=== PATIENT | female | born 1945 | race Caucasian/White ===

== ENCOUNTER → 2017-09-22 11:12 | Outpatient (CLI) | payer MEDICARE, OTHER, SELFPAY ==
--- NOTE | 2017-09-22 11:20 | XR_ITS ---
XR shoulder RT min 2V HISTORY: ITS.REASON: RT SHOULDER PAIN ORDERING PHYSICIAN: Fransisco Devries MD PATIENT AGE: 72 years COMPARISON: None FINDINGS: There are mild osteoarthritic changes of the glenohumeral joint. Subcortical cystic changes involving humeral head. There are are osteoarthritic changes of the acromioclavicular joint as well. Hypertrophic changes are present along the anterior aspect of the acromion. No subacromial stenosis. No fracture or dislocation. No lytic or blastic change. 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 Subcortical cystic change of the humeral head which may be seen with rotator cuff disease.
== END ==
PROVIDERS: PCP Family Medicine; Visit Provider Family Medicine
DX: M25.511 Pain in right shoulder (principal)
CPT/HCPCS: 73030

== ENCOUNTER → 2017-09-26 09:50 | Outpatient (CLI) | payer MEDICARE, SELFPAY ==
--- NOTE | 2017-09-26 09:54 | MM_ITS ---
MM Dig screening mamm BI w/CAD CAD Screening COMPARISON: None, patient had mammograms more than 10 years ago and they're not available for review INDICATION: There is no personal or family history of breast cancer. There is been previous breast reduction surgery bilaterally 20 years ago TECHNIQUE: Standard CC and MLO images were obtained. R2 CAD reviewed. FINDINGS: There is a markedly and diffusely heterogenic dense parenchymal pattern definitely lessening the sensitivity of mammography. There is a surgical clip near the axillary tail the right breast. There are benign-appearing calcifications in each breast. There is no obvious suspicious lesion in either breast and no suspicious microcalcifications. Because of the markedly heterogenic breast parenchyma and lack of previous films for comparison recommend the patient return for 6 month follow-up mammograms. IMPRESSION: Markedly dense parenchymal pattern with no definite suspicious lesion seen BI-RADS Category: 3 Benign Finding Short Term Follow-up RECOMMENDED FOLLOW-UP: 6M - 6 MONTH FOLLOW-UP (A letter has been sent to the patient regarding results of the study.)
== END ==
PROVIDERS: Family Provider Family Medicine; PCP Family Medicine; Visit Provider Family Medicine
DX: Z12.31 Encounter for screening mammogram for malignant neoplasm of breast (principal)
CPT/HCPCS: 77067

== ENCOUNTER → 2017-10-13 10:26 | Outpatient (POV) | payer MEDICARE, OTHER, SELFPAY | PROVIDERS: Family Provider Family Medicine; PCP Family Medicine; Visit Provider Specialist | DX: M79.601 Pain in right arm (principal) | CPT/HCPCS: 95886; 95908 ==

== ENCOUNTER → 2018-03-31 12:38 | Outpatient (CLI) | payer MEDICARE, OTHER, SELFPAY ==
--- NOTE | 2018-03-31 12:46 | MM_ITS ---
MM Dig mamm BI DX w/CAD, US breast RT complete, US breast LT complete INDICATION: Six-month follow-up, Follow-up of probably benign screening exam ORDERING PHYSICIAN: Fransisco Devries MD PATIENT AGE: 72 years COMPARISON: 09/26/2017 TECHNIQUE: Diagnostic mammogram with bilateral breast ultrasound FINDINGS: There is dense fibroglandular tissue bilaterally which decreases the sensitivity of mammography. Any palpable nodule should be managed on clinical basis. Right breast: Scattered asymmetric densities throughout the right breast. Asymmetric densities in the central and medial aspect of the right breast appear to compress out as fibroglandular tissue. No malignant appearing mass or malignant microcalcification. Right breast ultrasound: Hypoechoic area is present 10:00 at 10 x 6 mm only well seen in transverse and not well duplicated in the sagittal plane. Possibly related to complex cyst or fibroglandular tissue. There is some enhanced through transmission sound and no abnormal vascularity. An oval hypoechoic area present at 9:00 at 1 x 0.5 cm and may be related to fibroglandular tissue. Left mammogram: Dense fibroglandular tissue. Asymmetric density is present in the posterior aspect of the left breast on MLO view which does appear to compress out. There is persistent asymmetric density in the superior left breast on the MLO view probably unchanged from previous exam with no sonographic correlate smooth margins all be related to fibroglandular tissue. Left breast ultrasound: Dense fibrous tissue noted. No suspicious nodules. IMPRESSION: Probably benign findings. No convincing evidence of malignancy. Hypoechoic nodule in the 10:00 region of the right breast which may be related to fibroglandular tissue or complex cyst. 3 month sonographic follow-up recommended. BI-RADS Category: 3 Probably Benign Finding Short Term Follow-up RECOMMENDED FOLLOW-UP: 3M - 3 MONTH FOLLOWUP (A letter has been sent to the patient regarding results of the study.)
== END ==
PROVIDERS: Family Provider Family Medicine; PCP Family Medicine; Visit Provider Family Medicine
DX: R92.2 Inconclusive mammogram (principal)
CPT/HCPCS: 77066

== ENCOUNTER → 2018-04-03 12:54 | Outpatient (CLI) | payer MEDICARE, OTHER, SELFPAY | PROVIDERS: Family Provider Family Medicine; PCP Family Medicine; Visit Provider Family Medicine | DX: R92.8 Other abnormal and inconclusive findings on diagnostic imaging of breast (principal) | CPT/HCPCS: 76641 ==

== ENCOUNTER → 2018-07-06 13:07 | Outpatient (CLI) | payer MEDICARE, OTHER, SELFPAY ==
--- NOTE | 2018-07-06 13:12 | US_ITS ---
MM Dig mamm DX unilat RT CAD, US breast RT complete INDICATION: Follow-up abnormal mammogram ORDERING PHYSICIAN: Fransisco Devries MD PATIENT AGE: 72 years COMPARISON: 03/31/2018, 09/26/2017 TECHNIQUE: Standard images along with a right ML and spot compression cc view and right breast ultrasound FINDINGS: There is dense fibroglandular tissue which decreases the sensitivity of mammography. Scattered asymmetric densities are once again noted. There are benign-appearing calcifications in the subareolar region. Surgical clips are present in the deep aspect of the right breast. No malignant appearing masses or malignant appearing microcalcifications. Right breast ultrasound: Scattered echodense fibroglandular elements are noted. At 4:00 there is a 1 x 0.5 cm oval area of increased echogenicity with central decreased echogenicity which may be related to fibroglandular tissue with a small cyst. At 10:00 there is a 12 x hypoechoic area which has a similar appearance compared to the previous exam and does appear to elongate and may be related to fibroglandular tissue not significantly changed. At 11:00 there is a 8 x 6 mm hypoechoic region with some enhanced through transmission of sound and may be due to an area of fibrocystic change. IMPRESSION: Asymmetric fibroglandular tissue noted on both mammogram and ultrasound. No discrete malignant appearing mass evident. Probably benign finding. Recommend follow-up mammogram and ultrasound in September 2018. Left breast mammogram should also be performed at that time to put the patient back on schedule BI-RADS Category: 3 Probably Benign Finding Short Term Follow-up RECOMMENDED FOLLOW-UP: 3M - 3 MONTH FOLLOWUP (A letter has been sent to the patient regarding results of the study.)
== END ==
PROVIDERS: PCP Family Medicine; Visit Provider Family Medicine
DX: R92.8 Other abnormal and inconclusive findings on diagnostic imaging of breast (principal); R92.0 Mammographic microcalcification found on diagnostic imaging of breast
CPT/HCPCS: 76641; 77065

== ENCOUNTER → 2018-10-06 13:17 | Outpatient (CLI) | payer MEDICARE, OTHER, SELFPAY ==
--- NOTE | 2018-10-06 13:21 | US_ITS ---
MM Dig mamm BI DX w/CAD, US breast RT complete INDICATION: Follow-up breast nodules ORDERING PHYSICIAN: Fransisco Devries MD PATIENT AGE: 73 years COMPARISON: 09/26/2017, 07/06/2018 TECHNIQUE: Standard images are performed along with right breast ultrasound FINDINGS: Dense fibroglandular tissue is present bilaterally with areas of asymmetric density which may be related to prior breast reduction. The scattered areas of asymmetry due to have a similar appearance when compared to 09/26/2017. There is some asymmetric density in the inferior deep right breast on the MLO view which does appear stable. There is some minimal architectural distortion in the medial aspect of the right breast which had a similar appearance on the previous exam dated appear to compress out as fibroglandular tissue. No malignant appearing mass or malignant appearing microcalcification is evident. There is some increased asymmetric tissue noted in the right breast inferiorly on the MLO view and the medial aspect of the right breast on the exiting cc view as well as inferior aspect of the right breast on the MLO view. The left breast stable appearance. Right breast ultrasound: Hypoechoic area at 12:00 probably related to some scarring having a similar appearance on 07/06/2018. Other areas of asymmetric echogenicity is again noted. At 4:00 there is a 1 cm nodule with central decreased echogenicity and peripheral increased echogenicity. This is nonspecific could be due to an area of scarring as well. There is a 2 x 0.9 cm area of decreased echogenicity near the nipple at 8:00 and appears to elongate and is not adequately redemonstrated on direct visualization. There is scattered echodense areas probably related to asymmetric fibroglandular tissue and scarring. IMPRESSION: Probably benign findings. Scattered areas of asymmetry with dense fibroglandular tissue and asymmetric areas of echogenicity once again noted. Probably related to dense fibroglandular tissue and scarring. No convincing evidence of malignancy BI-RADS Category: 3 Probably Benign Finding Short Term Follow-up RECOMMENDED FOLLOW-UP: 6M - 6 MONTH FOLLOW-UP Recommend right 6 month mammographic and sonographic. (A letter has been sent to the patient regarding results of the study.)
== END ==
PROVIDERS: PCP Family Medicine; Visit Provider Family Medicine
DX: R92.8 Other abnormal and inconclusive findings on diagnostic imaging of breast (principal)
CPT/HCPCS: 76641; 77066

== ENCOUNTER → 2020-02-21 08:27 | Outpatient (CLI) | payer MEDICARE, OTHER, SELFPAY ==
--- NOTE | 2020-02-21 08:34 | MM_ITS ---
PROCEDURE: MM DIG MAMM BI DX W/CAD Digital Breast Tomosynthesis Included CLINICAL INDICATION: SCREENING Follow-up abnormal mammogram COMPARISON: DXBI MM Dig mamm BI DX w/CAD from 03/31/2018 BREASTLT US breast LT complete from 04/03/2018 BREASTRT US breast RT complete from 04/03/2018 DXRT MM Dig mamm DX unilat RT CAD from 07/06/2018 BREASTRT US breast RT complete from 07/06/2018 DXBI MM Dig mamm BI DX w/CAD from 10/06/2018 BREASTRT US breast RT complete from 10/06/2018 US BREAST RT COMPLETE from 02/21/2020 US BREAST LT COMPLETE from 02/21/2020 TECHNIQUE: Standard CC and MLO images and 3D Tomosynthesis was obtained. R2 CAD reviewed. Bilateral breast ultrasound with axilla FINDINGS: Dense fibroglandular tissue which decreases sensitivity of mammography. Scattered areas of asymmetry similar to multiple previous exams. No malignant appearing mass or malignant-appearing microcalcification. Scattered benign. Areas of calcification are noted. Right breast ultrasound: 12 mm area of heterogeneous echogenicity in the 12 o'clock region of the right breast with decreased echogenicity centrally and increased echogenicity peripherally not significantly changed. Hyperechoic area at 4 o'clock unchanged. Left breast ultrasound: Heterogeneous echogenicity. No discrete nodule. IMPRESSION: BI-RAD Category: 2 Benign Finding(s) FOLLOW-UP: 1YR 1 Year Follow-up (A letter has been sent to the patient regarding results of the study.) Dictated by: Miguel Whyte MD 02/25/2020 18:25 Electronically signed by Miguel Whyte MD in [place] 02/25/2020 18:25
== END ==
PROVIDERS: PCP Family Medicine; Visit Provider Family Medicine
DX: R92.8 Other abnormal and inconclusive findings on diagnostic imaging of breast (principal)
CPT/HCPCS: 76641; 77062; 77066; G0279

== ENCOUNTER → 2021-06-22 12:27 | Outpatient (CLI) | payer MEDICARE, SELFPAY ==
--- NOTE | 2021-06-22 12:32 | US_ITS ---
PROCEDURE INFORMATION: Exam: US Left Breast, Complete US Right Breast, Complete MG Bilateral Screening 3D Mammography Exam date and time: 06/22/2021 12:32 PM Age: 75 years old Clinical indication: Screening exam and abnormal findings; No personal or family HX of malignancy; Abnormal findings on imaging; Left and right; Not specified; Prior surgery; Surgery date: 6+ months; Patient HX: ; F/u abnormal mamm nodes noted at axila; F/u nodule 12 & 4. Nodes at axilla; Additional info: Abn mamm TECHNIQUE: Imaging protocol: Complete ultrasound of all four quadrants of the Left breast and the retroareolar regions, including ultrasound of the axilla when performed. Complete ultrasound of all four quadrants of the Right breast and the retroareolar regions, including ultrasound of the axilla when performed. Bilateral screening tomosynthesis and 2D mammography including computer-aided detection (CAD) when performed. COMPARISON: 1. MG MM DIG MAMM BI DX W/CAD 02/21/2020 9:00 AM 2. MG DXBI MM Dig mamm BI DX w/CAD 10/06/2018 2:07 PM 3. MG DXRT MM Dig mamm DX unilat RT CAD 07/06/2018 2:30 PM FINDINGS: MAMMOGRAPHY: Breast composition: The breasts are heterogeneously dense, which may obscure small masses. Mass: No suspicious masses. Architectural distortion: No suspicious distortion. Post reduction changes noted bilaterally Calcifications: No suspicious calcifications. Asymmetric density: None. Skin thickening: None. Axillary adenopathy: None. ULTRASOUND: Right solid masses: None. Stable ill-defined hypoechoic area in 12 o'clock position measuring 1.0 x 1.2 x 0.5 cm since 2018. This may represent fibrocystic change. Right cystic masses: None. Right architectural distortion: None. Right acoustical shadowing: None. Right skin thickening: None. Right axillary adenopathy: None. Left solid masses: None. Left cystic masses: None. Left architectural distortion: None. Left acoustical shadowing: None. Left skin thickening: None. Left axillary adenopathy: None. IMPRESSION: No mammographic or sonographic evidence of malignancy. Annual screening is recommended unless otherwise clinically indicated. ASSESSMENT: BI-RADS Category 2: Benign
== END ==
PROVIDERS: PCP Family Medicine; Visit Provider Family Medicine
DX: R92.8 Other abnormal and inconclusive findings on diagnostic imaging of breast (principal); Z12.31 Encounter for screening mammogram for malignant neoplasm of breast
CPT/HCPCS: 76641; 77063; 77067

== ENCOUNTER → 2022-06-28 15:01 | Outpatient (CLI) | payer MEDICARE, SELFPAY ==
--- NOTE | 2022-06-28 15:05 | MM_ITS ---
PROCEDURE INFORMATION: Exam: MG Bilateral Screening 3D Mammography Exam date and time: 06/28/2022 3:07 PM Age: 76 years old Clinical indication: Screening examination. No family history of breast cancer. TECHNIQUE: Imaging protocol: Bilateral Screening tomosynthesis and 2D mammography including computer-aided detection (CAD) when performed. COMPARISON: 1. MG MM DIG SCREENING MAMM BI W/CAD 06/22/2021 12:57 PM 2. MG MM DIG MAMM BI DX W/CAD 02/21/2020 9:00 AM 3. MG DXBI MM Dig mamm BI DX w/CAD 10/06/2018 2:07 PM 4. MG DXRT MM Dig mamm DX unilat RT CAD 07/06/2018 2:30 PM FINDINGS: MAMMOGRAPHY: Breast composition: The breasts are heterogeneously dense, which may obscure small masses. Mass: None. Architectural distortion: Bilateral diffuse architectural distortion with history of reduction mammoplasty. Calcifications: No suspicious calcifications. Asymmetric density: None. Skin thickening: None. Axillary adenopathy: None. Other: Partly visualized right clips, more likely surgical. IMPRESSION: No mammographic evidence of malignancy. Annual screening is recommended unless otherwise clinically indicated. ASSESSMENT: BI-RADS Category 2: Benign
== END ==
PROVIDERS: PCP Family Medicine; Visit Provider Family Medicine
DX: Z12.31 Encounter for screening mammogram for malignant neoplasm of breast (principal)
CPT/HCPCS: 77063; 77067

== ENCOUNTER → 2022-11-19 10:40 | Outpatient (POV) | payer MEDICARE, SELFPAY | PROVIDERS: Visit Provider Dermatology | DX: Z00.00 Encounter for general adult medical examination without abnormal findings (principal) ==

== ENCOUNTER → 2023-07-10 12:34 | Outpatient (CLI) | payer MEDICARE, SELFPAY ==
--- NOTE | 2023-07-10 12:40 | MM_ITS ---
PROCEDURE INFORMATION: Exam: MG Bilateral Screening 3D Mammography Exam date and time: 07/10/2023 12:53 PM Age: 77 years old Clinical indication: Screening examination TECHNIQUE: Imaging protocol: Bilateral Screening tomosynthesis and 2D mammography including computer-aided detection (CAD) when performed. COMPARISON: 1. MG MM DIG SCREENING MAMM BI W/CAD 06/28/2022 3:07 PM 2. MG MM DIG SCREENING MAMM BI W/CAD 06/22/2021 12:57 PM FINDINGS: MAMMOGRAPHY: Breast composition: The breasts are extremely dense, which lowers the sensitivity of mammography. Mass: None. Architectural distortion: None. Calcifications: No suspicious calcifications. Asymmetric density: None. Skin thickening: None. Axillary adenopathy: None. IMPRESSION: No mammographic evidence of malignancy. Annual screening is recommended unless otherwise clinically indicated. ASSESSMENT: BI-RADS Category 1: Negative
== END ==
PROVIDERS: PCP Family Medicine; Visit Provider Family Medicine
DX: Z12.31 Encounter for screening mammogram for malignant neoplasm of breast (principal)
CPT/HCPCS: 77063; 77067

== ENCOUNTER 2024-02-16 15:48 | Outpatient (CLI) | payer MEDICARE, SELFPAY ==
--- OUTSIDE RECORDS SUMMARY | 2024-02-16 15:53 | XMS_ITS ---
Care Plan - [facility] Created on: February 16, 2024 KATHLEEN CORTES : 1945 Sex: Female Author Name Unknown Address [address] [place] [address] Phone Organization [facility] Address [address] [place] [address] Phone Care Team Providers Care Shroudman Name Role Phone Murtaza CLARK, Tom Schroeder Unavailable [phone] JUANITO JOHNSON Primary Care Provider [phone]
--- OUTSIDE RECORDS SUMMARY | 2024-02-16 15:53 | XMS_ITS ---
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 Name Role Phone Murtaza CLARK, Tom Schroeder Unavailable [phone] JUANITO JOHNSON Primary Care Provider [phone] Problems Includes: Active, inactive, and resolved Problems All Visits Onset Date Resolved Date Provider Condition S tatus Joint Pain, Localized in the Left Shoulder 09/12/2023 Marie Sanchez PA-C Active Last Documented On 4 11:20AM ; [facility], [facility] LOC PRIM OSTEOART-PELVIS 08/05/2012 Asher guzmán MD Active Last Documented On 2 1:10PM ; [facility], [facility] Plan of Treatment Findings Encounter Date Patient screened for future fall risk: documentation of any fall with injury in past year Follow Up with Marie CHOW-Cornell 12/25/2023 Last Documented On 4 8:54AM ; [facility], [facility] Future Appointments Date Time Location Provi xander Follow Up 03/26/2024 10:30AM [facility] B Marie CHOW-Cornell Last Documented On 4 10:32AM ; [facility], [facility] Assessments Includes: Assessments for all patient encounters No Assessments Recorded Medical Equipment - Implanted Devices Includes: Current and historical Devices No Medical Equipment Recorded Medications Includes: Current and historical Medications Current Medications (continue as prescribed) Lisinopril 20 MG Oral Tablet 09/01/2023 Provider: JUANITO JOHNSON Diagnosis: Last Documented On 4 11:20AM By Shelley Hussein ; [facility], [facility] metFORMIN HCl ER 500 MG Oral Tablet Extended Release 24 Hour 08/19/2023 Provider: JUANITOLLOYD SORENSONALICIA Diagnosis: Last Documented On 4 11:20AM By Shelley Hussein ; [facility], [facility] Rosuvastatin Calcium 20 MG Oral Tablet 07/04/2023 Pr ovider: JUANITO SORENSONALICIA Diagnosis: Last Documented On 4 11:20AM By Shelley Hussein ; [facility], [facility] DULoxetine HCl 30 MG Oral Ca psule Delayed Release Particles 06/19/2023 Provider: JUANITO JOHNSON Diagnosis: Last Documented On 4 11:20AM By Shelley Hussein ; [facility], [facility] Aspirin 81 MG OR CHEW 08/05/2012 Provider: Diagnosis: Last Documented On 2 1:15PM By Tran 4 User ; [facility], [facility] amLODIPine Besy-Benazepril HCl 5-10 MG OR CAPS 012 Provider: Diagnosis: Last Documented On 2 1:15PM By Tran 4 User ; [facility], [facility] Benicar 20 MG OR TABS 08/05/2012 Provider: Diagnosis: Last Documented On 2 1:15PM By Tran 4 User ; [facility], [facility] Past Medications on file Lortab 10-500 MG OR TABS 11/15/2008 - 11/27/2008 Provi xander: Asher Leal MD Diagnosis: kadi [id number] jrk Last Documented On 9 9:08AM By Catracho Lawson ; [facility], [facility] Lortab 10-500 MG OR TABS 08/22/2008 - 09/03/2008 Provi xander: Asher Leal MD Diagnosis: Last Documented On 9 10:56AM By Tran 5 User ; [facility], [facility] Lortab 5-500 MG OR TABS 07/25/2008 - 08/07/2008 Provid er: Asher Leal MD Diagnosis: Last Documented On 8 11:53AM By Tran 5 User ; [facility] Lortab 10-500 MG OR TABS 04/14/2008 - 04/24/2008 Provi xander: Asher Leal MD Diagnosis: called to [facility] [phone] jrk Last Documented On 8 10:12AM By Catracho Lawson ; [facility] Lortab 10-500 MG OR TABS 01/28/2008 - 02/07/2008 Provi xander: Asher Leal MD Diagnosis: [facility] [id number] Last Documented On 8 3:02PM By Elo Coyne ; [facility] Medications Administered Includes: Administered Medications in patient's chart No Administered Medications Recorded Vital Signs Includes: Vital Signs from 02/15/2023 through 02/16/2024 Vital Name 12/25/2023 10:10A 09/12/2023 11: 21A Height (in) 68 68 Weight (lb) 160 160 Body Mass Index 24.3 24.3 Body Surface Area 1.9 1.9 Note: hdv hdv Last Documented: On 12/25/2023 10:11A M ; [facility] On 09/12/2023 11:45AM ; [facility] Results Includes: Results from 02/15/2023 through 02/16/2024 No Results Recorded For Specified Dates History of Present Illness History of Present Illness not supported for this document type No History of Present Illness Recorded Social History Description Last Updated Alcohol use 09/12/2023 Last Documented On 4 9:18AM ; [facility] Caffeine use 09/12/2023 Last Documented On 4 9:18AM ; [facility] No recent change in diet 09/12/2023 Last Documented On 4 9:18AM ; [facility] Not a current smoker. 09/12/2023 Last Documented On 4 9:18AM ; [facility] Not exercising regularly 09/12/2023 Last Documented On 4 9:18AM ; [facility] Not using drugs 09/12/2023 Last Documented On 4 9:18AM ; [facility] Tobacco non-user 09/12/2023 Last Documented On 4 9:18AM ; [facility] Smoking Status Unknown Procedures and Surgical History Includes: Procedures from 02/15/2023 through 02/16/2024 Procedures Code Diagnosis Performing Provider Service Location Service Date Triamcinolone/Bharath alog, 10mg per cc J3301 Complete rotatr-cuff tear/ruptr of left shoulder, not trauma Cheslee Ryan Bloyd PA-C [facility] 12/25/2023 Last Documented On 4 4:32PM ; [facility], [facility] DRAIN/INJECT, JOINT/BURSA (LEFT) 28574 Complete rotatr-cuff tear/ruptr of left shoulder, not trauma Cheslee Ryan Bloyd PA-C [facility] 12/25/2023 Last Documented On 4 4:32PM ; [facility] X-RAY EXAM OF SHOULDER 2-3 VIEWS (LEFT) 78743 Pain in left shoulder Cheslee Ryan Bloyd PA-C [facility] 09/12/2023 Last Documented On 4 4:38PM ; [facility] Triamcinolone/Kenalog, 10mg per cc J3301 Pain in left shoulder Cheslee Ryan Bloyd PA-C [facility] 09/12/2023 Last Documented On 4 4:38PM ; [facility] DRAIN/INJECT, JOINT/BURSA (LEFT) 01105 Pain in left shoulder Cheslee Ryan Bloyd PA-C [facility] 09/12/2023 Last Documented On 4 4:38PM ; [facility] Surgical History Last Updated History of appendectomy 09/12/2023 Last Documented On 4 9:18AM ; [facility] History of back surgery 09/12/2023 Last Documented On 4 9:18AM ; [facility], [facility] History of total hip replacement 024 Last Documented On 4 9:18AM ; [facility] History of total knee arthroplasty 09/12 Last Documented On 4 9:18AM ; [facility], [facility] Medical History Includes: Medical History in patient's chart Description Last Updated History of arthritis 09/12/2023 Last Documented On 4 9:18AM ; [facility], [facility] History of diabetes mellitus 09/12/2023 Last Documented On 4 9:18AM ; [facility], [facility] History of Hypertension 09/12/2023 Last Documented On 4 9:18AM ; [facility], [facility] Family History Includes: Family History in patient's chart Description Last Updated Diabetes mellitus 09/12/2023 Last Documented On 4 9:18AM ; [facility], [facility] Family history of cancer 09/12/2023 Last Documented On 4 9:18AM ; [facility], [facility] Family history of heart disease 09/12/19 24 Last Documented On 4 9:18AM ; [facility], [facility] Review of Systems Review of Systems not supported for this document type No Review of Systems Recorded Mental Status Description No anxiety Functional Status No Functional Status Recorded Physical Exam Physical Exam not supported for this document type No Physical Exam Recorded Allergies Includes: Active, inactive, and resolved Allergies No Known Allergies Encounters Includes: Encounters from 02/15/2023 through 02/16/2024 Encounter Provider Location Date Check-In Time Check-Out Time Diagnosis Follow Up Marie Sanchez PA-C [facility] 12/25/19 24 9:50AM 10:26AM Physician Specified Marie Sanchez PA-C [facility] 09/12/19 24 11:01AM 11:25AM Insurance Includes: Active Insurance Policies Plan Name Member ID Group # Subscriber Relationship Effect chelo Dates 1 - Medicare Part B [facility] [id number] KATHLEEN Boswell 2 - [facility] [employer] [id number] KATHLEEN Boswell Clinical Notes Includes: Signed Clinical Notes starting from 07/25/2022 * Progress note Date Encounter Last Documented by 12/25/2023 Follow Up Last documented on 01/12/2024; 8:54 AM, Marie Sanchez PA-C; [facility], [facility] Active Problems & Conditions - Joint Pain, Localized in the Left Shoulder - LOC PRIM OSTEOART-PELVIS Chief Complaint The Chief Complaint is: Left shoulder pain. Referred Here Referred by. History of Present Illness KATHLEEN CORTES is a 78 year old female. - Symptoms Grinding. - Allergy list reviewed - Problem list reviewed - Medication list reviewed - Pain is constant (100% of the time) - Pain is throbbing - - Review of medications documented Current Medication - amLODIPine Besy-Benazepril HCl 5-10 MG Capsule 0 days, 0 refills - Aspirin 81 MG Tablet Chewable 0 days, 0 refills - Benicar 20 MG Tablet 0 days, 0 refills - DULoxetine HCl 30 MG Oral Capsule Delayed Release Particles 90 days, 0 refills - Lisinopril 20 MG Oral Tablet 30 days, 0 refills - metFORMIN HCl ER 500 MG Oral Tablet Extended Release 24 Hour 30 days, 0 refills - Rosuvastatin Calcium 20 MG Oral Tablet 90 days, 0 refills Past Medical/Surgical History Diagnoses: Hypertension. Diabetes mellitus. Arthritis Surgical: - Appendectomy - Back surgery - Total hip replacement - Total knee arthroplasty Social History Not a current smoker. Current diet: No recent change in diet. Caffeine use: Caffeine use. Tobacco use: Tobacco non-user. Alcohol: Alcohol use. Drug Use: Not using drugs. Habits: Not exercising regularly. Allergies - No Known Allergies Family History Cancer Heart disease Diabetes mellitus Review Of Systems Systemic: Not feeling tired, no recent weight loss, and no recent weight gain. Head: No headache and no sinus pain. Eyes: No vision problems. Cataracts. No Glasses/Contacts and no Glaucoma. Otolaryngeal: No hearing loss and no tinnitus. Cardiovascular: No chest pain or discomfort, no palpitations, and no Hypertension. High Cholesterol. Pulmonary: No daytime asthma symptoms and no chronic cough. No wheezing. Gastrointestinal: No heartburn and no abdominal pain. No Indigestion, no Peptic Ulcer, no GI Stomach Bleed, no Ulcers, and no Acid Reflux. Endocrine: No hot flashes and no muscle weakness. Diabetes. No Hypothyroid and no Hyperthyroid. Hematologic: No easy bleeding, no tendency for easy bruising, and no Anemia. Musculoskeletal: Arthritis and lower back pain. No soft tissue swelling. Pain localized to one or more joints. Neurological: No dizziness, no convulsions, and no numbness. Psychological: No anxiety, no emotional lability, no depression, and no insomnia. Not crying for no reason. Skin: No dry skin. No Ulcers, no Scars, and no rash. Allergic and Immunologic: No complaint of seasonal allergic reaction. Physical Findings - Vitals taken 12/25/2023 10:10 am hdv Height 68 in Weight 160 lbs Body Mass Index 24.3 kg/m2 Body Surface Area 1.9 m2 Patient is awake and alert and oriented well-groomed and nourished no acute distress. Normal gait and station. There are no skin changes. No sign of infection No swelling or soft tissue edema. The patient has normal neurovascular status. Brisk cap refill throughout. Normal sensation to light touch. There are no joint effusions, muscle or bone deformity. Assessment Chronic left cuff tear Counseling/Education - Tobacco non-user - Use of tobacco assessment performed Plan - Patient screened for future fall risk: documentation of any fall with injury in past year Fall Risk Assessment: This patient has been identified as a fall risk. Balance/gait along with postural blood pressure, vision and home fall hazards have been assessed. Medications have been reviewed, and recommendations made with regard to contributing factors for future falls. Plan of care: Consideration of vitamin D supplementation along with balance and strength training with consideration for formal physical therapy has been discussed with the patient. We will inject the shoulder. At 78 she does not want an option for surgical intervention at this point. We will continue to monitor this. We will see her back as scheduled The risks of the procedure were explained and verbally acknowledge by the patient. A verbal consent was obtained. Alternate treatments have also been reviewed. Skin was prepped with alcohol. 40 mg of kenalog with 2 cc of lidocaine and 2cc of plain Marcaine were injected into the subacromial bursa. This was placed just under the posterior lateral corner of the acromion. The needle was then gently withdrawn and a Band-Aid was applied. Notes This dictation was done with voice recognition software and may contain errors and omissions. Practice Management Use of tobacco assessment performed and patient screened for future fall risk documentation of any fall with injury in past year Review of medications documented. * Progress note Date Encounter Last Documented by 09/12/2023 Physician Specified Last marsha rey on 09/15/2023; 9:18 AM, Marie Sanchez PA-C; [facility], [facility] Active Problems & Conditions - Joint Pain, Localized in the Left Shoulder - LOC PRIM OSTEOART-PELVIS Chief Complaint The Chief Complaint is: Left shoulder pain. Referred Here Referred by. History of Present Illness KATHLEEN CORTES is a 78 year old female. - Symptoms Grinding. - Allergy list reviewed - Problem list reviewed - Medication list reviewed - Pain is constant (100% of the time) - Pain is throbbing Patient is seen today for evaluation of the shoulder. She has pain and weakness she has trouble lifting the arm. Current Medication - amLODIPine Besy-Benazepril HCl 5-10 MG Capsule 0 days, 0 refills - Aspirin 81 MG Tablet Chewable 0 days, 0 refills - Benicar 20 MG Tablet 0 days, 0 refills - DULoxetine HCl 30 MG Oral Capsule Delayed Release Particles 90 days, 0 refills - Lisinopril 20 MG Oral Tablet 30 days, 0 refills - metFORMIN HCl ER 500 MG Oral Tablet Extended Release 24 Hour 30 days, 0 refills - Rosuvastatin Calcium 20 MG Oral Tablet 90 days, 0 refills Past Medical/Surgical History Diagnoses: Hypertension. Diabetes mellitus. Arthritis Surgical: - Appendectomy - Back surgery - Total hip replacement - Total knee arthroplasty Social History Not a current smoker. Current diet: No recent change in diet. Caffeine use: Caffeine use. Tobacco use: Tobacco non-user. Alcohol: Alcohol use. Drug Use: Not using drugs. Habits: Not exercising regularly. Allergies - No Known Allergies Family History Cancer Heart disease Diabetes mellitus Review Of Systems Systemic: Not feeling tired, no recent weight loss, and no recent weight gain. Head: No headache and no sinus pain. Eyes: No vision problems. Cataracts. No Glasses/Contacts and no Glaucoma. Otolaryngeal: No hearing loss and no tinnitus. Cardiovascular: No chest pain or discomfort, no palpitations, and no Hypertension. High Cholesterol. Pulmonary: No daytime asthma symptoms and no chronic cough. No wheezing. Gastrointestinal: No heartburn and no abdominal pain. No Indigestion, no Acid Reflux, no Peptic Ulcer, no GI Stomach Bleed, and no Ulcers. Endocrine: No hot flashes and no muscle weakness. Diabetes. No Hypothyroid and no Hyperthyroid. Hematologic: No easy bleeding, no tendency for easy bruising, and no Anemia. Musculoskeletal: Arthritis and lower back pain. No soft tissue swelling. Pain localized to one or more joints. Neurological: No dizziness, no convulsions, and no numbness. Psychological: No anxiety, no emotional lability, no depression, and no insomnia. Not crying for no reason. Skin: No dry skin. No Ulcers, no Scars, and no rash. Allergic and Immunologic: No complaint of seasonal allergic reaction. Physical Findings - Vitals taken 09/12/2023 11:21 am hdv Height 68 in Weight 160 lbs Body Mass Index 24.3 kg/m2 Body Surface Area 1.9 m2 General Exam: The patient is awake and alert. No acute distress. Normal mood and affect for age. Well groomed and nourished Neuro: Sensation was intact to light touch over the extremity. Vascular: +2 radial pulses. No edema. Derm: No signs of active infection. No acute skin changes. Musculoskeletal: Normal gait and station. No muscle atrophy. No joint effusion. No muscle or bony deformity. Patient has pain with active forward flexion. Full passive motion. There is pain and weakness with supraspinatus testing. Positive empty and full can testing. She also has positive abdominal compression testing Tests Radiographs three-view of the shoulder today show no sign of fracture or joint dislocation Assessment Left cuff tear Plan Fall Risk Assessment: This patient has been identified as a fall risk. Balance/gait along with postural blood pressure, vision and home fall hazards have been assessed. Medications have been reviewed, and recommendations made with regard to contributing factors for future falls. Plan of care: Consideration of vitamin D supplementation along with balance and strength training with consideration for formal physical therapy has been discussed with the patient. We discussed alternative options and imaging which would include an MRI. Think it is 78 we will try an injection in therapy for deltoid education. We will see her back as scheduled no further questions injection was given today The risks of the procedure were explained and verbally acknowledge by the patient. A verbal consent was obtained. Alternate treatments have also been reviewed. Skin was prepped with alcohol. 40 mg of kenalog with 2 cc of lidocaine and 2cc of plain Marcaine were injected into the subacromial bursa. This was placed just under the posterior lateral corner of the acromion. The needle was then gently withdrawn and a Band-Aid was applied. Notes This dictation was done with voice recognition software and may contain errors and omissions. Practice Management Use of tobacco assessment performed and patient screened for future fall risk documentation of any fall with injury in past year Review of medications documented; Body mass index not documented system reason.
--- OUTSIDE RECORDS SUMMARY | 2024-02-16 15:53 | XMS_ITS | Clinical Summary ---
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 Role Phone Murtaza CLARK, Tom Schroeder Unavailable [phone] JUANITO JOHNSON Primary Care Provider [phone] Reason for Visit and Chief Complaint Follow Up Problems Includes: Problems addressed during this encounter and other active Problems All Visits Onset Date Resolved Date Provider Condition S tatus Joint Pain, Localized in the Left Shoulder 09/12/2023 Marie Sanchez PA-C Active Last Documented On 4 11:20AM ; [facility] LOC PRIM OSTEOART-PELVIS 08/05/2012 Asher guzmán MD Active Last Documented On 2 1:10PM ; [facility] Plan of Treatment Future Appointments Date Time Location Provi xander Follow Up 03/26/2024 10:30AM [facility] paedics [facility] B Marie Sanchez PA-C Last Documented On 4 10:32AM ; [facility] Assessments Includes: Assessments from this encounter No Assessments Recorded Medical Equipment - Implanted Devices Includes: Current Devices No Medical Equipment Recorded Medications Includes: Medications discussed during this encounter and other current Medications Current Medications (continue as prescribed) Lisinopril 20 MG Oral Tablet 09/01/2023 Provider: JUANITO JOHNSON Diagnosis: Last Documented On 4 11:20AM By Shelley Hussein ; [facility], [facility] metFORMIN HCl ER 500 MG Oral Tablet Extended Release 24 Hour 08/19/2023 Provider: JUANITO JOHNSON Diagnosis: Last Documented On 4 11:20AM By Shelley Hussein ; [facility], [facility] Rosuvastatin Calcium 20 MG Oral Tablet 07/04/2023 Pr ovider: JUANITOLLOYD SORENSONALICIA Diagnosis: Last Documented On 4 11:20AM By Shelley Hussein ; [facility], [facility] DULoxetine HCl 30 MG Oral Ca psule Delayed Release Particles 06/19/2023 Provider: JUANITO JOHNSON Diagnosis: Last Documented On 4 11:20AM By Shelley Hussein ; [facility], [facility] Aspirin 81 MG OR CHEW 08/05/2012 Provider: Diagnosis: Last Documented On 2 1:15PM By Tran 4 User ; [facility], [facility] amLODIPine Besy-Benazepril HCl 5-10 MG OR CAPS 012 Provider: Diagnosis: Last Documented On 2 1:15PM By Tran 4 User ; [facility], [facility] Benicar 20 MG OR TABS 08/05/2012 Provider: Diagnosis: Last Documented On 2 1:15PM By Tran 4 User ; [facility], [facility] Medications Administered Includes: Administered Medications from this encounter No Administered Medications Recorded Vital Signs Includes: Vital Signs from this encounter Vital Name 07/18/2010 02:00P Respiration Rate (breaths/min) 12 Height (in) 68 Weight (lb) 204 Body Mass Index (kg/m2) 31.0 Body Surface Area (m2) 2.1 Note: vonunrug Last Documented: On 07/18/2010 1:54PM ; [facility], [facility] Results Includes: Results discussed during this encounter No Results Recorded For Specified Dates History of Present Illness Includes: History of Present Illness from this encounter No History of Present Illness Recorded Social History No Social History Recorded - Smoking Status Unknown Medical History Includes: Medical History addressed during this encounter No Medical History Recorded Family History Includes: Family History addressed during this encounter No Family History Recorded Review of Systems Includes: Review of Systems from this encounter No Review of Systems Recorded Mental Status Includes: Mental Status from this encounter No Mental Status Recorded Functional Status Includes: Functional Status from this encounter No Functional Status Recorded Physical Exam Includes: Physical Exam from this encounter No Physical Exam Recorded Allergies Includes: Active Allergies No Known Allergies Encounters Encounter Provider Location Date Check-In Time Check-Out Time Diagnosis Follow Up Asher Leal MD [facility] 0 1:33PM 11:59PM Insurance Includes: Active Insurance Policies Plan Name Member ID Group # Subscriber Relationship Effect chelo Dates 1 - Medicare Part [facility] [id number] KATHLEEN Boswell 2 - [facility] CLAIMS DIVISION [id number] KATHLEEN Boswell Clinical Notes Includes: Clinical Notes from this encounter No Clinical Notes Recorded
--- OUTSIDE RECORDS SUMMARY | 2024-02-16 15:53 | XMS_ITS | Clinical Summary ---
Author Name Unknown Address [address] [place] [address] Phone Organization [facility] , [facility] Address [address] [place] [address] Phone Care Team Providers Care Code Enforcement Inspector Name Role Phone Murtaza CLARK, Tom Schroeder Unavailable Unavail able JUANITO JOHNSON Primary Care Provider [phone] Reason for Visit and Chief Complaint The Chief Complaint is: Left shoulder pain Problems Includes: Problems addressed during this encounter and other active Problems Current Visit Onset Date Resolved Date Provider Conditio n Status Joint Pain, Localized in the Left Shoulder 09/12/2023 Marie Sanchez PA-C Active Last Documented On 4 11:20AM ; [facility] Past Visits Onset Date Resolved Date Provider Condition Status LOC PRIM OSTEOART-PELVIS 08/05/2012 Asher Leal MD Active Last Documented On 2 1:10PM ; [facility] Plan of Treatment Fall Risk Assessment: This patient has been [...] therapy has been discussed with the patient. - Last Documented On 09/15/2023 9:18AM ; [facility] We discussed alternative options and imaging which [...] gently withdrawn and a Band-Aid was applied. - Last Documented On 09/15/2023 9:18AM ; [facility], [facility] Future Appointments Date Time Location Provi xander Follow Up 03/26/2024 10:30AM [facility] paedics [facility] B Marie Sanchez PA-C Last Documented On 4 10:32AM ; [facility], [facility] Assessments Includes: Assessments from this encounter Findings Left cuff tear - Last Documented On 09/15/2023 9:18AM ; [facility], [facility] Medical Equipment - Implanted Devices Includes: Current Devices No Medical Equipment Recorded Medications Includes: Medications discussed during this encounter and other current Medications Current Medications (continue as prescribed) Lisinopril 20 MG Oral Tablet 09/01/2023 Provider: JUANITO JOHNSON Diagnosis: Last Documented On 4 11:20AM By Shelley Hussein ; [facility] metFORMIN HCl ER 500 MG Oral Tablet Extended Release 24 Hour 08/19/2023 Provider: JUANITO JOHNSON Diagnosis: Last Documented On 4 11:20AM By Shelley Hussein ; [facility] Rosuvastatin Calcium 20 MG Oral Tablet 07/04/2023 Pr ovider: JUANITO JOHNSON Diagnosis: Last Documented On 4 11:20AM By Shelley Hussein ; [facility] DULoxetine HCl 30 MG Oral Ca psule Delayed Release Particles 06/19/2023 Provider: JUANITO JOHNSON Diagnosis: Last Documented On 4 11:20AM By Shelley Hussein ; [facility] Aspirin 81 MG OR CHEW 08/05/2012 Provider: Diagnosis: Last Documented On 2 1:15PM By Marc Blanca User ; [facility] amLODIPine Besy-Benazepril HCl 5-10 MG OR CAPS 012 Provider: Diagnosis: Last Documented On 2 1:15PM By Tran 4 User ; [facility] Benicar 20 MG OR TABS 08/05/2012 Provider: Diagnosis: Last Documented On 2 1:15PM By Marc 4 User ; [facility] Past Medications on file Lortab 10-500 MG OR TABS 11/15/2008 - 11/27/2008 Provi xander: Asher Leal MD Diagnosis: longkeely [id number] k Last Documented On 9 9:08AM By Catracho Lawson ; [facility] Lortab 10-500 MG OR TABS 08/22/2008 - 09/03/2008 Provi xander: Asher Leal MD Diagnosis: Last Documented On 9 10:56AM By Marc 5 User ; [facility] Lortab 5-500 MG OR TABS 07/25/2008 - 08/07/2008 Provid er: Asher Leal MD Diagnosis: Last Documented On 8 11:53AM By Marc 5 User ; [facility] Lortab 10-500 MG OR TABS 04/14/2008 - 04/24/2008 Provi xander: Asher Leal MD Diagnosis: called to longkeely [id number] jrk Last Documented On 8 10:12AM By Catracho Lawson ; [facility] Lortab 10-500 MG OR TABS 01/28/2008 - 02/07/2008 Provi xander: Asher Leal MD Diagnosis: [facility] [id number]/cv Last Documented On 8 3:02PM By Elo Coyne ; [facility], [facility] Medications Administered Includes: Administered Medications from this encounter No Administered Medications Recorded Vital Signs Includes: Vital Signs from this encounter Vital Name 09/12/2023 11:21A Height (in) 68 Weight (lb) 160 Body Mass Index 24.3 Body Surface Area 1.9 Note: hdv Last Documented: On 09/12/2023 11:45A M ; [facility] Results Includes: Results discussed during this encounter No Results Recorded For Specified Dates History of Present Illness Includes: History of Present Illness from this encounter BHAKTI CORTES is a 78 year old female. - Symptoms Grinding. - Allergy list reviewed - Problem list reviewed - Medication list reviewed - Pain is constant (100% of the time) - Pain is throbbing Patient is seen today for evaluation of the shoulder. She has pain and weakness she has trouble lifting the arm. Social History Description Last Updated Alcohol use 09/12/2023 Last Documented On 4 9:18AM ; [facility], [facility] Caffeine use 09/12/2023 Last Documented On 4 9:18AM ; [facility], [facility] No recent change in diet 09/12/2023 Last Documented On 4 9:18AM ; [facility] Not a current smoker. 09/12/2023 Last Documented On 4 9:18AM ; [facility], [facility] Not exercising regularly 09/12/2023 Last Documented On 4 9:18AM ; [facility] Not using drugs 09/12/2023 Last Documented On 4 9:18AM ; [facility] Tobacco non-user 09/12/2023 Last Documented On 4 9:18AM ; [facility] Smoking Status Unknown Procedures and Surgical History Includes: Procedures from this encounter Procedures Code Diagnosis Performing Provider Service Location Service Date DRAIN/INJECT, JOINT/BURSA (LEFT) Pain in left shoulder Cheslee Ryan Bloyd PA-C [facility] B 09/12/2023 Last Documented On 4 4:38PM ; [facility], [facility] Triamcinolone/Kenalog, 10mg per cc J3301 Pain in left shoulder Cheslee Ryan Bloyd PA-C [facility] B 09/12/2023 Last Documented On 4 4:38PM ; [facility], [facility] X-RAY EXAM OF SHOULDER 2-3 VIEWS (LEFT) 10406 Pain in left shoulder Cheslee Ryan Bloyd PA-C [facility] B 09/12/2023 Last Documented On 4 4:38PM ; [facility], [facility] use of tobacco assessment performed 1000F Last Documented On 4 11:24AM ; [facility], [facility] patient screened for future fall risk: documentation of any fall with injury in past year 1100F Last Documented On 4 11:24AM ; [facility], [facility] review of medications documented 1160F Last Documented On 4 11:24AM ; [facility], [facility] body mass index not documented system reason 300 8F Last Documented On 4 11:24AM ; [facility], [facility] Surgical History Last Updated History of appendectomy 09/12/2023 Last Documented On 4 9:18AM ; [facility] History of back surgery 09/12/2023 Last Documented On 4 9:18AM ; [facility] History of total hip replacement 024 Last Documented On 4 9:18AM ; [facility] History of total knee arthroplasty 09/12 Last Documented On 4 9:18AM ; [facility] Medical History Includes: Medical History addressed during this encounter Description Last Updated History of arthritis 09/12/2023 Last Documented On 4 9:18AM ; [facility] History of diabetes mellitus 09/12/2023 Last Documented On 4 9:18AM ; [facility] History of Hypertension 09/12/2023 Last Documented On 4 9:18AM ; [facility], [facility] Family History Includes: Family History addressed during this encounter Description Last Updated Diabetes mellitus 09/12/2023 Last Documented On 4 9:18AM ; [facility] Family history of cancer 09/12/2023 Last Documented On 4 9:18AM ; [facility] Family history of heart disease 09/12/19 Last Documented On 4 9:18AM ; [facility] Review of Systems Includes: Review of Systems from this encounter Systemic: Not feeling tired, no recent weight [...] Immunologic: No complaint of seasonal allergic reaction. Mental Status Includes: Mental Status from this encounter Description No anxiety Functional Status Includes: Functional Status from this encounter No Functional Status Recorded Physical Exam Includes: Physical Exam from this encounter Allergies Includes: Active Allergies No Known Allergies Encounters Encounter Provider Location Date Check-In Time Check-Out Time Diagnosis Physician Specified Marie Sanchez PA-C [facility] 09/12/19 24 11:01AM 11:25AM Insurance Includes: Active Insurance Policies Plan Name Member ID Group # Subscriber Relationship Effect chelo Dates 1 - Medicare Part [facility] [id number] KATHLEEN Boswell 2 - [facility] CLAIMS DIVISION [id number] KATHLEEN Boswell Clinical Notes Includes: Clinical Notes from this encounter * Progress note Date Encounter Last Documented by 09/12/2023 Physician Specified Last marsha le on 09/15/2023; 9:18 AM, Marie Sanchez PA-C; [facility], [facility] Active Problems & Conditions - Joint Pain, [...]
--- OUTSIDE RECORDS SUMMARY | 2024-02-16 15:53 | XMS_ITS | Clinical Summary ---
Author Name Unknown Address [address] [place] [address] Phone Organization [facility] , [facility] Address [address] [place] [address] Phone Care Team Providers Care Director Patient Financial Services Name Role Phone Murtaza CLARK, Tom Schroeder Unavailable Unavail able JUANITO JOHNSON Primary Care Provider [phone] Reason for Visit and Chief Complaint The Chief Complaint is: Left shoulder pain Problems Includes: Problems addressed during this encounter and other active Problems All Visits Onset Date Resolved Date Provider Condition S tatus Joint Pain, Localized in the Left Shoulder 09/12/2023 Marie Sanchez PA-C Active Last Documented On 4 11:20AM ; [facility] LOC PRIM OSTEOART-PELVIS 08/05/2012 Asher guzmán MD Active Last Documented On 2 1:10PM ; [facility] Plan of Treatment - Patient screened for future fall risk: documentation of any fall with injury in past year - Last Documented On 01/12/2024 8:54AM ; [facility] Fall Risk Assessment: This patient has been [...] with the patient. - Last Documented On 01/12/2024 8:54AM ; [facility] We will inject the shoulder. At 78 [...] Band-Aid was applied. - Last Documented On 01/12/2024 8:54AM ; [facility], [facility] Future Appointments Date Time Location Provi xander Follow Up 03/26/2024 10:30AM [facility] paedics [facility] B Marie Sanchez PA-C Last Documented On 4 10:32AM ; [facility] Assessments Includes: Assessments from this encounter Findings Chronic left cuff tear - Last Documented On 01/12/2024 8:54AM ; [facility] Medical Equipment - Implanted Devices Includes: Current Devices No Medical Equipment Recorded Medications Includes: Medications discussed during this encounter and other current Medications Current Medications (continue as prescribed) Lisinopril 20 MG Oral Tablet 09/01/2023 Provider: JUANITO JOHNSON Diagnosis: Last Documented On 4 11:20AM By Shelley Hussein ; [facility] metFORMIN HCl ER 500 MG Oral Tablet Extended Release 24 Hour 08/19/2023 Provider: JUANITO JOHNSON Diagnosis: Last Documented On 4 11:20AM By Shelley Hussein ; [facility] Rosuvastatin Calcium 20 MG Oral Tablet 07/04/2023 Pr ovider: JUANITO JOHNSON Diagnosis: Last Documented On 4 11:20AM By Shelley Hussein ; [facility] DULoxetine HCl 30 MG Oral Ca psule Delayed Release Particles 06/19/2023 Provider: JUANITO JOHNSON Diagnosis: Last Documented On 4 11:20AM By Shelley Hussein ; [facility] Aspirin 81 MG OR CHEW 08/05/2012 Provider: Diagnosis: Last Documented On 2 1:15PM By Marc Blanca User ; [facility] amLODIPine Besy-Benazepril HCl 5-10 MG OR CAPS 012 Provider: Diagnosis: Last Documented On 2 1:15PM By Tran 4 User ; [facility] Benicar 20 MG OR TABS 08/05/2012 Provider: Diagnosis: Last Documented On 2 1:15PM By Tran 4 User ; [facility] Past Medications on file Lortab 10-500 MG OR TABS 11/15/2008 - 11/27/2008 Provi xander: Asher Leal MD Diagnosis: brysonalyce [id number] baltazar Last Documented On 9 9:08AM By Catracho Lawson ; [facility] Lortab 10-500 MG OR TABS 08/22/2008 - 09/03/2008 Provi xander: Asher Leal MD Diagnosis: Last Documented On 9 10:56AM By Tran 5 User ; [facility] Lortab 5-500 MG OR TABS 07/25/2008 - 08/07/2008 Provid er: Asher Leal MD Diagnosis: Last Documented On 8 11:53AM By Marc 5 User ; [facility] Lortab 10-500 MG OR TABS 04/14/2008 - 04/24/2008 Provi xander: Asher Leal MD Diagnosis: called to longkeely [phone] jrk Last Documented On 8 10:12AM By Catracho Lawson ; [facility] Lortab 10-500 MG OR TABS 01/28/2008 - 02/07/2008 Provi xander: Asher Leal MD [facility]: [facility] [id number]/cv Last Documented On 8 3:02PM By Elo Coyne ; [facility], [facility] Medications Administered Includes: Administered Medications from this encounter No Administered Medications Recorded Vital Signs Includes: Vital Signs from this encounter Vital Name 12/25/2023 10:10A Height (in) 68 Weight (lb) 160 Body Mass Index 24.3 Body Surface Area 1.9 Note: hdv Last Documented: On 12/25/2023 10:11A M ; [facility], [facility] Results Includes: Results discussed during this encounter No Results Recorded For Specified Dates History of Present Illness Includes: History of Present Illness from this encounter HPI KATHLEEN CORTES is a 78 year old female. - Symptoms Grinding. - Allergy list reviewed - Problem list reviewed - Medication list reviewed - Pain is constant (100% of the time) - Pain is throbbing - - Review of medications documented Social History Description Last Updated Alcohol use 09/12/2023 Last Documented On 4 10:02AM ; [facility] Caffeine use 09/12/2023 Last Documented On 4 10:02AM ; [facility] No recent change in diet 09/12/2023 Last Documented On 4 10:02AM ; [facility] Not a current smoker. 09/12/2023 Last Documented On 4 10:02AM ; [facility] Not exercising regularly 09/12/2023 Last Documented On 4 10:02AM ; [facility] Not using drugs 09/12/2023 Last Documented On 4 10:02AM ; [facility] Tobacco non-user 09/12/2023 Last Documented On 4 10:02AM ; [facility] Smoking Status Unknown Procedures and Surgical History Includes: Procedures from this encounter Procedures Code Diagnosis Performing Provider Service Location Service Date DRAIN/INJECT, JOINT/BURSA (LEFT) Complete rotatr-cuff tear/ruptr of left shoulder, not trauma [place] Sanchez PA-C [facility] B 12/25/2023 Last Documented On 4 4:32PM ; [facility] Triamcinolone/Kenalog, 10mg per cc J3301 Complete rotatr-cuff tear/ruptr of left shoulder, not trauma Chesteri Sanchez PA-C [facility] B 12/25/2023 Last Documented On 4 4:32PM ; [facility] use of tobacco assessment performed 1000F Last Documented On 4 10:02AM ; [facility] patient screened for future fall risk: documentation of any fall with injury in past year 1100F Last Documented On 4 10:02AM ; [facility], [facility] review of medications documented 1160F Last Documented On 4 10:02AM ; [facility], [facility] Surgical History Last Updated History of appendectomy 09/12/2023 Last Documented On 4 10:02AM ; [facility], [facility] History of back surgery 09/12/2023 Last Documented On 4 10:02AM ; [facility], [facility] History of total hip replacement 024 Last Documented On 4 10:02AM ; [facility] History of total knee arthroplasty 09/12 Last Documented On 4 10:02AM ; [facility], [facility] Medical History Includes: Medical History addressed during this encounter Description Last Updated History of arthritis 09/12/2023 Last Documented On 4 10:02AM ; [facility], [facility] History of diabetes mellitus 09/12/2023 Last Documented On 4 10:02AM ; [facility] History of Hypertension 09/12/2023 Last Documented On 4 10:02AM ; [facility], [facility] Family History Includes: Family History addressed during this encounter Description Last Updated Diabetes mellitus 09/12/2023 Last Documented On 4 10:02AM ; [facility] Family history of cancer 09/12/2023 Last Documented On 4 10:02AM ; [facility] Family history of heart disease 09/12/19 24 Last Documented On 4 10:02AM ; [facility] Review of Systems Includes: Review of Systems [...] Encounters Encounter Provider Location Date Check-In Time Check- Out Time Diagnosis Follow Up Marie Sanchez PA-C [facility] 4 9:50AM 10:26AM Insurance Includes: Active Insurance Policies Plan Name Member ID Group # Subscriber Relationship Effect chelo Dates 1 - Medicare Part B [facility] [id number] KATHLEEN CORTES Self 2 - [facility] CLAIMS [employer]ISION [id number] KATHLEEN CORTES Self Clinical Notes Includes: Clinical Notes from this encounter * Progress note Date Encounter Last Documented by 12/25/2023 Follow Up Last documented on 01/12/2024; 8:54 AM, Marie Sanchez PA-C; [facility] Active Problems & Conditions - Joint Pain, [...]
--- OUTSIDE RECORDS SUMMARY | 2024-02-16 15:53 | XMS_ITS | Clinical Summary ---
Author Name Unknown Address [address] [place] [address] Phone Organization [facility] , [facility] Address [address] [place] [address] Phone Care Team Providers Care Mobile Home Installer Name Role Phone Murtaza CLARK, Tom Schroeder Unavailable [phone] JUANITO JOHNSON Primary Care Provider [phone] Reason for Visit and Chief Complaint Follow Up Problems Includes: Problems addressed during this encounter and other active Problems Current Visit Onset Date Resolved Date Provider Conditio n Status LOC PRIM OSTEOART-PELVIS 08/05/2012 Asher Leal MD Active Last Documented On 2 1:10PM ; [facility], [facility] Past Visits Onset Date Resolved Date Provider Condition Status Joint Pain, Localized in the Left Shoulder 09/12/2023 Marie Sanchez PA-C Active Last Documented On 4 11:20AM ; [facility], [facility] Plan of Treatment Future Appointments Date Time Location Provi xander Follow Up 03/26/2024 10:30AM [facility] B Marie Sanchez PA-C Last Documented On 4 10:32AM ; [facility], [facility] Assessments Includes: Assessments from this encounter No Assessments Recorded Medical Equipment - Implanted Devices Includes: Current Devices No Medical Equipment Recorded Medications Includes: Medications discussed during this encounter and other current Medications Current Medications (continue as prescribed) Lisinopril 20 MG Oral Tablet 09/01/2023 Provider: JUANITO JOHNSON Diagnosis: Last Documented On 4 11:20AM By Shelley Hussein ; [facility], [facility] metFORMIN HCl ER 500 MG Oral Tablet Extended Release 24 Hour 08/19/2023 Provider: JUANITO JOHNSON Diagnosis: Last Documented On 4 11:20AM By Shelley Hussein ; [facility], [facility] Rosuvastatin Calcium 20 MG Oral Tablet 07/04/2023 Pr ovider: JUANITO JOHNSON Diagnosis: Last Documented On 4 11:20AM By Shelley Hussein ; [facility], [facility] DULoxetine HCl 30 MG Oral Ca psule Delayed Release Particles 06/19/2023 Provider: JUANITO JOHNSON Diagnosis: Last Documented On 4 11:20AM By Shelley Hussein ; [facility], [facility] Aspirin 81 MG OR CHEW 08/05/2012 Provider: Diagnosis: Last Documented On 2 1:15PM By Tran 4 User ; [facility], [facility] amLODIPine Besy-Benazepril HCl 5-10 MG OR CAPS 012 Provider: Diagnosis: Last Documented On 2 1:15PM By Tran 4 User ; [facility], [facility] Benicar 20 MG OR TABS 08/05/2012 Provider: Diagnosis: Last Documented On 2 1:15PM By Tran 4 User ; [facility], [facility] Medications Administered Includes: Administered Medications from this encounter No Administered Medications Recorded Vital Signs Includes: Vital Signs from this encounter Vital Name 08/05/2012 01:30P Blood Pressure Sitting (mmHg) 130/83 Pulse Rate-Sitting (bpm) 79 Height (in) 68 Weight (lb) 204 Body Mass Index (kg/m2) 31.0 Body Surface Area (m2) 2.1 Last Documented: On 08/05/2012 1:31PM ; [facility], [facility] Results Includes: Results discussed during this encounter [...] Time Diagnosis Follow Up Asher Leal MD [facility] 2 1:06PM 11:59PM Insurance Includes: Active Insurance Policies Plan Name Member ID Group # Subscriber Relationship Effect chelo Dates 1 - Medicare Part B [facility] [id number] KATHLEEN Boswell 2 - [facility] [employer] [id number] KATHLEEN Boswell Clinical Notes Includes: Clinical Notes from this encounter No Clinical Notes Recorded
--- OUTSIDE RECORDS SUMMARY | 2024-02-16 15:53 | XMS_ITS | Clinical Summary ---
Author Name Unknown Address [address] [place] [address] Phone Organization [facility] , [facility] Address [address] [place] [address] Phone Care Team Providers Care Certified Tumor Registrar Name Role Phone Murtaza CLARK, Tom Schroeder Unavailable [phone] JUANITO JOHNSON Primary Care Provider [phone] Reason for Visit and Chief Complaint Follow Up Problems Includes: Problems addressed during this encounter and other active Problems All Visits Onset Date Resolved Date Provider Condition S tatus Joint Pain, Localized in the Left Shoulder 09/12/2023 Marie Sanchez PA-C Active Last Documented On 4 11:20AM ; [facility] LOC PRIM OSTEOART-PELVIS 08/05/2012 Asher guzmán MD Active Last Documented On 2 1:10PM ; [facility] Plan of Treatment Future Appointments Date Time Location Provi xander Follow Up 03/26/2024 10:30AM [facility] B Marie Sanchez PA-C Last Documented On 4 10:32AM ; [facility] Assessments Includes: Assessments from this encounter No Assessments Recorded Medical Equipment - Implanted Devices Includes: Current Devices No Medical Equipment Recorded Medications Includes: Medications discussed during this encounter and other current Medications Current Medications (continue as prescribed) Lisinopril 20 MG Oral Tablet 09/01/2023 Provider: JUANITO JOHNSON Diagnosis: Last Documented On 4 11:20AM By Shelley Hussein ; [facility] metFORMIN HCl ER 500 MG Oral Tablet Extended Release 24 Hour 08/19/2023 Provider: JUANITO JOHNSON Diagnosis: Last Documented On 4 11:20AM By Shelley Hussein ; [facility], [facility] Rosuvastatin Calcium 20 MG Oral Tablet 07/04/2023 Pr ovider: JUANITO SORENSONALICIA Diagnosis: Last Documented On 4 11:20AM By Shelley Hussein ; [facility], [facility] DULoxetine HCl 30 MG Oral Ca psule Delayed Release Particles 06/19/2023 Provider: JUANITO JOHNSON Diagnosis: Last Documented On 4 11:20AM By Shelley Hussein ; [facility], [facility] Aspirin 81 MG OR CHEW 08/05/2012 Provider: Diagnosis: Last Documented On 2 1:15PM By Tran 4 User ; [facility], [facility] amLODIPine Besy-Benazepril HCl 5-10 MG OR CAPS 012 Provider: Diagnosis: Last Documented On 2 1:15PM By Tran 4 User ; [facility], [facility] Benicar 20 MG OR TABS 08/05/2012 Provider: Diagnosis: Last Documented On 2 1:15PM By Tran 4 User ; [facility], [facility] Medications Administered Includes: Administered Medications from this encounter No Administered Medications Recorded Results Includes: Results discussed during this encounter [...] Time Diagnosis Follow Up Asher Leal MD [facility] 9 2:51PM 11:59PM Insurance Includes: Active Insurance Policies Plan Name Member ID Group # Subscriber Relationship Effect chelo Dates 1 - Medicare Part B [facility] [id number] KATHLEEN Boswell 2 - [facility] CLAIMS DIVISION [id number] KATHLEEN Boswell Clinical Notes Includes: Clinical Notes from this encounter No Clinical Notes Recorded
--- NOTE | 2024-02-16 16:04 | ECG_ITS ---
APPROVED REPORT Exam: Resting ECG HR:85 bpm ECG Measurements Heart Rate 85 AXES WY 132 P 75 QRSd 98 QRS 66 QT 354 T 81 QTc 396 Conclusion SINUS RHYTHM WITH FREQUENT VENTRICULAR PREMATURE COMPLEXES LOW QRS VOLTAGE IN PRECORDIAL LEADS [QRS DEFLECTION < 1.0 mV IN CHEST LEADS] ABNORMAL RHYTHM ECG UNCONFIRMED REPORT Electronically signed by : Jeison Moreno MD 02/18/2024 08:33:05
== END 2024-02-16 23:59 | disposition home or self-care (01) ==
LOC: RT 15:51
PROVIDERS: PCP Family Medicine; Visit Provider Family Medicine
DX: I49.9 Cardiac arrhythmia, unspecified (principal)
CPT/HCPCS: 93005

== ENCOUNTER 2024-03-09 11:56 | Outpatient (POV) | payer MEDICARE, SELFPAY | END 2024-03-09 23:59 | disposition home or self-care (01) | LOC: SC 11:56 | PROVIDERS: PCP Family Medicine; Visit Provider Dermatology | DX: Z00.00 Encounter for general adult medical examination without abnormal findings (principal) ==

== ENCOUNTER 2024-11-25 12:29 | Outpatient (CLI) | payer MEDICARE, SELFPAY ==
--- OUTSIDE RECORDS SUMMARY | 2024-11-25 12:31 | XMS_ITS ---
Care Plan - [facility], [facility] Created on: November 25, 2024 Padmini Osei : 1945 Sex: Female Author Organization [facility] Address [address] [place] [address] Phone Care Team Providers Care Water Plant Operator Name Role Phone Murtaza CLARK, Tom Schroeder Unavailable [phone] JUANITO JOHNSON Primary Care Provider [phone]
--- OUTSIDE RECORDS SUMMARY | 2024-11-25 12:31 | XMS_ITS | Data Portability ---
Author Organization [facility] - [facility] Michelle [facility] ADMIN Address [address] [place] [address] Assessment No assessment recorded. Plan of Treatment Reminders Order Date Submit Date Provider Last Modified By Organization Details Last Modified Time Details Appointments None recorded. Lab urinalysis, dipstick 2023 024 [email or web address] [facility], [address] [facility] [address], [place], [address], 4 14:44:27 Referral None recorded. Procedures None recorded. Surgeries None recorded. Imaging None recorded. Medication Orders methenamine hippurate 1 gram tablet 2023 024 [email or web address] #[id number], [address], [id number], 4 13:10:19 trospium 20 mg tablet 2023 024 [facility] #[id number], [address], [id number], 4 13:10:43 Estrace 0.01% (0.1 mg/gram) vaginal cream 2023 024 [facility] [employer] [facility] #[id number], [id number], 4 13:11:32 Patient TargetsNo targets recorded. Patient InstructionsNo instructions recorded. Reason for Referral None Reported. Results Created Date Observation Date Name Description Value Unit Range Abnormal Flag Note LastModifiedBy Organization Detail LastModifiedTime 04/29/20 24 04/29/2024 urina lysis , dipst ick Leukocytes (reference range) negati ve Not Available [place] [address] [address] [facility] [address], [place], [address], 04/29/2024 11:43:48 04/29/20 24 04/29/2024 urina lysis , dipst ick Nitrite (reference range:) negati ve Not Available [place] [address] [address] [facility] [address], [place], [address], 04/29/2024 11:43:48 04/29/20 24 04/29/2024 urina lysis , dipst ick Urobilinogen (reference range) 0.2 Not Available [facility] [place] [address] [address] [facility] [address], [place], [address], 04/29/2024 11:43:48 04/29/20 24 04/29/2024 urina lysis , dipst ick Protein (reference range) negati ve Not Available [place] [address] [address] [facility] [address], [place], [address], 04/29/2024 11:43:48 04/29/20 24 04/29/2024 urina lysis , dipst ick pH (reference range 5-8.5) 6.5 Not Available [facility] [place] [address] [address] [facility] [address], [place], [address], 04/29/2024 11:43:48 04/29/20 24 04/29/2024 urina lysis , dipst ick Blood (reference range:) non-He molyze d: Trace Not Available [place] [address] [address] [facility] [address], [place], [address], 04/29/2024 11:43:48 04/29/20 24 04/29/2024 urina lysis , dipst ick Specific [place] (reference range) 1.015 Not Available [place] [address], [place], [address], 04/29/2024 11:43:48 04/29/20 24 04/29/2024 urina lysis , dipst ick Ketone (reference range) negati ve Not Available [place] [address], [place], [address], 04/29/2024 11:43:48 04/29/20 24 04/29/2024 urina lysis , dipst ick Bilirubin (reference range) negati ve Not Available [place] [address], [place], [address], 04/29/2024 11:43:48 04/29/20 24 04/29/2024 urina lysis , dipst ick Glucose (reference range) negati ve Not Available [place] [address], [place], [address], 04/29/2024 11:43:48 04/29/20 24 04/29/2024 urina lysis , dipst ick Color (reference range: yellow-brown ) Yellow Not Available [place] [address], [place], [address], 04/29/2024 11:43:48 Result Notes None recorded. Problems Name Problem SNOMED Code Status Onset Date Resolution Date Notes Provider Name and Address Organization Details Recorded Time Recurrent urinary tract infection 171404380 Active 2023 Karenmarta Christiansense null, [place] - [facility] - [place] & [place] 11:06:28 Hypertensi ve disorder 02188173 Active 2023 Karenmarta Christiansense null, [place] [facility] [place] & [place] 11:06:38 Diabetes mellitus 92330010 Active 2023 type 2 Karen Crase null, [place] - [facility] [place] & [place] 4 11:06:49 Vitamin D deficiency 29501952 Active 2023 Karen sánchez, TOMASZ Rangel [facility] & [place] 4 11:07:01 Hyperlipid emia 07730557 Active 2023 Karen sánchez, TOMASZ Rangel LPNT [facility] & [place] 4 11:07:10 Microscopi c hematuria 536008497 Active 2023 Karen Nicole null, TOMASZ Rangel [facility] & [place] 4 11:07:23 Hammer toe 196379260 Active 2023 Deformity Karen Nicole null, TOMASZ Rangel [facility] [place] & [place] 4 11:07:46 Chronic low back pain 802578098 Active 2023 Karen sánchez, TOMASZ Rangel LPNT [facility] & [place] 4 11:08:00 Nodule of lung 702701030 Active 2023 left upper lobe Karen sánchez, TOMASZ Rangel [place] & [place] 4 11:08:24 Problem Notes None recorded. Procedures Surgical History Date Name Laterality Status Provider Name and Address Organization Details Recorded Time total replacement of hip completed Karen TOLBERT JUDE [facility] & [place] 04/26/2024 11:22:20 arthroplasty of knee completed Karen ROQUE [facility] & [place] 04/26/2024 11:22:46 Appendectomy completed Karen ROQUE [facility] & [place] 04/26/2024 11:22:56 Removal of tonsils completed Karenmarta Christiansen TOMASZ EDYNT [facility] & [place] 04/26/2024 11:23:08 extraction of cataract completed Karenmarta Rangel LP[facility] & [place] 04/26/2024 11:23:48 Removal of adenoids completed Karenmarta Christiansen TOMASZ Rangel [facility] & [place] 04/26/2024 11:23:58 Breast reduction completed Karenmarta Rangel LPNT [facility] & [place] 04/29/2024 11:11:48 revision of hip arthroplasty completed Karen TOLBERT - [facility] & [place] 04/29/2024 11:14:49 partial repair of rotator cuff completed Karen ROQUE [facility] & [place] 04/29/2024 11:15:05 Imaging Results None recorded. Procedure Notes None recorded. Medical Equipment None Reported. Allergies Allergen ID Allergen Name Allergen Category Reaction Reaction Severity Criticality Documentation Date Start Date Code Code System Note Provider Name and Address Organization Details Recorded Time 098442 Zanaflex medicatio n hallucina tions Not available Not available 04/29/2024 49021 6 RxNorm Karen sánchez, TOMASZ ROQUE [facility] & [place] 11:06:10 Medications Name Sig Start Date Stop Date Status Note LastModified by Organization Details LastModified Time metformin 500 mg tablet Take 1 tablet twice a day by oral route. active Not Available Not Available No t Available doxycycline hyclate 100 mg capsule TAKE 1 CAPSULE BY MOUTH TWICE DAILY FOR 1 WEEK active Not Available Not Available No t Available oxybutynin chloride ER 10 mg tablet,exte nded release 24 hr TAKE 1 TABLET BY MOUTH DAILY active Not Available Not Available No t Available lisinopril 20 mg tablet Take 1 tablet every day by oral route. active Not Available Not Available No t Available ondansetron HCl 4 mg tablet active Not Available Not Available Not Available metronidazo le 500 mg tablet TAKE 1 TABLET BY MOUTH TWICE A DAY FOR 10 DAYS. NO ALCOHOL PRODUCTS WHILE TAKING THIS MEDICATIO N active Not Available Not Available No t Available ciprofloxac in 500 mg tablet TAKE 1 TABLET BY MOUTH TWICE DAILY FOR 3 DAYS active Not Available Not Available No t Available sulfamethox azole 800 mg-trimetho prim 160 mg tablet TAKE 1 TABLET BY MOUTH TWICE DAILY FOR 1 WEEK active Not Available Not Available No t Available methenamine hippurate 1 gram tablet TAKE 1 TABLET BY MOUTH TWICE DAILY active Not Available Not Available No t Available tamsulosin 0.4 mg capsule TAKE 1 CAPSULE BY MOUTH DAILY active Not Available Not Available No t Available meclizine 25 mg tablet Take 1 tablet 3 times a day by oral route as needed. active Not Available Not Available No t Available mupirocin 2 % topical ointment active Not Available Not Available Not Available cefuroxime axetil 500 mg tablet TAKE 1 TABLET BY MOUTH EVERY 12 HOURS FOR 7 DAYS 04/29 completed Not Available Not Available Not Available metformin ER 500 mg tablet,exte nded release 24 hr TAKE 2 TABLETS BY MOUTH TWICE DAILY active Not Available Not Available No t Available Estrace 0.01% (0.1 mg/gram) vaginal cream Use 1 gram intravagi renae 3 times per week 2023 active Not Available Not Available Not Avai lable B-12 1,000 mcg tablet Take 1 tablet every day by oral route as directed. active Not Available Not Available No t Available rosuvastati n 20 mg tablet TAKE 1 TABLET BY MOUTH EVERY DAY active Not Available Not Available No t Available nitrofurant oin monohydrate /macrocryst als 100 mg capsule TAKE 1 CAPSULE BY MOUTH EVERY 12 HOURS WITH FOOD FOR 7 DAYS active Not Available Not Available No t Available trospium 20 mg tablet TAKE 1 TABLET BY MOUTH TWICE DAILY active Not Available Not Available No t Available duloxetine 30 mg capsule,del ayed release TAKE 1 CAPSULE BY MOUTH EVERY DAY active Not Available Not Available No t Available vitamin D3 250 mcg (10,000 unit)-vitam in K2 45 mcg capsule Take 1 capsule twice a week by oral route as directed. active Not Available Not Available No t Available Vitals Date Recorded Body height Body mass index (BMI) Body weight Body temperature Oxygen saturation Oxygen saturation in Arterial blood by Pulse oximetry Heart rate Systolic blood pressure Diastolic blood pressure Provider Name and Address Organization Details Last Updated DateTime 4 172.72 cm 23 kg/m2 35124.4 5 g 98.8 [degF] 99 % 99 % 68 /min 120 mm[Hg] 72 mm[Hg] Karen Nicole [facility] & [place] 4 11:38:27 Social History Question Answer Notes LastModified by Organizat ion Details LastModified Time Tobacco Smoking Status Never Smoker Karen Nicole gonzalo, [facility] & [place] 04/26/2024 11:26:39 What Is Your Relationship Status? Information not available 04/26/2024 Do You Use Any Illicit Or Recreational Drugs? No Information not available 04/26/2024 Sex: Unknown Functional Status None recorded. Mental Status None recorded. Family History Relationship Description Onset Age of this Age Resolved Age Notes LastModified by Organization Details LastModified Time Father Heart disease Not available 2023 11:24:49 Mother Hypertensive disorder Not available 2023 11:25:09 Paternal Uncle Diabetes mellitus Not available 2023 11:25:31 Unspecified Relation Chronic heart disease Not available 2023 11:26:08 Medical History No medical history recorded. Gynecological HistoryNo gynecological history recorded. Obstetrics History GPAL:G 0 P 0 0 0 0 Past Encounters Encounter ID Performer Location Encounter Start Date Encounter Closed Date Diagnosis/Indication Diagnosis SNOMED-CT Code Diagnosis ICD10 Code Diagnosis Note [id number] Elo Patricia NP, S [facility] U[facility]-[address] [place] [address] 04/29/2024 11:01:29 04/29/2024 12:03:11 Recurrent urinary tract infection 365070077 N39.0 UA negative except microscopi c hematuriaP VR 12mlStart Methenamin e 1gram bidStart Estrace creat 1 gram three times per weekStart Trospium 20mg bid r/t OAB. discussed possible SEs of the medication RTC in 8 weeks for f/u Overactive urinary bladder 177768850 N32.81 Nocturia 774459623 R35.1 Microscopic hematuria 19 1797176 R31.29 Health Concerns Section Related Observation LastModified by Organization Detai ls LastModified Time None Recorded Concern Status LastModified by Organization Details LastModified Time None Recorded Advance Directives Directive None Recorded Payers Encounter Date Sequence Insurance Name Policy Number Policy Jesus Covered Member ID Jesus Member ID Guarantor Name 04/29/2024 1 [place] Padmini Osei [id number] Padmini Osei 04/29/2024 2 [employer] (MEDICARE SUPPLEMENT) Padmini Osei [id number] Padmini Osei Notes Date Note Type Note Provider Name and Address Organization Details Recorded Time 04/29/2024 text/html 78 yowf presents to the office for evaluation of reoccurring UTIs. Location is LUT. Quality is pressure and painful urination. Severity- varies. Reports that she started experiencing reoccurring UTI's 1-2 years ago, has had 5 UTIs this year, last UTI was approx 2 weeks ago. UTIs have all been treated with antibiotics, sxs typically improve after 2-3 days being on antibiotic ttx. When experiences UTI has dysuria, urinary urgency/frequency. Has not had any labs or diagnostic tests performed. Currently, states f/c stream good, nocturia x 3, bowels move regularly, bladder empties thoroughly; currently denies any dysuria, gross hematuria, flank pain, fevers, chills, nausea, or vomiting. Patient denies any urinary leakage. Patient reports she has not had a hysterectomy, had an oophorectomy on the right side several years ago. Patient is a diabetic, reports recent hemoglobin A1c was 5.10, states blood sugars run around 120. Reports urinary frequency. Reports she will urinate at least every hour. Reports she is tried oxybutynin and the medication made her hallucinate. She denies any history of glaucoma. Patient denies any history of breast cancer. Patient reports she has a longstanding history of microscopic hematuria. Reports she has seen Dr. Rodriguez in the past and underwent cystoscopy that was unremarkable. Elo Patricia, ZAHRAA, [address], [place], [address], [facility] - [place] & [place] 04/29/2024 13:20:08 OBGyn Episode No OBEpisode recorded.
--- OUTSIDE RECORDS SUMMARY | 2024-11-25 12:31 | XMS_ITS | Clinical Summary ---
Author Organization [facility] Address [address] [address] Phone Care Team Providers Care Racing Manager Name Role Phone Tom Hauser MD Unavailable [phone] JUANITO JOHNSON Primary Care Provider [phone] Reason for Visit and Chief Complaint [Patient Encounter] Problems Includes: Problems addressed during this encounter and other active Problems All Visits Onset Date Resolved Date Provider Condition S tatus Joint Pain, Localized in the Left Shoulder 09/12/2023 Marie Sanchez PA-C Active Last Documented On 4 11:20AM ; [facility] LOC PRIM OSTEOART-PELVIS 08/05/2012 Asher guzmán MD Active Last Documented On 2 1:10PM ; [facility] Plan of Treatment No Plan of Treatment Recorded Assessments Includes: Assessments from this encounter No Assessments Recorded Medical Equipment - Implanted Devices Includes: Current Devices No Medical Equipment Recorded Medications Includes: Medications discussed during this encounter and other current Medications Current Medications (continue as prescribed) metroNIDAZOLE 500 MG Oral Tablet 03/18/2024 Provider : JUANITO JOHNSON Diagnosis: Last Documented On 4 9:49AM By Nohemi Palencia [facility] Lisinopril 20 MG Oral Tablet 09/01/2023 Provider: JUANITO JOHNSON Diagnosis: Last Documented On 4 11:20AM By Shelley Hussein ; [facility], [facility] metFORMIN HCl ER 500 MG Oral Tablet Extended Release 24 Hour 08/19/2023 Provider: JUANITO JOHNSON Diagnosis: Last Documented On 4 11:20AM By Shelley Hussein ; [facility], [facility] Rosuvastatin Calcium 20 MG Oral Tablet 07/04/2023 Pr ovider: JUANITO ALEX Diagnosis: Last Documented On 4 11:20AM By Shelley Hussein ; [facility], [facility] DULoxetine HCl 30 MG Oral Ca psule Delayed Release Particles 06/19/2023 Provider: JUANITO JOHNSON Diagnosis: Last Documented On 4 11:20AM By Shelley Hussein ; [facility], [facility] amLODIPine Besy-Benazepril HCl 5-10 MG OR CAPS 012 Provider: Diagnosis: Last Documented On 2 1:15PM By Tran 4 User ; [facility], [facility] Benicar 20 MG OR TABS 08/05/2012 Provider: Diagnosis: Last Documented On 2 1:15PM By Tran 4 User ; [facility], [facility] Medications Administered Includes: Administered Medications from [...] Physical Exam Recorded Allergies Includes: Active Allergies Substance Type Reaction Onset Date Resolved Date Statu s Zanaflex Allergy 11/06/2024 Active Last Documented On 5 12:38PM ; [facility] Encounters Encounter Provider Location Date Check-In Time Check-Out Time Diagnosis [Patient Encounter] Tom Hauser MD 05/27/2024 2:14PM 11:59PM Insurance Includes: Active Insurance Policies Plan Name Member ID Group # Subscriber Relationship Effect chelo Dates 1 - Medicare Part B [facility] [id number] Padmini Boswell 2 - [facility] [id number] Padmini Boswell Clinical Notes Includes: Clinical Notes from this encounter No Clinical Notes Recorded
--- OUTSIDE RECORDS SUMMARY | 2024-11-25 12:31 | XMS_ITS | Clinical Summary ---
Author Organization [facility] , [facility] Address [address] [place] [address] Phone Care Team Providers Care Solar Sales Representative Name Role Phone Murtaza CLARK, Tom Schroeder Unavailable Unavail able JUANITO JOHNSON Primary Care Provider [phone] Reason for Visit and Chief Complaint The Chief Complaint is: L shoulder pain Problems Includes: Problems addressed during this encounter and other active Problems All Visits Onset Date Resolved Date Provider Condition S tatus Joint Pain, Localized in the Left Shoulder 09/12/2023 Marie Sanchez PA-C Active Last Documented On 4 11:20AM ; [facility] LOC PRIM OSTEOART-PELVIS 08/05/2012 Asher guzmán MD Active Last Documented On 2 1:10PM ; [facility] Plan of Treatment Patient understands the restrictions postoperatively. Operative details were explained to the patient. Sling use will be continued. Patient can have active motion of the elbow, forearm, wrist and hand. Physical therapy referral will be given if required. Patient will follow-up as scheduled. If there is any questions or concerns they can call our office. - Last Documented On 06/10/2024 1:52PM ; [facility] Pending Tests Order Diagnosis Results Due Ordering P jacinda Radiology - CT Scan Shoulder 04/09/24 Kena Sanchez PA-C Last Documented On 4 10:08AM ; [facility] Assessments Includes: Assessments from this encounter Findings left shoulder arthroplasty - Last Documented On 06/10/2024 1:52PM ; [facility] Medical Equipment - Implanted Devices Includes: Current Devices No Medical Equipment Recorded Medications Includes: Medications discussed during this encounter and other current Medications Current Medications (continue as prescribed) metroNIDAZOLE 500 MG Oral Tablet 03/18/2024 Provider : JUANITO JOHNSON Diagnosis: Last Documented On 4 9:49AM By Nohemi Patrick ; [facility], [facility] Lisinopril 20 MG Oral Tablet 09/01/2023 Provider: JUANITO JOHNSON Diagnosis: Last Documented On 4 11:20AM By Shelley Hussein ; [facility] metFORMIN HCl ER 500 MG Oral Tablet Extended Release 24 Hour 08/19/2023 Provider: JUANITO JOHNSON Diagnosis: Last Documented On 4 11:20AM By Shelley Hussein ; [facility] Rosuvastatin Calcium 20 MG Oral Tablet 07/04/2023 Pr ovider: JUANITO ALEX Diagnosis: Last Documented On 4 11:20AM By Shelley Hussein ; [facility], [facility] DULoxetine HCl 30 MG Oral Ca psule Delayed Release Particles 06/19/2023 Provider: JUANITO JOHNSON Diagnosis: Last Documented On 4 11:20AM By Shelley Hussein ; [facility], [facility] amLODIPine Besy-Benazepril HCl 5-10 MG OR CAPS 012 Provider: Diagnosis: Last Documented On 2 1:15PM By Marc Blanca User ; [facility], [facility] Benicar 20 MG OR TABS 08/05/2012 Provider: Diagnosis: Last Documented On 2 1:15PM By Marc Blanca User ; [facility], [facility] Past Medications on file Mupirocin 2% External Ointment 05/12/2024 - 06/11/2024 Provider: Tom crawford MD Diagnosis: twice a day Last Documented On 4 1:09PM By Mirtha Houston ; [facility] Ondansetron HCl 4 MG Oral Tablet 05/12/2024 - 05/22/2024 Provider: Tom crawford MD Diagnosis: 1 q 8 hours prn post op nausea Last Documented On 4 1:09PM By Mirtha Houston ; [facility] Benzoyl Peroxide Wash 5% External Liquid 05/12/2024 - 05/13/2024 Provider: Tom crawford MD Diagnosis: use as directed by Dr. Hauser Last Documented On 4 1:09PM By Mirtha Houston ; [facility] Medications Administered Includes: Administered Medications from this encounter No Administered Medications Recorded Vital Signs Includes: Vital Signs from this encounter Vital Name 06/10/2024 01:27P Height (in) 68 Weight (lb) 160 Body Mass Index 24.3 Body Surface Area 1.9 Note: hj Last Documented: On 06/10/2024 1:28PM ; [facility] Results Includes: Results discussed during this encounter No Results Recorded For Specified Dates History of Present Illness Includes: History of Present Illness from this encounter BHAKTI OSEI is a 78 year old female. - Allergy list reviewed - Problem list reviewed - Medication list reviewed Social History Description Last Updated Alcohol use 09/12/2023 Last Documented On 4 1:27PM ; [facility] Caffeine use 09/12/2023 Last Documented On 4 1:27PM ; [facility] No recent change in diet 09/12/2023 Last Documented On 4 1:27PM ; [facility] Not a current smoker. 09/12/2023 Last Documented On 4 1:27PM ; [facility] Not exercising regularly 09/12/2023 Last Documented On 4 1:27PM ; [facility] Not using drugs 09/12/2023 Last Documented On 4 1:27PM ; [facility] Tobacco non-user 09/12/2023 Last Documented On 4 1:27PM ; [facility] Smoking Status Unknown Procedures and Surgical History Surgical History Last Updated History of appendectomy 09/12/2023 Last Documented On 4 1:27PM ; [facility] History of back surgery 09/12/2023 Last Documented On 4 1:27PM ; [facility] History of total hip replacement 024 Last Documented On 4 1:27PM ; [facility], [facility] History of total knee arthroplasty 09/12 Last Documented On 4 1:27PM ; [facility] Medical History Includes: Medical History addressed during this encounter Description Last Updated History of arthritis 09/12/2023 Last Documented On 4 1:27PM ; [facility] History of diabetes mellitus 09/12/2023 Last Documented On 4 1:27PM ; [facility] History of Hypertension 09/12/2023 Last Documented On 4 1:27PM ; [facility] Family History Includes: Family History addressed during this encounter Description Last Updated Diabetes mellitus 09/12/2023 Last Documented On 4 1:27PM ; [facility] Family history of cancer 09/12/2023 Last Documented On 4 1:27PM ; [facility] Family history of heart disease 09/12/19 Last Documented On 4 1:27PM ; [facility] Review of Systems Includes: Review of Systems from this encounter No Review of Systems Recorded Mental Status Includes: Mental Status from this encounter No Mental Status Recorded Functional Status Includes: Functional Status from this encounter No Functional Status Recorded Physical Exam Includes: Physical Exam from this encounter Allergies Includes: Active Allergies Substance Type Reaction Onset Date Resolved Date Statu s Zanaflex Allergy 11/06/2024 Active Last Documented On 5 12:38PM ; [facility], [facility] Encounters Encounter Provider Location Date Check-In Time Check- Out Time Diagnosis Post Op Marie Sanchez PA-C [facility] 4 1:31PM 1:53PM Insurance Includes: Active Insurance Policies Plan Name Member ID Group # Subscriber Relationship Effect chelo Dates 1 - Medicare Part B [facility] [id number] Kathleen Boswell 2 - [facility] [employer] [id number] Kathleen Boswell Clinical Notes Includes: Clinical Notes from this encounter * Progress note Date Encounter Last Documented by 06/10/2024 Post Op Last documented on 06/10/2024; 1:52 PM, Marie Sanchez PA-C; [facility] Active Problems & Conditions - Joint Pain, Localized in the Left Shoulder - LOC PRIM OSTEOART-PELVIS Chief Complaint The Chief Complaint is: L shoulder pain. History of Present Illness KATHLEEN OSEI is a 78 year old female. - Allergy list reviewed - Problem list reviewed - Medication list reviewed Current Medication - amLODIPine Besy-Benazepril HCl 5-10 MG Capsule 0 days, 0 refills - Benicar 20 MG Tablet 0 days, 0 refills - DULoxetine HCl 30 MG Oral Capsule Delayed Release Particles 90 days, 0 refills - Lisinopril 20 MG Oral Tablet 30 days, 0 refills - metFORMIN HCl ER 500 MG Oral Tablet Extended Release 24 Hour 30 days, 0 refills - metroNIDAZOLE 500 MG Oral Tablet 7 days, 0 refills - Mupirocin 2% External Ointment twice a day, 30 days, 0 refills - Rosuvastatin Calcium [...] Family History Cancer Heart disease Diabetes mellitus Physical Findings - Vitals taken 06/10/2024 01:27 pm hj Height 68 in Weight 160 lbs Body Mass Index 24.3 kg/m2 Body Surface Area 1.9 m2 There is no edema in the extremity. Sutures are removed. No sign of active infection. Sensation light touch is intact. +2 radial pulse and brisk cap refill. No sign of wound dehiscence. Normal motion of the elbow forearm wrist and hand. Assessment left shoulder arthroplasty Plan Patient understands the restrictions postoperatively. Operative details were explained to the patient. Sling use will be continued. Patient can have active motion of the elbow, forearm, wrist and hand. Physical therapy referral will be given if required. Patient will follow-up as scheduled. If there is any questions or concerns they can call our office. Care Team - JUANITO JOHNSON - INSTRUMENT FITTER
--- OUTSIDE RECORDS SUMMARY | 2024-11-25 12:31 | XMS_ITS | Clinical Summary ---
Author Organization [facility] , [facility] Address [address] [place] [address] Phone Care Team Providers Care Optical Instrument Assembler Name Role Phone Murtaza CLARK, JUANITO Tucker Primary Care Provider [phone] Reason for Visit and Chief Complaint The Chief Complaint is: shoulder pain Problems Includes: Problems addressed during this encounter and other active Problems All Visits Onset Date Resolved Date Provider Condition S tatus Joint Pain, Localized in the Left Shoulder 09/12/2023 Marie Sanchez PA-C Active Last Documented On 4 11:20AM ; [facility] LOC PRIM OSTEOART-PELVIS 08/05/2012 Asher guzmán MD Active Last Documented On 2 1:10PM ; [facility] Plan of Treatment Pending Tests Order Diagnosis Results Due Ordering P rovider Therapy - Physical Therapy Shoulder 07/14/24 Rangel Sandoval PA-C Last Documented On 4 1:56PM ; [facility] Assessments Includes: Assessments from this encounter No Assessments Recorded Medical Equipment - Implanted Devices Includes: Current Devices No Medical Equipment Recorded Medications Includes: Medications discussed during this encounter and other current Medications Current Medications (continue as prescribed) metroNIDAZOLE 500 MG Oral Tablet 03/18/2024 Provider : JUANITO JOHNSON Diagnosis: Last Documented On 4 9:49AM By Nohemi Patrick ; [facility] Lisinopril 20 MG Oral Tablet 09/01/2023 Provider: JUANITO JOHNSON Diagnosis: Last Documented On 4 11:20AM By Shelley Hussein ; [facility] metFORMIN HCl ER 500 MG Oral Tablet Extended Release 24 Hour 08/19/2023 Provider: JUANITO JOHNSON Diagnosis: Last Documented On 4 11:20AM By Shelley Hussein ; [facility] Rosuvastatin Calcium 20 MG Oral Tablet 07/04/2023 Pr ovider: JUANITOLLOYD SORENSONALICIA Diagnosis: Last Documented On 4 11:20AM By Shelley Hussein ; [facility] DULoxetine HCl 30 MG Oral Ca psule Delayed Release Particles 06/19/2023 Provider: JUANITO JOHNSON Diagnosis: Last Documented On 4 11:20AM By Shelley Hussein ; [facility] amLODIPine Besy-Benazepril HCl 5-10 MG OR CAPS 012 Provider: Diagnosis: Last Documented On 2 1:15PM By Marc Blanca User ; [facility] Benicar 20 MG OR TABS 08/05/2012 Provider: Diagnosis: Last Documented On 2 1:15PM By Marc Blanca User ; [facility] Past Medications on file Mupirocin 2% External Ointment 05/12/2024 - 06/11/2024 Provider: Tom crawford MD Diagnosis: twice a day Last Documented On 4 1:09PM By Mirtha Houston ; [facility] Ondansetron HCl 4 MG Oral Tablet 05/12/2024 - 05/22/2024 Provider: Tom crawford MD Diagnosis: 1 q 8 hours prn post op nausea Last Documented On 4 1:09PM By Mirtha Houston ; [facility] Benzoyl Peroxide Wash 5% External Liquid 05/12/2024 - 05/13/2024 Provider: Tom crawford MD Diagnosis: use as directed by Dr. Hauser Last Documented On 4 1:09PM By Mirtha Houston ; [facility] Medications Administered Includes: Administered Medications from this encounter No Administered Medications Recorded Vital Signs Includes: Vital Signs from this encounter Vital Name 07/14/2024 01:48P Height (in) 68 Weight (lb) 150 Body Mass Index 22.8 Body Surface Area 1.8 Note: tp Last Documented: On 07/14/2024 1:49PM ; [facility], [facility] Results Includes: Results discussed during this encounter No Results Recorded For Specified Dates History of Present Illness Includes: History of Present Illness from this encounter BHAKTI Osei is a 78 year old female. - Allergy list reviewed - Problem list reviewed - Medication list reviewed Patient is seen today in follow up after undergoing left shoulder reverse TSA. Patient is doing very well. She denies any pain or discomfort at this point. She does still wear the sling occasionally Physical exam Patient is awake and alert. Well groomed and nourished. No acute distress. Normal gait and station. Appropriate mood and affect. no rashes, erythema, ecchymosis Left shoulder with forward elevation to roughly 95?. She has full active range of motion of her left elbow. She is neurovascularly intact Imaging X-ray of the left shoulder shows good placement of the implant Assessment Left shoulder status post reverse TSA Plan She will continue with conservative measures. She will follow up with us in 3 months with when last x-ray. Social History Description Last Updated Alcohol use 09/12/2023 Last Documented On 4 1:49PM ; [facility], [facility] Caffeine use 09/12/2023 Last Documented On 4 1:49PM ; [facility] No recent change in diet 09/12/2023 Last Documented On 4 1:49PM ; [facility], [facility] Not a current smoker. 09/12/2023 Last Documented On 4 1:49PM ; [facility], [facility] Not exercising regularly 09/12/2023 Last Documented On 4 1:49PM ; [facility] Not using drugs 09/12/2023 Last Documented On 4 1:49PM ; [facility] Tobacco non-user 09/12/2023 Last Documented On 4 1:49PM ; [facility], [facility] Smoking Status Unknown Procedures and Surgical History Includes: Procedures from this encounter Procedures Code Diagnosis Performing Provider Service Location Service Date X-RAY EXAM OF SHOULDER 2-3 VIEWS (LEFT) 99659 Primary osteoarthritis, left shoulder, Presence of left artificial shoulder joint [facility]24 Last Documented On 4 11:17AM ; [facility] Surgical History Last Updated History of appendectomy 09/12/2023 Last Documented On 4 1:49PM ; [facility] History of back surgery 09/12/2023 Last Documented On 4 1:49PM ; [facility] History of total hip replacement 024 Last Documented On 4 1:49PM ; [facility] History of total knee arthroplasty 09/12 Last Documented On 4 1:49PM ; [facility] Medical History Includes: Medical History addressed during this encounter Description Last Updated History of arthritis 09/12/2023 Last Documented On 4 1:49PM ; [facility] History of diabetes mellitus 09/12/2023 Last Documented On 4 1:49PM ; [facility] History of Hypertension 09/12/2023 Last Documented On 4 1:49PM ; [facility] Family History Includes: Family History addressed during this encounter Description Last Updated Diabetes mellitus 09/12/2023 Last Documented On 4 1:49PM ; [facility] Family history of cancer 09/12/2023 Last Documented On 4 1:49PM ; [facility] Family history of heart disease 09/12/19 Last Documented On 4 1:49PM ; [facility] Review of Systems Includes: Review of Systems [...] Active Last Documented On 5 12:38PM ; [facility] Encounters Encounter Provider Location Date Check-In Time Check-Out Time Diagnosis Follow Up Rangel Sandoval PA-C [facility] 4 12:36PM 2:09PM Insurance Includes: Active Insurance Policies Plan Name Member ID Group # Subscriber Relationship Effect chelo Dates 1 - Medicare Part B [facility] [id number] Padmini Osei Self 2 - [facility] [employer] [id number] Padmini Boswell Clinical Notes Includes: Clinical Notes from this encounter * Progress note Date Encounter Last Documented by 07/14/2024 Follow Up Last documented on 07/14/2024; 2:11 PM, Rangel Sandoval PA-C; [facility] Chief Complaint The Chief Complaint is: Shoulder pain. History of Present Illness Padmini Osei is a 78 year old female. - Allergy list reviewed - Problem list reviewed - Medication list reviewed Patient is seen today in follow up after undergoing left shoulder reverse TSA. Patient is doing very well. She denies any pain or discomfort at this point. She does still wear the sling occasionally Physical exam Patient is awake and alert. Well groomed and nourished. No acute distress. Normal gait and station. Appropriate mood and affect. no rashes, erythema, ecchymosis Left shoulder with forward elevation to roughly 95-. She has full active range of motion of her left elbow. She is neurovascularly intact Imaging X-ray of the left shoulder shows good placement of the implant Assessment Left shoulder status post reverse TSA Plan She will continue with conservative measures. She will follow up with us in 3 months with when last x-ray. Current Medication - amLODIPine Besy-Benazepril HCl 5-10 [...] Oral Tablet 7 days, 0 refills - Rosuvastatin Calcium 20 [...] allergic reaction. Physical Findings - Vitals taken 07/14/2024 01:48 pm tp Height 68 in Weight 150 lbs Body Mass Index 22.8 kg/m2 Body Surface Area 1.8 m2 Plan StartCited - Other Therapy/Physical Therapy: Shoulder Instructions: See PT order attached EndCited Notes This dictation was done with voice recognition software and may contain errors and omissions. Care Team - JUANITO JOHNSON - ADULT CROSSING GUARD
--- OUTSIDE RECORDS SUMMARY | 2024-11-25 12:32 | XMS_ITS ---
Author Organization Unknown TREATMENT PLAN [facility] Start Date Provider Encounter for Check-up [id number] [facility]
--- OUTSIDE RECORDS SUMMARY | 2024-11-25 12:32 | XMS_ITS | Clinical Summary ---
Author Organization [facility] , [facility] Address [address] [place] [address] Phone Care Team Providers Care Sieve Grader Tender Name Role Phone Murtaza CLARK, Tom Schroeder Unavailable [phone] JUANITO JOHNSON Primary Care Provider [phone] Reason for Visit and Chief Complaint [facility] Problems Includes: Problems addressed during this encounter and other active Problems All Visits Onset Date Resolved Date Provider Condition S tatus Joint Pain, Localized in the Left Shoulder 09/12/2023 Marie Sanchez PA-C Active Last Documented On 4 11:20AM ; [facility] LOC PRIM OSTEOART-PELVIS 08/05/2012 Asher guzmán MD Active Last Documented On 2 1:10PM ; [facility] Plan of Treatment No Plan of [...] On 4 9:49AM By Nohemi Patrick ; [facility] Lisinopril 20 MG Oral Tablet 09/01/2023 Provider: JUANITO JOHNSON Diagnosis: Last Documented On 4 11:20AM By Shelley Hussein ; [facility] metFORMIN HCl ER 500 MG Oral Tablet Extended Release 24 Hour 08/19/2023 Provider: JUANITO JOHNSON Diagnosis: Last Documented On 4 11:20AM By Shelley Hussein ; [facility] Rosuvastatin Calcium 20 MG Oral Tablet 07/04/2023 Pr ovider: JUANITO ALEX Diagnosis: Last Documented On 4 11:20AM By Shelley Hussein ; [facility], [facility] DULoxetine HCl 30 MG Oral Ca psule Delayed Release Particles 06/19/2023 Provider: JUANITO JOHNSON Diagnosis: Last Documented On 4 11:20AM By Shelley Hussein ; [facility], [facility] amLODIPine Besy-Benazepril HCl 5-10 MG OR CAPS 012 Provider: Diagnosis: Last Documented On 2 1:15PM By Tran 4 User ; [facility] Benicar 20 MG OR TABS 08/05/2012 Provider: Diagnosis: Last Documented On 2 1:15PM By Marc Blanca User ; [facility] Medications Administered Includes: Administered Medications from this encounter No Administered Medications Recorded Results Includes: Results discussed during this encounter No Results Recorded For Specified Dates History of Present Illness Includes: History of Present Illness from this encounter No History of Present Illness Recorded Social History No Social History Recorded - Smoking Status Unknown Procedures and Surgical History Includes: Procedures from this encounter Procedures Code Diagnosis Performing Provider Service Location Service Date RECONSTRUCT SHOULDER JOINT (LEFT) 61529 Primary osteoarthritis, left shoulder Tom Hauser MD [facility] 05/27/2024 Last Documented On 4 11:17AM ; [facility] Medical History Includes: Medical History [...] Active Last Documented On 5 12:38PM ; [facility] Encounters Encounter Provider Location Date Check-In Time Check-Out Time Diagnosis [facility] Tom Hauser MD Surgery 05/27/2024 05/28/2024 6:29AM 11:59PM Insurance Includes: Active Insurance Policies Plan Name Member ID Group # Subscriber Relationship Effect chelo Dates 1 - Medicare Part B [facility] [id number] Padmini Boswell 2 - [facility] [employer] [id number] Padmini Boswell Clinical Notes Includes: Clinical Notes from this encounter No Clinical Notes Recorded
--- OUTSIDE RECORDS SUMMARY | 2024-11-25 12:32 | XMS_ITS ---
Author Organization [facility] Address [address] [place] [address] Phone Care Team Providers Care Lab Courier Name Role Phone Murtaza CLARK, Tom Schroeder Unavailable [phone] JUANITO JOHNSON Primary Care Provider [phone] Problems Includes: Active, inactive, and resolved Problems All Visits Onset Date Resolved Date Provider Condition S tatus Joint Pain, Localized in the Left Shoulder 09/12/2023 Marie Sanchez PA-C Active Last Documented On 4 11:20AM ; [facility] LOC PRIM OSTEOART-PELVIS 08/05/2012 Asher guzmán MD Active Last Documented On 2 1:10PM ; [facility] Plan of Treatment Findings Encounter Date Patient screened for future fall risk: documentation of any fall with injury in past year Follow Up with Tom Hauser MD 11/06/2024 Last Documented On 5 10:02AM ; [facility] Patient screened for future fall risk: documentation of any fall with injury in past year Follow Up with Marie Sanchez PA-C 12/25/2023 Last Documented On 4 8:54AM ; [facility] Pending Tests Order Diagnosis Results Due Ordering P rovider Radiology - CT Scan Shoulder 04/09/24 Kena Sanchez PA-C Last Documented On 4 10:08AM ; [facility] Assessments Includes: Assessments for all patient encounters No Assessments Recorded Medical Equipment - Implanted Devices Includes: Current and historical Devices No Medical Equipment Recorded Medications Includes: Current and historical Medications Current Medications (continue as prescribed) metroNIDAZOLE 500 MG Oral Tablet 03/18/2024 Provider : JUANITO JOHNSON Diagnosis: Last Documented On 4 9:49AM By Nohemi Patrick ; [facility] Lisinopril 20 MG Oral Tablet 09/01/2023 Provider: JUANITO JOHNSON Diagnosis: Last Documented On 4 11:20AM By Shelley Hussein ; [facility] metFORMIN HCl ER 500 MG Oral Tablet Extended Release 24 Hour 08/19/2023 Provider: JUANITOLLOYD SORENSONALICIA Diagnosis: Last Documented On 4 11:20AM By Shelley Hussein ; [facility] Rosuvastatin Calcium 20 MG Oral Tablet 07/04/2023 Pr ovider: JUANITO SORENSONALICIA Diagnosis: Last Documented On 4 11:20AM By Shelley Hussein ; [facility] DULoxetine HCl 30 MG Oral Ca psule Delayed Release Particles 06/19/2023 Provider: JUANITO JOHNSON Diagnosis: Last Documented On 4 11:20AM By Shelley Hussein ; [facility] amLODIPine Besy-Benazepril HCl 5-10 MG OR CAPS 012 Provider: Diagnosis: Last Documented On 2 1:15PM By Marc Blanca User ; [facility] Benicar 20 MG OR TABS 08/05/2012 Provider: Diagnosis: Last Documented On 2 1:15PM By Marc Blanca User ; [facility] Past Medications on file Mupirocin 2% External Ointment 05/12/2024 - 06/11/2024 Provider: Tom crawford MD Diagnosis: twice a day Last Documented On 4 1:09PM By Mirtha Houston ; [facility] Ondansetron HCl 4 MG Oral Tablet 05/12/2024 - 05/22/2024 Provider: Tom crawford MD Diagnosis: 1 q 8 hours prn post op nausea Last Documented On 4 1:09PM By Mirtha Houston ; [facility] Benzoyl Peroxide Wash 5% External Liquid 05/12/2024 - 05/13/2024 Provider: Tom crawford MD Diagnosis: use as directed by Dr. Hauser Last Documented On 4 1:09PM By Mirtha Gribbins ; [facility] Aspirin 81 MG OR CHEW 08/05/2012 - 05/05/2024 Provider : Diagnosis: Last Documented On 4 2:01PM By Mirtha Gribbins ; [facility] Lortab 10-500 MG OR TABS 11/15/2008 - 05/13/2024 Provi xander: Asher Leal MD Diagnosis: kadi [phone] jrk Last Documented On 4 10:39AM By Mirtha Gribbyoko ; [facility] Lortab 10-500 MG OR TABS 08/22/2008 - 05/13/2024 Provi xander: Asher Leal MD Diagnosis: Last Documented On 4 10:39AM By Mirtha Gribbins ; [facility] Lortab 5-500 MG OR TABS 07/25/2008 - 05/13/2024 Provid er: Asher Leal MD Diagnosis: Last Documented On 4 10:39AM By Mirtha Houston ; [facility] Lortab 10-500 MG OR TABS 04/14/2008 - 05/13/2024 Provi xander: Asher Leal MD Diagnosis: called to [facility] [phone] jrk Last Documented On 4 10:39AM By Mirtha Gribbyoko ; [facility] Lortab 10-500 MG OR TABS 01/28/2008 - 05/13/2024 Provi xander: Asher Leal MD Diagnosis: called to [facility] [id number]/cv Last Documented On 4 10:39AM By Mirtha Grcynthia ; [facility] Medications Administered Includes: Administered Medications in patient's chart No Administered Medications Recorded Vital Signs Includes: Vital Signs from 11/26/2023 through 11/25/2024 Vital Name 11/06/2024 12:18P 07/14/2024 01:48P 06/10/2024 01:27P 05/05/2024 01:13P 03/26/2024 09:51A Height (in) 68 68 68 68 68 Weight (lb) 150 150 160 160 Body Mass Index 22.8 22.8 24.3 24.3 Body Surface Area 1.8 1.8 1.9 1.9 Note: tp hj ab Last Documented: On 11/06/2024 12:18PM ; [facility] On 07/14/2024 1:49PM ; [facility] On 06/10/2024 1:28PM ; [facility] On 05/05/2024 1:14PM ; [facility] On 03/26/2024 9:52AM ; [facility] Vital Name 12/25/2023 10:10A Height (in) 68 Weight (lb) 160 Body Mass Index 24.3 Body Surface Area 1.9 Note: hdv Last Documented: On 12/25/2023 10:11A M ; [facility] Results Includes: Results from 11/26/2023 through 11/25/2024 No Results Recorded For Specified Dates History of Present Illness History of Present Illness not supported for this document type No History of Present Illness Recorded Social History Description Last Updated Alcohol use 09/12/2023 Last Documented On 4 9:18AM ; [facility] Caffeine use 09/12/2023 Last Documented On 4 9:18AM ; [facility] No recent change in diet 09/12/2023 Last Documented On 4 9:18AM ; [facility] Not a current smoker. 09/12/2023 Last Documented On 4 9:18AM ; [facility] Not exercising regularly 09/12/2023 Last Documented On 4 9:18AM ; [facility] Not using drugs 09/12/2023 Last Documented On 4 9:18AM ; [facility] Tobacco non-user 09/12/2023 Last Documented On 4 9:18AM ; [facility] Smoking Status Unknown Procedures and Surgical History Includes: Procedures from 11/26/2023 through 11/25/2024 Procedures Code Diagnosis Performing Provider Service Location Service Date X-RAY EXAM OF SHOULDER 2-3 VIEWS (LEFT) 65428 Primary osteoarthritis, left shoulder, Presence of left artificial shoulder joint Tom Hauser MD [facility] 11/06/2024 Last Documented On 5 4:52PM ; [facility] THERAPEUTIC EXERCISES (GP) [id number] Primary osteoarthritis, left shoulder, Presence of left artificial shoulder joint Manuel M Tran PT [facility] 09/17/2024 Last Documented On 5 11:35AM ; [facility] NEUROMUSCULAR REEDUCATION (GP) [id number] Primary osteoarthritis, left shoulder, Presence of left artificial shoulder joint Manuel M Tran PT [facility] 09/17/2024 Last Documented On 5 11:35AM ; [facility] MANUAL THERAPY (GP) [id number] Primary osteoarthritis, left shoulder, Presence of left artificial shoulder joint Manuel M Tran PT [facility] 09/17/2024 Last Documented On 5 11:35AM ; [facility] THERAPEUTIC EXERCISES (GP) [id number] Primary osteoarthritis, left shoulder, Presence of left artificial shoulder joint Maneul M Tran PT [facility] 09/09/2024 Last Documented On 5 1:56PM ; [facility] NEUROMUSCULAR REEDUCATION (GP) [id number] Primary osteoarthritis, left shoulder, Presence of left artificial shoulder joint Manuel M Tran PT [facility] 09/09/2024 Last Documented On 5 1:56PM ; [facility] MANUAL THERAPY (GP) [id number] Primary osteoarthritis, left shoulder, Presence of left artificial shoulder joint Manuel M Tran PT [facility] 09/09/2024 Last Documented On 5 1:56PM ; [facility] MANUAL THERAPY (GP) [id number] Primary osteoarthritis, left shoulder, Presence of left artificial shoulder joint Manuel M Tran PT [facility] 09/02/2024 Last Documented On 5 2:13PM ; [facility] NEUROMUSCULAR REEDUCATION (GP) [id number] Primary osteoarthritis, left shoulder, Presence of left artificial shoulder joint Manuel M Tran PT [facility] 09/02/2024 Last Documented On 5 2:13PM ; [facility] THERAPEUTIC EXERCISES (GP) [id number] Primary osteoarthritis, left shoulder, Presence of left artificial shoulder joint Manuel M Tran PT [facility] 09/02/2024 Last Documented On 5 2:13PM ; [facility] MANUAL THERAPY (GP) [id number] Primary osteoarthritis, left shoulder, Presence of left artificial shoulder joint Manuel M Tran PT [facility] 08/23/2024 Last Documented On 5 11:24AM ; [facility] NEUROMUSCULAR REEDUCATION (GP) [id number] Primary osteoarthritis, left shoulder, Presence of left artificial shoulder joint Manuel M Tran PT [facility] 08/23/2024 Last Documented On 5 11:24AM ; [facility] THERAPEUTIC EXERCISES (GP) [id number] Primary osteoarthritis, left shoulder, Presence of left artificial shoulder joint Manuel M Tran PT [facility] 08/23/2024 Last Documented On 5 11:24AM ; [facility] MANUAL THERAPY (GP) [id number] Primary osteoarthritis, left shoulder, Presence of left artificial shoulder joint Manuel M Tran PT [facility] 08/09/2024 Last Documented On 4 3:56PM ; [facility] NEUROMUSCULAR REEDUCATION (GP) [id number] Primary osteoarthritis, left shoulder, Presence of left artificial shoulder joint Manuel M Tran PT [facility] 08/09/2024 Last Documented On 4 3:56PM ; [facility] THERAPEUTIC EXERCISES (GP) [id number] Primary osteoarthritis, left shoulder, Presence of left artificial shoulder joint Manuel M Tran PT [facility] 08/09/2024 Last Documented On 4 3:56PM ; [facility] MANUAL THERAPY (GP) [id number] Primary osteoarthritis, left shoulder, Presence of left artificial shoulder joint Manuel M Tran PT [facility] 08/05/2024 Last Documented On 4 8:40AM ; [facility] NEUROMUSCULAR REEDUCATION (GP) [id number] Primary osteoarthritis, left shoulder, Presence of left artificial shoulder joint Manuel M Tran PT [facility] 08/05/2024 Last Documented On 4 8:40AM ; [facility] THERAPEUTIC EXERCISES (GP) [id number] Primary osteoarthritis, left shoulder, Presence of left artificial shoulder joint Manuel M Tran PT [facility] 08/05/2024 Last Documented On 4 8:40AM ; [facility] MANUAL THERAPY (GP) [id number] Primary osteoarthritis, left shoulder, Presence of left artificial shoulder joint Maunel M Tran PT [facility] 07/26/2024 Last Documented On 4 10:34AM ; [facility] NEUROMUSCULAR REEDUCATION (GP) [id number] Primary osteoarthritis, left shoulder, Presence of left artificial shoulder joint Manuel M Tran PT [facility] 07/26/2024 Last Documented On 4 10:34AM ; [facility] THERAPEUTIC EXERCISES (GP) [id number] Primary osteoarthritis, left shoulder, Presence of left artificial shoulder joint Manuel M Tran PT [facility] 07/26/2024 Last Documented On 4 10:34AM ; [facility] MANUAL THERAPY (GP) [id number] Primary osteoarthritis, left shoulder, Presence of left artificial shoulder joint Manuel M Tran PT [facility] 07/20/2024 Last Documented On 4 1:50PM ; [facility] NEUROMUSCULAR REEDUCATION (GP) [id number] Primary osteoarthritis, left shoulder, Presence of left artificial shoulder joint Manuel M Tran PT [facility] 07/20/2024 Last Documented On 4 1:50PM ; [facility] THERAPEUTIC EXERCISES (GP) [id number] Primary osteoarthritis, left shoulder, Presence of left artificial shoulder joint Manuel M Tran PT [facility] 07/20/2024 Last Documented On 4 1:50PM ; [facility] X-RAY EXAM OF SHOULDER 2-3 VIEWS (LEFT) [id number] Primary osteoarthritis, left shoulder, Presence of left artificial shoulder joint Rangel Sandoval PA-C [facility] 07/14/2024 Last Documented On 4 11:17AM ; [facility] NEUROMUSCULAR REEDUCATION (GP) [id number] Primary osteoarthritis, left shoulder, Presence of left artificial shoulder joint Manuel Tran PT [facility] 07/05/2024 Last Documented On 4 2:22PM ; [facility] MANUAL THERAPY (GP) [id number] Primary osteoarthritis, left shoulder, Presence of left artificial shoulder joint Manuel Tran PT [facility] 07/05/2024 Last Documented On 4 2:22PM ; [facility] NEUROMUSCULAR REEDUCATION (GP) [id number] Primary osteoarthritis, left shoulder, Presence of left artificial shoulder joint Manuel Tran PT [facility] 06/28/2024 Last Documented On 4 1:53PM ; [facility] NEUROMUSCULAR REEDUCATION (GP) [phone] Primary osteoarthritis, left shoulder, Presence of left artificial shoulder joint Manuel Tarn PT [facility] 06/21/2024 Last Documented On 4 11:04AM ; [facility] PT Eval -Low Complexity (GP) [id number] Primary osteoarthritis, left shoulder, Presence of left artificial shoulder joint Manuel Tran PT [facility] 06/21/2024 Last Documented On 4 11:04AM ; [facility] RECONSTRUCT SHOULDER JOINT (LEFT) [id number] Primary osteoarthritis, left shoulder Tom Hauser MD [facility] 05/27/2024 Last Documented On 4 11:17AM ; [facility] ARC SLING (LEFT, ABN signed) [id number] Primary osteoarthritis, left shoulder Tom Hauser MD [facility] 05/05/2024 Last Documented On 4 4:43PM ; [facility] Triamcinolone/Kenalog, 10mg per cc [id number] Complete rotatr-cuff tear/ruptr of left shoulder, [facility] 12/25/2023 Last Documented On 4 4:32PM ; [facility] DRAIN/INJECT, JOINT/BURSA (LEFT) Complete rotatr-cuff tear/ruptr of left shoulder, [facility] 12/25/2023 Last Documented On 4 4:32PM ; [facility] Surgical History Last Updated History of appendectomy 09/12/2023 Last Documented On 4 9:18AM ; [facility] History of back surgery 09/12/2023 Last Documented On 4 9:18AM ; [facility] History of total hip replacement 024 Last Documented On 4 9:18AM ; [facility] History of total knee arthroplasty 09/12 Last Documented On 4 9:18AM ; [facility] Medical History Includes: Medical History in patient's chart Description Last Updated History of arthritis 09/12/2023 Last Documented On 4 9:18AM ; [facility] History of diabetes mellitus 09/12/2023 Last Documented On 4 9:18AM ; [facility] History of Hypertension 09/12/2023 Last Documented On 4 9:18AM ; [facility] Family History Includes: Family History in patient's chart Description Last Updated Diabetes mellitus 09/12/2023 Last Documented On 4 9:18AM ; [facility] Family history of cancer 09/12/2023 Last Documented On 4 9:18AM ; [facility] Family history of heart disease 09/12/19 24 Last Documented On 4 9:18AM ; [facility] Review of Systems Review of Systems not supported for this document type No Review of Systems Recorded Mental Status Description No anxiety Functional Status No Functional Status Recorded Physical Exam Physical Exam not supported for this document type No Physical Exam Recorded Allergies Includes: Active, inactive, and resolved Allergies Substance Type Reaction Onset Date Resolved Date Statu alyce Brooksnaflex Allergy 11/06/2024 Active Last Documented On 12:38PM ; [facility] Encounters Includes: Encounters from 11/26/2023 through 11/25/2024 Encounter Provider Location Date Check-In Time Check-Out Time Diagnosis Follow Up Tom Hauser MD [facility] 11/07/19 12:16PM 12:46PM Follow Up Rangel Sandoval PA-C [facility] 07/14/20 12:36PM 2:09PM Post Op Marie Sanchez PA-C [facility] 06/10/20 1:31PM 1:53PM [Patient Encounter] Tom Hauser MD 05/27/2005/05/2024 2:14PM 05/05/2024 11:59PM [facility] Tom Hauser MD Surgery 05/27/2005/28/2024 6:29AM 05/05/2024 11:59PM [employer] [employer] Tom Hauser MD [facility] 05/05/20 2:25PM 11:59PM Follow Up Tom Hauser MD [facility] 05/05/20 1:08PM 1:43PM Follow Up Marie Sanchez PA-C [facility] 03/26/20 9:47AM 10:11AM Follow Up Marie Sanchez PA-C [facility] 12/25/19 9:50AM 10:26AM Insurance Includes: Active Insurance Policies Plan Name Member ID Group # Subscriber Relationship Effect chelo Dates 1 - Medicare Part B [facility] [id number] Kathleen Boswell 2 - [facility] [employer] [id number] Kathleen Boswell Clinical Notes Includes: Signed Clinical Notes starting from 07/25/2022 * Progress note Date Encounter Last Documented by 11/06/2024 Follow Up Last documented on 11/12/2024; 10:02 AM, Tom Hauser MD; [facility] Active Problems & Conditions - Joint Pain, Localized in the Left Shoulder - LOC PRIM OSTEOART-PELVIS Chief Complaint The Chief Complaint is: Shoulder pain. Referred Here Referred by SELF. History of Present Illness Kathleen Cortes is a 79 year old female. - Allergy list reviewed - Problem list reviewed - Medication list reviewed - Previous history of new onset pain Injury is not work related or an automotive accident - No previous treatment. - - Review of medications documented Patient is here for return evaluation of her left shoulder. She had a left reverse total shoulder replacement she is doing extremely well. Current Medication - amLODIPine Besy-Benazepril HCl 5-10 [...] drugs. Habits: Not exercising regularly. Allergies - Zanaflex Family History Cancer Heart disease Diabetes mellitus [...] allergic reaction. Physical Findings - Vitals taken 11/06/2024 12:18 pm AH Height 68 in Weight 150 lbs Body Mass Index 22.8 kg/m2 Body Surface Area 1.8 m2 Alert oriented x3 mood and affect are appropriate skin over shoulder is intact intact sensation to axillary BC radial median ulnar nerve distribution. Active forward elevation is 140 active external rotation is 50. Neurologically intact to axillary LAD see radial median ulnar nerve distribution. Palpable radial pulse. Tests X-rays two views left shoulder show a well-positioned well-aligned left reverse total shoulder replacement. With no loosening or hardware failure notable. Assessment Status post left reverse total shoulder replacement doing well. Previous Tests Imaging: X-Ray: X-ray. Counseling/Education - Tobacco non-user - Use of tobacco assessment performed Plan - Patient screened for future fall risk: documentation of any fall with injury in past year Plan will be for continued observation. Patient may carry out activities as tolerated. I will see her back as needed. Notes This dictation was done with voice recognition software and may contain errors and omissions. Care Team - JUANITO JOHNSON - TELESALES REPRESENTATIVE * Progress note Date Encounter Last Documented by 07/14/2024 Follow Up Last documented on 07/14/2024; 2:11 PM, Rangel Sandoval PA-C; [facility] Chief Complaint The Chief Complaint is: Shoulder pain. History of Present Illness Kathleen Cortes is a 78 year old female. - [...] omissions. Care Team - JUANITO JOHNSON - TELESALES REPRESENTATIVE * Progress note Date Encounter Last Documented by 06/10/2024 Post Op Last documented on 06/10/2024; 1:52 PM, Marie Sanchez PA-C; [facility] Active Problems & Conditions - Joint Pain, Localized in the Left Shoulder - LOC PRIM OSTEOART-PELVIS Chief Complaint The Chief Complaint is: L shoulder pain. History of Present Illness KATHLEEN CORTES is [...] office. Care Team - JUANITO JOHNSON - TELESALES REPRESENTATIVE * Progress note Date Encounter Last Documented by 05/05/2024 Follow Up Last documented on 05/20/2024; 12:20 PM, Tom Hauser MD; [facility] Active Problems & Conditions - Joint Pain, Localized in the Left Shoulder - LOC PRIM OSTEOART-PELVIS Chief Complaint The Chief Complaint is: L shoulder pain. History of Present Illness KATHLEEN CORTES is a 78 year old female. - Allergy list reviewed - Problem list reviewed - Medication list reviewed Patient is here for her left shoulder. She continues to have severe pain. She has rested she has modified her activity she has utilized anti-inflammatories as she can tolerate she had injections in the past she has had exercise treatment all of which have not provided her significant relief from severe pain in her left shoulder which is inhibiting her restful sleep and her activities of daily living. She states the pain is moderate to severe. She states with range of motion the extremes of range of motion is very severe. She is very frustrated this point and anxious to try to find a solution. Current Medication - amLODIPine Besy-Benazepril HCl 5-10 [...] Diabetes mellitus Physical Findings - Vitals taken 05/05/2024 01:13 pm ab Height 68 in Weight 160 lbs Body Mass Index 24.3 kg/m2 Body Surface Area 1.9 m2 Alert and oriented x 3, Skin intact, No gross deformity, no atrophy of rotator cuff musculature, Sensation intact to light touch through upper extremity. Range of motion limited to all planes of motion. Crepitus present with range of motion. Fingers warm well perfused. Impingement testing negative. Rotator cuff strength testing within normal limits. Biceps testing equivocal. Tests CT scan demonstrates severe glenohumeral arthritis, Walch type A1 glenoid, cystic change in the humeral head and glenoid, severe loss of joint space, large inferior humeral osteophyte consistent with grade 3 changes. There is no evidence of rotator cuff atrophy Assessment Severe glenohumeral arthritis in a 78-year-old female who h. as exhausted all conservative measures including rest, modification of activity, utilization of anti-inflammatories, exercise treatment, injections Plan We had a long discussion about treatment options. Patient has end-stage arthropathy this shoulder unresponsive to conservative measures. At this point given her severe pain her severe dysfunction the inability to treat this nonsurgically thus far I would recommend conservative measures to include anatomic total shoulder arthroplasty. We talked about goals risks benefits rehab and recovery and she wishes to proceed . The patient understands the risk of surgery to include but are not limited to infection, possible nerve damage, tendon or vessel injury, scar sensitivity and anesthesia.The patient understands the need for postoperative rehabilitation and therapy. The patient had no further questions regarding the surgery or potential risks. This patient was prescribed a shoulder immobilizer for severe glenohumeral arthritis. The patient has weakness and / or instability of their left upper extremity which requires stabilization from this semi-rigid / rigid orthosis to improve their function. Verbal and written instructions for the use and application of this item were given. Patient was instructed that should the brace result in increased pain, decreased sensation, increased swelling, or an overall worsening of their medical condition, to please contact our office immediately. Orthotic management and training was provided for skin care, modifications due to healing tissues, edema changes, interruption in skin integrity, and safety precautions with the orthosis. Surgery: Left shoulder anatomic total shoulder arthroplasty using Arthrex Notes This dictation was done with voice recognition software and may contain errors and omissions. Care Team - JUANITO JOHNSON - TELESALES REPRESENTATIVE * Progress note Date Encounter Last Documented by 03/26/2024 Follow Up Last documented on 03/26/2024; 10:08 AM, Marie Sanchez PA-C; [facility], [facility] Active Problems & Conditions - Joint Pain, Localized in the Left Shoulder - LOC PRIM OSTEOART-PELVIS History of Present Illness KATHLEEN CORTES is [...] Diabetes mellitus Physical Findings - Vitals taken 03/26/2024 09:51 am Height 68 in Patient is awake and alert and oriented well-groomed and nourished no acute distress. Normal gait and station. There are no skin changes. No sign of infection No swelling or soft tissue edema. The patient has normal neurovascular status. Brisk cap refill throughout. Normal sensation to light touch. There are no joint effusions, muscle or bone deformity. Tests X-rays reviewed from 2023 show significant arthritic change in the joint Assessment Left shoulder arthritis Plan StartCited - Other Radiology/CT Scan: Shoulder EndCited Patient has failed multiple injections. Patient shows signs and symptoms of glenohumeral joint arthritis. I did review the x-rays with the patient today. Risk and benefits of both surgical and nonsurgical measures were outlined. I discussed the role of injection for this pain. They understand this does not cure arthritis and injections can have varying results as far as relief and benefit. The surgical option would include an arthroplasty. They have no further questions CT Arthrex protocol was ordered she will see my surgeon same day follow up for evaluation * Progress note Date Encounter Last Documented by 12/25/2023 Follow Up Last documented on 01/12/2024; 8:54 AM, Marie Sanchez PA-C; [facility], [facility] Active Problems & Conditions - [...]
--- OUTSIDE RECORDS SUMMARY | 2024-11-25 12:32 | XMS_ITS | Clinical Summary ---
Author Organization [facility] , [facility] Address [address] [place] [address] Phone Care Team Providers Care Spout Worker Name Role Phone Murtaza CLARK, Tom Schroeder Unavailable Unavail JUANITO Chowdhury Primary Care Provider [phone] Reason for Visit and Chief Complaint The Chief Complaint is: shoulder pain Problems Includes: Problems addressed during this encounter and other active Problems All Visits Onset Date Resolved Date Provider Condition S tatus Joint Pain, Localized in the Left Shoulder 09/12/2023 Marie Sanchez PA-C Active Last Documented On 4 11:20AM ; [facility] LOC PRIM OSTEOART-PELVIS 08/05/2012 Asher guzmán MD Active Last Documented On 2 1:10PM ; [facility] Plan of Treatment - Patient screened for future fall risk: documentation of any fall with injury in past year - Last Documented On 11/12/2024 10:02AM ; [facility] Plan will be for continued observation. Patient may carry out activities as tolerated. I will see her back as needed. - Last Documented On 11/12/2024 10:02AM ; [facility] Assessments Includes: Assessments from this encounter Findings Status post left reverse total shoulder replacement doing well. - Last Documented On 11/12/2024 10:02AM ; [facility] Medical Equipment - Implanted Devices Includes: Current Devices No Medical Equipment Recorded Medications Includes: Medications discussed during this encounter and other current Medications Current Medications (continue as prescribed) metroNIDAZOLE 500 MG Oral Tablet 03/18/2024 Provider : JUANITO JOHNSON Diagnosis: Last Documented On 4 9:49AM By Nohemi Patrick ; [facility] Lisinopril 20 MG Oral Tablet 09/01/2023 Provider: JUANITO SORENSONALICIA Diagnosis: Last Documented On 4 11:20AM By Shelley Hussein ; [facility], [facility] metFORMIN HCl ER 500 MG Oral Tablet Extended Release 24 Hour 08/19/2023 Provider: JUANITO SORENSONALICIA Diagnosis: Last Documented On 4 11:20AM By Shelley Hussein ; [facility], [facility] Rosuvastatin Calcium 20 MG Oral Tablet 07/04/2023 Pr ovider: JUANITO SORENSONALICIA Diagnosis: Last Documented On 4 11:20AM By Shelley Hussein ; [facility] DULoxetine HCl 30 MG Oral Ca psule Delayed Release Particles 06/19/2023 Provider: JUANITO SORENSONALICIA Diagnosis: Last Documented On 4 11:20AM By Shelley Hussein ; [facility] amLODIPine Besy-Benazepril HCl 5-10 MG OR CAPS 012 Provider: Diagnosis: Last Documented On 2 1:15PM By Macr Blanca User ; [facility] Benicar 20 MG OR TABS 08/05/2012 Provider: Diagnosis: Last Documented On 2 1:15PM By Marc Blanca User ; [facility] Past Medications on file Mupirocin 2% External Ointment 05/12/2024 - 06/11/2024 Provider: Tom crawford MD Diagnosis: twice a day Last Documented On 4 1:09PM By Mirtha Houston ; [facility] Ondansetron HCl 4 MG Oral Tablet 05/12/2024 - 05/22/2024 Provider: Tom crawford MD Diagnosis: 1 q 8 hours prn post op nausea Last Documented On 4 1:09PM By Mirtha Houston ; [facility] Benzoyl Peroxide Wash 5% External Liquid 05/12/2024 - 05/13/2024 Provider: Tom crawford MD Diagnosis: use as directed by Dr. Hauser Last Documented On 4 1:09PM By Mirtha Houston ; [facility] Medications Administered Includes: Administered Medications from this encounter No Administered Medications Recorded Vital Signs Includes: Vital Signs from this encounter Vital Name 11/06/2024 12:18P Height (in) 68 Weight (lb) 150 Body Mass Index 22.8 Body Surface Area 1.8 Note: Last Documented: On 11/06/2024 12:18P M ; [facility], [facility] Results Includes: Results discussed during this encounter No Results Recorded For Specified Dates History of Present Illness Includes: History of Present Illness from this encounter BHAKTI Osei is a 79 year old female. - [...] shoulder replacement she is doing extremely well. Social History Description Last Updated Alcohol use 09/12/2023 Last Documented On 5 12:18PM ; [facility], [facility] Caffeine use 09/12/2023 Last Documented On 5 12:18PM ; [facility], [facility] No recent change in diet 09/12/2023 Last Documented On 5 12:18PM ; [facility], [facility] Not a current smoker. 09/12/2023 Last Documented On 5 12:18PM ; [facility], [facility] Not exercising regularly 09/12/2023 Last Documented On 5 12:18PM ; [facility], [facility] Not using drugs 09/12/2023 Last Documented On 5 12:18PM ; [facility] Tobacco non-user 09/12/2023 Last Documented On 5 12:18PM ; [facility], [facility] Smoking Status Unknown Procedures and Surgical History Includes: Procedures from this encounter Procedures Code Diagnosis Performing Provider Service Location Service Date X-RAY EXAM OF SHOULDER 2-3 VIEWS (LEFT) 90218 Primary osteoarthritis, left shoulder, Presence of left artificial shoulder joint Tom Hauser MD [facility] 11/06/2024 Last Documented On 5 4:52PM ; [facility] X-ray 65628 Last Documented On 5 12:40PM ; [facility] Surgical History Last Updated History of appendectomy 09/12/2023 Last Documented On 5 12:18PM ; [facility] History of back surgery 09/12/2023 Last Documented On 5 12:18PM ; [facility] History of total hip replacement 024 Last Documented On 5 12:18PM ; [facility] History of total knee arthroplasty 09/12 Last Documented On 5 12:18PM ; [facility], [facility] Medical History Includes: Medical History addressed during this encounter Description Last Updated History of arthritis 09/12/2023 Last Documented On 5 12:18PM ; [facility] History of diabetes mellitus 09/12/2023 Last Documented On 5 12:18PM ; [facility] History of Hypertension 09/12/2023 Last Documented On 5 12:18PM ; [facility] Family History Includes: Family History addressed during this encounter Description Last Updated Diabetes mellitus 09/12/2023 Last Documented On 5 12:18PM ; [facility] Family history of cancer 09/12/2023 Last Documented On 5 12:18PM ; [facility] Family history of heart disease 09/12/19 24 Last Documented On 5 12:18PM ; [facility] Review of Systems Includes: Review of [...] Zanaflex Allergy 11/06/2024 Active Last Documented On 12:38PM ; [facility] Encounters Encounter Provider Location Date Check-In Time Check- Out Time Diagnosis Follow Up Tom Hauser MD [facility] 12:16PM 12:46PM Insurance Includes: Active Insurance Policies Plan Name Member ID Group # Subscriber Relationship Effect chelo Dates 1 - Medicare Part B [facility] [id number] Padmini Osei Self 2 - [facility] [employer] [id number] Padmini Osei Self Clinical Notes Includes: Clinical Notes from this encounter * Progress note Date Encounter Last Documented by 11/06/2024 Follow Up Last documented on 11/12/2024; 10:02 AM, Tom Hauser MD; [facility] Active Problems & Conditions - Joint Pain, Localized in the Left Shoulder - LOC PRIM OSTEOART-PELVIS Chief Complaint The Chief Complaint is: Shoulder pain. Referred Here Referred by SELF. History of Present Illness Padmini Osei is a 79 year old female. - [...] omissions. Care Team - JUANITO JOHNSON - CONCRETE PIPE MAKING MACHINE OPERATOR
--- NOTE | 2024-11-25 12:37 | CT_ITS ---
FINAL REPORT TECHNIQUE: Routine axial images were obtained from the lung apices to below the diaphragm following IV contrast administration. Individualized dose reduction techniques using automated exposure control or adjustment of the mA and/or kV according to the patient size were employed. CLINICAL HISTORY: PULMONARY NODULE SEEN ON PRIOR CT OF SHOULDER PERFORMED AT ANOTHER FACILITY, PT TOLD TO F/U IN 4 MONTHS ON NODULE COMPARISON: No prior FINDINGS: There is no mediastinal mass or adenopathy. No pleural or pericardial effusion is seen. There is streak artifact arising from a left shoulder prosthesis. A noncalcified nodule in the anterior left upper lobe measures 6 mm and is well-seen on image 25 of series 2. No other mass or nodule is identified. IMPRESSION: 6 mm left upper lobe nodule. Follow-up chest CT in 6 months is recommended per Fleischner Society criteria. Reviewed, Interpreted and Dictated by Dov Long MD Transcribed by Bhakti Villalpando Authenticated and [facility]
[2024-11-25] MEDS: IOPAMIDOL-370 (76%);100ML BOTTLE 75 ML IV (13:08)
[2024-11-25] MEDS: SODIUM CHLORIDE 0.9% 10ML SYR (RAD ONLY) 10 ML IV (13:08)
== END 2024-11-25 23:59 | disposition home or self-care (01) ==
LOC: RAD 12:30
PROVIDERS: PCP Family Medicine; Visit Provider Family Medicine
DX: R91.1 Solitary pulmonary nodule (principal)
CPT/HCPCS: 71260; Q9967

== ENCOUNTER 2025-01-02 02:29 | Emergency (ER) | payer MEDICARE, SELFPAY ==
[2025-01-02 02:30] VITALS: BP 171/89; PULSE 84; PULSE 97; RESP 20; TEMP 36.6; O2SAT 96; O2SAT 98; BMI 29.2
--- NOTE | 2025-01-02 02:33 | XR_ITS ---
PROCEDURE INFORMATION: Exam: XR Right Femur Exam date and time: 01/02/2025 2:48 AM Age: 79 years old Clinical indication: Pain; Hip; Right; Additional info: Atraumatic right hip/leg pain TECHNIQUE: Imaging protocol: Radiologic exam of the right femur. Views: 2 views. COMPARISON: CR XR FEMUR RT 2V 01/02/2025 2:48 AM FINDINGS: Bones/joints: Dislocation of right hip prosthesis, with femoral component projecting superior to the acetabular cup. No acute fracture. Visualized portions of right total knee arthroplasty grossly unremarkable. Soft tissues: Unremarkable. IMPRESSION: 1. Dislocation of right hip prosthesis, with femoral component projecting superior to the acetabular cup. 2. No acute fracture.
--- NOTE | 2025-01-02 02:33 | XR_ITS ---
PROCEDURE INFORMATION: Exam: XR Right Hip Exam date and time: 01/02/2025 2:48 AM Age: 79 years old Clinical indication: Hip pain; Right hip; Additional info: Atraumatic right hip/leg pain TECHNIQUE: Imaging protocol: Radiologic exam of the right hip. Views: 2 or 3 views hip with pelvis when performed. COMPARISON: CR XR FEMUR RT 2V 01/02/2025 2:48 AM FINDINGS: Bones/joints: Status post bilateral hip replacements. Dislocation of the right hip prosthesis, with femoral component projecting superiorly to the acetabular cup. No definite fracture identified. Soft tissues: Unremarkable. IMPRESSION: 1. Dislocation of the right hip prosthesis, with femoral component projecting superiorly to the acetabular cup. 2. No definite fracture identified.
[2025-01-02 02:35] VITALS: BMI 22.8
--- OUTSIDE RECORDS SUMMARY | 2025-01-02 02:36 | XMS_ITS | Data Portability ---
Author Organization [facility] - [facility] AD[facility] Address [address] [place] [address] Assessment No assessment recorded. Plan of Treatment Reminders Order Date Submit Date Provider Last Modified By Organization Details Last Modified Time Details Appointments None recorded. Lab urinalysis, dipstick 2023 024 [email or web address] [facility], [address] [facility] [address], [place], [address], 4 14:44:27 Referral None recorded. Procedures None recorded. Surgeries None recorded. Imaging None recorded. Medication Orders methenamine hippurate 1 gram tablet 2023 024 [facility] #[id number], [address], [id number], 4 13:10:19 trospium 20 mg tablet 2023 024 [facility] #[id number], [address], [id number], 4 13:10:43 Estrace 0.01% (0.1 mg/gram) vaginal cream 2023 024 [facility] #[id number], [id number], 4 13:11:32 Patient TargetsNo targets recorded. Patient InstructionsNo instructions recorded. Reason for Referral None Reported. Results Created Date Observation Date Name Description Value Unit Range Abnormal Flag Note LastModifiedBy Organization Detail LastModifiedTime 04/29/20 24 04/29/2024 urina lysis , dipst ick Leukocytes (reference range) negati ve Not Available [place] [address] [address] [facility], [place], [address], 04/29/2024 11:43:48 04/29/20 24 04/29/2024 urina lysis , dipst ick Nitrite (reference range:) negati ve Not Available [place] [address] [address] [facility], [place], [address], 04/29/2024 11:43:48 04/29/20 24 04/29/2024 urina lysis , dipst ick Urobilinogen (reference range) 0.2 Not Available [facility] [place] [address] [address] [facility], [place], [address], 04/29/2024 11:43:48 04/29/20 24 04/29/2024 urina lysis , dipst ick Protein (reference range) negati ve Not Available [place] [address] [address] [facility] [address], [place], [address], 04/29/2024 11:43:48 04/29/20 24 04/29/2024 urina lysis , dipst ick pH (reference range 5-8.5) 6.5 Not Available [facility] [place] [address] [address] [facility] [address], [place], [address], 04/29/2024 11:43:48 04/29/20 24 04/29/2024 urina lysis , dipst ick Blood (reference range:) non-He molyze d: Trace Not Available [place] [address] [address] [facility] [address], [place], [address], 04/29/2024 11:43:48 04/29/20 24 04/29/2024 urina lysis , dipst ick Specific [place] (reference range) 1.015 Not Available [place] [address], [place], [address], 04/29/2024 11:43:48 04/29/20 24 04/29/2024 urina lysis , dipst ick Ketone (reference range) negati ve Not Available [place] [address], [place], [address], 04/29/2024 11:43:48 04/29/20 24 04/29/2024 urina lysis , dipst ick Bilirubin (reference range) negati ve Not Available [place] [address], [place], [address], 04/29/2024 11:43:48 04/29/20 24 04/29/2024 urina lysis , dipst ick Glucose (reference range) negati ve Not Available [place] [address], [place], [address], 04/29/2024 11:43:48 04/29/20 24 04/29/2024 urina lysis , dipst ick Color (reference range: yellow-brown ) Yellow Not Available [place] [address], [place], [address], 04/29/2024 11:43:48 Result Notes None recorded. Problems Name Problem SNOMED Code Status Onset Date Resolution Date Notes Provider Name and Address Organization Details Recorded Time Recurrent urinary tract infection 273061283 Active 2023 Karenmarta Christiansense null, [place] - [facility] - [place] & [place] 11:06:28 Hypertensi ve disorder 56299747 Active 2023 Karenmarta Christiansense null, [place] - [facility] [place] & [place] 11:06:38 Diabetes mellitus 24507894 Active 2023 type 2 Karen Crase null, [place] - [facility] [place] & [place] 4 11:06:49 Vitamin D deficiency 46465701 Active 2023 Karen sánchez, TOMASZ Rangel [facility] & [place] 4 11:07:01 Hyperlipid emia 60991666 Active 2023 Karen sánchez, TOMASZ Rangel [facility] & [place] 4 11:07:10 Microscopi c hematuria 863380547 Active 2023 Karen Nicole null, TOMASZ Rangel [facility] & [place] 4 11:07:23 Hammer toe 485235830 Active 2023 Deformity Karen Nicole null, TOMASZ Rangel [facility] [place] & [place] 4 11:07:46 Chronic low back pain 420933332 Active 2023 Karen sánchez, TOMASZ Rangel LPNT [facility] & [place] 4 11:08:00 Nodule of lung 334359522 Active 2023 left upper lobe Karen sánchez, TOMASZ Rangel [place] & [place] 4 11:08:24 Problem Notes None recorded. Procedures Surgical History Date Name Laterality Status Provider Name and Address Organization Details Recorded Time total replacement of hip completed Karen TOLBERT JUDE [facility] & [place] 04/26/2024 11:22:20 arthroplasty of knee completed Karen ROQUE [facility] & [place] 04/26/2024 11:22:46 Appendectomy completed Karen ROQUE [facility] & [place] 04/26/2024 11:22:56 Removal of tonsils completed Karenmarta Christiansen TOMASZ EDYNT [facility] & [place] 04/26/2024 11:23:08 extraction of cataract completed Karenmarta Rangel LP[facility] & [place] 04/26/2024 11:23:48 Removal of adenoids completed Karenmarta Christiansen TOMASZ Rangel [facility] & [place] 04/26/2024 11:23:58 Breast reduction completed Karenmarta Rangel LPNT [facility] & [place] 04/29/2024 11:11:48 revision of hip arthroplasty completed Karen TOLBERT - LPNT [facility] & [place] 04/29/2024 11:14:49 partial repair of rotator cuff completed Karen ROQUE [facility] & [place] 04/29/2024 11:15:05 Imaging Results None recorded. Procedure Notes None recorded. Medical Equipment None Reported. Allergies Allergen ID Allergen Name Allergen Category Reaction Reaction Severity Criticality Documentation Date Start Date Code Code System Note Provider Name and Address Organization Details Recorded Time 257185 Zanaflex medicatio n hallucina tions Not available Not available 04/29/2024 18187 6 RxNorm Karen sánchez, TOMASZ ROQUE [facility] & [place] 11:06:10 Medications Name Sig Start Date Stop [...] Updated DateTime 4 172.72 cm 23 kg/m2 27595.4 5 g 98.8 [degF] 99 % 99 % 68 /min 120 mm[Hg] 72 mm[Hg] Karen Christiansen [facility] & [place] 4 11:38:27 Social History Question Answer Notes LastModified by Organizat ion Details LastModified Time Tobacco Smoking Status Never Smoker Karen Nicole gonzalo [facility] & [place] 04/26/2024 11:26:39 What Is Your Relationship Status? Information not available 04/26/2024 Sex: Unknown Functional Status Question Answer Note LastModified by Organizat ion Details LastModified Time Do you use any illicit or recreational drugs? No Information not available 04/26/2024 Mental Status None recorded. Family History Relationship [...] SNOMED-CT Code Diagnosis ICD10 Code Diagnosis Note [id number] Elo Patricia NP, [facility] [place] [address] 04/29/2024 11:01:29 04/29/2024 12:03:11 Recurrent urinary tract infection 979695069 N39.0 UA negative except microscopi c hematuriaP VR 12mlStart Methenamin e 1gram bidStart Estrace creat 1 gram three times per weekStart Trospium 20mg bid r/t OAB. discussed possible SEs of the medication RTC in 8 weeks for f/u Overactive urinary bladder 567555676 N32.81 Nocturia 044973804 R35.1 Microscopic hematuria 19 8687165 R31.29 Health Concerns Section Related Observation LastModified by Organization Detai ls LastModified Time None Recorded Concern Status LastModified by Organization Details LastModified Time None Recorded Advance Directives Directive None Recorded Payers Insurance Date Sequence Insurance Name Policy Number Policy Jesus Covered Member ID Jesus Member ID Guarantor Name 06/26/2024 1 [place]ARE[place] Padmini Osei [id number] Padmini Osei 06/26/2024 2 [employer] (MEDICARE SUPPLEMENT) Padmini Osei [id number] Padmini Osei Notes Date Note Type Note [...] that was unremarkable. Elo Patricia, ZAHRAA, [address], [place], [address], [facility] - [place] & [place] 04/29/2024 13:20:08 OBGyn Episode No OBEpisode recorded.
[2025-01-02] MEDS: ONDANSETRON 4MG/2ML VIAL 4 MG IV (02:40)
[2025-01-02] MEDS: MORPHINE 4MG/ML SYRINGE 4 MG IV (02:40)
[2025-01-02] MEDS: ACETAMINOPHEN 500MG TAB 1000 MG PO (02:40)
--- NOTE | 2025-01-02 02:43 | ED_ITS ---
Discharge Plan Disposition Patient Disposition: Home, Self-Care Prescriptions Prescriptions: No Action estradiol 0.01 % (0.1 mg/gram) cream vaginal Patient Comments: USE 1 GRAM INTRAVAGINALLY 3 TIMES EVERY WEEK nitrofurantoin monohyd/m-cryst [Macrobid] 100 mg capsule 100 mg PO BID 7 Days Qty: 14 0RF Rx Instructions: must administer with a meal/food lisinopril 20 mg tablet 20 mg PO DAILY 90 Days Qty: 90 Patient Comments: take 1 tablet by mouth once daily ascorbic acid (vitamin C) 500 mg capsule 500 mg PO DAILY cholecalciferol (vitamin D3) 3,000 unit tablet 3,000 unit PO DAILY Patient Comments: Pt takes 5,000 x1 rosuvastatin 20 mg tablet 20 mg PO ONCE 90 Days Qty: 90 Patient Comments: TAKE 1 TABLET ONCE A DAY AT BEDTIME metformin 500 mg tablet extended release 24 hr 1,000 mg PO BID 90 Days Qty: 360 Referrals Follow up/Referrals: Александр Khan DO [Staff Physician] - See instructions Provider,Referral, [Primary Care Provider] - See instructions Activity Restrictions/Add. Instructions Additional Instructions/Restrictions: Please wear knee immobilizer and use the pillow when sleeping until you follow- up with Ortho. Please take Tylenol as needed for pain. Okay to weight-bear as tolerated. Please call [facility] or Dr. Allen's office to schedule follow-up. Clinical Impressions Clinical Impression: Dislocation of hip joint prosthesis Qualifiers: Encounter type: initial encounter Qualified Code(s): T84.029A - Dislocation of unspecified internal joint prosthesis, initial encounter Print Language Print Language: Estonian Discharge ED Provider: Catrachito Huffman General Adult HPI General Chief complaint: PAIN Stated complaint: pain Time Seen by Provider: 01/02/25 02:35 History of Present Illness HPI narrative: 79-year-old female with history of numerous joint replacements presents with atraumatic right hip pain. She was bent over in the bathroom applying lotion to her leg when she felt a pop and all of a sudden had excruciating pain. She crawled out of the bathroom to the other room and was able to call to get help. She reports that she did not fall and did not sustain any injury. This is her second joint replacement on the right hip. It was last done about 5 years ago at [facility]. She has never had a hip dislocation. Related Data Home Medications ?Medication ?Instructions ?Recorded ?Confirmed ascorbic acid (vitamin C) 500 mg 500 mg PO DAILY Supplement 09/08/18 11/01/24 capsule cholecalciferol (vitamin D3) 75 3,000 unit PO DAILY Supplement 09/08/18 11/01/24 mcg (3,000 unit) tablet lisinopril 20 mg tablet 20 mg PO DAILY htn 90 days #90 tabs 09/08/18 11/01/24 rosuvastatin 20 mg tablet 20 mg PO ONCE Cholesterol 90 days 03/08/24 11/01/24 #90 tabs metformin 500 mg tablet,extended 1,000 mg PO BID dm 90 days #360 09/20/24 11/01/24 release 24 hr tabs estradiol 0.01% (0.1 mg/gram) vaginal 11/01/24 11/01/24 vaginal cream Previous Rx's ?Medication ?Instructions ?Recorded nitrofurantoin 100 mg PO BID 7 days #14 caps 11/08/24 monohydrate/macrocrystals 100 mg capsule (Macrobid) Allergies Allergy/AdvReac Type Severity Reaction Status Date / Time nickel Allergy Mild Verified 11/01/24 09:42 tizanidine (From Zanaflex) Allergy Mild Verified 11/01/24 09:42 [facility] Disclaimer: The information contained in this section may have been updated after the patient was seen, as this information can be updated by other users. Medical History (Updated 01/02/25 @ 04:40 by Catrachito Huffman MD) Vaginal wall cyst History of recurrent UTI (urinary tract infection) History of diabetes mellitus Rotator cuff arthropathy Surgical History (Updated 11/01/24 @ 09:48 by Taylor Covington MA) Hx of total shoulder replacement H/O nasal septoplasty H/O salpingostomy History of cataract surgery History of lumpectomy History of arthroplasty of right shoulder H/O bilateral breast reduction surgery History of tonsillectomy and adenoidectomy Hx of appendectomy H/O spinal fusion History of bilateral knee replacement H/O bilateral hip replacements Social History Smoking Status: Unknown if ever smoked alcohol intake: never current occupational status: retired Travel in the last 8 weeks?: None housing: house Have you lived/traveled outside US in past 30 days?: No Contact w/someone who lives/traveled outside US past 30 days?: No Exposure to someone with infectious disease in past 14 days?: No Do you have a fever (greater than 100.4 F or 38 C)?: No Have you tested positive for COVID-19?: No Exposed to someone with COVID-19 in past 14 days?: No Do you have a sore throat?: No Do you have a cough?: No Do you have any weakness?: No Do you have any diarrhea?: No Are you experiencing any unusual bleeding?: No Do you have any muscle aches/pain?: No Do you have any abdominal pain?: No Are you experiencing loss of taste or smell?: No Other Medical History Have you received the Pneumonia Vaccine: Yes ROS Obtained: Yes All systems reviewed & no additional complaints except as documented Physical Exam General General appearance: alert and in no apparent distress Head Head exam: atraumatic and normocephalic Eye Eye exam: Present normal appearance, PERRL and EOMI ENT ENT exam: Present normal oropharynx and normal external ear exam Neck Neck exam: Present normal inspection and full ROM Chest Chest inspection: Present normal inspection and symmetric chest wall rise; Absent tenderness Respiratory Respiratory exam: Present normal lung sounds bilaterally; Absent respiratory distress Cardiovascular Cardiovascular exam: Present regular rate and normal rhythm Abdominal Exam Abdominal exam: Present soft; Absent distention, tenderness or guarding Extremities Exam Extremities exam: Present other (Right lower extremity is shortened and adducted. Severe pain with any movement. She has normal sensation and range of motion of the distal lower extremity. Normal lower extremity pulses bilaterally) Back Exam Back exam: Present normal inspection; Absent tenderness Neurological Exam Neurological exam: Present alert and oriented X3; Absent motor sensory deficit Psychiatric Psychiatric exam: Present normal affect and normal mood Skin Skin exam: Present warm, dry and normal color Lymphatic Lymphatic Findings: no adenopathy Medical Decision Making Medical Records Medical records reviewed: Yes I reviewed the patient's medical records. Screening: Per USPSTF and CDC recommendations, given the prevalence of disease in our region, it is our hospital?s policy to screen for HIV and viral Hepatitis for all patients aged 18 and over and those with ongoing risk factors. Angel Inquiry Pt receiving controlled substance: No Angel was queried for this patient: No Vital Signs: 01/02/25 02:30 01/02/25 02:30 01/02/25 03:01 Temperature 97.9 F Temperature Source Oral Pulse Rate 84 92 H Pulse Rate [Left] 97 H Respiratory Rate 20 Blood Pressure 171/89 H 166/90 H Blood Pressure [Right Arm] 171/89 H Blood Pressure Mean [Right Arm] 116 02 Sat by Pulse Oximetry 96 98 97 Oxygen Delivery Method Room Air Oxygen Flow Rate (LPM) 01/02/25 04:06 01/02/25 04:08 01/02/25 04:21 Temperature Temperature Source Pulse Rate 101 H 77 95 H Pulse Rate [Left] Respiratory Rate 18 14 14 Blood Pressure 155/71 H 165/81 H 142/83 H Blood Pressure [Right Arm] Blood Pressure Mean [Right Arm] 02 Sat by Pulse Oximetry 100 96 98 Oxygen Delivery Method Nasal Cannula Nasal Cannula Oxygen Flow Rate (LPM) 2 2 Lab Data Lab results reviewed: Yes I reviewed the patient's lab results. Orders (Tests/Meds): ED MEDICATIONS Discontinued Medications Generic Name Dose Route Start Last Admin Trade Name Danielq PRN Reason Stop Dose Admin Acetaminophen 1,000 mg 01/02/25 02:33 01/02/25 02:40 Acetaminophen 500mg Tab PO 01/02/25 02:34 1,000 mg ONCE ONE Administration Acetaminophen 1,000 mg 01/02/25 02:35 01/02/25 02:38 Acetaminophen 500mg Tab PO 01/02/25 02:36 Not Given ONCE ONE Ketorolac Tromethamine 15 mg 01/02/25 03:00 01/02/25 03:03 Ketorolac 30mg/Ml Vial IV 01/02/25 03:01 15 mg ONCE ONE Administration Morphine Sulfate 4 mg 01/02/25 02:33 01/02/25 02:40 Morphine 4mg/Ml Syringe IV 01/02/25 02:34 4 mg ONCE ONE Administration Morphine Sulfate 2 mg 01/02/25 03:00 01/02/25 03:03 Morphine 2mg/Ml Syringe IV 01/02/25 03:01 2 mg ONCE ONE Administration Ondansetron HCl 4 mg 01/02/25 02:33 01/02/25 02:40 Ondansetron 4mg/2ml Vial IV 01/02/25 02:34 4 mg ONCE ONE Administration Propofol 400 mg 01/02/25 03:58 01/02/25 04:06 Propofol 10mg/Ml 20ml Vial IV 01/02/25 03:59 70 mg ONCE ONE Administration ORDERS Category Date Time Status Femur XR right 2 views [XR femur RT 2V] Stat Exams 01/02/25 02:33 Completed Hip XR right minimum 2 views [XR hip RT 2-3V w/pelvis] Exams 01/02/25 02:33 Completed Stat Hip XR right minimum 2 views [XR hip RT 2-3V w/pelvis] Exams 01/02/25 04:10 Completed Stat HIV Combo Stat Lab 01/02/25 02:43 Ordered Hepatitis C Ab Qual. W/ RFX Stat Lab 01/02/25 02:43 Ordered Medical Decision Narrative: 79-year-old female with history of prosthetic hip on the right presents with atraumatic right hip pain after bending over to apply lotion to her leg. History was obtained via interactive discussion with patient. On arrival, patient is [afebrile, hemodynamically stable, satting appropriately, alert, oriented x4, GCS 15], moving all extremities spontaneously. Full physical exam performed and significant for normal neurovascular exam of the lower extremity, the right lower extremity is shortened and abducted and internally rotated Differential includes but is not limited to prosthetic joint dislocation, periprosthetic fracture, femur fracture, neurovascular injury. Patient was given morphine, Tylenol, Toradol for symptomatic management and correction of underlying abnormalities. Workup initiated including radiographs of the right hip and femur. On re-evaluation, patient [remains afebrile, HD stable.] Imaging independently interpreted by me and significant for right prosthetic hip dislocation. See radiology read for full review of final results. Interactive succussion was had with patient regarding her presentation. She was consented for closed reduction of the dislocation using propofol. Reduction was performed successfully. After reduction patient had stable/intact neurovascular exam. We do not have Ortho on-call so I called [facility] where she had her procedure done. They report that she is okay for weightbearing as tolerated and discharged with a 24/7 knee immobilizer and use of a abduction pillow while sleeping. Recommend she follow-up with Ortho in the next week or 2. Patient was agreeable to plan and discharged in stable condition. Procedures Risk/Benefits of Procedure(s) Were Explained: Yes Orthopedic Joint Reduction Joint #1: Side: right Joint Reduction Location: hip (Prosthetic) Analgesia: procedural sedation Technique used: traction/counter-traction Post-reduction neuro exam: intact Post-reduction vascular: intact Post Reduction X-Ray Obtained: Yes Post Reduction X-Ray Results: reduced Splint Applied: Yes (Knee immobilizer) Patient Tolerated Procedure: well and no complications Procedural Sedation A heart and lung assessment was performed on this patient at: 04:00 Mallampati Score:: Class I Indication: fracture/dislocation reduction ASA Class: II Time of Last PO Intake: 18:00 (unknown) Preparation: youth nutritional monitor applied, pulse oximeter, capnometry used, supplemental O2 applied, reversal agents at bedside, suction/airway equipment at bedside and IV secured IV Propofol dose (mg): 70 Patient Tolerated Procedure: well and no complications Interventions: oxygen applied Critical Care Critical Care Time Critical Care Time: No
[2025-01-02 03:01] VITALS: BP 166/90; PULSE 92; O2SAT 97
[2025-01-02] MEDS: MORPHINE 2MG/ML SYRINGE 2 MG IV (03:03)
[2025-01-02] MEDS: KETOROLAC 30MG/ML VIAL 15 MG IV (03:03)
[2025-01-02 04:06] VITALS: BP 155/71; PULSE 101; RESP 18; O2SAT 100
[2025-01-02] MEDS: PROPOFOL 10MG/ML 20ML VIAL 400 MG IV (04:06)
[2025-01-02 04:08] VITALS: BP 165/81; PULSE 77; RESP 14; O2SAT 96
--- NOTE | 2025-01-02 04:10 | XR_ITS ---
PROCEDURE INFORMATION: Exam: XR Right Hip Exam date and time: 01/02/2025 4:13 AM Age: 79 years old Clinical indication: Injury or trauma; Fall; Dislocation; Right; Hip; Injury details: Post reduction TECHNIQUE: Imaging protocol: Radiologic exam of the right hip. Views: 2 or 3 views hip with pelvis when performed. COMPARISON: CR XR HIP RT 2-3V W/PELVIS 01/02/2025 2:48 AM FINDINGS: Bones/joints: Satisfactory appearing alignment of the right hip prosthesis, suggesting successful reduction of previously noted dislocation. No definite fracture. Soft tissues: Unremarkable. IMPRESSION: 1. Satisfactory appearing alignment of the right hip prosthesis, suggesting successful reduction of previously noted dislocation. 2. No definite fracture.
--- NOTE | 2025-01-02 04:14 | PC.NURSE ---
0400- decision for sedation and reduction, procedure explained and consent obtained with Dr Huffman. 0406- 50mg push diprovan given per Dr Huffman. VS: 155/71, 101, COS 41, 100% 2l NC 0407- Reduction of right hip attempted the first time with patient still awake and complaining of pain. 0408- 20mg diprovan pushed to total 70mg per Dr Huffman. VS: 165/81, 77, 96% 2l NC, CO2 37. 0409- Reduction attempt number with success and additional Xr ordered 0411- Nasal cannula bumped to 4L due to decrease in respirations and CO2 level. 0418- pt now very talkative and alert GCS 15, NAD noted, RR even and non labored, skin pwd. CMS intact to RLE.
[2025-01-02 04:21] VITALS: BP 142/83; PULSE 95; RESP 14; O2SAT 98
--- NOTE | 2025-01-02 04:22 | PC.NURSE ---
Called [facility] for a ortho consult on pt
[2025-01-02 04:54] VITALS: BP 155/75; PULSE 94; RESP 18; TEMP 36.7; O2SAT 98
== END 2025-01-02 04:56 | disposition home or self-care (01) ==
PROVIDERS: Emergency Provider Emergency Medicine
DX: T84.020A Dislocation of internal right hip prosthesis, initial encounter (principal); M25.551 Pain in right hip; X50.1XXA Overexertion from prolonged static or awkward postures, initial encounter
CPT/HCPCS: 73502; 73552; 96374; 96375; 96376; 99152; 99285; J1885; J2270; J2405; J2704

== ENCOUNTER 2025-01-20 16:24 | Emergency (ER) | payer MEDICARE, SELFPAY ==
--- OUTSIDE RECORDS SUMMARY | 2024-08-02 10:00 | XMS_ITS ---
[facility] Address [address] [facility] [address] [place] [id number] Care Team Providers Care Call Center Assistant Name Role Phone Fransisco Devries Primary Care Provider Allergies Allergen (clinical drug ingredient) Drug/Non Drug Allergy documented on EMR Reaction Allergy Type Onset Date Status tizanidine Zanaflex Hallucinations Drug Allergy A ctive Results Component Value Reference Range Notes Urinalysis - Inhouse Reviewed date:08/02/2024 02:54:59 PM Interpretation: Performing Lab: Notes/Report: Color/Clarity yellow/clear Leuk Neg Nitrite Neg Urobili 3.2 Protein Neg pH 5.5 Blood Neg Sp. Gr. >=1.030 Ketone Trace Bili Neg Gluc Neg REASON FOR VISIT F/U on UTI Medications Medication SIG (Take, Route, Frequency, Duration) Notes Start Date End Date Status metFORMIN HCl ER 500 MG 2 TABLETS Orally Two times a day Active Lisinopril 20 MG 1 tab(s) orally once a day Active metroNIDAZOLE 500 MG 1 tablet Orally Two times a day for 7 days 07/22/2024 Active Meclizine HCl 25 MG 1 tablet as needed Orally every 12 hrs 11/07/2023 Active B-12 1000 MCG 1 tab(s) orally once a day OTC 12/30/2019 Active Vitamin C 500 MG 1 tab(s) chewed once a day Active Vitamin D3 250 MCG (24768 UT) 2 cap(s) orally twice a week 06/26/2017 Active Rosuvastatin Calcium 20 MG 1 tablet Oral ly Once a day for 30 day(s) Active Estradiol 0.1 MG/GM as directed Vaginal Two times a Week Active Trospium Chloride 20 MG 1 tab(s) Orally Two times a day for 30 day(s) Active Vital Signs Blood pressure systolic 140 mm Hg 08/02/20 24 Blood pressure diastolic 78 mm Hg 024 Heart Rate 111 /min 08/02/2024 Height 68 in 08/02/2024 Weight 155 lbs 08/02/2024 BMI 23.57 kg/m2 08/02/2024 Encounters Encounter Location Date Provider Diagnosis [facility] [address] [facility] [address] [facility] [address] [place] [id number] 08/02/2024 Fransisco Devries Recurrent UTI N39.0 and OAB (overactive bladder) N32.81 Assessments Encounter Date Diagnosis (ICD Code) Assessment Notes Treatment Notes Treatment Clinical Notes Section Notes 08/02/2024 Recurrent UTI (ICD-10 - N39.0) 08/02/2024 OAB (overactive bladder) (ICD-10 - N32.81) Plan Of Treatment Medication Medication Name Sig Start Date Stop Date Notes Trospium Chloride 20 MG 1 tab(s) Orally Two times a day for 30 day(s) Next Appt Details Follow Up: as scheduled,and prn, Reason: Provider Name:Fransisco Logan ry, 06/14/2025 09:15:00 AM, [address] [facility], [address], [place], [id number], Progress Notes * EDWARD OSEIEFRADOB: 7 (79 yo F)Acc No.[id number]:08/02/2024 Patient: KATHLEEN PAUL Provider: Patricia Devries M.D. :1945 A ge:78 Y S ex:Female Date:08/02/2024 Address:[facility] [place] [id number] Subjective: * Chief Complaints: * 1 . F/U on UTI. * HPI: U rology: 78 year old female presents with c/o hematuria P t here to f/u on 07/19/2024 UTI. Pt states that she did not have any symptoms of UTI but has completed abx.? * ROS: C ARDIOLOGY: no D izziness. n o C hest pain. D ERMATOLOGY: no R mellisa. n o H richard. G ASTROENTEROLOGY: no N ausea. n o V omiting. * Medical History: T ype 2 Diabetes, Hypertension, Vitamin D Deficiency, Hyperlipidemia, PPD Reactor, Microscopic Hematuria, Hammer Toe Deformity, Abnormal Mammogram, Annual Mammogram/ Ultrasound, Chronic Low Back Pain, s/p L4-L5 Fusion/ Epidural Injections x 2, Left upper lobe lung nodule, 5 mm, 2023, need repeat CT scan in 6 months. * Surgical History: B ilateral Total Hip , Bilateral Total Knee , LT Knee x 3 , Appendectomy , Tonsillectomy , Adenoidectomy , Bilateral Breast Reduction , L 4 & L 5 Back Fusion , Infertility Surgery , RT Tube and Ovary Removed , RT Rotator Cuff Repair 2009, RT Hip Revision , LT Cataract Removal 04/2017, RT Cataract Removal 05/2017, Left Shoulder replacement 2023. * Hospitalization/Major Diagno stic Procedure: H ip Revision- [facility] 01/21-, Chest Pain, Reaction to Zanaflex- [facility] 12/2018. * Family History: F ather: , diagnosed with Heart Disease. M other: , diagnosed with Hypertension, Mental Illness. P aternal Grand Father: , family history unknown . P aternal Grand Mother: , family history unknown . M aternal Grand Father: . M aternal Grand Mother: . P aternal uncle: , diagnosed with Heart Disease, Diabetes. M aternal uncle: alive, diagnosed with Diabetes. M aternal aunt: . S iblings: alive, diagnosed with Heart Disease, Stroke. 1 brother(s) , 2 sister(s) . . Children are Adopted. * Social History: C URRENT TOBACCO USE: No S moking Status: P atient does NOT smoke, F ormer Smoker:?Yes. M arital Status: Single, . Alcohol: very occasional. * Medications: T aking Trospium Chloride 20 MG Tablet 1 tab(s) Orally Two times a day , Taking Estradiol 0.1 MG/GM Cream as directed Vaginal Two times a Week , Taking Vitamin D3 250 MCG (11200 UT) Capsule 2 cap(s) orally twice a week , Taking Vitamin C 500 MG Tablet Chewable 1 tab(s) chewed once a day , Taking B-12 1000 MCG Tablet 1 tab(s) orally once a day , Notes to Pharmacist: OTC, Taking Meclizine HCl 25 MG Tablet 1 tablet as needed Orally every 12 hrs , Taking Lisinopril 20 MG Tablet 1 tab(s) orally once a day , Taking metFORMIN HCl ER 500 MG Tablet Extended Release 24 Hour 2 TABLETS Orally Two times a day , Taking metroNIDAZOLE 500 MG Tablet 1 tablet Orally Two times a day , Taking Rosuvastatin Calcium 20 MG Tablet 1 tablet Orally Once a day , Medication List reviewed and reconciled with the patient * Allergies: Z anaflex: Hallucinations. Objective: * Vitals: W t:155, Temp:97.8, BP:140/78, HR:111, Nurse:isabelle, Ht: 68, BMI:23.57. * Examination: G eneral Examination: General Appearance: N AD. Heart: R SR. Lungs: c lear to auscultation. Assessment: * Assessment: 1. R ecurrent UTI - N39.0 (Primary) 2 . O AB (overactive bladder) - N32.81? Plan: * Treatment: Value Reference Range C olor/Clarity yellow/clear * L euk Neg * N itrite Neg * U robili 3.2 * P rotein Neg * p H 5.5 * B lood Neg * S p. Gr. >=1.030 * K etone Trace * B mercedes Neg * G monisha Neg * Kimberly Sotomayor 08/02/2024 1:53:5 5 PM > , Provider reviewed results while patient in office. 2.?OAB (overactive bladder)? Refill Trospium Chloride Tablet, 20 MG, 1 tab(s), Orally, Two times a day, 30 day(s), 60 Tablet, Refills 5.?? * Procedure Codes: G 2211 Complex e/[place], [address] Urinalysis, no micro * Follow Up: a s scheduled,and prn * Billing Information: * Visit Code: 09765 Office Visit, Est Pt., Level 3. * Procedure Codes: G2211 Complex e/[place]. [address] Urinalysis, no micro. * Electronic signature of Rosie Devries MD on 01/20/2025 at 04:37 PM EDT Sign off status: Pending * Provider: Patricia Devries M.D. Date: 1 10/03/2023 Generated for Irina villeda/Judy/Neelaitting on: 0 01/20/2025 04:37 PM EDT History and Physical Notes * HPI (History of Present Illness) Category Sub-Category Detail Notes Category Not es Urology hematuria Pt here to f/u o n 07/19/2024 UTI. Pt states that she did not have any symptoms of UTI but has completed abx Examination Category Sub-Category Detail Notes Category Not es General Examination Heart: RSR Lungs: clear to auscultatio n General Appearance: NAD
--- OUTSIDE RECORDS SUMMARY | 2024-11-08 06:15 | XMS_ITS ---
Author Organization [facility] Address [address] [facility] [address] [place] [id number] Care Team Providers Care Hog Pusher Name Role Phone Ann-Marie Devriesian Primary Care Provider [phone] Allergies Allergen (clinical drug ingredient) Drug/Non Drug Allergy documented on EMR Reaction Allergy Type Onset Date Status tizanidine Zanaflex Hallucinations Drug Allergy A ctive Results Component Value Reference Range Notes P-BUN Reviewed date:11/09/2024 12:40:11 PM Interpretation:Normal Performing Lab: Notes/Report: Test performed by [facility] [place] , [facility] [place] [address] Jeff Valle MD, Medical Record Librarian CLIA: [id number] BUN 9 8-23 mg/dL P-Creatinine Reviewed date:11/09/2024 12:40:11 PM Interpretation:Normal Performing Lab: Notes/Report: Test performed by [facility] [address] [place] [address] Nelsy Marks [facility] [address], [place] [address] Jeff Valle MD, Medical Record Librarian CLIA: [id number] Creatinine 0.62 0.50-1.00 mg/dL eGFR by Creatinine Reviewed date:11/09/2024 12:40:11 PM Interpretation:Normal Performing Lab: Notes/Report: Test performed by [facility] [address] [place], [place] [address] Nelsy Marks, [facility] [address], [place] [address] Jeff Valle MD, Medical Record Librarian CLIA: [id number] eGFR by Creatinine 91 >59 mL/min/1.73m2 CT Scan : Chest with IV cont rast Reviewed date:11/26/2024 08:38:10 AM Interpretation: Performing Lab: Notes/Report: REASON FOR VISIT discuss getting a CT of her lungs Medications Medication SIG (Take, Route, Frequency, Duration) Notes Start Date End Date Status Lisinopril 20 MG 1 tab(s) orally once a day Active Trospium Chloride 20 MG 1 tab(s) Orally Two times a day for 30 day(s) Active Rosuvastatin Calcium 20 MG 1 tablet Oral ly Once a day for 30 day(s) Active metroNIDAZOLE 500 MG 1 tablet Orally Two times a day for 7 days 07/22/2024 Active metFORMIN HCl ER 500 MG 2 TABLETS Orally Two times a day Active B-12 1000 MCG 1 tab(s) orally once a day OTC 12/30/2019 Active Vitamin C 500 MG 1 tab(s) chewed once a day Active Meclizine HCl 25 MG 1 tablet as needed Orally every 12 hrs 11/07/2023 Active Vitamin D3 250 MCG (72001 UT) 2 cap(s) orally twice a week 06/26/2017 Active Estradiol 0.1 MG/GM as directed Vaginal Two times a Week Active Vital Signs Blood pressure systolic 140 mm Hg 11/09/19 25 Blood pressure diastolic 80 mm Hg 025 Heart Rate 64 /min 11/08/2024 Height 68 in 11/08/2024 Weight 162.2 lbs 11/08/2024 BMI 24.66 kg/m2 11/08/2024 Encounters Encounter Location Date Provider Diagnosis [facility] [address] [facility] [address] [facility] [address] [place] [id number] 11/08/2024 Fransisco Devries Pulmonary nodule, le ft R91.1 and penitentiary use of drug Z79.899 Assessments Encounter Date Diagnosis (ICD Code) Assessment Notes Treatment Notes Treatment Clinical Notes Section Notes 11/08/2024 Pulmonary nodule, left (ICD-10 - R91.1) 11/08/2024 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 :1945 A ge:79 Y S ex:Female Date:11/08/2024 Address:[facility] [address], [place], [id number] Subjective: * Chief Complaints: * 1 . discuss getting a CT of her lungs. * HPI: H PI: 79 year old female presents with c/o Here for follow up on:?04/05/2024 CT, see pt docs. Pt states she was told that she has a nodule on lung and was advised to have f/u CT in 6 months. * ROS: D ERMATOLOGY: no R mellisa. n o H richard. G ASTROENTEROLOGY: no N ausea. n o V omiting. U ROLOGY: no D ifficulty urinating. n o B lood in urine. * Medical History: T ype 2 Diabetes, [...] Diagno stic Procedure: H ip Revision- [facility] 01/21-, Chest Pain, Reaction to Zanaflex- [facility] 12/2018. * Family History: F ather: , diagnosed with Heart Disease. M other: , diagnosed with Hypertension, Mental Illness. P aternal Grand Father: , family history unknown . P aternal Grand Mother: , family history unknown . M aternal Grand Father: . M aternal Grand Mother: . P aternal uncle: , diagnosed with Diabetes, Heart Disease. M aternal uncle: alive, diagnosed with Diabetes. M aternal aunt: . S iblings: alive, diagnosed with Heart Disease, Stroke. 1 brother(s) , 2 sister(s) . . Children are Adopted. * Social History: C URRENT TOBACCO USE: No S moking Status: P atient does NOT smoke, F ormer Smoker:?Yes. M arital Status: Single, . Alcohol: very occasional. * Medications: T aking Estradiol 0.1 MG/GM Cream as directed Vaginal Two times a Week , Taking Vitamin D3 250 MCG (29657 UT) Capsule 2 cap(s) orally twice a [...] 1 tablet Orally Once a day , Taking Trospium Chloride 20 MG Tablet 1 tab(s) Orally Two times a day , Medication List reviewed and reconciled with the patient * Allergies: Z anaflex: Hallucinations. Objective: * Vitals: W t: 162.2, Temp: 98.0, BP: 140/80, HR: 64, Nurse: isabelle, Ht: 68, BMI:24.66. * Examination: G eneral Examination: General Appearance: N AD. Assessment: * Assessment: 1. P ulmonary nodule, left - R91.1 (Primary) 2 . L christiano term use of drug - Z79.899 Plan: * Treatment: 2.?oil heaterman use of drug?LAB: P-BUN (Collection Date & Time - 11/08/2024 09:30 AM)?Normal* Value Reference Range B UN 9 8-23 - mg/dL * Kimberly Sotomayor 11/09/2024 12:34:25 PM >Pt informed ?LAB: P-Creatinine (Collection Date & Time - 11/08/2024 09:30 AM)?Normal* Value Reference Range C reatinine 0.62 0.50-1.00 - mg/dL * Kimberly Sotomayor 11/09/2024 12:34:25 PM >Pt informed * Labs: * L ab: eGFR by Creatinine (Collection Date & Time - 11/08/2024 09:30 AM) N ormal Value Reference Range e GFR by Creatinine 91 >59 - mL/min/1.73m2 * [facility], IT support 11/09/2024 07:35:06 : This order was created by the Interface. Kimberly Sotomayor 11/09/2024 12:34:25 PM >Pt informed * Procedure Codes: G 2211 Complex e/m visit add on, G8753 MOST RECENT SYSTOLIC BP >= 140MM HG, G8754 MOST RECENT DIASTOLIC BP < 90MM HG * Follow Up: v ia phone to report test results * Billing Information: * Visit Code: 07166 Office Visit, Est Pt., Level 3. * Procedure Codes: G2211 Complex e/m visit add on. G8753 MOST RECENT SYSTOLIC BP >= 140MM HG. G8754 MOST RECENT DIASTOLIC BP < 90MM HG. * Electronic signature of Rosie Devries MD on 01/20/2025 at 04:37 PM EDT Sign off status: Pending * Provider: Patricia Devries M.D. Date: 0 11/08/2024 Generated for Irina villeda/Judy/Neelaitting on: 0 01/20/2025 04:37 PM EDT History and Physical Notes * HPI (History of Present Illness) Category Sub-Category Detail Notes Category Not es HPI Here for follow up on: 4 CT, see pt docs. Pt states she was told that she has a nodule on lung and was advised to have f/u CT in 6 months Examination Category Sub-Category Detail Notes Category Not es General Examination General Appearance: NAD
--- OUTSIDE RECORDS SUMMARY | 2024-12-13 05:45 | XMS_ITS ---
Author Organization [employer] Address [address] [facility] [address] [facility] [address] [place] [id number] Care Team Providers Care Vp Ad Sales West Name Role Phone Fransisco Devries Primary Care [...] Normal Performing Lab: Notes/Report: Test performed by [employer] [facility] , [address], [place] [address] Jeff Valle MD, Mammography Supervisor CLIA: [id number] Vitamin B12 555 411-6898 pg/mL P-Comprehensive Metabolic Pa paul (CMP) Reviewed date:12/14/2024 08:31:21 AM Interpretation:glu 112, a/g 2.9 Performing Lab: Notes/Report: Test performed by [facility] [address] [place] [address] , [address], [place] [address] Jeff Valle MD, Mammography Supervisor CLIA: [id number] Sodium 143 135-145 mmol/L Potassium 4.6 3.5-5.3 [...] Normal Performing Lab: Notes/Report: Test performed by [facility] [address] [place] [address] , [address], [place] [address] Jeff Valle MD, Mammography Supervisor CLIA: [id number] Magnesium 1.8 1.6-2.4 mg/dL P-Phosphorus Reviewed date:12/14/2024 08:31:21 AM Interpretation: Normal Performing Lab: Notes/Report: Test performed by [facility] [address] [place] [address] , [address], [place] [address] eJff Valle MD, Mammography Supervisor CLIA: [id number] Phosphorus 3.8 2.5-4.5 mg/dL P-TSH reflex to FT4 Reviewed date:12/14/2024 08:31:21 AM Interpretation: Normal Performing Lab: Notes/Report: Test performed by [facility] [address] [place] [address] , [address], [place] [address] Jeff Valle MD, Mammography Supervisor CLIA: [id number] TSH reflex to FT4 0.61 0.43-5.25 mU/L P-Vitamin D 25-Hydroxy Reviewed date:12/14/2024 08:31:21 AM Interpretation: Normal Performing Lab: Notes/Report: Test performed by [facility] [address] [place] [address] , [address], [place] [address] Jeff Valle MD, Mammography Supervisor CLIA: [id number] Vitamin D 25-Hydroxy 52.5 30.0-100.0 ng/mL Interpretation [...] a Week Active Vitamin D3 250 MCG (29175 UT) 2 cap(s) orally twice a week 06/26/2017 Active Meclizine HCl 25 MG 1 tablet as needed Orally every 12 hrs 11/07/2023 Active Vitamin C 500 MG 1 tab(s) chewed once a day Active B-12 1000 MCG 1 tab(s) orally once a day OTC 12/30/2019 Active Trospium Chloride 20 MG 1 tab(s) Orally Two times a day for 30 day(s) Active metFORMIN HCl ER 500 MG 2 TABLETS Orally Two times a day Active Lisinopril 20 MG 1 tab(s) orally once a day Active metroNIDAZOLE 500 MG 1 tablet Orally Two times a day for 7 days 07/22/2024 Active Rosuvastatin Calcium 20 MG 1 tablet Oral ly Once a day for 30 day(s) Active Problems Problem Type SNOMED Code ICD Code Onset Dates Problem Status W/U Status Risk Notes Problem [id number] Pulmonary nodule, left (R91.1) Active confirmed Vital Signs Blood pressure systolic 140 mm Hg 12/14/19 25 Blood pressure diastolic 90 mm Hg 025 Heart Rate 76 /min 12/13/2024 Height 68 in 12/13/2024 Weight 157.4 lbs 12/13/2024 BMI 23.93 kg/m2 12/13/2024 Encounters Encounter Location Date Provider Diagnosis Chris [address] [facility] 36 [facility] [address] [place], [place] [id number] 12/13/2024 Fransisco Devries Type 2 diabetes sergio [...] Notes Pulmonary nodule, left Plan to repeat est CT 6 months from last scan Next Appt Details Follow Up: 6 Months, Reason: Provider Name:Fransisco Logan ry, 06/14/2025 09:15:00 AM, [address] [facility] [address] [facility], [address], [place], [id number], Progress Notes * KATHLEEN OSEIDOB: 7 (79 yo F)Acc No.[id number]:12/13/2024 Progress Notes Patient: KATHLEEN PAUL Provider: Patricia Devries M.D. DOB:1945 A ge:79 Y S ex:Female Date:12/13/2024 Address:[address] [place], [id number] Subjective: * Chief Complaints: * 1 . [...] Diagno stic Procedure: H ip Revision- [facility] 01/21-, Chest Pain, Reaction to Zanaflex- [facility] 12/2018. * Family History: F ather: [...] Week , Taking Vitamin D3 250 MCG (80645 UT) Capsule 2 cap(s) orally twice a [...] 157.4, Temp: 98.0, BP:140/90, HR: 76, Nurse: [facility], Ht: 68, BMI:23.93. * Examination: C ardiology: General Appearance: p leasant, NAD. HEENT: u nremarkable. Heart sounds: R RR, normal S1, S2. Lungs: c lear, no rales or wheezes. Extremities: n o leg edema. Assessment: * Assessment: 1. T ype 2 diabetes mellitus without complication - E11.9 (Primary) 2 . E ssential hypertension - I10 3 . V itamin D deficiency - E55.9 4 .?Fatigue, unspecified type - R53.83 5 . P ulmonary nodule, left - R91.1 6. H yperlipidemia, unspecified hyperlipidemia - E78.5 7 . B AR 23.0-23.9, adult - Z68.23 Plan: * Treatment: [...] Hu 12/13/2024 11:10 :25 AM > Michelle Larsen 12/14/2024 08:31:14 AM [...] AM)?Normal* Value Reference Range V itamin B12 106 507-1660 - pg/mL * Michelle Larsen 12/14/2024 08:3 [...] to FT4 0.61 0.43-5.25 - mU/L * Chava Michelle 12/14/2024 08:3 1:14 AM > See phone [...] p latlet 147 100 - 400 * Janny Hu 12/13/2024 11:11 :39 AM > ChavaMichelle 12/14/2024 08:31:14 AM > See phone encounter 5.?Pulmonary nodule, left? Notes: Plan to repeat chest CT 6 months from last scan?? * Procedure Codes: G 2211 Complex e/[place], [address] GLUCOSE TEST, 67094 GLYCATED HEMOGLOBIN TEST, Modifiers: QW , 10482 CBC WITH AUTO DIFF, 3044F HG A1C LEVEL LT 7.0%, G8753 MOST RECENT SYSTOLIC BP >= 140MM HG, G8755 MOST RECENT DIASTOLIC BP >= 90MM HG, G8420 BMI<30 AND >=22 CALC & DOCU * Follow Up: 6 Months * Billing Information: * Visit Code: 39887 Office Visit, Est Pt., Level 4. * Procedure Codes: G2211 Complex e/[place]. [address] GLUCOSE TEST. 93852 GLYCATED HEMOGLOBIN TEST. Modifiers: QW 30486 CBC WITH AUTO DIFF. 3044F HG A1C LEVEL LT 7.0%. G8753 MOST RECENT SYSTOLIC BP >= 140MM HG. G8755 MOST RECENT DIASTOLIC BP >= 90MM HG. G8420 BMI<30 AND >=22 CALC & DOCU. * Electronic signature of Rosie n Winona , MD on 01/20/2025 at 04:38 PM EDT Sign off status: Pending * Provider: Patricia Devries M.D. Date: 0 12/13/2024 Generated for Irina villeda/Judy/eTransmitting on: 0 01/20/2025 04:38 PM EDT History and Physical Notes * [...]
[2025-01-20] VITALS (18 sets, daily range): BP systolic 53–166; BP diastolic 37–113; PULSE 66–95; RESP 6–26; TEMP 36.6–36.8; O2SAT 91–100; BMI 22.8
--- OUTSIDE RECORDS SUMMARY | 2025-01-20 16:37 | XMS_ITS | Data Portability ---
Author Organization [facility] - [facility] [place] [facility] Address [address] [place] [address] Assessment No assessment recorded. Plan of Treatment Reminders Order Date Submit Date Provider Last Modified By Organization Details Last Modified Time Details Appointments None recorded. Lab urinalysis, dipstick 2023 024 [email or web address] [facility], [address] [facility] [address], [place], [address], 4 14:44:27 Referral None recorded. Procedures None recorded. Surgeries None recorded. Imaging None recorded. Medication Orders methenamine hippurate 1 gram tablet 2023 024 [facility] #[id number], [address], [id number], 4 13:10:19 trospium 20 mg tablet 2023 024 [facility] #[id number], [address], [id number], 4 13:10:43 Estrace 0.01% (0.1 mg/gram) vaginal cream 2023 024 [facility] [employer] #[id number], [id number], 4 13:11:32 Patient TargetsNo targets recorded. Patient InstructionsNo instructions recorded. Reason for Referral None Reported. Results Created Date Observation Date Name Description Value Unit Range Abnormal Flag Note LastModifiedBy Organization Detail LastModifiedTime 04/29/20 24 04/29/2024 urina lysis , dipst ick Leukocytes (reference range) negati ve Not Available [place] [address] [address] [facility] [address], [place], [address], 04/29/2024 11:43:48 04/29/20 24 04/29/2024 urina lysis , dipst ick Nitrite (reference range:) negati ve Not Available [place] [address] [address] [facility] [address], [place], [address], 04/29/2024 11:43:48 04/29/20 24 04/29/2024 urina lysis , dipst ick Urobilinogen (reference range) 0.2 Not Available [facility] [place] [address] [address] [facility] [address], [place], [address], 04/29/2024 11:43:48 04/29/20 24 04/29/2024 urina lysis , dipst ick Protein (reference range) negati ve Not Available [place] [address] [address] [facility] [address], [place], [address], 04/29/2024 11:43:48 04/29/20 24 04/29/2024 urina lysis , dipst ick pH (reference range 5-8.5) 6.5 Not Available [facility] [place] [address] [address] [facility] [address], [place], [address], 04/29/2024 11:43:48 04/29/20 24 04/29/2024 urina lysis , dipst ick Blood (reference range:) non-He molyze d: Trace Not Available [place] [address] [address] [facility] [address], [place], [address], 04/29/2024 11:43:48 04/29/20 24 04/29/2024 urina lysis , dipst ick Specific [place] (reference range) 1.015 Not Available [place] [address], [place], [address], 04/29/2024 11:43:48 04/29/20 24 04/29/2024 urina lysis , dipst ick Ketone (reference range) negati ve Not Available [place] [address], [place], [address], 04/29/2024 11:43:48 04/29/20 24 04/29/2024 urina lysis , dipst ick Bilirubin (reference range) negati ve Not Available [place] [address], [place], [address], 04/29/2024 11:43:48 04/29/20 24 04/29/2024 urina lysis , dipst ick Glucose (reference range) negati ve Not Available [place] [address], [place], [address], 04/29/2024 11:43:48 04/29/20 24 04/29/2024 urina lysis , dipst ick Color (reference range: yellow-brown ) Yellow Not Available [place] [address], [place], [address], 04/29/2024 11:43:48 Result Notes None recorded. Problems Name Problem SNOMED Code Status Onset Date Resolution Date Notes Provider Name and Address Organization Details Recorded Time Recurrent urinary tract infection 031946689 Active 2023 Karenmarta Christiansense null, [place] - [facility] [place] [facility] [place] 11:06:28 Hypertensi ve disorder 73745335 Active 2023 Karenmarta Christiansense null, [place] [facility] [place] [facility] [place] 11:06:38 Diabetes mellitus 92202045 Active 2023 type 2 Karen Crase null, [place] - [facility] [place] [facility] [place] 4 11:06:49 Vitamin D deficiency 03438911 Active 2023 Karen sánchez, TOMASZ Rangel [facility] & [place] 4 11:07:01 Hyperlipid emia 28934823 Active 2023 Karen sánchez, TOMASZ Rangel [facility] & [place] 4 11:07:10 Microscopi c hematuria 545800414 Active 2023 Karen Nicole null, TOMASZ Rangel [facility] & [place] 4 11:07:23 Hammer toe 209268427 Active 2023 Deformity Karen Nicole null, TOMASZ Rangel [facility] [place] [facility] [place] 4 11:07:46 Chronic low back pain 715805293 Active 2023 Karen sánchez, TOMASZ Rangel [facility] & [place] 4 11:08:00 Nodule of lung 641560837 Active 2023 left upper lobe Karen sánchez, TOMASZ Rangel [place] [facility] [place] 4 11:08:24 Problem Notes None recorded. Procedures Surgical History Date Name Laterality Status Provider Name and Address Organization Details Recorded Time total replacement of hip completed Karen TOLBERT JUDE [facility] & [place] 04/26/2024 11:22:20 arthroplasty of knee completed Karen ROQUE [facility] & [place] 04/26/2024 11:22:46 Appendectomy completed Karen ROQUE [facility] & [place] 04/26/2024 11:22:56 Removal of tonsils completed Karenmarta Christiansen TOMASZ EDYNT [facility] & [place] 04/26/2024 11:23:08 extraction of cataract completed Karenmarta Rangel [facility] & [place] 04/26/2024 11:23:48 Removal of adenoids completed Karenmarta Christiansen TOMASZ Rangel [facility] & [place] 04/26/2024 11:23:58 Breast reduction completed Karenmarta Rangel [facility] & [place] 04/29/2024 11:11:48 revision of hip arthroplasty completed Karen TOLBERT - [facility] & [place] 04/29/2024 11:14:49 partial repair of rotator cuff completed Karen ROQUE [facility] & [place] 04/29/2024 11:15:05 Imaging Results None recorded. Procedure Notes None recorded. Medical Equipment None Reported. Allergies Allergen ID Allergen Name Allergen Category Reaction Reaction Severity Criticality Documentation Date Start Date Code Code System Note Provider Name and Address Organization Details Recorded Time 335139 Zanaflex medicatio n hallucina tions Not available Not available 04/29/2024 38432 6 RxNorm Karen sánchez, TOMASZ ROQUE [facility] & [place] 11:06:10 Medications Name Sig Start Date Stop [...] Updated DateTime 4 172.72 cm 23 kg/m2 05658.4 5 g 98.8 [degF] 99 % 99 % 68 /min 120 mm[Hg] 72 mm[Hg] Karen Christiansen [facility] & [place] 4 11:38:27 Social History Question Answer Notes LastModified by Organizat ion Details LastModified Time Tobacco Smoking Status Never Smoker Karen Nicole gonzalo [facility] & [place] 04/26/2024 11:26:39 What Is Your Relationship Status? [...] SNOMED-CT Code Diagnosis ICD10 Code Diagnosis Note [id number] Elo Patricia NP, [facility] [place] [address] 04/29/2024 11:01:29 04/29/2024 12:03:11 Recurrent urinary tract infection 342571472 N39.0 UA negative except microscopi c hematuriaP VR 12mlStart Methenamin e 1gram bidStart Estrace creat 1 gram three times per weekStart Trospium 20mg bid r/t OAB. discussed possible SEs of the medication RTC in 8 weeks for f/u Overactive urinary bladder 456207496 N32.81 Nocturia 563792576 R35.1 Microscopic hematuria 19 0480805 R31.29 Health Concerns Section Related Observation LastModified by Organization Detai ls LastModified Time None Recorded Concern Status LastModified by Organization Details LastModified Time None Recorded Advance Directives Directive None Recorded Payers Insurance Date Sequence Insurance Name Policy Number Policy Jesus Covered Member ID Jesus Member ID Guarantor Name 06/26/2024 1 [place] Padmini Osei [id number] Padmini Osei 06/26/2024 2 [employer] (MEDICARE SUPPLEMENT) Padmini Osei [id number] Padmini Osei Notes Date Note Type Note [...] that was unremarkable. Elo Patricia, ZAHRAA, [address], [place], [address], [facility] [place] [facility] [place] 04/29/2024 13:20:08 OBGyn Episode No OBEpisode recorded.
--- NOTE | 2025-01-20 16:38 | XR_ITS ---
PROCEDURE INFORMATION: Exam: XR Pelvis Exam date and time: 01/20/2025 4:48 PM Age: 79 years old Clinical indication: Other: Right hip pain, possible dislocation, prosthesis TECHNIQUE: Imaging protocol: Radiologic exam of the pelvis. Views: 1 or 2 view. COMPARISON: CR XR HIP RT 2-3V W/PELVIS 01/02/2025 4:13 AM FINDINGS: Bones/joints: There is a dislocated right hip prosthesis with superior displacement of the femoral component in relation to the acetabular cup. Findings are similar in appearance to the previous dislocation. There is a bipolar left hip prosthesis in place. There is prior arthrodesis L4-L5 redemonstrated. Soft tissues: Unremarkable. IMPRESSION: Recurrent dislocation of right hip prosthesis.
--- OUTSIDE RECORDS SUMMARY | 2025-01-20 16:38 | XMS_ITS | Patient Health Record ---
Author Organization [facility] Address [address] [facility] [address] [place] [id number] Care Team Providers Care Rivet Tosser Name Role Phone Ann-Marie Devriesian Primary Care Provider Alexis Regalado Unavailable [phone] Allergies Allergen (clinical drug ingredient) Drug/Non Drug [...] >=1.030 Ketone Trace Bili Neg Gluc Neg P-BUN Reviewed date:11/09/2024 12:40:11 PM Interpretation:Normal Performing Lab: Notes/Report: Test performed by [facility] [address] [place], [place] [address] [place] , [place] [address] Jeff Valle MD, Brick Layer CLIA: [id number] BUN 9 8-23 mg/dL P-Creatinine Reviewed date:11/09/2024 12:40:11 PM Interpretation:Normal Performing Lab: Notes/Report: Test performed by [facility] [address] [place], [place] [address] [place] , [address], [place] [address] Jeff Valle MD, Brick Layer CLIA: [id number] Creatinine 0.62 0.50-1.00 mg/dL eGFR by Creatinine Reviewed date:11/09/2024 12:40:11 PM Interpretation:Normal Performing Lab: Notes/Report: Test performed by [facility] [address] [place] [address] , [address], [place] [address] Jeff Valle MD, Brick Layer CLIA: [id number] eGFR by Creatinine 91 >59 mL/min/1.73m2 CT Scan : Chest with IV cont rast Reviewed date:11/26/2024 08:38:10 AM Interpretation: Performing Lab: Notes/Report: P-Magnesium Reviewed date:12/14/2024 08:31:21 AM Interpretation: Normal Performing Lab: Notes/Report: Test performed by [facility] [address] [place] [address] , [address], [place] [address] Jeff Valle MD, Brick Layer CLIA: [id number] Magnesium 1.8 1.6-2.4 mg/dL P-TSH reflex to FT4 Reviewed date:12/14/2024 08:31:21 AM Interpretation: Normal Performing Lab: Notes/Report: Test performed by [facility] [address] [place] [address] , [address], [place] [address] Jeff Valle MD, Brick Layer CLIA: [id number] TSH reflex to FT4 0.61 0.43-5.25 mU/L Urinalysis - Inhouse Reviewed date:07/19/2024 11:59:48 AM Interpretation: Performing Lab: Notes/Report: Color/Clarity yellow/cloudy Leuk 1+ Nitrite Neg Urobili 3.2 Protein Neg pH 5.5 Blood 1+ Sp. Gr. >=1.030 Ketone 1+ Bili Neg Gluc Neg Glucose (In-House) Reviewed date:07/19/2024 11:59:29 AM Interpretation: Performing Lab: Notes/Report: blood glucose 101 74 - 106 mg/dL Glycohemoglobin A1c (in hous e) Reviewed date:07/19/2024 11:59:38 AM Interpretation: Performing Lab: Notes/Report: glycohemoglobin 6.0% 5 - 6.5 % P-Comprehensive Metabolic Pa paul (CMP) Reviewed date:07/20/2024 10:27:23 AM Interpretation: Normal Performing Lab: Notes/Report: Test performed by [facility] [address] [place] [address] , [address], [place] [address] Jeff Valle MD, Brick Layer CLIA: [id number] Sodium 141 135-145 mmol/L Potassium 4.0 3.5-5.3 mmol/L Chloride 103 97-108 mmol/L CO2 26 22-32 mmol/L Glucose 88 65-99 mg/dL BUN 14 8-23 mg/dL Creatinine 0.62 0.50-1.00 mg/dL Calcium 9.9 8.6-10.4 mg/dL eGFR by Creatinine 91 >59 mL/min/1.73m2 Protein 6.2 6.0-8.3 g/dL Albumin 4.4 3.5-5.3 g/dL Alkaline Phosphatase 70 35-121 IU/L ALT (SGPT) 8 <5-47 IU/L AST (SGOT) 17 <5-40 IU/L Bilirubin, Total 0.6 <0.2-1.2 mg/dL A/G Ratio 2.4 1.1-2.5 P-Lipid Panel Reviewed date:07/20/2024 10:27:23 AM Interpretation: Normal Performing Lab: Notes/Report: Test performed by [facility], [address] , [address], [place] [address] Jeff Valle MD, Brick Layer CLIA: [id number] Cholesterol 133 <200 mg/dL Triglycerides 72 <150 mg/dL HDL Cholesterol 77 >39 mg/dL Cholesterol / HDL Ratio 1.73 0.00-4.44 Ratio Non-HDL Cholesterol 56 <130 mg/dL LDL Cholesterol (Calculation) 42 <130 mg/dL LDL Cholesterol Levels* Less than 100 mg/dL Optimal 100 to 129 mg/dL Near Optimal/ Above Optimal 130 to 159 mg/dL Borderline High 160 to 189 mg/dL High 190 mg/dL and above Very High * Categories as recommended by the 2004 ATPIII guidelines LDL/HDL Ratio 0.5 <3.3 Ratio LDL Cholesterol Patient History Test Date: 07/19/2024 LDL Results: 42 Units: mg/dL % Change: - P-TSH reflex to FT4 Reviewed date:07/20/2024 10:27:23 AM Interpretation: Normal Performing Lab: Notes/Report: Test performed by [facility] [address] , [place] [address] Jeff Valle MD, Brick Layer CLIA: [id number] TSH reflex to FT4 0.50 0.43-5.25 mU/L P-Microalbumin/Creatinine, R andom Urine Sample Reviewed date:07/20/2024 10:27:23 AM Interpretation: Normal Performing Lab: Notes/Report: Test performed by [facility] [address] , [place] [address] Jeff Valle MD, Brick Layer CLIA: [id number] Albumin/Creatinine Ratio, Urine 10 0-30 ug/mg Microalbumin, Urine, Random 1.3 Creatinine, Urine 124.4 P-Vitamin D 25-Hydroxy Reviewed date:07/20/2024 10:27:23 AM Interpretation:45.4 Performing Lab: Notes/Report: Test performed by [facility] [address] [place] [address] , [address], [place] [address] Jeff Valle MD, Brick Layer CLIA: [id number] Vitamin D 25-Hydroxy 45.4 30.0-100.0 ng/mL Interpretation of Vitamin D 25 OH: < 20 ng/mL - Deficiency 20 - 29 ng/mL - Insufficiency 30 - 100 ng/mL - Sufficiency > 100 ng/mL - Super-therapeutic- toxicity may occur above this level. Clinical correlation required. CBC Venipuncture (in house) Reviewed date:12/14/2024 08:31:22 [...] Normal Performing Lab: Notes/Report: Test performed by [facility] [address] [place] [address] , [address], [place] [address] Jeff Valle MD, Brick Layer CLIA: [id number] Vitamin B12 346 403-3767 pg/mL P-Comprehensive Metabolic Pa paul (CMP) Reviewed date:12/14/2024 08:31:21 AM Interpretation:glu 112, a/g 2.9 Performing Lab: Notes/Report: Test performed by [facility] [address] [place] [address] , [address], [place] [address] Jeff Valle MD, Brick Layer CLIA: [id number] Sodium 143 135-145 mmol/L Potassium 4.6 3.5-5.3 [...] 0.6 <0.2-1.2 mg/dL A/G Ratio 2.9 1.1-2.5 P-Phosphorus Reviewed date:12/14/2024 08:31:21 AM Interpretation: Normal Performing Lab: Notes/Report: Test performed by [facility] [address] [place] [address] , [address], [place] [address] Jeff Valle MD, Brick Layer CLIA: [id number] Phosphorus 3.8 2.5-4.5 mg/dL P-Vitamin D 25-Hydroxy Reviewed date:12/14/2024 08:31:21 AM Interpretation: Normal Performing Lab: Notes/Report: Test performed by [facility] [address] [place] [address] , [address], [place] [id number] Jeff Valle MD, Brick Layer CLIA: [id number] Vitamin D 25-Hydroxy 52.5 30.0-100.0 ng/mL Interpretation of Vitamin D 25 OH: < 20 ng/mL - Deficiency 20 - 29 ng/mL - Insufficiency 30 - 100 ng/mL - Sufficiency > 100 ng/mL - Super-therapeutic- toxicity may occur above this level. Clinical correlation required. TEN-UTI panel Reviewed date:07/22/2024 10:30:11 AM Interpretation:Abnormal Performing Lab: Notes/Report: Abnormal Glucose (In-House) Reviewed date:12/14/2024 08:31:22 AM Interpretation:127 Performing Lab: Notes/Report: 127 blood glucose 127 74 - 106 mg/dL Urinalysis - Inhouse Reviewed date:02/16/2024 03:58:34 PM Interpretation: Performing Lab: Notes/Report: Color/Clarity yellow Leuk 1+ Nitrite neg Urobili 16 Protein trace pH 7.0 Blood trace-intact Sp. Gr. 1.020 Ketone neg Bili neg Gluc neg P-Culture, Urine Reviewed date:02/20/2024 09:47:40 AM Interpretation:sensitive Performing Lab: Notes/Report: Test performed by [facility] [address] [place] [address] , [address], [place] [address] Jeff Valle MD, Brick Layer CLIA: [id number] Specimen Source Urine - Void Culture, Urine See Below See Microbiol ogy Report Klebsiella variicola 50,000-100,000 CFU/ml Klebsiella variicola Sensitivity Panel See Below Organism K.variicola Antibiotic INTERP Amikacin S Ampicillin R Aztreonam S Cefazolin S Cefepime S Cefoxitin S Ceftazidime S Ceftriaxone S Cefuroxime S Ciprofloxacin S Ertapenem S Gentamicin S Imipenem S Levofloxacin S Meropenem S Nitrofurantoin S Piperacillin/Tazo S Tetracycline S Tobramycin S Trimeth/Sulfa S S=SUSCEPTIBLE I=INTERMEDIATE R=RESISTANT EKG Reviewed date:02/23/2024 03:54:42 PM Interpretation: Performing Lab: Notes/Report: EKG Reviewed date:02/23/2024 03:54:42 PM Interpretation: Performing Lab: Notes/Report: Urinalysis - Inhouse Reviewed date:03/15/2024 02:23:15 PM Interpretation: Performing Lab: Notes/Report: Color/Clarity yellow/clear Leuk 1+ Nitrite Neg Urobili 3.2 Protein Neg pH 5.5 Blood Neg Sp. Gr. 1.020 Ketone Neg Bili Neg Gluc Neg TEN-UTI panel Reviewed date:03/18/2024 11:07:50 AM Interpretation:Abnormal Performing Lab: Notes/Report: Abnormal Urinalysis - Inhouse Reviewed date:04/13/2024 01:34:03 PM Interpretation: Performing Lab: Notes/Report: Color/Clarity yellow/cloudy Leuk 1+ Nitrite Neg Urobili 16 Protein Neg pH 5.5 Blood Trace-intact Sp. Gr. 1.020 Ketone Trace Bili Neg Gluc Neg TEN-UTI panel Reviewed date:04/16/2024 02:18:47 PM Interpretation:Enterococcus Faecalis & Gardnerella Vaginalis Performing Lab: Notes/Report: Enterococcus Faecalis & Gardnerella Vaginalis Urinalysis - Inhouse Reviewed date:04/26/2024 11:37:05 AM Interpretation: Performing Lab: Notes/Report: Color/Clarity yellow/cloudy Leuk 3+ Nitrite Neg Urobili 3.2 Protein Neg pH 5.5 Blood Trace-Intact Sp. Gr. 1.020 Ketone Trace Bili Neg Gluc Neg Reason For Referral Diagnosis 1 Cardiac arrhythmia, unspecified cardiac arrhythmia type (I49.9) [facility] First Name Alexis Miller Referring Provider Last Name Fabricio Referring Provider [facility] General Notes Carolina Jimenez 02/24/20 24 8:40:49 AM > faxed referral to [facility] Cardiology Referral Priority Routine Reason At [facility], not at [facility] Diagnosis 1 Chronic UTI (N39.0) Diagnosis 2 OAB (overactive blad xander) (N32.81) [facility] Referring Provider First Name Fransisco Referring Provider Last Name Jaycob Referring Provider [facility] Referred Provider Urology, . Referred Provider Specialty Urology General Notes Carolina Jimenez 4 2:26:08 PM > faxed referral to [facility] Urology Referral Priority Routine Medications Medication SIG (Take, Route, Frequency, Duration) Notes Start Date End Date Status Estradiol 0.1 MG/GM as directed Vaginal Two times a Week Active Vitamin D3 250 MCG (22803 UT) 2 cap(s) orally twice a week 06/26/2017 Active Trospium Chloride 20 MG 1 tab(s) Orally Two times a day for 30 day(s) Active Meclizine HCl 25 MG 1 tablet as needed Orally every 12 hrs 11/07/2023 Active Vitamin C 500 MG 1 tab(s) chewed once a day Active B-12 1000 MCG 1 tab(s) orally once a day OTC 12/30/2019 Active metFORMIN HCl ER 500 MG 2 TABLETS Orally Two times a day for 90 days Active Lisinopril 20 MG 1 tab(s) orally once a day for 90 days Active metroNIDAZOLE 500 MG 1 tablet Orally Two times a day for 7 days 07/22/2024 Active Rosuvastatin Calcium 20 MG 1 tablet Oral ly Once a day for 30 day(s) Active Immunizations Vaccine Route Administration Date Status Comme nts COVID 19 Moderna Unknown 09/20/2020 Administered COVID 19 Moderna Unknown 10/18/2020 Administered COVID 19 Moderna Unknown 06/29/2021 Administered COVID 19 Moderna Unknown 03/13/2022 Administered Fluzone High Dose (65yr and older) IM Intramuscular 06/26/2017 Administered Fluzone High Dose (65yr and older) IM Intramuscular 06/29/2018 Administered Fluzone High Dose (65yr and older) IM Intramuscular 07/05/2019 Administered Fluzone High Dose (65yr and older) IM Intramuscular 05/03/2020 Administered Fluzone High Dose (65yr and older) IM Intramuscular 05/22/2021 Administered Fluzone High Dose (65yr and older) IM Intramuscular 06/19/2023 Administered Fluzone High Dose (65yr and older) IM Intramuscular 07/19/2024 Administered PNEUMOVAX 23 VACCINE IM Intramuscular 06/29/2018 Administe red Prevnar (PCV13) IM Intramuscular 06/26/2017 Administered Prevnar (PCV20) IM Intramuscular 06/19/2023 Administered Shingrix Unknown 09/11/2022 Administered Shingrix Unknown 11/20/2022 Administered Problems Problem Type SNOMED Code ICD Code Onset Dates Problem Status W/U Status Risk Notes Problem 24189355 Vitamin D deficiency (E55.9) Active confirmed Problem Gout (00474935) Gout (M10.9) Active confirmed Problem 32081180 Essential hypertension (I10) Active confirmed Problem Abnormal mammogram (004967533) Abnormal mammogram (R92.8) Active confirmed Problem 56728016 Dysuria (R30.0) Active confirmed Problem 042644677 Nodule of left lung (R91.1) Active confirmed Problem 619618224 OAB (overactive bladder) (N32.81) Active confirmed Problem 827690905 Lumbago with sciatica, right side (M54.41) Active confirmed Problem 3914495 Primary insomnia (F51.01) Active confirmed Problem 64715794 Other chronic pain (G89.29) Active confirmed Problem 91311304204477538 Other hammer toe(s) (acquired), right foot (M20.41) Active confirmed Problem 83545349 Other hammer toe(s) (acquired), left foot (M20.42) Active confirmed Problem 74148828 Mood disorder (F39) Active confirmed Problem 93734909 Type 2 diabetes mellitus without complication (E11.9) Active confirmed Problem 29868318 Hyperlipidemia, unspecified hyperlipidemia (E78.5) Active confirmed Problem 558588297 Chronic gout without tophus, unspecified cause, unspecified site (M1A.9XX0) Active confirmed Problem 935361117 Cardiac arrhythmia, unspecified cardiac arrhythmia type (I49.9) Active confirmed Problem 830532968 Pulmonary nodule , left (R91.1) Active confirmed Problem 32057791 Genital condyloma, 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) Active confirmed Problem 587128738 Screening mammogram for breast cancer (Z12.31) Active confirmed Vital Signs Heart Rate 76 /min 12/13/2024 Blood pressure diastolic 90 mm Hg 12/13/2024 Height 68 in 12/13/2024 Blood pressure systolic 140 mm Hg 12/13/2024 Weight 157.4 lbs 12/13/2024 BMI 23.93 kg/m2 12/13/2024 Encounters Encounter Location Date Provider Diagnosis [facility] [address] [place], [place] [id number] 02/16/2024 Alexis Regalado Dysuria R30.0 and Cardiac arrhythmia, unspecified cardiac arrhythmia type I49.9 [facility] [address] [facility] [address] [place], [place] [id number] 03/15/2024 Fransisco Gretna Chronic UTI N39.0 an d OAB (overactive bladder) N32.81 [facility] [address] [facility] [address] [place], [place] [id number] 04/13/2024 Fransisco G[place]na Chronic UTI N39.0 ; OAB (overactive bladder) N32.81 and Nodule of left lung R91.1 [facility] [address] [facility] [address] [place], [place] [id number] 04/26/2024 Fransisco [place]na Chronic UTI N39.0 an d OAB (overactive bladder) N32.81 [facility] [address] [facility] [address] [place], [place] [id number] 07/19/2024 Fransisco [place]na Type 2 diabetes sergio itus without complication E11.9 ; Essential hypertension I10 ; Hyperlipidemia, unspecified hyperlipidemia E78.5 ; Vitamin D deficiency E55.9 ; Frequent UTI N39.0 and Encounter for immunization Z23 [facility] [address] [facility] [address] [place], [place] [id number] 08/02/2024 Fransisco Gretna Recurrent UTI N39.0 and OAB (overactive bladder) N32.81 [facility] [address] [facility] [address] [place], [place] [id number] 11/08/2024 Fransisco Gretna Pulmonary nodule, le ft R91.1 and senior living use of drug Z79.899 [facility] [address] [facility] [address] [place], [place] [id number] 12/13/2024 Fransisco [place] Type 2 diabetes sergio itus without complication E11.9 ; Essential hypertension I10 ; Vitamin D deficiency E55.9 ; Fatigue, unspecified type R53.83 ; Pulmonary nodule, left R91.1 ; Hyperlipidemia, unspecified hyperlipidemia E78.5 and BMI 23.0-23.9, adult Z68.23 [facility] [address] [facility] [address] [place], [place] [id number] 02/23/2024 Alexis Regalado Cardiac arrhythmia, unspecified cardiac arrhythmia type I49.9 [facility] [address] [facility] [address] [place], [place] [id number] 03/18/2024 Fransisco Gretna [facility] [address] [facility] [address] [place] [id number] 04/06/2024 Fransisco Gretna [facility] [address] [facility] [address] [place], [place] [id number] 04/16/2024 Fransisco Gretna [facility] [address] [facility] [address] [place], [place] [id number] 05/10/2024 Fransisco G[place]na Hyperlipidemia, unspecified hyperlipidemia E78.5 [facility] [address] [place], [place] [id number] 06/22/2024 Fransicso [place] Type 2 diabetes sergio itus without complication E11.9 [facility] [address] [place], [place] [id number] 07/20/2024 Fransisco Gretna [facility] [address] [place], [place] [id number] 07/22/2024 Fransisco Gretna [facility] [address] [place], [place] [id number] 07/30/2024 Fransisco G[place]na Hyperlipidemia, unspecified hyperlipidemia E78.5 [facility] [address] [place], [place] [id number] 11/26/2024 Fransisco Gretna [facility] [address] [place] [id number] 12/14/2024 Fransisco Gretna [facility] [address] [place], [place] [id number] 12/22/2024 Fransisco Gretna Essential hypertensi on I10 and Type 2 diabetes mellitus without complication E11.9 Assessments Encounter Date Diagnosis (ICD Code) Assessment Notes Treatment Notes Treatment Clinical Notes Section Notes 02/16/2024 Dysuria (ICD-10 - R30.0) 02/16/2024 Cardiac arrhythmia, unspecified cardiac arrhythmia type (ICD-10 - I49.9) 02/23/2024 Cardiac arrhythmia, unspecified cardiac arrhythmia type (ICD-10 - I49.9) 03/15/2024 OAB (overactive bladder) (ICD-10 - N32.81) 03/15/2024 Chronic UTI (ICD-10 - N39.0) 04/13/2024 OAB (overactive bladder) (ICD-10 - N32.81) 04/13/2024 Chronic UTI (ICD-10 - N39.0) 04/26/2024 OAB (overactive bladder) (ICD-10 - N32.81) 04/26/2024 Chronic UTI (ICD-10 - N39.0) Patient to see Urology in 3 days 05/10/2024 Hyperlipidemia, unspecified hyperlipidemia (ICD-10 - E78.5) 06/22/2024 Type 2 diabetes mellitus without complication (ICD-10 - E11.9) 07/19/2024 Essential hypertension (ICD-10 - I10) 07/30/2024 Hyperlipidemia, unspecified hyperlipidemia (ICD-10 - E78.5) 08/02/2024 Recurrent UTI (ICD-10 - N39.0) 08/02/2024 OAB (overactive bladder) (ICD-10 - N32.81) 11/08/2024 senior living use of drug (ICD-10 - Z79.899) 11/08/2024 Pulmonary nodule, left (ICD-10 - R91.1) 07/19/2024 Type 2 diabetes mellitus without complication (ICD-10 - E11.9) 12/13/2024 Essential hypertension (ICD-10 - I10) 12/13/2024 Type 2 diabetes mellitus without complication (ICD-10 - E11.9) 12/22/2024 Essential hypertension (ICD-10 - I10) 12/22/2024 Type 2 diabetes mellitus without complication (ICD-10 - E11.9) 07/19/2024 Hyperlipidemia, unspecified hyperlipidemia (ICD-10 - E78.5) 12/13/2024 Vitamin D deficiency (ICD-10 - E55.9) 04/13/2024 Nodule of left lung (ICD-10 - R91.1) Plan CT chest in 6 months 07/19/2024 Vitamin D deficiency (ICD-10 - E55.9) 12/13/2024 Fatigue, unspecified type (ICD-10 - R53.83) 12/13/2024 Pulmonary nodule, left (ICD-10 - R91.1) Plan to repeat chest CT 6 months from last scan 07/19/2024 Frequent UTI (ICD-10 - N39.0) 07/19/2024 Encounter for immunization (ICD-10 - Z23) 12/13/2024 Hyperlipidemia, unspecified hyperlipidemia (ICD-10 - E78.5) 12/13/2024 BMI 23.0-23.9, adult (ICD-10 - Z68.23) Plan Of Treatment Next Appt Details Provider Name:Fransisco torres, 06/14/2025 09:15:00 AM, [address], [address], [place], [id number], Insurance Providers Payer Name Payer Address Payer Phone Subscriber Number Group Number Insured Name Patient Relationship to Insured Coverage Start Date Coverage End Date MEDICARE PART B [address] [address] [place] [address] [id number] KATHLEEN OSEI Self - patient is the insured [facility] [employer] [address] [place] [id number] KATHLEEN OSEI Self - patient is the insured Medical (General) History Medical History History ICD Code Type 2 Diabetes Hypertension Vitamin D Deficiency Hyperlipidemia PPD 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 Microscopic Hematuria Hammer Toe Deformity Abnormal Mammogram, Annual Mammogram/ Ul trasound Chronic Low Back Pain, s/p L4-L5 Fusion/ Epidural Injections x 2 Left upper lobe lung nodule, 5 mm, 2023, need repeat CT scan in 6 months overactive bladder frequent UTI, s/p urology evaluation Surgical History Surgery Date(Month/Year) Bilateral Total Hip Bilateral Total Knee LT Knee x 3 Appendectomy Tonsillectomy Adenoidectomy Bilateral Breast Reduction L 4 & L 5 Back Fusion Infertility Surgery RT Tube and Ovary Removed RT Rotator Cuff Repair 2009 RT Hip Revision LT Cataract Removal 04/2017 RT Cataract Removal 05/2017 Left Shoulder replacement 2023 Hospitalization History Reason Date(Month/Year) Hip Revision- [facility] 01/21-25/09 017 Chest Pain, Reaction to Zanaflex- [facility]
--- NOTE | 2025-01-20 16:39 | XR_ITS ---
PROCEDURE INFORMATION: Exam: XR Right Femur Exam date and time: 01/20/2025 4:48 PM Age: 79 years old Clinical indication: Other: Right hip pain, history of prosthesis TECHNIQUE: Imaging protocol: Radiologic exam of the right femur. Views: 2 views. COMPARISON: CR XR FEMUR RT 2V 01/02/2025 2:48 AM FINDINGS: Bones/joints: There is a recurrent dislocated right hip prosthesis with superior displacement of the femoral component in relation to the acetabular cup. There is a right total knee replacement that appears in satisfactory position in the AP projection. Remainder of the visualized osseous structures are intact. Soft tissues: Unremarkable. IMPRESSION: Recurrent dislocated right hip prosthesis.
--- NOTE | 2025-01-20 16:41 | HMH.EDGENADL ---
Discharge Plan Disposition Patient Disposition: Home, Self-Care Condition: Good Prescriptions Prescriptions: No Action estradiol 0.01 % (0.1 mg/gram) cream vaginal Patient Comments: USE 1 GRAM INTRAVAGINALLY 3 TIMES EVERY WEEK nitrofurantoin monohyd/m-cryst [Macrobid] 100 mg capsule 100 mg PO BID 7 Days Qty: 14 0RF Rx Instructions: must administer with a meal/food lisinopril 20 mg tablet 20 mg PO DAILY 90 Days Qty: 90 Patient Comments: take 1 tablet by mouth once daily ascorbic acid (vitamin C) 500 mg capsule 500 mg PO DAILY cholecalciferol (vitamin D3) 3,000 unit tablet 3,000 unit PO DAILY Patient Comments: Pt takes 5,000 x1 rosuvastatin 20 mg tablet 20 mg PO ONCE 90 Days Qty: 90 Patient Comments: TAKE 1 TABLET ONCE A DAY AT BEDTIME metformin 500 mg tablet extended release 24 hr 1,000 mg PO BID 90 Days Qty: 360 Referrals Follow up/Referrals: Provider,Referral, MD [Primary Care Provider, Medical] - See instructions Activity Restrictions/Add. Instructions Additional Instructions/Restrictions: Please follow-up with your orthopedic doctor in the upcoming days, please continue to follow all of your restrictions, please return to the emergency department with any worsening signs or symptoms. Please continue take all medications as prescribed. Clinical Impressions Clinical Impression: Dislocation of hip joint prosthesis Qualifiers: Encounter type: initial encounter Qualified Code(s): T84.029A - Dislocation of unspecified internal joint prosthesis, initial encounter Instructions Patient Instructions: DI for Hip Dislocation -- Adult, DI for Moderate Sedation Print Language Print Language: Upper Sorbian Discharge ED Provider: Shakila Adamson General Adult HPI <CLAUDINE Alba - Last Filed: 01/20/25 19:12> General Chief complaint: PAIN Stated complaint: Right Hip Injury Time Seen by Provider: 01/20/25 16:27 Mode of Arrival: EMS Source of Information: Patient Limitations: No Limitations History of Present Illness HPI narrative: 79-year-old female presents to the emergency department via EMS for possible dislocated hip, patient complains of right hip pain, patient states that she was sitting at a restaurant, with her legs crossed , when she experienced acute onset of right hip pain, patient has remote history and was seen in the emergency department approximately 3 weeks ago (December 2024), for similar complaint where she had a dislocation of her hip prosthesis on the right, has bilateral prosthesis, remote surgery on the right performed 20 years ago, revision surgery of prosthesis/replacement performed 8 years ago what sounds like [facility]. Patient denies any fever chills chest pain shortness of breath nausea vomiting constipation diarrhea, no urinary type symptomatology, patient endorses pain, limited range of motion in the right hip joint after the incident, patient has other past medical history consistent with hypertension, T2DM, hyperlipidemia, bilateral knee replacements, no history of alcohol or drug use, initial triage vitals are unremarkable, patient was given 100 mcg of fentanyl, 20 mg of ketamine and 4 mg of IV Zofran and route for her pain, while she was being transferred. Onset (ago): hour(s) Related Data Home Medications ?Medication ?Instructions ?Recorded ?Confirmed ascorbic acid (vitamin C) 500 mg 500 mg PO DAILY Supplement 09/08/18 01/10/25 capsule cholecalciferol (vitamin D3) 75 3,000 unit PO DAILY Supplement 09/08/18 01/10/25 mcg (3,000 unit) tablet lisinopril 20 mg tablet 20 mg PO DAILY htn 90 days #90 tabs 09/08/18 01/10/25 rosuvastatin 20 mg tablet 20 mg PO ONCE Cholesterol 90 days 03/08/24 01/10/25 #90 tabs metformin 500 mg tablet,extended 1,000 mg PO BID dm 90 days #360 09/20/24 01/10/25 release 24 hr tabs estradiol 0.01% (0.1 mg/gram) vaginal 11/01/24 01/10/25 vaginal cream Previous Rx's ?Medication ?Instructions ?Recorded nitrofurantoin 100 mg PO BID 7 days #14 caps 11/08/24 monohydrate/macrocrystals 100 mg capsule (Macrobid) Allergies Allergy/AdvReac Type Severity Reaction Status Date / Time nickel Allergy Mild Verified 01/10/25 11:00 tizanidine (From Zanaflex) Allergy Mild Verified 01/10/25 11:00 [facility] <CLAUDINE Alba - Last Filed: 01/20/25 19:12> [facility] Disclaimer: The information contained in this section may have been updated after the patient was seen, as this information can be updated by other users. Medical History (Updated 01/20/25 @ 19:12 by CLAUDINE Alba) Vaginal wall cyst History of recurrent UTI (urinary tract infection) History of diabetes mellitus Rotator cuff arthropathy Surgical History Hx of total shoulder replacement H/O nasal septoplasty H/O salpingostomy History of cataract surgery History of lumpectomy History of arthroplasty of right shoulder H/O bilateral breast reduction surgery History of tonsillectomy and adenoidectomy Hx of appendectomy H/O spinal fusion History of bilateral knee replacement H/O bilateral hip replacements Social History Smoking Status: Never smoker alcohol intake: never current occupational status: retired Travel in the last 8 weeks?: None housing: house Have you lived/traveled outside [place] in past 30 days?: No Contact w/someone who lives/traveled outside US past 30 days?: No Exposure to someone with infectious disease in past 14 days?: No Do you have a fever (greater than 100.4 F or 38 C)?: No Have you tested positive for COVID-19?: No Exposed to someone with COVID-19 in past 14 days?: No Do you have a sore throat?: No Do you have a cough?: No Do you have any weakness?: No Do you have any diarrhea?: No Are you experiencing any unusual bleeding?: No Do you have any muscle aches/pain?: No Do you have any abdominal pain?: No Are you experiencing loss of taste or smell?: No Other Medical History Have you received the Pneumonia Vaccine: Yes <CLAUDINE Alba - Last Filed: 01/20/25 19:12> ROS Obtained: Yes All systems reviewed & no additional complaints except as documented Physical Exam <CLAUDINE Alba - Last Filed: 01/20/25 19:12> General General appearance: alert and in no apparent distress Head Head exam: atraumatic and normocephalic Eye Eye exam: Present PERRL and EOMI ENT ENT exam: Present mucous membranes moist Neck Neck exam: Present normal inspection Chest Chest inspection: Present normal inspection and symmetric chest wall rise Respiratory Respiratory exam: Present normal lung sounds bilaterally; Absent respiratory distress Cardiovascular Cardiovascular exam: Present regular rate and normal rhythm Abdominal Exam Abdominal exam: Present soft; Absent tenderness Extremities Exam Extremities exam: Present tenderness and other (There is obvious external rotation, some limb shortening on the right, pain to palpation to the intertrochanteric region, no obvious open fracture, obvious high riding hip, pelvis is stable to AP and lateral compression, pulses are intact distally, wiggle the toes, has good strength with plantarflex); Absent normal inspection or full ROM Neurological Exam Neurological exam: Present alert and oriented X3 Psychiatric Psychiatric exam: Present normal affect Skin Skin exam: Present warm and dry Medical Decision Making <CLAUDINE Alba - Last Filed: 01/20/25 19:12> Medical Records Medical records reviewed: Yes I reviewed the patient's medical records. Screening: Per USPSTF and CDC recommendations, given the prevalence of disease in our region, it is our hospital?s policy to screen for HIV and viral Hepatitis for all patients aged 18 and over and those with ongoing risk factors. Angel Inquiry Pt receiving controlled substance: No Angel was queried for this patient: No Vital Signs: 01/20/25 16:43 01/20/25 17:31 01/20/25 17:35 Temperature 98.2 F Temperature Source Oral Pulse Rate 77 79 Pulse Rate [Left Radial] 95 H Respiratory Rate 19 12 13 Blood Pressure 143/83 H 153/78 H Blood Pressure [Right Arm] 161/101 H Blood Pressure Mean 107 103 Blood Pressure Mean [Right Arm] 121 Blood Pressure Position 02 Sat by Pulse Oximetry 95 96 96 Oxygen Delivery Method Room Air Oxygen Flow Rate (LPM) 01/20/25 17:40 01/20/25 17:45 01/20/25 17:50 Temperature Temperature Source Pulse Rate 82 79 Pulse Rate [Left Radial] Respiratory Rate 17 18 Blood Pressure 155/90 H 155/83 H 148/85 H Blood Pressure [Right Arm] Blood Pressure Mean 100 107 114 Blood Pressure Mean [Right Arm] Blood Pressure Position 02 Sat by Pulse Oximetry 99 100 Oxygen Delivery Method Oxygen Flow Rate (LPM) 01/20/25 17:55 01/20/25 18:00 01/20/25 18:05 Temperature Temperature Source Pulse Rate 79 82 82 Pulse Rate [Left Radial] Respiratory Rate 18 10 L 10 L Blood Pressure 137/79 144/74 H 139/75 Blood Pressure [Right Arm] Blood Pressure Mean 98 108 96 Blood Pressure Mean [Right Arm] Blood Pressure Position 02 Sat by Pulse Oximetry 100 99 99 Oxygen Delivery Method Oxygen Flow Rate (LPM) 01/20/25 18:12 01/20/25 18:18 01/20/25 18:18 Temperature Temperature Source Pulse Rate 82 78 Pulse Rate [Left Radial] 88 Respiratory Rate 26 H 16 14 Blood Pressure 53/37 L 166/84 H Blood Pressure [Right Arm] 166/84 H Blood Pressure Mean 42 111 Blood Pressure Mean [Right Arm] 111 Blood Pressure Position 02 Sat by Pulse Oximetry 99 98 97 Oxygen Delivery Method Nasal Cannula Oxygen Flow Rate (LPM) 2 01/20/25 18:19 01/20/25 18:19 01/20/25 18:19 Temperature Temperature Source Pulse Rate 78 78 Pulse Rate [Left Radial] 79 Respiratory Rate 16 16 10 L Blood Pressure 142/76 H Blood Pressure [Right Arm] 142/76 H Blood Pressure Mean 98 Blood Pressure Mean [Right Arm] 98 Blood Pressure Position 02 Sat by Pulse Oximetry 98 98 98 Oxygen Delivery Method Nasal Cannula Oxygen Flow Rate (LPM) 2 01/20/25 18:24 01/20/25 18:24 01/20/25 18:26 Temperature Temperature Source Pulse Rate 70 70 Pulse Rate [Left Radial] 79 Respiratory Rate 17 17 Blood Pressure 142/113 H 140/75 Blood Pressure [Right Arm] 142/113 H Blood Pressure Mean 122 96 Blood Pressure Mean [Right Arm] 122 Blood Pressure Position 02 Sat by Pulse Oximetry 97 97 97 Oxygen Delivery Method Nasal Cannula Oxygen Flow Rate (LPM) 2 01/20/25 18:30 01/20/25 18:30 01/20/25 18:35 Temperature Temperature Source Pulse Rate 70 66 Pulse Rate [Left Radial] 67 Respiratory Rate 17 7 L 18 Blood Pressure 142/75 H 153/69 H Blood Pressure [Right Arm] 142/75 H Blood Pressure Mean 102 97 Blood Pressure Mean [Right Arm] 97 Blood Pressure Position 02 Sat by Pulse Oximetry 97 97 91 L Oxygen Delivery Method Nasal Cannula Oxygen Flow Rate (LPM) 2 01/20/25 18:35 01/20/25 18:41 01/20/25 18:41 Temperature Temperature Source Pulse Rate 75 Pulse Rate [Left Radial] 69 75 Respiratory Rate 13 6 L Blood Pressure 158/81 H Blood Pressure [Right Arm] 153/69 H 158/81 H Blood Pressure Mean 106 Blood Pressure Mean [Right Arm] 97 106 Blood Pressure Position 02 Sat by Pulse Oximetry 94 L 100 100 Oxygen Delivery Method Nasal Cannula Nasal Cannula Oxygen Flow Rate (LPM) 2 2 01/20/25 19:16 Temperature 98 F Temperature Source Pulse Rate 78 Pulse Rate [Left Radial] Respiratory Rate 14 Blood Pressure 164/100 H Blood Pressure [Right Arm] Blood Pressure Mean Blood Pressure Mean [Right Arm] Blood Pressure Position Sitting 02 Sat by Pulse Oximetry Oxygen Delivery Method Room Air Oxygen Flow Rate (LPM) Lab Data Lab results reviewed: Yes I reviewed the patient's lab results. Lab Results 01/20/25 17:14: WBC 6.6, RBC 4.53, Hgb 13.1, Hct 40.1, MCV 88.5, MCH 28.9, MCHC 32.7, RDW 12.8, Plt Count 168, MPV 9.6, Neut % (Auto) 70.3, Lymph % (Auto) 20.5, Rutherford % (Auto) 7.3, Eos % (Auto) 1.4, Baso % (Auto) 0.2, Neut # (Auto) 4.7, Lymph # (Auto) 1.4, Rutherford # (Auto) 0.5, Eos # (Auto) 0.1, Baso # (Auto) 0.0, ESR 9, Sodium 136, Potassium 4.1, Chloride 104, Carbon Dioxide 29, Anion Gap 7.1, BUN 8, Creatinine 0.60, Estimated Creat Clear 50, Estimated GFR 97, Est GFR ( Amer) 117, Glucose 154 H, Calcium 10.6 H, Total Bilirubin 0.5, AST 43 H, ALT 19, Alkaline Phosphatase 84, C-Reactive Protein < 0.3, Total Protein 6.0 L, Albumin 4.1, Globulin 1.9, Albumin/Globulin Ratio 2.2 H, HCV Ab SILVINA w/Rflx PCR Qn Negative, HIV Ag/Ab Combo Qual Negative 01/20/25 17:14 01/20/25 17:14 Orders (Tests/Meds): ED MEDICATIONS Discontinued Medications Generic Name Dose Route Start Last Admin Trade Name Freq PRN Reason Stop Dose Admin Hydromorphone HCl 0.5 mg 01/20/25 16:40 01/20/25 16:44 Hydromorphone 2mg/Ml Syringe IV 01/20/25 16:41 0.5 mg ONCE ONE Administration Hydromorphone HCl 0.5 mg 01/20/25 16:56 01/20/25 17:02 Hydromorphone 2mg/Ml Syringe IV 01/20/25 16:57 0.5 mg ONCE ONE Administration Propofol 170 mg 01/20/25 18:17 01/20/25 18:53 Propofol 10mg/Ml 20ml Vial IV 01/20/25 18:18 170 mg ONCE ONE Administration ORDERS Category Date Time Status Pelvis XR 1-2 views [XR pelvis 1-2V] Stat Exams 01/20/25 16:38 Completed XR femur RT 2V Stat Exams 01/20/25 16:39 Completed XR hip RT 2-3V w/pelvis Stat Exams 01/20/25 18:21 Completed CRP [C-Reactive Protein] Stat Lab 01/20/25 17:14 Completed Complete Blood Count Auto Diff Stat Lab 01/20/25 17:14 Completed Comprehensive Metabolic Panel Stat Lab 01/20/25 17:14 Completed ESR [Erythrocyte Sedimentation Rate] Stat Lab 01/20/25 17:14 Completed HIV Combo Stat Lab 01/20/25 17:14 Completed Hepatitis C Ab Qual. W/ RFX Stat Lab 01/20/25 17:14 Completed Medical Decision Narrative: 79-year-old female presents the emergency department with right hip pain, differential diagnose include but not limited to anterior hip dislocation, periprosthetic fracture, hip fracture, femur fracture, posterior hip dislocation, hardware failure. I discussed patient case with attending physician Will obtain basic laboratory, ESR, CRP, pelvic x-ray, and right femur x-ray for further evaluation of characterization, will give 0.5 mg IV Dilaudid. CBC unremarkable. The patient's x-ray of the right hip, and x-ray of the pelvis along with the corresponding radiologic report, recurrent dislocated right hip prosthesis CMP is notable for mild hypercalcemia 10.6, minimal AST elevation at 43, I discussed need for reduction with the patient and family at the bedside, all risk and benefits of conscious sedation were discussed with patient family bedside, patient elected to proceed, we will perform conscious sedation with IV propofol. CRP and ESR within normal limits. Of note patient states she saw [facility] orthopedic physician today, was outside arthrocentesi of hip joint. Timeout was performed at approximately 1718, see full procedure note for full details, myself and the attending physician, were able to utilize 170 mg of IV propofol, and conscious sedation was achieved, utilizing Allis reduction technique, reduction was achieved, post reduction films were obtained, the prostatic head is seated well within the acetabular joint, patient intact neurovascular post procedure, continue to monitor hemodynamically. I reviewed the patient's right hip x-ray post reduction film, along with corresponding radiologic report, successful reduction of dislocated right hip prosthesis. Reexamination the patient approximately 7:08 PM, patient is resting In the bed, pain is improved, patient is remained hemodynamically stable, breathing appropriately, moving all extremities to command, otherwise neurovascular intact. Patient was given strict ED return precautions, patient has a brace for her hip, and upcoming orthopedic appointment next week, advised her to keep this point, continue to follow all of her restrictions as previously prescribed/recommended by orthopedic physician. Patient and family voiced understanding and agree with current treatment plan/discharge plan. <Shakila Adamson, DO - Last Filed: 01/20/25 22:39> Vital Signs: 01/20/25 16:43 01/20/25 17:31 01/20/25 17:35 Temperature 98.2 F Temperature Source Oral Pulse Rate 77 79 Pulse Rate [Left Radial] 95 H Respiratory Rate 19 12 13 Blood Pressure 143/83 H 153/78 H Blood Pressure [Right Arm] 161/101 H Blood Pressure Mean 107 103 Blood Pressure Mean [Right Arm] 121 Blood Pressure Position 02 Sat by Pulse Oximetry 95 96 96 Oxygen Delivery Method Room Air Oxygen Flow Rate (LPM) 01/20/25 17:40 01/20/25 17:45 01/20/25 17:50 Temperature Temperature Source Pulse Rate 82 79 Pulse Rate [Left Radial] Respiratory Rate 17 18 Blood Pressure 155/90 H 155/83 H 148/85 H Blood Pressure [Right Arm] Blood Pressure Mean 100 107 114 Blood Pressure Mean [Right Arm] Blood Pressure Position 02 Sat by Pulse Oximetry 99 100 Oxygen Delivery Method Oxygen Flow Rate (LPM) 01/20/25 17:55 01/20/25 18:00 01/20/25 18:05 Temperature Temperature Source Pulse Rate 79 82 82 Pulse Rate [Left Radial] Respiratory Rate 18 10 L 10 L Blood Pressure 137/79 144/74 H 139/75 Blood Pressure [Right Arm] Blood Pressure Mean 98 108 96 Blood Pressure Mean [Right Arm] Blood Pressure Position 02 Sat by Pulse Oximetry 100 99 99 Oxygen Delivery Method Oxygen Flow Rate (LPM) 01/20/25 18:12 01/20/25 18:18 01/20/25 18:18 Temperature Temperature Source Pulse Rate 82 78 Pulse Rate [Left Radial] 88 Respiratory Rate 26 H 16 14 Blood Pressure 53/37 L 166/84 H Blood Pressure [Right Arm] 166/84 H Blood Pressure Mean 42 111 Blood Pressure Mean [Right Arm] 111 Blood Pressure Position 02 Sat by Pulse Oximetry 99 98 97 Oxygen Delivery Method Nasal Cannula Oxygen Flow Rate (LPM) 2 01/20/25 18:19 01/20/25 18:19 01/20/25 18:19 Temperature Temperature Source Pulse Rate 78 78 Pulse Rate [Left Radial] 79 Respiratory Rate 16 16 10 L Blood Pressure 142/76 H Blood Pressure [Right Arm] 142/76 H Blood Pressure Mean 98 Blood Pressure Mean [Right Arm] 98 Blood Pressure Position 02 Sat by Pulse Oximetry 98 98 98 Oxygen Delivery Method Nasal Cannula Oxygen Flow Rate (LPM) 2 01/20/25 18:24 01/20/25 18:24 01/20/25 18:26 Temperature Temperature Source Pulse Rate 70 70 Pulse Rate [Left Radial] 79 Respiratory Rate 17 17 Blood Pressure 142/113 H 140/75 Blood Pressure [Right Arm] 142/113 H Blood Pressure Mean 122 96 Blood Pressure Mean [Right Arm] 122 Blood Pressure Position 02 Sat by Pulse Oximetry 97 97 97 Oxygen Delivery Method Nasal Cannula Oxygen Flow Rate (LPM) 2 01/20/25 18:30 01/20/25 18:30 01/20/25 18:35 Temperature Temperature Source Pulse Rate 70 66 Pulse Rate [Left Radial] 67 Respiratory Rate 17 7 L 18 Blood Pressure 142/75 H 153/69 H Blood Pressure [Right Arm] 142/75 H Blood Pressure Mean 102 97 Blood Pressure Mean [Right Arm] 97 Blood Pressure Position 02 Sat by Pulse Oximetry 97 97 91 L Oxygen Delivery Method Nasal Cannula Oxygen Flow Rate (LPM) 2 01/20/25 18:35 01/20/25 18:41 01/20/25 18:41 Temperature Temperature Source Pulse Rate 75 Pulse Rate [Left Radial] 69 75 Respiratory Rate 13 6 L Blood Pressure 158/81 H Blood Pressure [Right Arm] 153/69 H 158/81 H Blood Pressure Mean 106 Blood Pressure Mean [Right Arm] 97 106 Blood Pressure Position 02 Sat by Pulse Oximetry 94 L 100 100 Oxygen Delivery Method Nasal Cannula Nasal Cannula Oxygen Flow Rate (LPM) 2 2 01/20/25 19:16 Temperature 98 F Temperature Source Pulse Rate 78 Pulse Rate [Left Radial] Respiratory Rate 14 Blood Pressure 164/100 H Blood Pressure [Right Arm] Blood Pressure Mean Blood Pressure Mean [Right Arm] Blood Pressure Position Sitting 02 Sat by Pulse Oximetry Oxygen Delivery Method Room Air Oxygen Flow Rate (LPM) Lab Data Lab Results 01/20/25 17:14: WBC 6.6, RBC 4.53, Hgb 13.1, Hct 40.1, MCV 88.5, MCH 28.9, MCHC 32.7, RDW 12.8, Plt Count 168, MPV 9.6, Neut % (Auto) 70.3, Lymph % (Auto) 20.5, Rutherford % (Auto) 7.3, Eos % (Auto) 1.4, Baso % (Auto) 0.2, Neut # (Auto) 4.7, Lymph # (Auto) 1.4, Rutherford # (Auto) 0.5, Eos # (Auto) 0.1, Baso # (Auto) 0.0, ESR 9, Sodium 136, Potassium 4.1, Chloride 104, Carbon Dioxide 29, Anion Gap 7.1, BUN 8, Creatinine 0.60, Estimated Creat Clear 50, Estimated GFR 97, Est GFR ( Amer) 117, Glucose 154 H, Calcium 10.6 H, Total Bilirubin 0.5, AST 43 H, ALT 19, Alkaline Phosphatase 84, C-Reactive Protein < 0.3, Total Protein 6.0 L, Albumin 4.1, Globulin 1.9, Albumin/Globulin Ratio 2.2 H, HCV Ab SILVINA w/Rflx PCR Qn Negative, HIV Ag/Ab Combo Qual Negative Orders (Tests/Meds): ED MEDICATIONS Discontinued Medications Generic Name Dose Route Start Last Admin Trade Name Freq PRN Reason Stop Dose Admin Hydromorphone HCl 0.5 mg 01/20/25 16:40 01/20/25 16:44 Hydromorphone 2mg/Ml Syringe IV 01/20/25 16:41 0.5 mg ONCE ONE Administration Hydromorphone HCl 0.5 mg 01/20/25 16:56 01/20/25 17:02 Hydromorphone 2mg/Ml Syringe IV 01/20/25 16:57 0.5 mg ONCE ONE Administration Propofol 170 mg 01/20/25 18:17 01/20/25 18:53 Propofol 10mg/Ml 20ml Vial IV 01/20/25 18:18 170 mg ONCE ONE Administration ORDERS Category Date Time Status Pelvis XR 1-2 views [XR pelvis 1-2V] Stat Exams 01/20/25 16:38 Completed XR femur RT 2V Stat Exams 01/20/25 16:39 Completed XR hip RT 2-3V w/pelvis Stat Exams 01/20/25 18:21 Completed CRP [C-Reactive Protein] Stat Lab 01/20/25 17:14 Completed Complete Blood Count Auto Diff Stat Lab 01/20/25 17:14 Completed Comprehensive Metabolic Panel Stat Lab 01/20/25 17:14 Completed ESR [Erythrocyte Sedimentation Rate] Stat Lab 01/20/25 17:14 Completed HIV Combo Stat Lab 01/20/25 17:14 Completed Hepatitis C Ab Qual. W/ RFX Stat Lab 01/20/25 17:14 Completed Medical Decision Narrative: 79-year-old female presents the emergency department with right hip pain, differential diagnose include but not limited to anterior hip dislocation, periprosthetic fracture, hip fracture, femur fracture, posterior hip dislocation, hardware failure. I discussed patient case with attending physician Will obtain basic laboratory, ESR, CRP, pelvic x-ray, and right femur x-ray for further evaluation of characterization, will give 0.5 mg IV Dilaudid. CBC unremarkable. The patient's x-ray of the right hip, and x-ray of the pelvis along with the corresponding radiologic report, recurrent dislocated right hip prosthesis CMP is notable for mild hypercalcemia 10.6, minimal AST elevation at 43, I discussed need for reduction with the patient and family at the bedside, all risk and benefits of conscious sedation were discussed with patient family bedside, patient elected to proceed, we will perform conscious sedation with IV propofol. CRP and ESR within normal limits. Of note patient states she saw [facility] orthopedic physician today, was outside arthrocentesi of hip joint. Timeout was performed at approximately 1718, see full procedure note for full details, myself and the attending physician, were able to utilize 170 mg of IV propofol, and conscious sedation was achieved, utilizing Allis reduction technique, reduction was achieved, post reduction films were obtained, the prostatic head is seated well within the acetabular joint, patient intact neurovascular post procedure, continue to monitor hemodynamically. I reviewed the patient's right hip x-ray post reduction film, along with corresponding radiologic report, successful reduction of dislocated right hip prosthesis. Reexamination the patient approximately 7:08 PM, patient is resting In the bed, pain is improved, patient is remained hemodynamically stable, breathing appropriately, moving all extremities to command, otherwise neurovascular intact. Patient was given strict ED return precautions, patient has a brace for her hip, and upcoming orthopedic appointment next week, advised her to keep this point, continue to follow all of her restrictions as previously prescribed/recommended by orthopedic physician. Patient and family voiced understanding and agree with current treatment plan/discharge plan. DO Juan Diego: I was consulted by the LAUREN, and we discussed the complexity of the problems being addressed. I approved the treatment and management plan for this patient's care in the emergency department, thus performing a substantive portion of the medical decision making. I pushed a sedative and helped with reduction with LAUREN at bedside. I was present for entirety of procedure and perform majority of procedure. Shakila Adamson DO Procedures <CLAUDINE Alba - Last Filed: 01/20/25 19:12> Orthopedic Joint Reduction Joint #1: Post-reduction neuro exam: intact Post-reduction vascular: intact Post Reduction X-Ray Obtained: Yes Post Reduction X-Ray Results: reduced Patient Tolerated Procedure: well <Shakila Adamson DO - Last Filed: 01/20/25 22:39> Risk/Benefits of Procedure(s) Were Explained: Yes Orthopedic Joint Reduction Joint #1: Time Out Performed: Yes Side: right Joint Reduction Location: hip Analgesia: procedural sedation Procedural Sedation Presedation Evaluation: Lying in bed in no acute distress, no history of difficult sedation A heart and lung assessment was performed on this patient at: 17:28 Mallampati Score:: Class II Indication: fracture/dislocation reduction ASA Class: II Preparation: staff psychologist applied, pulse oximeter, capnometry used, supplemental O2 applied, reversal agents at bedside, suction/airway equipment at bedside and IV secured IV Propofol dose (mg): 170 Patient Tolerated Procedure: well and no complications Complications: none Additional Comments: Initial induction dose with 70 mg, or 1 mg/kg. I then pushed increments of 20 to 30 mg to maintain sedation for multiple attempts at hip reduction. Tolerated this well with no complications and return to her preprocedure baseline. Critical Care <CLAUDINE Alba - Last Filed: 01/20/25 19:12> Critical Care Time Critical Care Time: No
[2025-01-20] MEDS: HYDROMORPHONE 2MG/ML SYRINGE 0.5 MG IV ×2 (16:44→17:02)
[2025-01-20 17:24] LABS: Basophils % 0.2 % (0.1-2.0); Eosinophils # 0.1 Kmm3 (0.0-0.4); Eosinophils % 1.4 % (0.1-12.0); Hematocrit 40.1 % (37.0-47.0); Hemoglobin 13.1 g/dL (12.2-16.2); Immature Granulocytes # 0.02 10^3uL; Immature Granulocytes % 0.3 %; Lymphocytes # 1.4 K/mm3 (0.7-4.5); Lymphocytes % 20.5 % (10-50); Mean Corpuscular HGB Conc 32.7 g/dL (31.8-35.4); Mean Corpuscular Hemoglobin 28.9 pg (27.0-31.2); Mean Corpuscular Volume 88.5 fl (81-99); Mean Platelet Volume 9.6 fl (7.4-10.4); Monocytes # 0.5 K/mm3 (0.1-1.0); Monocytes % 7.3 % (1.7-9.3); Neutrophils # 4.7 K/mm3 (1.8-7.8); Neutrophils % 70.3 % (37.0-80.0); Nucleated Red Blood Cells # 0 10^3/uL; Nucleated Red Blood Cells % 0 %; Platelet Count 168 K/mm3 (142-424); Red Blood Count 4.53 M/mm3 (4.20-5.40); Red Cell Distribution Width 12.8 % (11.5-17.5); Red Cell Distribution Width-SD 41.3 fL; White Blood Count 6.6 K/mm3 (4.8-10.8)
[2025-01-20 17:29] LABS: Chloride 104 mmol/L (98-107)
[2025-01-20 17:30] LABS: Albumin Level 4.1 g/dl (3.5-5.0); Potassium 4.1 mmoL/L (3.5-5.1); Sodium 136 mmol/L (136-145)
[2025-01-20 17:32] LABS: Blood Urea Nitrogen 8 mg/dl (7-17); Creatinine Clearance Estimated 50 mL/min (50-200); Estimated Glomerular Filt Rate 97 ml/min (>60); GFR (African American) 117 ML/MIN (>60)
[2025-01-20 17:33] LABS: Alanine Aminotransferase 19 U/L (12-78); Albumin/Globulin Ratio 2.2 (1.1-1.8); Alkaline Phosphatase 84 U/L (38-126); Anion Gap 7.1 mEq/L (5-15); Aspartate Amino Transferase 43 U/L (14-36); Bilirubin,Total 0.5 mg/dl (0.2-1.3); Calcium 10.6 mg/dl (8.4-10.2); Carbon Dioxide 29 mmol/L (22.0-30.0); Globulin 1.9 g/dL (1.3-3.2); Glucose 154 mg/dl (74-100)
[2025-01-20 17:46] LABS: C-Reactive Protein < 0.3 mg/L (0-4)
[2025-01-20 17:49] LABS: Erythrocyte Sedimentation Rate 9 mm/hr (0-30)
--- NOTE | 2025-01-20 18:20 | PC.NURSE ---
Radiology called to shoot post xray of the right hip
--- NOTE | 2025-01-20 18:21 | XR_ITS ---
PROCEDURE INFORMATION: Exam: XR Right Hip Exam date and time: 01/20/2025 6:21 PM Age: 79 years old Clinical indication: Screening exam; Reduction right hip; Prior surgery; Surgery date: 6+ months; Surgery type: Hip replacement TECHNIQUE: Imaging protocol: Radiologic exam of the right hip. Views: 2 or 3 views hip with pelvis when performed. COMPARISON: CR XR PELVIS 1-2V 01/20/2025 4:48 PM FINDINGS: Bones/joints: There has been successful reduction of dislocated right hip prosthesis with restored anatomic alignment. Hardware is intact. Bone mineral interface is unremarkable. There is no periprosthetic fracture. Soft tissues: Unremarkable. IMPRESSION: Successful reduction of dislocated right hip prosthesis.
--- NOTE | 2025-01-20 18:22 | PC.NURSE ---
rad at bedside
[2025-01-20 18:29] LABS: HIV Combo NEGATIVE (Negative)
--- NOTE | 2025-01-20 18:30 | PC.NURSE ---
rad at bedside
--- NOTE | 2025-01-20 18:33 | PC.NURSE ---
rad at bedside hip in place
[2025-01-20 18:36] LABS: Hepatitis C Ab Qual. W/ RFX NEGATIVE (Negative)
[2025-01-20] MEDS: PROPOFOL 10MG/ML 20ML VIAL 170 MG IV (18:53)
--- NOTE | 2025-01-20 19:01 | PC.NURSE ---
I rounded on the pt and updated her on her plan of care. I brought her a pair of shorts to go home with and a cup of ice. no new complaints. no needs voiced. call gil in reach. pt visiting with family bedside.
== END 2025-01-20 19:27 | disposition home or self-care (01) ==
PROVIDERS: Physician Assistant; Emergency Provider Emergency Medicine
DX: T84.020A Dislocation of internal right hip prosthesis, initial encounter (principal); M25.551 Pain in right hip; Z11.59 Encounter for screening for other viral diseases; Z11.4 Encounter for screening for human immunodeficiency virus [HIV]
CPT/HCPCS: 72170; 73502; 73552; 80053; 80074; 85025; 85651; 86140; 87389; 96374; 99152; 99285; J1171; J2704

== ENCOUNTER 2025-02-15 14:39 | Inpatient (IN) | payer MEDICARE, SELFPAY ==
[2025-02-15] VITALS (18 sets, daily range): BP systolic 113–145; BP diastolic 53–74; PULSE 72–116; RESP 15–22; TEMP 36.6–36.9; O2SAT 94–98; BMI 23.0
--- NOTE | 2025-02-15 13:39 | EXP.HP ---
History of Present Illness *Admission Date: 02/15/25 *Reason for visit:: GI bleed *History of present illness: Ms. Osei is a 79-year-old female who presented to the office of [facility] for follow-up. She has a history of type 2 diabetes mellitus, hypertension, hyperlipidemia, chronic low back pain and status post L4-L5 fusion, left upper lobe of the lung nodule 5 mm, and overactive bladder. She was discharged from [facility] on 01/10 after revision of the right hip after dislocation. Patient felt she was doing well and had not had any pain in the hip. She was also seen by the surgeon on 01/25/2025. Since discharge from the hospital and after starting on Eliquis 2.5 mg twice daily she reported having some black stools. She describes dizziness with change of position. With evaluation in the office patient was found to have a hemoglobin of 7.5 and hematocrit of 21.6. Blood pressure was noted to be 90/50 with a heart rate of 90. Therefore she was admitted for further evaluation for GI bleed. [facility] Disclaimer: The information contained in this section may have been updated after the patient was seen, as this information can be updated by other users. Medical History (Updated 02/15/25 @ 16:14 by Fransisco Devries MD) Squamous cell carcinoma of left lower leg Vaginal wall cyst History of recurrent UTI (urinary tract infection) History of diabetes mellitus Rotator cuff arthropathy Surgical History (Updated 02/15/25 @ 13:52 by Leora Cordova APRN) S/p revision of right total hip Hx of total shoulder replacement H/O nasal septoplasty H/O salpingostomy History of cataract surgery History of lumpectomy History of arthroplasty of right shoulder H/O bilateral breast reduction surgery History of tonsillectomy and adenoidectomy Hx of appendectomy H/O spinal fusion History of bilateral knee replacement H/O bilateral hip replacements Family History (Updated 02/15/25 @ 13:54 by Leora Cordova APRN) Other Coronary artery disease Diabetes Hypertension Stroke Social History (Updated 02/15/25 @ 15:42 by Tami Roque RN) Smoking Status: Never smoker alcohol intake: never current occupational status: retired Travel in the last 8 weeks?: None housing: house Have you lived/traveled outside US in past 30 days?: No Contact w/someone who lives/traveled outside US past 30 days?: No Exposure to someone with infectious disease in past 14 days?: No Do you have a fever (greater than 100.4 F or 38 C)?: No Have you tested positive for COVID-19?: No Exposed to someone with COVID-19 in past 14 days?: No Do you have a sore throat?: No Do you have a cough?: No Do you have any weakness?: No Do you have any diarrhea?: No Are you experiencing any unusual bleeding?: No Do you have any muscle aches/pain?: No Do you have any abdominal pain?: No Are you experiencing loss of taste or smell?: No Other Medical History Have you received the Pneumonia Vaccine: Yes Review of Systems Constitutional Constitutional: Denies fever(s), Denies frequent falls, Reports headache(s), Reports poor appetite and Reports lethargy Eyes Eyes: Denies change in vision ENT Ears, Nose, Mouth, and Throat: Reports dizziness, Denies otalgia, Reports headache(s), Denies nasal congestion, Denies sore throat and Reports vertigo *Cardiovascular Cardiovascular: Denies chest pain, Reports leg edema (improved) and Reports palpitations *Respiratory Respiratory: Denies chest congestion, Denies cough and Denies hemoptysis *Gastrointestinal Gastrointestinal: Denies abdominal pain, Denies belching, Denies bloating, Reports change in stool character, Denies constipation, Reports diarrhea, Denies dyspepsia, Denies hematemesis, Reports melena, Reports nausea and Denies vomiting *Genitourinary Genitourinary: Denies difficulty voiding *Musculoskeletal Musculoskeletal: Reports abnormal gait (Continues to use rolling walker and does well with this.) *Neurologic Neurologic: Reports abnormal gait (Continues to use rolling walker and does well with this.), Denies confusion, Reports dizziness, Denies frequent falls, Reports headache(s) and Reports vertigo Psychiatric Psychiatric: Denies confusion Endocrine Endocrine: Reports palpitations Meds Home Medications and Allergies Home Medications ?Medication ?Instructions ?Recorded ?Confirmed ?Type ascorbic acid (vitamin C) 500 mg 500 mg PO DAILY Supplement 09/08/18 01/10/25 History capsule cholecalciferol (vitamin D3) 75 3,000 unit PO DAILY Supplement 09/08/18 01/10/25 History mcg (3,000 unit) tablet lisinopril 20 mg tablet 20 mg PO DAILY htn 90 days #90 tabs 09/08/18 02/15/25 History rosuvastatin 20 mg tablet 20 mg PO ONCE Cholesterol 90 days 03/08/24 02/15/25 History #90 tabs metformin 500 mg tablet,extended 1,000 mg PO BID dm 90 days #360 09/20/24 02/15/25 History release 24 hr tabs acetaminophen 500 mg tablet 500 mg PO QID PRN Pain 02/15/25 02/15/25 History apixaban 2.5 mg tablet (Eliquis) 2.5 mg PO BID 02/15/25 02/15/25 History mecobalamin (vitamin B12) 1,000 2,500 mcg PO DAILY 02/15/25 02/15/25 History mcg chewable tablet (B12 Active) New Prescriptions to Start Prescriptions: Allergies Allergy/AdvReac Type Severity Reaction Status Date / Time nickel Allergy Mild Verified 01/10/25 11:00 tizanidine (From Zanaflex) Allergy Mild Verified 01/10/25 11:00 Exam Constitutional Constitutional: no acute distress Comments: Sitting in exam room in the office of [facility] and appears comfortable. *Routine HEENT Exam Head: Present normocephalic and atraumatic Eye: Present PERRL; Absent conjunctival icterus, scleral injection or conjunctivae pink ENT: Present mucous membranes moist and oropharynx clear *Routine Neck Exam Neck: Present supple and full ROM; Absent carotid bruit, lymphadenopathy or thyromegaly *Routine Respiratory Exam Respiratory: Present CTA bilaterally (Anteriorly and posteriorly) and normal respiratory effort *Routine Cardiovascular Exam Cardiovascular: Present RRR (Heart rate at 90/min with exam) *Routine Abdominal Exam Abdominal: Present soft and normoactive bowel sounds; Absent tenderness, distended, guarding or organomegaly *Routine Rectal Exam Rectal:: deferred *Routine Genitalia Exam Genitalia:: deferred *Routine Extremities Exam Extremities: Present edema (Minimal right ankle edema); Absent calf tenderness *Routine Skin Exam Comments: Patient reports dressing changed by surgeon and remains clean dry and intact *Routine Neurological Exam Neurological: Present alert, oriented X3 and normal speech Assessment and Plan *Assessment and plan (1) Anemia: Status: Acute Qualifiers: Iron deficiency anemia type: chronic blood loss Category: Medical Code(s): D64.9 - Anemia, unspecified (2) Gastrointestinal bleed: Status: Acute Category: Medical Code(s): K92.2 - Gastrointestinal hemorrhage, unspecified (3) S/p revision of right total hip: Status: Acute Category: Surgical Code(s): Z96.641 - Presence of right artificial hip joint (4) Diabetes: Status: Acute Qualifiers: Diabetes mellitus complication status: without complication Diabetes mellitus senior living insulin use: without equipment operator 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 Repeat H&H and may need transfusion. Dr. Devries entry - Saw patient in office and again here at [facility], agree with above note.
[2025-02-15 17:50] LABS: Immature Granulocytes % 0.3 %; Mean Corpuscular HGB Conc 31.7 g/dL (31.8-35.4); Mean Corpuscular Hemoglobin 29.2 pg (27.0-31.2); Mean Corpuscular Volume 92.2 fl (81-99); Nucleated Red Blood Cells % 0 %; Platelet Count 200 K/mm3 (142-424); Red Blood Count 2.19 M/mm3 (4.20-5.40); Red Cell Distribution Width-SD 50.3 fL; White Blood Count 9.1 K/mm3 (4.8-10.8)
[2025-02-15] MEDS: 0.9 % SODIUM CHLORIDE 1000ML 1,000 ML 50 ML IV (17:51)
[2025-02-15 17:54] LABS: Iron 48 ug/dL (37-170)
[2025-02-15 17:57] LABS: Hemoglobin 6.4 g/dL (12.2-16.2); INR 0.98 (0.9-1.1); Prothrombin Time 10.9 seconds (10.1-12.5)
[2025-02-15 17:58] LABS: Alanine Aminotransferase 12 U/L (12-78); Albumin Level 3.7 g/dl (3.5-5.0); Albumin/Globulin Ratio 1.9 (1.1-1.8); Alkaline Phosphatase 51 U/L (38-126); Anion Gap 12.4 mEq/L (5-15); Aspartate Amino Transferase 31 U/L (14-36); Bilirubin,Total 0.5 mg/dl (0.2-1.3); Blood Urea Nitrogen 33 mg/dl (7-17); Calcium 9.6 mg/dl (8.4-10.2); Carbon Dioxide 27 mmol/L (22.0-30.0); Chloride 101 mmol/L (98-107); Creatinine Clearance Estimated 50 mL/min (50-200); Creatinine,Serum 0.70 mg/dl (0.52-1.04); Estimated Glomerular Filt Rate 81 ml/min (>60); GFR (African American) 98 ML/MIN (>60); Globulin 2.0 g/dL (1.3-3.2); Glucose 106 mg/dl (74-100); Potassium 4.4 mmoL/L (3.5-5.1); Sodium 136 mmol/L (136-145); Total Protein,Serum 5.7 g/dl (6.3-8.2)
[2025-02-15 17:59] LABS: Hematocrit 20.2 % (37.0-47.0)
[2025-02-15 18:05] LABS: Total Iron Binding Capacity 343 ug/dL (265-497)
[2025-02-15 18:34] LABS: Ferritin 46.2 ng/ml (11.1-264)
--- NOTE | 2025-02-15 18:41 | PC.NURSE ---
notified MD at 1805 of critical hemoglobin of 6.4, MD ordered to transfuse 2 units of blood.
[2025-02-15] MEDS: PANTOPRAZOLE 40MG VIAL 40 MG IV (20:23)
[2025-02-16] VITALS (21 sets, daily range): BP systolic 112–198; BP diastolic 50–89; PULSE 67–90; RESP 16–20; TEMP 36.4–36.9; O2SAT 93–99; BMI 23.1
--- NOTE | 2025-02-16 05:17 | PC.NURSE ---
Pt A&OX4 and has tolerated room air. Pt has received 2 units of blood this shift and tolerated well. She has remained NPO since midnight. She has ambulated room with standby assist. No complaints at this time, call light within reach.
[2025-02-16 06:38] LABS: Hematocrit 25.1 % (37.0-47.0); Immature Granulocytes % 0.2 %; Mean Corpuscular HGB Conc 33.5 g/dL (31.8-35.4); Mean Corpuscular Hemoglobin 30.2 pg (27.0-31.2); Mean Corpuscular Volume 90.3 fl (81-99); Nucleated Red Blood Cells % 0 %; Red Blood Count 2.78 M/mm3 (4.20-5.40)
[2025-02-16 06:48] LABS: Anion Gap 11.3 mEq/L (5-15); Blood Urea Nitrogen 20 mg/dl (7-17); Calcium 8.9 mg/dl (8.4-10.2); Carbon Dioxide 28 mmol/L (22.0-30.0); Chloride 103 mmol/L (98-107); Creatinine Clearance Estimated 51 mL/min (50-200); Creatinine,Serum 0.70 mg/dl (0.52-1.04); Estimated Glomerular Filt Rate 81 ml/min (>60); GFR (African American) 98 ML/MIN (>60); Glucose 113 mg/dl (74-100); Potassium 4.3 mmoL/L (3.5-5.1); Sodium 138 mmol/L (136-145)
[2025-02-16 06:50] LABS: Platelet Count 164 K/mm3 (142-424); Red Cell Distribution Width-SD 47.3 fL; White Blood Count 6.0 K/mm3 (4.8-10.8)
[2025-02-16 06:54] LABS: Hemoglobin 8.4 g/dL (12.2-16.2)
--- NOTE | 2025-02-16 08:24 | P.PN_ITS ---
Subjective *Date: 02/16/25 *Time: 08:43 Interval history: Patient is feeling a little bit better today. She denies any pain or shortness of breath. She did not rest well. She is n.p.o. this morning for possible scope by Dr. White. Medical Exam Vital signs and Labs for Last 24 Hours: Vital Signs Temp Pulse Pulse Resp BP BP Pulse Ox 02/16/25 06:38 02/16/25 05:00 02/16/25 04:00 98.2 F 74 16 129/65 98 02/16/25 02:33 02/16/25 02:01 83 18 147/73 H 99 02/16/25 01:15 75 16 132/61 96 02/16/25 01:00 02/16/25 00:15 77 20 198/80 H 97 02/16/25 00:00 87 18 130/70 97 02/15/25 23:45 87 22 139/66 96 02/15/25 23:30 90 20 98 02/15/25 23:25 98.1 F 90 18 132/65 94 L 02/15/25 23:20 86 16 98 02/15/25 23:15 97.9 F 82 18 137/69 98 02/15/25 23:05 97.9 F 85 18 128/73 98 02/15/25 23:00 02/15/25 22:48 98.1 F 84 18 128/67 96 02/15/25 22:30 89 16 145/69 H 97 02/15/25 21:30 95 H 20 141/74 H 97 02/15/25 21:15 84 16 119/62 95 02/15/25 21:00 98 F 100 H 18 120/53 L 98 02/15/25 21:00 02/15/25 20:45 98.4 F 88 15 113/53 L 97 02/15/25 20:40 98.2 F 88 15 123/58 L 96 02/15/25 20:35 98.2 F 90 16 118/66 97 02/15/25 20:30 98.3 F 72 16 117/58 L 97 02/15/25 20:26 98.3 F 90 16 124/60 96 02/15/25 20:00 02/15/25 20:00 98.3 F 90 18 113/63 96 02/15/25 19:00 07/08/25 17:00 02/15/25 15:00 02/15/25 15:00 98.3 F 116 H 20 121/64 97 02/15/25 14:49 O2 Del Method 02/16/25 06:38 Room Air 02/16/25 05:00 Room Air 02/16/25 04:00 Room Air 02/16/25 02:33 Room Air 02/16/25 02:01 02/16/25 01:15 02/16/25 01:00 Room Air 02/16/25 00:15 02/16/25 00:00 02/15/25 23:45 02/15/25 23:30 02/15/25 23:25 02/15/25 23:20 02/15/25 23:15 02/15/25 23:05 02/15/25 23:00 Room Air 02/15/25 22:48 02/15/25 22:30 02/15/25 21:30 02/15/25 21:15 02/15/25 21:00 02/15/25 21:00 Room Air 02/15/25 20:45 02/15/25 20:40 02/15/25 20:35 02/15/25 20:30 02/15/25 20:26 02/15/25 20:00 Room Air 02/15/25 20:00 Room Air 02/15/25 19:00 Room Air 02/15/25 17:00 Room Air 02/15/25 15:00 Room Air 02/15/25 15:00 Room Air 02/15/25 14:49 Room Air Intake and Output 02/15/25 02/16/25 02/16/25 19:59 03:59 11:59 Intake Total 440 / 1740 1300 / 1740 Output Total 400 / 550 150 / 550 Balance 440 / 1190 900 / 1190 -150 / 1190 Intake: Intake, Oral Amount 440 / 440 Intake, Other Amount 500 / 500 Intake, Total IV Amount 300 / 300 0.9 % Sodium Chloride 1000ML 1, 300 / 300 000 ml @ 50 mls/hr IV .Q20H [facility] Rx#:[id number] Intake (Blood Product) Amt 500 / 500 Red Blood Cells Unit 250 / 250 [id number] Red Blood Cells Unit 250 / 250 [id number] Output: Output, Urine Amount 400 / 550 150 / 550 Other: Number of Bowel Movements 1 Weight 151 lb 6 oz 152 lb 12.8 oz Patient Weight 02/16/25 11:59 Weight 152 lb 12.8 oz Laboratory Results - last 24 hr 02/15/25 17:30: WBC 9.1, RBC 2.19 L, Hgb 6.4 L*, Hct 20.2 L*, MCV 92.2, MCH 29.2, MCHC 31.7 L, RDW 15.4, Plt Count 200, MPV 10.1, Neut % (Auto) 71.8, Lymph % (Auto) 21.3, [place] % (Auto) 5.6, Eos % (Auto) 0.8, Baso % (Auto) 0.2, Neut # (Auto) 6.6, Lymph # (Auto) 2.0, [place] # (Auto) 0.5, Eos # (Auto) 0.1, Baso # (Auto) 0.0, PT 10.9, INR 0.98, Sodium 136, Potassium 4.4, Chloride 101, Carbon Dioxide 27, Anion Gap 12.4, BUN 33 H, Creatinine 0.70, Estimated Creat Clear 50, Estimated GFR 81, Est GFR ( Amer) 98, Glucose 106 H, Calcium 9.6, Iron 48, TIBC 343, Iron Saturation 13.48742 L, Ferritin 46.2, Total Bilirubin 0.5, AST 31, ALT 12, Alkaline Phosphatase 51, Total Protein 5.7 L, Albumin 3.7, Globulin 2.0, Albumin/Globulin Ratio 1.9 H 02/15/25 18:24: Blood Type O Positive, Antibody Screen Negative, Crossmatch (AHG) See Detail 02/15/25 19:09: Blood Type Confirm O Positive 02/16/25 06:26: WBC 6.0 D, RBC 2.78 L D, Hgb 8.4 L D, Hct 25.1 L, MCV 90.3, MCH 30.2, MCHC 33.5, RDW 14.6, Plt Count 164, MPV 9.9, Neut % (Auto) 58.2, Lymph % (Auto) 32.3, [place] % (Auto) 7.0, Eos % (Auto) 2.0, Baso % (Auto) 0.3, Neut # (Auto) 3.5, Lymph # (Auto) 1.9, [place] # (Auto) 0.4, Eos # (Auto) 0.1, Baso # (Auto) 0.0, Sodium 138, Potassium 4.3, Chloride 103, Carbon Dioxide 28, Anion Gap 11.3, BUN 20 H D, Creatinine 0.70, Estimated Creat Clear 51, Estimated GFR 81, Est GFR ( Amer) 98, Glucose 113 H, Calcium 8.9 I & O for Labs for Last 24 Hours: Intake & Output 02/13/25 02/14/25 02/15/25 02/16/25 11:59 11:59 11:59 11:59 Intake Total 1740 / 1740 Output Total 550 / 550 Balance 1190 / 1190 Weight 152 lb 12.8 oz Constitutional: Present no acute distress Respiratory: Present CTA bilaterally Cardiac: Present Reg Rate and Rhythm GI: Present soft and normal bowel sounds; Absent distention or tenderness Extremities: Absent edema, clubbing or cyanosis Skin: Present intact Neuro: Present alert and awake Assessment and Plan *Assessment and plan (1) Anemia: Status: Acute Qualifiers: Iron deficiency anemia type: chronic blood loss Category: Medical Code(s): D64.9 - Anemia, unspecified (2) Gastrointestinal bleed: Status: Acute Category: Medical Code(s): K92.2 - Gastrointestinal hemorrhage, unspecified (3) S/p revision of right total hip: Status: Acute Category: Surgical Code(s): Z96.641 - Presence of right artificial hip joint (4) Diabetes: Status: Acute Qualifiers: Diabetes mellitus complication status: without complication Diabetes mellitus alf insulin use: without alf use Diabetes mellitus type: type 2 Qualified Code(s): E11.9 - Type 2 diabetes mellitus without complications Category: Medical Code(s): E11.9 - Type 2 diabetes mellitus without complications Plan Her follow-up H&H has improved. GI consult has been placed and patient is n.p.o for an EGD today. Dr. Devries entry - Saw patient, agree with above note.
[2025-02-16] MEDS: PANTOPRAZOLE 40MG VIAL 40 MG IV ×2 (08:26→20:06)
[2025-02-16] MEDS: SODIUM CHLORIDE 0.9% 10ML VIAL 10 ML IV ×2 (08:26→20:07)
[2025-02-16] MEDS: ONDANSETRON 4MG/2ML VIAL 4 MG IV (08:41)
--- NOTE | 2025-02-16 09:23 | HMH.PHAINT1 ---
Pharmacy Intervention Comments: HOME MEDICATION LIST VERIFIED USING LIST FROM OUTPATIENT PHARMACY AND PT INTERVIEW
--- NOTE | 2025-02-16 09:56 | EXP.ANES.CKL ---
[facility] Disclaimer: The information contained in this section may have been updated after the patient was seen, as this information can be updated by other users. Medical History Squamous cell carcinoma of left lower leg Vaginal wall cyst History of recurrent UTI (urinary tract infection) History of diabetes mellitus Rotator cuff arthropathy Surgical History S/p revision of right total hip Hx of total shoulder replacement H/O nasal septoplasty H/O salpingostomy History of cataract surgery History of lumpectomy History of arthroplasty of right shoulder H/O bilateral breast reduction surgery History of tonsillectomy and adenoidectomy Hx of appendectomy H/O spinal fusion History of bilateral knee replacement H/O bilateral hip replacements Family History Other Coronary artery disease Diabetes Hypertension Stroke Social History Smoking Status: Never smoker alcohol intake: never substance use type: unknown current occupational status: retired Travel in the last 8 weeks?: None housing: house [facility] Anesthesia Checklist Patient Identification Patient Identification: Arm Band and Verbal (Name & ) Structural Data Admitted From: Inpatient Planned Operative Procedure/s: EGD Consent for Planned Operative Procedure(s) Verified: Yes Verified Documents: Surgical Consent NPO Status Verified Time NPO: 00:00 Additional verifications Anesthesia Reactions: No Hx Blood Transfusions: Yes Blood Transfusion Reaction: No Previous Colonoscopy: Yes Airway Assessment Mallampati Score:: Class II Dentition: Good Dentition Neurological Assessment Level of Consciousness: Awake, Alert and Appropriate Anesthesia Plan Anesthesia Risk discussed: Yes Anesthesia Plan: Verified ASA Class: III Anesthesia Type: MAC
--- NOTE | 2025-02-16 09:57 | EXP.HP ---
History of Present Illness *Admission Date: 02/15/25 *Reason for visit:: GI bleed *History of present illness: Ms. Osei is a 79-year-old female who presented to the office of [facility] for follow-up. She has a history of type 2 diabetes mellitus, hypertension, hyperlipidemia, chronic low back pain and status post L4-L5 fusion, left upper lobe of the lung nodule 5 mm, and overactive bladder. She was discharged from [facility] on 01/10 after revision of the right hip after dislocation. Patient felt she was doing well and had not had any pain in the hip. She was also seen by the surgeon on 01/25/2025. Since discharge from the hospital and after starting on Eliquis 2.5 mg twice daily she reported having some black stools. She describes dizziness with change of position. With evaluation in the office patient was found to have a hemoglobin of 7.5 and hematocrit of 21.6. Blood pressure was noted to be 90/50 with a heart rate of 90. Therefore she was admitted for further evaluation for GI bleed. [facility] Disclaimer: The information contained in this section may have been updated after the patient was seen, as this information can be updated by other users. Medical History (Updated 02/16/25 @ 09:57 by Robert White II, MD) Squamous cell carcinoma of left lower leg Vaginal wall cyst History of recurrent UTI (urinary tract infection) History of diabetes mellitus Rotator cuff arthropathy Surgical History (Updated 02/15/25 @ 13:52 by Leora Cordova APRN) S/p revision of right total hip Hx of total shoulder replacement H/O nasal septoplasty H/O salpingostomy History of cataract surgery History of lumpectomy History of arthroplasty of right shoulder H/O bilateral breast reduction surgery History of tonsillectomy and adenoidectomy Hx of appendectomy H/O spinal fusion History of bilateral knee replacement H/O bilateral hip replacements Family History (Updated 02/15/25 @ 13:54 by Leora Cordova APRN) Other Coronary artery disease Diabetes Hypertension Stroke Social History (Updated 02/15/25 @ 15:42 by Tami Roque RN) Smoking Status: Never smoker alcohol intake: never current occupational status: retired Travel in the last 8 weeks?: None housing: house Have you lived/traveled outside [place] in past 30 days?: No Contact w/someone who lives/traveled outside US past 30 days?: No Exposure to someone with infectious disease in past 14 days?: No Do you have a fever (greater than 100.4 F or 38 C)?: No Have you tested positive for COVID-19?: No Exposed to someone with COVID-19 in past 14 days?: No Do you have a sore throat?: No Do you have a cough?: No Do you have any weakness?: No Do you have any diarrhea?: No Are you experiencing any unusual bleeding?: No Do you have any muscle aches/pain?: No Do you have any abdominal pain?: No Are you experiencing loss of taste or smell?: No Other Medical History Have you received the Flu Vaccine for this season: Yes Have you received the Pneumonia Vaccine: Yes Review of Systems Review of Systems Review of systems (narrative): Negative Constitutional Constitutional: Denies frequent falls and Reports headache(s) ENT Ears, Nose, Mouth, and Throat: Reports dizziness, Reports headache(s) and Reports vertigo *Cardiovascular Comments: Negative *Gastrointestinal Comments: Negative *Genitourinary Comments: Negative *Musculoskeletal Musculoskeletal: Reports abnormal gait (Continues to use rolling walker and does well with this.) Comments: Negative *Neurologic Neurologic: Reports abnormal gait (Continues to use rolling walker and does well with this.), Denies confusion, Reports dizziness, Denies frequent falls, Reports headache(s) and Reports vertigo Comments: Negative Psychiatric Psychiatric: Denies confusion Meds Home Medications and Allergies Home Medications ?Medication ?Instructions ?Recorded ?Confirmed ?Type ascorbic acid (vitamin C) 500 mg 500 mg PO DAILY Supplement 09/08/18 02/16/25 History capsule lisinopril 20 mg tablet 20 mg PO DAILY 90 days #90 tabs 09/08/18 02/15/25 History rosuvastatin 20 mg tablet 20 mg PO HS 90 days #90 tabs 03/08/24 02/16/25 History metformin 500 mg tablet,extended 1,000 mg PO BID 90 days #360 tabs 09/20/24 02/15/25 History release 24 hr acetaminophen 500 mg tablet 500 mg PO QID PRN Pain 02/15/25 02/15/25 History apixaban 2.5 mg tablet (Eliquis) 2.5 mg PO BID 02/15/25 02/16/25 History mecobalamin (vitamin B12) 1,000 2,500 mcg PO DAILY 02/15/25 02/15/25 History mcg chewable tablet (B12 Active) New Prescriptions to Start Prescriptions: Allergies Allergy/AdvReac Type Severity Reaction Status Date / Time nickel Allergy Mild Verified 01/10/25 11:00 tizanidine (From Zanaflex) Allergy Mild Verified 01/10/25 11:00 Exam Data for Last 24 hours Vital signs and Labs for Last 24 Hours: Temp Pulse Resp BP Pulse Ox O2 Del Method 97.6 F 68 18 132/68 98 Room Air 02/16/25 09:30 02/16/25 09:30 02/16/25 09:30 02/16/25 09:30 02/16/25 09:30 02/16/25 09:30 Laboratory Results - last 24 hr 02/15/25 17:30: WBC 9.1, RBC 2.19 L, Hgb 6.4 L*, Hct 20.2 L*, MCV 92.2, MCH 29.2, MCHC 31.7 L, RDW 15.4, Plt Count 200, MPV 10.1, Neut % (Auto) 71.8, Lymph % (Auto) 21.3, [place] % (Auto) 5.6, Eos % (Auto) 0.8, Baso % (Auto) 0.2, Neut # (Auto) 6.6, Lymph # (Auto) 2.0, [place] # (Auto) 0.5, Eos # (Auto) 0.1, Baso # (Auto) 0.0, PT 10.9, INR 0.98, Sodium 136, Potassium 4.4, Chloride 101, Carbon Dioxide 27, Anion Gap 12.4, BUN 33 H, Creatinine 0.70, Estimated Creat Clear 50, Estimated GFR 81, Est GFR ( Amer) 98, Glucose 106 H, Calcium 9.6, Iron 48, TIBC 343, Iron Saturation 13.40366 L, Ferritin 46.2, Total Bilirubin 0.5, AST 31, ALT 12, Alkaline Phosphatase 51, Total Protein 5.7 L, Albumin 3.7, Globulin 2.0, Albumin/Globulin Ratio 1.9 H 02/15/25 18:24: Blood Type O Positive, Antibody Screen Negative, Crossmatch (AHG) See Detail 02/15/25 19:09: Blood Type Confirm O Positive 02/16/25 06:26: WBC 6.0 D, RBC 2.78 L D, Hgb 8.4 L D, Hct 25.1 L, MCV 90.3, MCH 30.2, MCHC 33.5, RDW 14.6, Plt Count 164, MPV 9.9, Neut % (Auto) 58.2, Lymph % (Auto) 32.3, [place] % (Auto) 7.0, Eos % (Auto) 2.0, Baso % (Auto) 0.3, Neut # (Auto) 3.5, Lymph # (Auto) 1.9, [place] # (Auto) 0.4, Eos # (Auto) 0.1, Baso # (Auto) 0.0, Sodium 138, Potassium 4.3, Chloride 103, Carbon Dioxide 28, Anion Gap 11.3, BUN 20 H D, Creatinine 0.70, Estimated Creat Clear 51, Estimated GFR 81, Est GFR ( Amer) 98, Glucose 113 H, Calcium 8.9 I & O for Last 24 hours: Intake & Output 02/13/25 02/14/25 02/15/25 02/16/25 23:59 23:59 23:59 23:59 Intake Total 1490 / 1490 250 / 250 Output Total 150 / 400 400 / 400 Balance 1340 / 1090 -150 / -150 Weight 151 lb 6 oz 152 lb 12.8 oz *Routine HEENT Exam Head: Present normocephalic Eye: Present EOMI and PERRL ENT: Present mucous membranes moist *Routine Neck Exam Neck: Present supple *Routine Respiratory Exam Respiratory: Present CTA bilaterally *Routine Cardiovascular Exam Cardiovascular: Present RRR *Routine Abdominal Exam Abdominal: Present soft and normoactive bowel sounds; Absent tenderness *Routine Rectal Exam Rectal:: deferred *Routine Genitalia Exam Genitalia:: deferred *Routine Extremities Exam Extremities: Absent cyanosis, clubbing or edema *Routine Skin Exam Skin: Present warm; Absent rash *Routine Neurological Exam Neurological: Present alert and oriented X3 Assessment and Plan *Assessment and plan (1) Gastrointestinal bleed: Status: Acute Category: Medical Code(s): K92.2 - Gastrointestinal hemorrhage, unspecified (2) Anemia due to blood loss, acute: Status: Acute Category: Medical Code(s): D62 - Acute posthemorrhagic anemia (3) Melena: Status: Acute Category: Medical Code(s): K92.1 - Melena Plan A/P: 1. Melena with acute GI blood loss is the preprocedural diagnosis. The patient will be anesthetized/sedated using MAC sedation. The patient has been seen and examined. Cardiac and lung assessment prior to the examination is stable. Proceed with planned diagnostic EGD.
--- NOTE | 2025-02-16 09:58 | P.PCN_ITS ---
[facility] Procedure Note Date: 02/16/25 Time: 10:13 Procedure Note:: Upper Endoscopy Procedure Report: Esophagogastroduodenoscopy with epinephrine submucosal injection, Endo Clip placement and cold biopsies Endoscopost: Robert White II, MD Referring Physician: Fransisco Devries MD Date of Procedure: February 16, 2025 Equipment: Olympus GIF 190 standard upper endoscope Sedation: MAC sedation Indications: Mrs. Osei is a 79-year-old female who is here for hospital admission after having melena and acute GI blood loss with symptomatic anemia. Her hemoglobin hematocrit yesterday were 6.4 and 20.2 down from 13.1 and 40.1 in January 2025. The patient had low iron levels with iron saturation of 14% and serum iron 48. Her ferritin was 46.2. She did receive blood transfusion. The patient did undergo left hip replacement (Dr. Peraza) in [place] recently on 01/31/2025. Subsequent to surgery she was placed on Eliquis and also received NSAIDs (ibuprofen) and baby aspirin. She has had the development of black stools on 02/13/2025 and her last melanotic stool was yesterday evening. She is g etting some burning and gas pain in the epigastrium. Procedure: Prior to the procedure, a history and physical exam was performed, and patient's medications and allergies were reviewed. The risks, benefits and alternatives of the sedation and procedure were discussed with the patient. All questions were answered and informed consent was obtained. The patient was brought to the procedure room. Patient identification and proposed procedure were verified by the physician and the nurse. The patient was placed in a left lateral decubitus position and the scope was passed under direct vision. Throughout the procedure, the patient's blood pressure, pulse, and oxygen saturations were monitored continuously. The upper GI endoscopy was accomplished without difficulty. The patient tolerated the procedure well. Findings: The scope was passed directly into the upper esophagus and advanced to the third portion of the duodenum. The post bulbar duodenum and ampulla were normal with normal mucosa and conniventes. There was mild peptic duodenitis of the duodenal bulb. The scope was withdrawn through a normal pylorus into the stomach. There was a prepyloric gastric ulcer that was 8 to 9 mm with flat pigmented spot and surrounding edematous folds. 1-10,000 epinephrine was injected with 3 to 4 cc adjacent to the pigmented spot. Next, a single Endo Clip was placed with closure of the ulcer and provision of hemostasis. There was no heme identified throughout the stomach. The body and fundus of the stomach were grossly normal. Upon retroflexion there was a very small sliding 1 to 2 cm hiatal hernia. Cold biopsies were taken at the incisura/lesser curvature of the stomach to rule out H. pylori. The scope was then withdrawn into the esophagus. There was no evidence of reflux esophagitis and the remainder of the esophageal mucosa was normal. Impression: 1. Prepyloric gastric ulcer (NSAID induced ulcer) with stigmata status post epinephrine injection and Endo Clip placement Plan: I will follow-up the biopsies to rule out H. pylori. I would continue PPI therapy and avoid NSAIDs. She can resume baby aspirin. I am going to give her Venofer because of her low iron levels. I will resume her diet.
[2025-02-16] MEDS: EPINEPHrine 0.1 MG/ML 10ML SYRINGE (CRASH CART) 1 MG (10:13)
[2025-02-16] MEDS: IRON SUCROSE COMPLEX 200 MG in 0.9 % SODIUM CHLORIDE 100 ML 220 MG IV (11:23)
--- NOTE | 2025-02-16 17:54 | PC.NURSE ---
Pt is A&Ox4. Vital signs stable tolerating room air. Pt had an EGD today. Pt has tolerated clear liquids. Per MD, pt to continue to be on clear liquids today. IV fluids infusing per MAR. No complaints of dark tools today. Pt right hip dressing from previous surgery c/d/i. Pt up with stand by assist and rolling walker. No further needs voiced at this time. Call light within reach
--- NOTE | 2025-02-16 17:55 | EXP.ACUTE.PN ---
Subjective *Date: 02/16/25 *Time: 17:55 Interval history: EGD report reviewed. Ulcer present and was treated. Patient feels better, drinking some liquids now, Medical Exam Vital signs and Labs for Last 24 Hours: Vital Signs Temp Pulse Pulse Resp BP BP Pulse Ox 02/16/25 15:45 97.6 F 67 18 122/50 L 94 L 02/16/25 15:00 02/16/25 13:35 72 16 135/74 97 02/16/25 13:05 71 18 138/76 98 02/16/25 13:00 02/16/25 12:35 78 16 147/61 H 99 02/16/25 12:05 77 18 134/81 97 02/16/25 12:00 98.4 F 76 18 134/81 99 02/16/25 11:35 74 18 140/80 95 02/16/25 11:20 69 16 144/89 H 96 02/16/25 11:05 83 18 142/73 H 97 02/16/25 11:00 02/16/25 10:50 98 F 82 16 141/50 H 98 02/16/25 10:28 98.0 F 86 18 120/73 96 02/16/25 10:18 98.0 F 90 18 112/68 97 02/16/25 09:30 97.6 F 68 18 132/68 98 02/16/25 09:14 97.6 F 68 18 132/68 02/16/25 09:00 02/16/25 08:00 02/16/25 08:00 97.6 F 68 18 132/68 02/16/25 06:38 02/16/25 05:00 02/16/25 04:00 98.2 F 74 16 129/65 98 02/16/25 02:33 02/16/25 02:01 83 18 147/73 H 99 02/16/25 01:15 75 16 132/61 96 02/16/25 01:00 02/16/25 00:15 77 20 198/80 H 97 02/16/25 00:00 87 18 130/70 97 02/15/25 23:45 87 22 139/66 96 02/15/25 23:30 90 20 98 02/15/25 23:25 98.1 F 90 18 132/65 94 L 02/15/25 23:20 86 16 98 02/15/25 23:15 97.9 F 82 18 137/69 98 02/15/25 23:05 97.9 F 85 18 128/73 98 02/15/25 23:00 02/15/25 22:48 98.1 F 84 18 128/67 96 02/15/25 22:30 89 16 145/69 H 97 02/15/25 21:30 95 H 20 141/74 H 97 02/15/25 21:15 84 16 119/62 95 02/15/25 21:00 98 F 100 H 18 120/53 L 98 02/15/25 21:00 02/15/25 20:45 98.4 F 88 15 113/53 L 97 02/15/25 20:40 98.2 F 88 15 123/58 L 96 02/15/25 20:35 98.2 F 90 16 118/66 97 02/15/25 20:30 98.3 F 72 16 117/58 L 97 02/15/25 20:26 98.3 F 90 16 124/60 96 02/15/25 20:00 02/15/25 20:00 98.3 F 90 18 113/63 96 02/15/25 19:00 O2 Del Method 02/16/25 15:45 Room Air 02/16/25 15:00 Room Air 02/16/25 13:35 Room Air 02/16/25 13:05 Room Air 02/16/25 13:00 Room Air 02/16/25 12:35 Room Air 02/16/25 12:05 Room Air 02/16/25 12:00 Room Air 02/16/25 11:35 Room Air 02/16/25 11:20 Room Air 02/16/25 11:05 Room Air 02/16/25 11:00 Room Air 02/16/25 10:50 Room Air 02/16/25 10:28 Room Air 02/16/25 10:18 Room Air 02/16/25 09:30 Room Air 02/16/25 09:14 02/16/25 09:00 Room Air 02/16/25 08:00 Room Air 02/16/25 08:00 02/16/25 06:38 Room Air 02/16/25 05:00 Room Air 02/16/25 04:00 Room Air 02/16/25 02:33 Room Air 02/16/25 02:01 02/16/25 01:15 02/16/25 01:00 Room Air 02/16/25 00:15 02/16/25 00:00 02/15/25 23:45 02/15/25 23:30 02/15/25 23:25 02/15/25 23:20 02/15/25 23:15 02/15/25 23:05 02/15/25 23:00 Room Air 02/15/25 22:48 02/15/25 22:30 02/15/25 21:30 02/15/25 21:15 02/15/25 21:00 02/15/25 21:00 Room Air 02/15/25 20:45 02/15/25 20:40 02/15/25 20:35 02/15/25 20:30 02/15/25 20:26 02/15/25 20:00 Room Air 02/15/25 20:00 Room Air 02/15/25 19:00 Room Air Intake and Output 02/16/25 02/16/25 02/16/25 07:59 15:59 23:59 Intake Total 250 / 250 Output Total 400 / 400 0 / 400 Balance -150 / -150 0 / -150 Intake: Intake (Blood Product) Amt 250 / 250 Red Blood Cells Unit 250 / 250 [id number] Output: Output, Urine Amount 400 / 400 0 / 400 Other: Number of Unmeasured Voids 1 Weight 152 lb 12.8 oz Patient Weight 02/16/25 23:59 Weight 152 lb 12.8 oz Laboratory Results - last 24 hr 02/15/25 17:30: WBC 9.1, RBC 2.19 L, Hgb 6.4 L*, Hct 20.2 L*, MCV 92.2, MCH 29.2, MCHC 31.7 L, RDW 15.4, Plt Count 200, MPV 10.1, Neut % (Auto) 71.8, Lymph % (Auto) 21.3, [place] % (Auto) 5.6, Eos % (Auto) 0.8, Baso % (Auto) 0.2, Neut # (Auto) 6.6, Lymph # (Auto) 2.0, [place] # (Auto) 0.5, Eos # (Auto) 0.1, Baso # (Auto) 0.0, PT 10.9, INR 0.98, Sodium 136, Potassium 4.4, Chloride 101, Carbon Dioxide 27, Anion Gap 12.4, BUN 33 H, Creatinine 0.70, Estimated Creat Clear 50, Estimated GFR 81, Est GFR ( Amer) 98, Glucose 106 H, Calcium 9.6, Iron 48, TIBC 343, Iron Saturation 13.25072 L, Ferritin 46.2, Total Bilirubin 0.5, AST 31, ALT 12, Alkaline Phosphatase 51, Total Protein 5.7 L, Albumin 3.7, Globulin 2.0, Albumin/Globulin Ratio 1.9 H 02/15/25 18:24: Blood Type O Positive, Antibody Screen Negative, Crossmatch (AHG) See Detail 02/15/25 19:09: Blood Type Confirm O Positive 02/16/25 06:26: WBC 6.0 D, RBC 2.78 L D, Hgb 8.4 L D, Hct 25.1 L, MCV 90.3, MCH 30.2, MCHC 33.5, RDW 14.6, Plt Count 164, MPV 9.9, Neut % (Auto) 58.2, Lymph % (Auto) 32.3, [place] % (Auto) 7.0, Eos % (Auto) 2.0, Baso % (Auto) 0.3, Neut # (Auto) 3.5, Lymph # (Auto) 1.9, [place] # (Auto) 0.4, Eos # (Auto) 0.1, Baso # (Auto) 0.0, Sodium 138, Potassium 4.3, Chloride 103, Carbon Dioxide 28, Anion Gap 11.3, BUN 20 H D, Creatinine 0.70, Estimated Creat Clear 51, Estimated GFR 81, Est GFR ( Amer) 98, Glucose 113 H, Calcium 8.9 I & O for Labs for Last 24 Hours: Intake & Output 02/13/25 02/14/25 02/15/25 02/16/25 23:59 23:59 23:59 23:59 Intake Total 1490 / 1490 250 / 250 Output Total 150 / 400 400 / 400 Balance 1340 / 1090 -150 / -150 Weight 151 lb 6 oz 152 lb 12.8 oz Constitutional: Present no acute distress Assessment and Plan *Assessment and plan (1) Anemia: Status: Acute Qualifiers: Iron deficiency anemia type: chronic blood loss Category: Medical Code(s): D64.9 - Anemia, unspecified (2) Gastrointestinal bleed: Status: Acute Category: Medical Code(s): K92.2 - Gastrointestinal hemorrhage, unspecified (3) S/p revision of right total hip: Status: Acute Category: Surgical Code(s): Z96.641 - Presence of right artificial hip joint (4) Diabetes: Status: Acute Qualifiers: Diabetes mellitus type: type 2 Diabetes mellitus superintendent terminal insulin use: without superintendent terminal use Diabetes mellitus complication status: without complication Qualified Code(s): E11.9 - Type 2 diabetes mellitus without complications Category: Medical Code(s): E11.9 - Type 2 diabetes mellitus without complications (5) Anemia due to blood loss, acute: Status: Acute Category: Medical Code(s): D62 - Acute posthemorrhagic anemia (6) Prepyloric ulcer with hemorrhage: Status: Acute Category: Medical Code(s): K25.4 - Chronic or unspecified gastric ulcer with hemorrhage Plan Doing well, recheck labs in the morning, continue with clear liquid diet.
[2025-02-17] VITALS: BP 125/58; PULSE 66; RESP 18; TEMP 36.1; O2SAT 95
[2025-02-17] MEDS: 0.9 % SODIUM CHLORIDE 1000ML 1,000 ML 50 ML IV ×2 (02:06→08:38)
[2025-02-17 04:00] VITALS: BP 114/63; PULSE 72; RESP 16; TEMP 36.8; O2SAT 97; BMI 23.1
--- NOTE | 2025-02-17 04:04 | PC.NURSE ---
Pt is A&Ox4. Pt is on RA. Pt has been following a clear liquid diet. Pt has NS infusing @ 50 mls/hr No acute changes noted. Pt resting w/call light in reach. Plan of care ongoing.
--- NOTE | 2025-02-17 04:54 | PC.NURSE ---
Ice water passed, trash and linens emptied, bedside table cleaned.
[2025-02-17 06:27] LABS: Hematocrit 25.0 % (37.0-47.0); Hemoglobin 8.4 g/dL (12.2-16.2); Immature Granulocytes % 0.4 %; Mean Corpuscular HGB Conc 33.6 g/dL (31.8-35.4); Mean Corpuscular Hemoglobin 30.5 pg (27.0-31.2); Mean Corpuscular Volume 90.9 fl (81-99); Nucleated Red Blood Cells % 0 %; Platelet Count 145 K/mm3 (142-424); Red Blood Count 2.75 M/mm3 (4.20-5.40); Red Cell Distribution Width-SD 48.7 fL; White Blood Count 5.4 K/mm3 (4.8-10.8)
[2025-02-17 06:48] LABS: Anion Gap 8.9 mEq/L (5-15); Blood Urea Nitrogen 7 mg/dl (7-17); Calcium 8.9 mg/dl (8.4-10.2); Carbon Dioxide 30 mmol/L (22.0-30.0); Chloride 104 mmol/L (98-107); Creatinine Clearance Estimated 51 mL/min (50-200); Creatinine,Serum 0.50 mg/dl (0.52-1.04); Estimated Glomerular Filt Rate 119 ml/min (>60); GFR (African American) 144 ML/MIN (>60); Glucose 102 mg/dl (74-100); Potassium 3.9 mmoL/L (3.5-5.1); Sodium 139 mmol/L (136-145)
[2025-02-17 08:00] VITALS: BP 144/73; PULSE 65; RESP 16; TEMP 36.7; O2SAT 97
--- NOTE | 2025-02-17 08:17 | EXP.ACUTE.PN ---
Subjective *Date: 02/17/25 *Time: 08:46 Interval history: Patient is feeling better today. She wants to eat normal food. She denies any pain and rested better. She had one episode of diarrhea last night. Medical Exam Vital signs and Labs for Last 24 Hours: Vital Signs Temp Pulse Resp BP Pulse Ox O2 Del Method 02/17/25 06:47 Room Air 02/17/25 05:00 Room Air 02/17/25 04:00 98.3 F 72 16 114/63 97 Room Air 02/17/25 03:00 Room Air 02/17/25 01:00 Room Air 02/17/25 00:00 97.0 F L 66 18 125/58 L 95 Room Air 02/16/25 23:00 Room Air 02/16/25 21:00 Room Air 02/16/25 20:00 Room Air 02/16/25 19:57 98.3 F 79 16 128/78 93 L Room Air 02/16/25 18:39 Room Air 02/16/25 17:00 Room Air 02/16/25 15:45 97.6 F 67 18 122/50 L 94 L Room Air 02/16/25 15:00 Room Air 02/16/25 13:35 72 16 135/74 97 Room Air 02/16/25 13:05 71 18 138/76 98 Room Air 02/16/25 13:00 Room Air 02/16/25 12:35 78 16 147/61 H 99 Room Air 02/16/25 12:05 77 18 134/81 97 Room Air 02/16/25 12:00 98.4 F 76 18 134/81 99 Room Air 02/16/25 11:35 74 18 140/80 95 Room Air 02/16/25 11:20 69 16 144/89 H 96 Room Air 02/16/25 11:05 83 18 142/73 H 97 Room Air 02/16/25 11:00 Room Air 02/16/25 10:50 98 F 82 16 141/50 H 98 Room Air 02/16/25 10:28 98.0 F 86 18 120/73 96 Room Air 02/16/25 10:18 98.0 F 90 18 112/68 97 Room Air 02/16/25 09:30 97.6 F 68 18 132/68 98 Room Air 02/16/25 09:14 97.6 F 68 18 132/68 02/16/25 09:00 Room Air Intake and Output 02/16/25 02/17/25 02/17/25 19:59 03:59 11:59 Intake Total 600 / 1207 607 / 1207 Output Total 300 / 950 300 / 950 350 / 950 Balance 300 / 257 307 / 257 -350 / 257 Intake: Intake, Oral Amount 600 / 600 Infusion Intake 607 / 607 0.9 % Sodium Chloride 1000ML 1, 607 / 607 000 ml @ 50 mls/hr IV .Q20H [facility] Rx#:[id number] Output: Output, Urine Amount 300 / 950 300 / 950 350 / 950 Other: Number of Unmeasured Voids 1 1 1 Number of Bowel Movements 1 Weight 152 lb 6.4 oz Patient Weight 02/17/25 11:59 Weight 152 lb 6.4 oz Laboratory Results - last 24 hr 02/17/25 06:08: WBC 5.4, RBC 2.75 L, Hgb 8.4 L, Hct 25.0 L, MCV 90.9, MCH 30.5, MCHC 33.6, RDW 15.3, Plt Count 145, MPV 9.8, Neut % (Auto) 60.4, Lymph % (Auto) 29.6, [place] % (Auto) 7.2, Eos % (Auto) 2.0, Baso % (Auto) 0.4, Neut # (Auto) 3.3, Lymph # (Auto) 1.6, [place] # (Auto) 0.4, Eos # (Auto) 0.1, Baso # (Auto) 0.0, Sodium 139, Potassium 3.9, Chloride 104, Carbon Dioxide 30, Anion Gap 8.9, BUN 7 D, Creatinine 0.50 L D, Estimated Creat Clear 51, Estimated GFR 119, Est GFR ( Amer) 144 D, Glucose 102 H, Calcium 8.9 I & O for Labs for Last 24 Hours: Intake & Output 02/14/25 02/15/25 02/16/25 02/17/25 11:59 11:59 11:59 11:59 Intake Total 1740 / 1740 1207 / 1207 Output Total 550 / 550 950 / 950 Balance 1190 / 1190 257 / 257 Weight 152 lb 12.8 oz 152 lb 6.4 oz Constitutional: Present no acute distress Respiratory: Present CTA bilaterally Cardiac: Present Reg Rate and Rhythm GI: Present soft and normal bowel sounds; Absent distention or tenderness Extremities: Absent edema, clubbing or cyanosis Skin: Present intact Neuro: Present alert and awake Assessment and Plan *Assessment and plan (1) Anemia: Status: Acute Qualifiers: Iron deficiency anemia type: chronic blood loss Category: Medical Code(s): D64.9 - Anemia, unspecified (2) Gastrointestinal bleed: Status: Acute Category: Medical Code(s): K92.2 - Gastrointestinal hemorrhage, unspecified (3) S/p revision of right total hip: Status: Acute Category: Surgical Code(s): Z96.641 - Presence of right artificial hip joint (4) Diabetes: Status: Acute Qualifiers: Diabetes mellitus complication status: without complication Diabetes mellitus intermediate insulin use: without intermediate use Diabetes mellitus type: type 2 Qualified Code(s): E11.9 - Type 2 diabetes mellitus without complications Category: Medical Code(s): E11.9 - Type 2 diabetes mellitus without complications (5) Anemia due to blood loss, acute: Status: Acute Category: Medical Code(s): D62 - Acute posthemorrhagic anemia (6) Prepyloric ulcer with hemorrhage: Status: Acute Category: Medical Code(s): K25.4 - Chronic or unspecified gastric ulcer with hemorrhage Plan The patient had an EGD and had a prepyloric gastric ulcer status post epinephrine injection and Endo Clip placement. Dr. White did take biopsies to rule out H. pylori and recommended continuing PPI therapy and avoiding NSAIDs. He also ordered Venofer because of her low iron levels. Will start on a full liquid diet for breakfast. Dr. Devries entry - Saw patient, agree with above note.
[2025-02-17] MEDS: PANTOPRAZOLE 40MG VIAL 40 MG IV (08:38)
[2025-02-17] MEDS: SODIUM CHLORIDE 0.9% 10ML VIAL 10 ML IV (08:38)
[2025-02-17 11:43] VITALS: BP 160/87; PULSE 80; RESP 17; TEMP 36.9; O2SAT 95
--- NOTE | 2025-02-17 14:41 | P.PN_ITS ---
Subjective *Date: 02/17/25 *Time: 14:41 Interval history: No further melena and patient feeling well this morning. No abdominal pain or hematemesis. Exam Data for Last 24 hours Vital signs and Labs for Last 24 Hours: Temp Pulse Resp BP Pulse Ox O2 Del Method 98.4 F 80 17 160/87 H 95 Room Air 02/17/25 11:43 02/17/25 11:43 02/17/25 11:43 02/17/25 11:43 02/17/25 11:43 02/17/25 13:00 Laboratory Results - last 24 hr 02/17/25 06:08: WBC 5.4, RBC 2.75 L, Hgb 8.4 L, Hct 25.0 L, MCV 90.9, MCH 30.5, MCHC 33.6, RDW 15.3, Plt Count 145, MPV 9.8, Neut % (Auto) 60.4, Lymph % (Auto) 29.6, [place] % (Auto) 7.2, Eos % (Auto) 2.0, Baso % (Auto) 0.4, Neut # (Auto) 3.3, Lymph # (Auto) 1.6, [place] # (Auto) 0.4, Eos # (Auto) 0.1, Baso # (Auto) 0.0, Sodium 139, Potassium 3.9, Chloride 104, Carbon Dioxide 30, Anion Gap 8.9, BUN 7 D, Creatinine 0.50 L D, Estimated Creat Clear 51, Estimated GFR 119, Est GFR ( Amer) 144 D, Glucose 102 H, Calcium 8.9 I & O for Last 24 hours: Intake & Output 02/14/25 02/15/25 02/16/25 02/17/25 23:59 23:59 23:59 23:59 Intake Total 1490 / 1490 850 / 1457 1767 / 1767 Output Total 150 / 400 1000 / 1000 1275 / 1275 Balance 1340 / 1090 -150 / 457 492 / 492 Weight 151 lb 6 oz 152 lb 12.8 oz 152 lb 6.4 oz Constitutional Constitutional: no acute distress *Routine HEENT Exam Head: Present normocephalic Eye: Present EOMI and PERRL ENT: Present mucous membranes moist *Routine Neck Exam Neck: Present supple; Absent lymphadenopathy *Routine Respiratory Exam Respiratory: Present CTA bilaterally *Routine Cardiovascular Exam Cardiovascular: Present RRR *Routine Abdominal Exam Abdominal: Present soft and normoactive bowel sounds; Absent tenderness *Routine Extremities Exam Extremities: Absent cyanosis, clubbing or edema *Routine Skin Exam Skin: Present warm; Absent rash *Routine Neurological Exam Neurological: Present alert and oriented X3 Assessment and Plan *Assessment and plan (1) Prepyloric ulcer with hemorrhage: Status: Acute Category: Medical Code(s): K25.4 - Chronic or unspecified gastric ulcer with hemorrhage (2) Anemia due to blood loss, acute: Status: Acute Category: Medical Code(s): D62 - Acute posthemorrhagic anemia (3) Melena: Status: Acute Category: Medical Code(s): K92.1 - Melena Plan 1. Prepyloric gastric ulcer with hemorrhage. The patient did have epinephrine injection and Endo Clip placement. The patient has had no further bleeding and her hemoglobin hematocrit are stable. She has received at least 1 Venofer infusion. We can advance her diet, continue PPI therapy and follow labs as outpatient as she will receive additional Venofer infusion. I would recommend resuming baby aspirin but avoid NSAIDs and hopefully she can now be off of Eliquis. She may be discharged to home.
--- NOTE | 2025-02-18 13:37 | SW/DCPLANNER ---
Spoke with patient on the phone. Patient stated that she is doing alot better. Patient stated that she is aware of her upcoming appointments. Patient stated that she was able to get her new medicine picked up. Patient stated that she has no concerns or questions. Patient stated that she was happy with her care she recieved while in the hospital. Linh Neves
--- NOTE | 2025-02-18 14:24 | EXP.DC.SUM ---
General Admission date:: 02/16/25 Discharge date: 02/17/25 HPI HPI HPI: Ms. Osei is a 79-year-old female who presented to the office of [facility] for follow-up. She has a history of type 2 diabetes mellitus, hypertension, hyperlipidemia, chronic low back pain and status post L4-L5 fusion, left upper lobe of the lung nodule 5 mm, and overactive bladder. She was discharged from [facility] on 01/10 after revision of the right hip after dislocation. Patient felt she was doing well and had not had any pain in the hip. She was also seen by the surgeon on 01/25/2025. Since discharge from the hospital and after starting on Eliquis 2.5 mg twice daily she reported having some black stools. She describes dizziness with change of position. With evaluation in the office patient was found to have a hemoglobin of 7.5 and hematocrit of 21.6. Blood pressure was noted to be 90/50 with a heart rate of 90. Therefore she was admitted for further evaluation for GI bleed. Hospital Course Hospital Course Hospital Course: The patient was admitted and given blood. GI was consulted and Dr. White took her to the OR for an EGD. He performed an EGD with epinephrine submucosal injection and Endo Clip placement along with biopsies due to her prepyloric gastric ulcer. The patient did begin feeling better after the procedure. She was able to drink some clear liquids and her diet was advanced. She was continued on PPI therapy and was given a dose of Venofer. She was able to tolerate and advance diet and it was felt she could be discharged home. Her insurance company refused to pay for IV iron. She will follow-up with Dr. White and in the office of [facility]. Exam Data for Last 24 hours Vital signs and Labs for Last 24 Hours: Temp Pulse Resp BP Pulse Ox O2 Del Method 98.4 F 80 17 160/87 H 95 Room Air 02/17/25 11:43 02/17/25 11:43 02/17/25 11:43 02/17/25 11:43 02/17/25 11:43 02/17/25 15:00 I & O for Last 24 hours: Intake & Output 02/16/25 02/17/25 02/18/25 02/19/25 11:59 11:59 11:59 11:59 Intake Total 1740 / 1740 1567 / 1567 800 / 800 Output Total 550 / 550 1475 / 1475 400 / 400 Balance 1190 / 1190 92 / 92 400 / 400 Weight 152 lb 12.8 oz 152 lb 6.4 oz Narrative: *Routine HEENT Exam Head: Present normocephalic Eye: Present EOMI and PERRL ENT: Present mucous membranes moist *Routine Neck Exam Neck: Present supple *Routine Respiratory Exam Respiratory: Present CTA bilaterally *Routine Cardiovascular Exam Cardiovascular: Present RRR *Routine Abdominal Exam Abdominal: Present soft and normoactive bowel sounds; Absent tenderness *Routine Rectal Exam Rectal:: deferred *Routine Genitalia Exam Genitalia:: deferred *Routine Extremities Exam Extremities: Absent cyanosis, clubbing or edema *Routine Skin Exam Skin: Present warm; Absent rash *Routine Neurological Exam Neurological: Present alert and oriented X3 DS: Diagnosis Discharge Diagnosis (1) Prepyloric ulcer with hemorrhage: Status: Acute Code(s): K25.4 - Chronic or unspecified gastric ulcer with hemorrhage (2) Anemia due to blood loss, acute: Status: Acute Code(s): D62 - Acute posthemorrhagic anemia (3) Melena: Status: Acute Code(s): K92.1 - Melena (4) Diabetes: Status: Acute Code(s): E11.9 - Type 2 diabetes mellitus without complications Qualifiers: Diabetes mellitus type: type 2 Diabetes mellitus chcf insulin use: without chcf use Diabetes mellitus complication status: without complication Qualified Code(s): E11.9 - Type 2 diabetes mellitus without complications (5) S/p revision of right total hip: Status: Acute Code(s): Z96.641 - Presence of right artificial hip joint Meds Home Medications and Allergies Home Medications ?Medication ?Instructions ?Recorded ?Confirmed ?Type ascorbic acid (vitamin C) 500 mg 500 mg PO DAILY Supplement 09/08/18 02/16/25 History capsule lisinopril 20 mg tablet 20 mg PO DAILY 90 days #90 tabs 09/08/18 02/15/25 History rosuvastatin 20 mg tablet 20 mg PO HS 90 days #90 tabs 03/08/24 02/16/25 History metformin 500 mg tablet,extended 1,000 mg PO BID 90 days #360 tabs 09/20/24 02/15/25 History release 24 hr acetaminophen 500 mg tablet 500 mg PO QID PRN Pain 02/15/25 02/15/25 History mecobalamin (vitamin B12) 1,000 2,500 mcg PO DAILY 02/15/25 02/15/25 History mcg chewable tablet (B12 Active) iron polysaccharide complex-iron 1 tab PO DAILY #90 tabs 02/17/25 Rx heme polypeptide 28 mg tablet (Feosol Bifera) pantoprazole 40 mg tablet,delayed 40 mg PO DAILY #90 tabs 02/17/25 Rx release New Prescriptions to Start Prescriptions: iron polysac-iron heme polypep [Feosol Bifera] Fransisco Devries pantoprazole Fransisco Devries Allergies Allergy/AdvReac Type Severity Reaction Status Date / Time nickel Allergy Mild Verified 01/10/25 11:00 tizanidine (From Zanaflex) Allergy Mild Verified 01/10/25 11:00 Discharge Plan Disposition Patient Disposition: Home, Self-Care Condition: Good Discharge Order Discharge Orders: Discharge Order (Routine); Ordered 02/17/25 Ordered By: Fransisco Devries Follow up Plan Follow up with: Fransisco Devries MD [Primary Care Provider, Medical] - 03/03/25 11:45 am Robert White II, MD [Staff Physician, Gastroenterology] - 03/29/25 10:00 am Prescriptions/Medication Reconciliation: New pantoprazole 40 mg tablet,delayed release (DR/EC) 40 mg PO DAILY Qty: 90 0RF Feosol Bifera 28 mg tablet 1 tab PO DAILY Qty: 90 0RF Continued lisinopril 20 mg tablet 20 mg PO DAILY 90 Days Qty: 90 ascorbic acid (vitamin C) 500 mg capsule 500 mg PO DAILY rosuvastatin 20 mg tablet 20 mg PO HS 90 Days Qty: 90 metformin 500 mg tablet extended release 24 hr 1,000 mg PO BID 90 Days Qty: 360 acetaminophen 500 mg Tablet 500 mg PO QID PRN (Reason: Pain) mecobalamin (vitamin B12) [B12 Active] 1,000 mcg Tablet,Chewable 2,500 mcg PO DAILY Discontinued Eliquis 2.5 mg Tablet 2.5 mg PO BID Problem Reconciliation Problems Reviewed?: Yes Patient Discharge Instructions ACTIVITY: Continue current activity DIET: advance to your usual diet Patient Instructions: DI for Gastric Ulcer, DI for Gastrointestinal Bleeding Print Language: Czech Providers Primary Care Provider: Fransisco Devries Admit Provider: Fransisco Devries Attending Provider: Fransisco Devries
== END 2025-02-17 16:00 | disposition home or self-care (01) | DRG 378 ==
PROVIDERS: Internal Medicine Gastroenterology; Admitting Provider Family Medicine; PCP Family Medicine; Visit Provider Family Medicine
PROC: 0DJ08ZZ Inspection of Upper Intestinal Tract, Via Natural or Artificial Opening Endoscopic (ICD-10-PCS; principal; 2025-02-16 15:00)
DX: K25.4 Chronic or unspecified gastric ulcer with hemorrhage (principal); D62 Acute posthemorrhagic anemia; E11.9 Type 2 diabetes mellitus without complications; I10 Essential (primary) hypertension; E78.5 Hyperlipidemia, unspecified; G89.29 Other chronic pain; M54.50 Low back pain, unspecified; K29.80 Duodenitis without bleeding; K44.9 Diaphragmatic hernia without obstruction or gangrene; Z96.641 Presence of right artificial hip joint; Z79.01 Long term (current) use of anticoagulants; Z79.84 Long term (current) use of oral hypoglycemic drugs; Z79.899 Other long term (current) drug therapy; Z88.8 Allergy status to other drugs, medicaments and biological substances; Z91.048 Other nonmedicinal substance allergy status
CPT/HCPCS: 36415; 36430; 80048; 80053; 82728; 83540; 83550; 85025; 85610; 86850; G0378; J0171; J1756; J2003; J2405; J2470; J2704; J7030; P9016

== ENCOUNTER 2025-04-26 09:54 | Outpatient (CLI) | payer MEDICARE, SELFPAY ==
--- OUTSIDE RECORDS SUMMARY | 2025-04-26 10:22 | XMS_ITS | Encounter Summary ---
Author Organization [employer] ([place], [place], [place], [place]) Address [address] [place] [address] Care Team Providers Care Stop Attacher Name Role Phone Fransisco Devries MD Primary Care Provider + [phone] Encounter Details Date Type Department Care Team (Late st Contact Info) Description 02/01/2025 [facility] EpicCare Link [address] [place] [address] Daquan Peraza MD [address] [facility] [address] [place] [id number] Social History Tobacco Use Types Packs/Day Years Used Date Smoking Tobacco: Never Alcohol Use Standard Drinks/Week Comments Never 0 (1 standard drink = 0.6 oz pur e alcohol) Utilities Answer Date Recorded In the past 12 months, has t he electric, gas, oil, or water company threatened to shut off services in your home? No 01/31/2025 Interpersonal Safety Answer Date Record ed How often does anyone, maral bolden family and friends, physically hurt you? Never 01/31/2025 How often does anyone, maral bolden family and friends, insult or talk down to you? Never 01/31/2025 How often does anyone, maral bolden family and friends, threaten you with harm? Never 01/31/2025 How often does anyone, maral bolden family and friends, scream or curse at you? Never 01/31/2025 Housing Stability Answer Date Recorded What is your living situation today? I have a [facility] place to live 01/31/[address] you li ve. Do you have problems with any of the following? None of the above 01/31/2025 Food Insecurity Answer Date Recorded Within the past 12 months, y ou worried that your food would run out before you got money to buy more. Never true 01/31/2025 Within the past 12 months, t he food you bought just didn't last and you didn't have money to get more. Never true 01/31/2025 Transportation Needs Answer Date Record ed In the past 12 months, has l ack of reliable transportation kept you from medical appointments, meetings, work or from getting things needed for daily living? No 01/31/2025 Financial Resource Strain Answer Date R ecorded How hard is it for you to pa y for the very basics like food, housing, medical care, and heating? Would you say it is: Not hard at all 01/31/2025 Employment Answer Date Recorded Do you want help finding or keeping work or a job? I do not need or want help 01/31/2025 Family and Community Support Answer Weston e Recorded If for any reason you need h elp with day-to-day activities such as bathing, preparing meals, shopping, managing finances, etc., do you get the help you need? I don't need any help 01/31/2025 Feeling Lonely or Isolated 0 01/31 Educational Attainment Answer Date David rded Do you speak a language other than [place] at [facility]? No 01/31/2025 Do you want help with school or training? For example, starting or completing job training or getting a high school diploma, GED or equivalent. No 01/31/2025 Physical Activity Answer Date Recorded Number of minutes of exercise per week 0 01/31/2025 Self Management Answer Date Recorded Because of a physical, menta l, or emotional condition, do you have serious difficulty concentrating, remembering, or making decisions? (5 years or older) No 01/31/2025 Because of a physical, menta l, or emotional condition, do you have difficulty doing errands alone such as visiting a doctor's office or shopping? (15 years or older) Yes 01/31/2025 Substance Use Answer Date Recorded How many times in the past y ear have you used prescription drugs for non-medical reasons? Never 01/31/2025 How many times in the past year have you used [place] legal drugs? Never 01/31/2025 Mental Health Answer Date Recorded Calculation of above two rows 0 Comments Unknown Sex and Gender Information Value Date Recorded Sex Assigned at Not on file Legal Sex Female 12:58 PM CDT Gender Identity Not on file Sexual Orientation Not on file documented as of this encounter Plan of Treatment Not on file documented as of this encounter Visit Diagnoses Not on filedocumented in this encounter Care Teams Stop Attacher Relationship Specialty Start Date End Date Fransisco Devries MD [address] [facility] [address] [place] [id number] PCP - General Family Medicine 01/27/25 documented as of this encounter
--- OUTSIDE RECORDS SUMMARY | 2025-04-26 10:22 | XMS_ITS | Referral Summary ---
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, initial encounter (HCC) Discharge Disposition: Home or Self Care 01/31/2025 Travel 01/31/2025 12:30 PM EDT - 01/31/2025 3:11 PM EDT Surgery [facility] Surgery Department [address] [place] [address] Daquan Peraza MD RIGHT POSTERIOR TOTAL HIP ARTHROPLASTY REVISION 01/31/2025 11:44 AM EDT Anesthesia Event [facility] Surgery Department [address] [place] [address] Dana Mix CRNA Qureshi, Hera Fatima, DO 01/27/2025 Travel from Last 3 Months Allergies Active Allergy Reactions Criticality Noted Date Comments Nickel 01/31/2025 Tizanidine 01/31/2025 Medications ascorbic acid-ascorbate sodium 500 mg chew 1 tab(s) chewed once a day Active cyanocobalamin (Vitamin B-12) 2,[address] 1 tablet (2,500 mcg total) under the tongue daily. Active cholecalciferol , vitamin D3, (cholecalcifero l, vit D3,,bulk,) 100,000 unit/gram powd Take 1,500 Units by mouth. Active lisinopriL (ZESTRIL) 20 MG tablet Take 1 tablet (20 mg total) by mouth daily. Active metFORMIN (GLUCOPHAGE-XR) 500 MG 24 hr tablet Take 2 tablets (1,000 mg total) by mouth 2 (two) times daily. Active rosuvastatin (CRESTOR) 20 MG tablet 1 tablet Orally Once a day for 30 day(s) Active Active Problems Problem Noted Date Diagnosed Date Failed total hip arthroplasty, initial encounter 01/31/2025 Social History Tobacco Use Types Packs/Day Years Used Date Smoking Tobacco: Never Tobacco Cessation:Counseling Given: Not Answered Alcohol Use Standard Drinks/Week Comments Never 0 (1 standard drink = 0.6 oz pur e alcohol) Utilities Answer Date Recorded In the past 12 months, has t he [employer], gas, oil, or water company threatened to [...] living situation today? I have a [facility] [place] [facility] to live 01/31/2025 Think about the [...] Do you speak a language other than [facility] at [facility]? No 01/31/2025 Do you want help with [...] on file Sexual Orientation Not on file Last Filed Vital Signs Vital Sign Reading Time Taken Comments Blood Pressure 157/96 02/01/2025 3:50 PM EDT Pulse 82 02/01/2025 3:50 PM EDT Temperature 36.8 C (98.2 F) 02/01/2025 3:50 PM EDT Respiratory Rate 15 02/01/2025 11:20 AM EDT Oxygen Saturation 93% 02/01/2025 11:20 AM EDT Inhaled Oxygen Concentration - - Weight 69.6 kg (153 lb 6.4 oz) 01/31/2025 6:17 P M EDT Height 162.6 cm (5' 4 ) 01/31/2025 6:17 PM EDT Body Mass Index 26.33 01/31/2025 6:17 PM EDT Plan of Treatment Not on file Medical Devices Implanted Type Area Shipping Processor Device Identifier Shelf Expiration Date Model / Serial / Lot Liner Acet Pinn Neut +4 28 50m 1218-28-650 - [id number] Implanted:Qty : 1 on 01/31/2025 by Daquan Peraza MD at [facility] T[employer] JOINT [employer]STRU[employer] Right: Hip J &J:DEPUY:DEPUY ORTHOPAEDIC 04/10/2028 1218-28-6 50 / / [id number] Head Fem Artc Ceramic 28 1365-28-740 - [id number] Implanted:Qty : 1 on 01/31/2025 by Daquan Peraza MD at [facility] TOTAL JOINT CONSTRUCT Right: Hip J &J:DEPUY:DE[employer]Y ORTHOPAEDIC 08/10/2029 1365-28-7 40 / / [id number] Procedures Procedure Name Priority Date/Time Associated Diagnosis Comments NOVA GLUCOSE POC Routine 02/01/2025 11:1 7 AM EDT BASIC METABOLIC PANEL Routine 02/01/2025 8:14 AM EDT CBC HEMOGRAM (SJ-BKR) Routine 02/01/2025 8:14 AM EDT NOVA GLUCOSE POC Routine 02/01/2025 6:19 AM EDT HEMOGLOBIN AND HEMATOCRIT Routine 02/01/2025 4:43 AM EDT NOVA GLUCOSE POC Routine 01/31/2025 8:21 PM EDT NOVA GLUCOSE POC Routine 01/31/2025 6:30 PM EDT XR PELVIS PORTABLE STAT 01/31/2025 2: 16 PM EDT NOVA GLUCOSE POC Routine 01/31/2025 1:22 PM EDT ABO/RH CONFIRMATION/RETYPE ([place] BKR) Routine 01/31/2025 12:02 PM EDT CHI ANESTHESIA SPINAL BLOCK Routine 01/31/2025 11:46 AM EDT SD REVJ TOT HIP ARTHRP BTH W/WO AGRFT/ALGRFT 01/31/2025 11:44 AM EDT 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, initial encounter (HCC) TYPE AND SCREEN ([place] BKR) STAT 01/31/2025 11:23 AM EDT AFB CULTURE AND STAIN Routine 01/31/2025 11:08 AM EDT 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, initial encounter (HCC) AFB CULTURE AND STAIN Routine 01/31/2025 11:08 AM EDT 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, initial encounter (HCC) FUNGUS CULTURE W/SOHA OR LEYLA INK Routine 01/31/2025 11:08 AM EDT 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, initial encounter (HCC) FUNGUS CULTURE W/SOHA OR LEYLA INK Routine 01/31/2025 11:08 AM EDT 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, initial encounter (HCC) ANAEROBIC CULTURE, EXTENDED (P.ACNES) Routine 01/31/2025 11:08 AM EDT 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, initial encounter (HCC) ANAEROBIC CULTURE, EXTENDED (P.ACNES) Routine 01/31/2025 11:08 AM EDT 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, initial encounter (HCC) TISSUE CULTURE+ STAIN Routine 01/31/2025 11:08 AM EDT 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, initial encounter (HCC) TISSUE CULTURE+ STAIN Routine 01/31/2025 11:08 AM EDT 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, initial encounter (HCC) AFB CULTURE AND STAIN Routine 01/31/2025 11:07 AM EDT 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, initial encounter (HCC) FUNGUS CULTURE W/SOHA OR LEYLA INK Routine 01/31/2025 11:07 AM EDT 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, initial encounter (HCC) ANAEROBIC CULTURE, EXTENDED (P.ACNES) Routine 01/31/2025 11:07 AM EDT 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 [facility] POC-GLUCOSE 217(H) 70 - 110 mg/dL 02/01/2025 11:18 AM EDT [facility] Comment: In the event of poor peripheral blood flow, venous or arterial blood should be used due to the potential of erroneous results. Notified Nurse RBV Hand Clerical Verifier [id number] 02/01/2025 11:18 AM EDT [facility] Blood WHOLE BLOOD / Unknown 02/01/2025 11:17 AM EDT 02/01/2025 11:18 AM EDT Narrative [facility] - 02/01/2025 11:18 AM EDT Hand Clerical Verifier ID is - [id number] Daquan Peraza MD POINT OF CARE TEST ORDERABLES Fi nal Result [facility] [address] [place] [address] * (ABNORMAL) CBC - Hemogram (02/01/2025 8:14 AM EDT) Only the most recent of2 resultswithin the time period is included. [facility] WBC 10.9(H) 3.9 - 10.0 K/ L 02/01/2025 9:12 AM EDT [facility] RBC 4.43 3.93 - 5.22 M/ L 02/01/2025 9:12 AM EDT [facility] Hemoglobin 12.8 11.2 - 15.7 GM/DL 02/01/2025 9:12 AM EDT [facility] Hematocrit 39.2 34.1 - 44.9 % 02/01/2025 9:12 AM EDT [facility] MCV 89 79 - 95 fL 02/01/2025 9:12 AM EDT [facility] MCH 28.9 25.6 - 32.2 pg 02/01/2025 9:12 AM EDT [facility] MCHC 32.7 32.2 - 36.5 GM/DL 02/01/2025 9:12 AM EDT [facility] RDW 12.9 11.6 - 14.4 % 02/01/2025 9:12 AM EDT [facility] Platelets 166 163 - 369 K/CU MM 02/01/2025 9:12 AM EDT [facility] MPV 9.7 9.4 - 12.4 fL 02/01/2025 9:12 AM EDT [facility] Blood Venipuncture / Unknown 02/01/2025 8:14 AM EDT 02/01/2025 8:15 AM EDT us Daquan Peraza MD LAB BLOOD ORDERABLES Final Resul t [facility] [address] [employer] [address] [phone] * (ABNORMAL) Basic Metabolic Panel (02/01/2025 8:14 AM EDT) Sodium 138 136 - 146 meq/L 02/01/2025 9:39 AM EDT [facility] Potassium 4.1 3.5 - 5.1 meq/L 02/01/2025 9:39 AM EDT [facility] Chloride 109 102 - 112 meq/L 02/01/2025 9:39 AM EDT [facility] CO2 24 21 - 32 meq/L 02/01/2025 9:39 AM EDT [facility] Anion Gap 9 9 - 20 02/01/2025 9:39 AM T [facility] BUN 13 7 - 22 mg/dL 02/01/2025 9:39 AM EDT [facility] Creatinine 0.83 0.55 - 1.02 mg/dL 02/01/2025 9:39 AM EDT [facility] BUN/Creatinine 16 8 - 20 02/01/2025 9:39 AM EDT [facility] Glucose 178(H) 74 - 106 mg/dL 02/01/2025 9:39 AM EDT [facility] Calcium 8.8 8.5 - 10.1 mg/dL 02/01/2025 9:39 AM EDT [facility] Osmolality Calc 280.2 mOsm/kg 9:39 AM EDT [facility] eGFR (mL/min/1.73m2) >60 >=60 mL/min/1.7 3m2 02/01/2025 9:39 AM EDT [facility] Comment:eGFR of <60 suggests chronic kidney disease if found over a 3 month period of time. eGFR <15 indicates renal failure. Blood Venipuncture / Unknown 02/01/2025 8:14 AM EDT 02/01/2025 8:15 AM EDT Daquan Peraza MD LAB BLOOD ORDERABLES Final Resul t Performing Organization Address [facility] [[email or web address]] de Phone Number [facility] [address] [phone] * Hemoglobin and Hematocrit (02/01/2025 4:43 AM EDT) [facility] Hemoglobin 12.1 11.2 - 15.7 GM/DL 02/01/2025 4:58 AM EDT [facility] Hematocrit 36.2 34.1 - 44.9 % 02/01/2025 4:58 AM EDT [facility] Blood Venipuncture / Unknown 02/01/2025 4:43 AM EDT 02/01/2025 4:48 AM EDT Daquan Peraza MD LAB BLOOD ORDERABLES Final Resul t Performing Organization Address [facility] [[email or web address]] de Phone Number [facility] [address] [phone] * X-ray pelvis portable (01/31/2025 2:16 PM EDT) Anatomical Region Laterality Modality Abdomen, Pelvis, Hip X-Ray 01/31/2025 3:22 PM EDT Impressions 01/31/2025 5:03 PM EDT Surgical changes of right hip total revision hardware without hardware complication. Images reviewed, interpreted, and dictated by Dr. Eric Durbin. Transcribed by Bryson Hay PA-C Narrative 01/31/2025 5:03 PM EDT XR PELVIS PORTABLE HISTORY: Right hip pain. Recent surgery . FINDINGS: A single view exam demonstrates surgical changes of right hip total revision hardware. The hardware has a normal appearance. No fracture is identified. Note is made of prior left hip total revision hardware. Procedure Note Eric Durbin MD - 01/31/2025 XR PELVIS PORTABLE HISTORY: Right hip pain. Recent surgery . FINDINGS: A single view exam demonstrates surgical changes of right hip total revision hardware. The hardware has a normal appearance. No fracture is identified. Note is made of prior left hip total revision hardware. IMPRESSION: Surgical changes of right hip total revision hardware without hardware complication. Images reviewed, interpreted, and dictated by Dr. Eric Durbin. Transcribed by Bryson Hay PA-C Daquan Peraza MD [facility] ORDERABLE S Final Result * ABO/RH Confirmation/Retype (01/31/2025 12:02 PM EDT) RETYPE O POSITIVE 01/31/2025 11:25 AM EDT [facility] ([place]) Blood Venipuncture / Unknown 01/31/2025 12:02 PM EDT 01/31/2025 12:07 PM EDT Daquan Peraza MD [facility] BLOOD BANK TEST ORDERABLES F inal Result [facility] ([place]) [address] [place] [address], [facility] [phone] * HC SPINAL BLOCK (01/31/2025 11:46 AM EDT) Narrative Dana Mix CRNA - 01/31/2025 11:46 AM EDT Dana Mix CRNA 01/31/2025 12:32 PM Spinal Authorized by: Dana Mix CRNA Performed by: Dana Mix CRNA Patient location during procedure: OR Start time: 01/31/2025 11:46 AM End time: 01/31/2025 11:52 AM Reason for block: primary anesthetic Preanesthetic Checklist Completed: patient identified, IV checked, site marked, risks and benefits discussed, surgical consent, monitors and equipment checked, pre-op evaluation and timeout performed Spinal Block Patient position: sitting Prep: ChloraPrep Sterility prep: cap, gloves, gown, hand hygiene, mask and drape Sedation level: light sedation Patient monitoring: continuous pulse oximetry, ETCO2 and heart rate Approach: midline Location: L3-4 Injection technique: single-shot Needle Needle type: pencil-tip Needle gauge: 25 G Needle length: 9 cm Medications Administered bupivacaine 0.75%-dextrose 8.25% PF (SENSORCAINE) intrathecal injection - intrathecal 12 mg - 01/31/2025 11:52:00 AM Assessment Sensory level: T10 Block outcome: block to be assessed in the OR Number of attempts: 1 Procedure assessment: patient tolerated procedure well with no immediate complications Additional Notes X1 attempt SHANNAN Stanton Dana Mix [facility] ANESTHESIA ORDERABLES Final Result * Type and Screen (01/31/2025 11:23 AM EDT) ABO/Rh O POSITIVE 01/31/2025 11:19 AM EDT [facility] ([place]) Antibody Screen Negative 01/31/2025 11:19 AM EDT [facility] ([place]) HISTCHK HIST CHECK PERFORMED 01/31/2025 11:19 AM EDT [facility] ([place]) Blood Venipuncture / Unknown 01/31/2025 11:23 AM EDT 01/31/2025 11:45 AM EDT Domingo Moffett MD [facility] BLOOD BANK TEST ORDERABLES Edited Result - Final [facility] ([place]) [address] [place] [address], [facility] [phone] * AFB Culture And Stain (01/31/2025 11:08 AM EDT) Only the most recent of3 resultswithin the time period is included. Result No Acid Fast Bacilli isolated at 6 weeks 03/14/2025 2:00 PM EDT [facility] AFB Smear No acid fast bacilli seen 03/14/2025 2:00 PM EDT [facility] Tissue STRUCTURE OF SYNOVIAL MEMBRANE OF JOINT / Unknown 01/31/2025 11:08 AM EDT 01/31/2025 1:11 PM EDT [facility] - 03/14/2025 2:00 PM EDT Specimen Description: Right hip synovium #3 Daquan Peraza MD MICROBIOLOGY - GENERAL ORDERABLE S Final Result Performing Organization Address [facility] Co de Phone Number [facility] [address] [phone] * Fungus Culture W/SOHA Or Leyla Ink (01/31/2025 11:08 AM EDT) Only the most recent of3 resultswithin the time period is included. Result No fungus isolated at 6 weeks. 03/14/2025 2:00 PM EDT [facility] SOHA Prep No fungal elements seen 03/14/2025 2:00 PM EDT [facility] Tissue STRUCTURE OF SYNOVIAL MEMBRANE OF JOINT / Unknown 01/31/2025 11:08 AM EDT 01/31/2025 1:11 PM EDT [facility] - 03/14/2025 2:00 PM EDT Specimen Description: Right hip synovium #3 Daquan Peraza MD MICROBIOLOGY - GENERAL ORDERABLE S Final Result Performing Organization Address [facility] Co de Phone Number [facility] [address] [phone] * Anaerobic Culture, Extended (P.acnes) (01/31/2025 11:08 AM EDT) Only the most recent of3 resultswithin the time period is included. Result No anaerobic growth at 14 days. No Cutibacterium acnes (formerly Propionibacterium acnes) isolated 02/14/2025 8:13 AM EDT [facility] Tissue STRUCTURE OF SYNOVIAL MEMBRANE OF JOINT / Unknown 01/31/2025 11:08 AM EDT 01/31/2025 1:11 PM EDT Narrative [facility] - 02/14/2025 8:13 AM EDT Specimen Description: Right hip synovium #3 us Daquan Peraza MD MICROBIOLOGY - GENERAL ORDERABLE S Final Result Performing Organization Address [facility] [[email or web address]] de Phone Number [facility] [address] [phone] * Tissue Culture+ Stain (01/31/2025 11:08 AM EDT) Only the most recent of3 resultswithin the time period is included. Result No growth 02/03/2025 7:35 AM EDT [facility] Gram Stain Result No organisms seen 02/03/2025 7:35 AM EDT [facility] Gram Stain Result No cells seen 02/03/2025 7:35 AM EDT [facility] Tissue STRUCTURE OF SYNOVIAL MEMBRANE OF JOINT / Unknown 01/31/2025 11:08 AM EDT 01/31/2025 1:11 PM EDT Narrative [facility] - 02/03/2025 7:35 AM EDT Specimen Description: Right hip synovium #3 Daquan Peraza MD MICROBIOLOGY - GENERAL ORDERABLE S Final Result Performing Organization Address [facility] [[email or web address]] de Phone Number [facility] [address] [phone] * PT/INR, PTT (01/31/2025 11:03 AM EDT) aPTT 25.9 22.0 - 32.0 seconds 01/31/2025 11:45 AM EDT [facility] Protime 10.5 9.0 - 12.0 seconds 01/31/2025 11:45 AM EDT [facility] INR 0.96 0.80 - 1.10 01/31/2025 11:45 AM EDT [facility] Blood Venipuncture / Unknown 01/31/2025 11:03 AM EDT 01/31/2025 11:24 AM EDT us Daquan Peraza MD LAB BLOOD ORDERABLES Final Resul t [facility] [address] [place] [address], [facility] [phone] * (ABNORMAL) Comprehensive metabolic panel (01/31/2025 11:03 AM EDT) Sodium 140 136 - 146 meq/L 01/31/2025 11:46 AM EDT [facility] Potassium 3.8 3.5 - 5.1 meq/L 01/31/2025 11:46 AM EDT [facility] Chloride 107 102 - 112 meq/L 01/31/2025 11:46 AM EDT [facility] CO2 27 21 - 32 meq/L 01/31/2025 11:46 AM EDT [facility] Calcium 9.3 8.5 - 10.1 mg/dL 01/31/2025 11:46 AM EDT [facility] Glucose 105 74 - 106 mg/dL 01/31/2025 11:46 AM EDT [facility] BUN 9 7 - 22 mg/dL 01/31/2025 11:46 AM EDT [facility] Creatinine 0.56 0.55 - 1.02 mg/dL 01/31/2025 11:46 AM EDT [facility] BUN/Creatinine 16 8 - 20 01/31/2025 11:46 AM EDT [facility] Albumin 3.7 3.4 - 5.0 g/dL 01/31/2025 11:46 AM EDT [facility] Alkaline Phosphatase 68 27 - 136 U/L 01/31/2025 11:46 AM EDT [facility] ALT 16 12 - 78 U/L 01/31/2025 11:46 AM EDT [facility] AST 19 5 - 37 U/L 01/31/2025 11:46 AM EDT [facility] Total Bilirubin 1.0 0.2 - 1.3 mg/dL 01/31/2025 11:46 AM EDT [facility] Protein, Total 6.2(L) 6.4 - 8.2 gm/dL 01/31/2025 11:46 AM EDT [facility] Anion Gap 10 9 - 20 01/31/2025 11:46 AM EDT [facility] A/G Ratio 1.5 1.1 - 2.5 01/31/2025 11:46 AM EDT [facility] Globulin 2.5 1.5 - 4.5 g/dL 01/31/2025 11:46 AM EDT [facility] Osmolality Calc 278.4 mOsm/kg 11:46 AM EDT [facility] eGFR (mL/min/1.73m2) >60 >=60 mL/min/1.7 3m2 01/31/2025 11:46 AM EDT [facility] Comment:ESTIMATED GFR IS NOT ACCURATE CREATININE CLEARANCE IN PREDICTING GLOMERULAR FILTRATION RATE. ESTIMATED GFR IS NOT APPLICABLE FOR DIALYSIS PATIENTS. Blood Venipuncture / Unknown 01/31/2025 11:03 AM EDT 01/31/2025 11:24 AM EDT us Daquan Peraza MD LAB BLOOD ORDERABLES Final Resul t [facility] [address] [place] [address], [facility] [phone] from Last 3 Months Insurance MEDICARE PART A B Advance Directives For more information, please contact: [phone] * Full Code (Latest Code Status on File) Date Activated Date Inactivated Comments 01/31/2025 2:18 PM 02/01/2025 5:02 PM * Full Code Date Activated Date Inactivated Comments 01/31/2025 7:30 AM 01/31/2025 2:18 PM Care Teams Rotary Shear Worker Helper Relationship Specialty Start Date End Date Fransisco Devries MD [address] [place] [address] PCP - General Family Medicine 01/27/25
--- OUTSIDE RECORDS SUMMARY | 2025-04-26 10:23 | XMS_ITS | Clinical Summary ---
Author Organization [facility] Address [address] [place] [address] Care Team Providers Care Yard Person Name Role Phone Fransisco Devries MD Primary Care Provider + [phone] Allergies Active Allergy Reactions Criticality Noted Date Comments Nickel Swelling 01/15/2017 SWELLING Tizanidine Hcl Other (See Comments) 03/10/2019 Bouncing off the miguel , no control over her body, felt like she was on drugs. Medications lisinopril (PRINIVIL,ZESTR IL) 20 MG tablet Take 1 tablet by mouth Daily. Active rosuvastatin (CRESTOR) 20 MG tablet Take 1 tablet by mouth Daily. Active Cholecalciferol (VITAMIN D3 PO) Take 1,500 Units by mouth Take As Directed. Fri and Fridays Active Ascorbic Acid (VITAMIN C PO) Take by mouth. Active metFORMIN ER (GLUCOPHAGE-XR) 500 MG 24 hr tablet Take 2 tablets by mouth 2 (Two) Times a Day. 06/17/2021 Active ondansetron (ZOFRAN) 4 MG tablet Take 1 tablet by mouth Every 8 (Eight) Hours As Needed for post-op nausea. 30 tablet 05/19/2024 2:30 PM EDT 05/12/2024 Active methenamine (HIPREX) 1 g tablet Take 1 tablet by mouth 2 (Two) Times a Day With Meals. Active TROSPIUM CHLORIDE PO Take 20 mg by mouth 2 (Two) Times a Day. Active vitamin B-12 (CYANOCOBALAMIN ) 2500 MCG sublingual tablet tablet Place 2,500 mcg under the tongue Daily. Active oxyCODONE (ROXICODONE) 5 MG immediate release tablet Take 1 tablet by mouth Every 6 (Six) Hours As Needed for Moderate Pain. 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 DM (diabetes mellitus) 01/21/2017 Hyperlipidemia 01/21/2017 HTN (hypertension) 01/21/2017 Family History Medical History Relation Name Comments Diabetes Father Heart attack Father Heart disease Father Cancer Mother Hypertension Mother Osteoarthritis Mother Cancer Other 1 Grandparent Diabetes Other 1 Grandparent Osteoarthritis Other 2 Sibling Stroke Other 2 Sibling Relation Name Status Comments Father Mother Other 1 Grandparent Other 2 Sibling Social History Tobacco Use Types Packs/Day Years Used Date Smoking Tobacco: Former Smokeless Tobacco: Never Comments:QUIT 30 YEARS AGO Alcohol Use Standard Drinks/Week Comments No 0 (1 standard drink = 0.6 oz pur e alcohol) rare Abuse Screen Answer Date Recorded Feels Unsafe at Home or Work/School no 05/27/2024 Feels Threatened by Someone no 05/11 Does Anyone Try to Keep You From Having Contact with Others or Doing Things Outside Your Home? no 05/27/2024 Physical Signs of Abuse Present no 05/27/2024 Housing Stability Answer Date Recorded Current Living Arrangements home 05/11 Potentially Unsafe Housing Conditions Not on andres e 05/27/2024 Family and Community Support Answer [place] e Recorded Help with Day-to-Day Activities Not on file 05/19/2023 Lonely or Isolated Not on file 05/19/2023 Employment Answer Date Recorded Do you want help finding or keeping work or a matthew b? Not on file 05/19/2023 Disabilities Answer Date Recorded Difficulty Concentrating, Remembering or Making Decisions no 05/27/2024 Difficulty Managing Errands Independently no 05/27/2024 Education Answer Date Recorded Help with school or training? Not on file Preferred Language Lithuanian 05/19/2024 Comments No Sex and Gender Information Value Date Recorded Sex Assigned at Not on file Legal Sex Female 12:35 PM EDT Gender Identity Not on file Sexual Orientation Not on file Last Filed Vital Signs Vital Sign Reading Time Taken Comments Blood Pressure 127/82 05/27/2024 1:30 PM EDT Pulse 101 05/27/2024 1:30 PM EDT Temperature 36.8 C (98.2 F) 05/27/2024 1:05 PM EDT Respiratory Rate 18 05/27/2024 1:05 PM EDT Oxygen Saturation 93% 05/27/2024 1:30 PM EDT Inhaled Oxygen Concentration - - Weight 68.9 kg (151 lb 12.6 oz) 05/19/2024 1:51 PM EDT Height 172.7 cm (5' 8 ) 05/19/2024 1:51 PM EDT Body Mass Index 23.08 05/19/2024 1:51 PM EDT Plan of Treatment Health Maintenance Due Date Last Done Comments DXA SCAN 1946 LIPID PANEL 1946 DIABETIC EYE EXAM 1956 DIABETIC FOOT EXAM 1956 URINE MICROALBUMIN-CREATININ E RATIO (uACR) 1956 TDAP/TD VACCINES (1 - Tdap) 1965 COLOGUARD 1991 COLON CANCER SCREENING 5 YEA R SIGMOIDOSCOPY 1991 COLONOSCOPY 1991 COL[address]AL CANCER SCREENING 1991 CT COLONOGRAPHY 1991 FECAL OCCULT BLOOD TEST 1991 FIT Testing (1 year) 1991 ANNUAL WELLNESS VISIT 01/15/2017 HEPATITIS C SCREENING 01/15/2017 RSV Vaccine - Adults (1 - 1- dose 75+ series) 2021 HEMOGLOBIN A1C 11/17/2024 05/19/2024, 01/15/2017 COVID-19 Vaccine (2024-2 6 season) 2025 03/13/2022, 06/29/2021, 10/18/2020, Additional history exists INFLUENZA VACCINE 05/11/2025 06/19/2023, , 05/03/2020, Additional history exists ZOSTER VACCINE Completed 11/20/2022, 09/11/2022 Pneumococcal Vaccine 50+ Completed 023, 06/29/2018, 06/26/2017 Goals Goal Patient Goal Type Associated Problems Recent Progress Patient-Stated? Author Autogenera rey Goal Care Plan Autogenerated Problem No Mckenna Schmidt RegSched Rep Medical Devices Implanted Type Area Welder Plastic Device Identifier Shelf Expiration Date Model / Serial / Lot Hd Fem Articuleze/Mod Cocr 07/24 32mm Pls13 - [id number] Implanted:Qty: 1 on 01/21/2017 by Rangel Harrell MD at [facility] Implant Right: Hip DEPUY 01/09/2020 [id number] / / [id number] Insrt Fem Pinn Altrx 10d 32x50 Pls4 - [id number] Implanted:Qty: 1 on 01/21/2017 by Rangel Harrell MD at [facility] Implant Right: Hip DEPUY 01/09/2020 [id number] / / [id number] Scrw Lk Melvin Univers Revers Periph 5.5x36mm - [id number] Implanted:Qty: 1 on 05/27/2024 by Tom Hauser MD at [facility] Implant Left: Shoulder ARTHREX [id number] 08/10/2028 [id number] / / [id number] Liner Hum Univers Revers Cnstr 33mm Pls6 - [id number] Implanted:Qty: 1 on 05/27/2024 by Tom Hauser MD at [facility] Implant Left: Shoulder ARTHREX [id number] 06/10/2028 [id number] / / [id number] Stem Hum/Shldr Univers Revers Sz5 - [id number] Implanted:Qty: 1 on 05/27/2024 by Tom Hauser MD at [facility] Implant Left: Shoulder ARTHREX [id number] 02/07/2029 [id number] / / [id number] Cup Sut Shldr Univers/Revers 33mm Pls2mm Lt - [id number] Implanted:Qty: 1 on 05/27/2024 by Tom Hauser MD at [facility] Implant Left: Shoulder ARTHREX [id number] 09/10/2027 [id number] MEAT CUTTING BLOCK REPAIRER / / [id number] Sys Sut/Anch Achilles Speedbridge W/3.9mm/Swivelo ck/Anchr - [id number] Implanted:Qty: 1 on 05/27/2024 by Tom Hauser MD at [facility] Implant Left: Shoulder ARTHREX [id number] 02/08/2028 [id number] / / [id number] Totl Shldr Rev S4 - [id number] Implanted:Qty: 1 on 05/27/2024 by Tom Hauser MD at [facility] Implant Left: Shoulder ARTHREX CAPREVSHLD [id number] / / Hemost Abs Surgicel Orig 4x8in Strl - [id number] Implanted:Qty: 1 on 05/27/2024 by Tom Hauser MD at [facility] Implant Left: Shoulder ETHICON DIV OF J AND J [id number] 07/10/2028 [id number] / / [id number] Scrw Centrl Melvin Univers Revers 20mm - [id number] Implanted:Qty: 1 on 05/27/2024 by Tom Hauser MD at [facility] Implant Left: Shoulder ARTHREX [id number] 12/08/2028 [id number] / / [id number] Scrw Nl Melvin Univers Revers Periph 4.5x24mm - [id number] Implanted:Qty: 1 on 05/27/2024 by Tom Hauser MD at [facility] Implant Left: Shoulder ARTHREX [id number] 08/10/2028 [id number] / / [id number] Scrw Lk Melvin Univers Revers Periph 5.5x16mm - [id number] Implanted:Qty: 1 on 05/27/2024 by Tom Hauser MD at [facility] Implant Left: Shoulder ARTHREX [id number] 09/10/2028 [id number] / / [id number] Glenosphere Mod Universrevers Ti 24mm 33mm/Pls4/Lat Bx/1 - [id number] Implanted:Qty: 1 on 05/27/2024 by Tom Hauser MD at [facility] Implant Left: Shoulder ARTHREX [id number] 03/10/2028 [id number] 3LAT / / [id number] Baseplt Melvin Univers Revers Modular Lat 24mm Pls2 - [id number] Implanted:Qty: 1 on 05/27/2024 by Tom Hauser MD at [facility] Implant Left: Shoulder ARTHREX [id number] 10/08/2028 [id number] / / [id number] Scrw Nl Melvin Univers Revers Periph 4.5x36mm - [id number] Implanted:Qty: 1 on 05/27/2024 by Tom Hauser MD at [facility] Implant Left: Shoulder ARTHREX [id number] 11/08/2028 [id number] / / [id number] Procedures Procedure Name Priority Date/Time Associated Diagnosis Comments HEMOGLOBIN A1C Routine 05/19/2024 1:27 PM EDT from Last 3 Months or Most Recently Relevant to Health Maintenance Results * (ABNORMAL) Hemoglobin A1c (05/19/2024 1:27 PM EDT) Hemoglobin A1C 6.10(H) 4.80 - 5.60 % 05/19/2024 2:42 PM EDT [facility] Blood Venipuncture / Unknown 05/19/2024 1:27 PM EDT 05/19/2024 2:19 PM EDT Narrative [facility] - 05/19/2024 2:42 PM EDT Hemoglobin A1C Ranges: Increased Risk for Diabetes 5.7% to 6.4% Diabetes >= 6.5% Diabetic Goal < 7.0% Tom Hauser MD LAB BLOOD ORDERABLES Fin al Result [facility]
[address] [place] [address], from Last 3 Months or Most Recently Relevant to Health Maintenance Additional Health Concerns Active Problems Noted Date Diagnosed Date Autogenerated Problem 03/24/2025 Insurance MEDICARE A & B Member Subscriber Plan / Payer (Ef fective 2011-Present) Name:Padmini Osei Member ID:[id number] Relation to Subscriber:Self Name:Padmini Osei Subscriber ID:[id number] Payer ID:[id number] Group ID:Not on file Type:Not on file Address: [id number] [employer] OPT[employer] Advance Directives Documents on File Type Date Recorded Patient Retread Technician Expl anation LIVING WILL - SCAN 11/19/2021 5:22 AM [place] [facility] SURROGATE DESIGNATION * Full Code (Latest Code Status on File) Date Activated Date Inactivated Comments 01/21/2017 1:28 PM 01/23/2017 2:08 PM Care Teams Yard Person Relationship Specialty Start Date End Date Fransisco Devries MD [address] [place] [address] PCP - General Family Medicine 01/15/17
--- OUTSIDE RECORDS SUMMARY | 2025-04-26 10:23 | XMS_ITS | Clinical Summary ---
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 Encounters Date Type Department Care Team Description 02/01/2025 Community [facility] EpicCare Link [address] [place] [address] Daquan Peraza MD 01/31/2025 12:30 PM EDT - 01/31/2025 3:11 PM EDT Surgery [facility] Surgery Department [address] [place] [address] Daquan Peraza MD RIGHT POSTERIOR TOTAL HIP ARTHROPLASTY REVISION 01/31/2025 11:44 AM EDT Anesthesia Event [facility] Surgery Department [address] [place] [address] Dana Mix CRNA Qureshi, Hera Fatima, DO 01/31/2025 8:15 AM EDT - 02/01/2025 4:01 PM EDT Hospital Encounter [facility] Telemetry Unit [address] [place] [address] Daquan Peraza MD Failed total hip arthroplasty, initial encounter (HCC) (Primary Dx); 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 [...] Do you speak a language other than [place]yanese at [facility]? No 01/31/2025 Do you want help with [...] 01/31/2025 6:17 PM EDT Plan of Treatment Health Maintenance Due Date Last Done Comments DXA SCAN 1945 Depression Screening (12+) 1958 Tobacco Cessation Counseling and Screening (12+) 1958 Hepatitis C Screening 1964 DTAP/TDAP/TD VACCINES (1 - Tdap) 1965 Medicare Initial AWV G0438 08/12/2012 Respiratory Syncytial Virus (RSV) Adult or (1 - 1-dose 75+ series) 2021 Falls Risk Screening 08/11/2024 COVID-19 VACCINE (5 - 2024-2 6 season) 2025 03/13/2022, 06/29/2021, 10/18/2020, Additional history exists Influenza Vaccine (#1) 2025 4, 06/19/2023, 05/22/2021, Additional history exists Shingles Vaccine (Zoster) Completed 11/20/2022, 08/2022 Pneumococcal 50+ years Completed 3, 06/29/2018, 06/26/2017 Medical Devices Implanted Type Area Dormitory Keeper Device Identifier Shelf Expiration Date Model / Serial / Lot Liner Acet Pinn Neut +4 28 50m 1218-28-650 - [id number] Implanted:Qty : 1 on 01/31/2025 by Daquan Peraza MD at [facility] TOTAL JOINT CONSTRUCT Right: Hip J &J:DEPUY:DE[employer]Y ORTH[employer] 04/10/2028 1218-28-6 50 / / [id number] Head Fem Artc Ceramic 28 1365-28-740 - [id number] Implanted:Qty : 1 on 01/31/2025 by Daquan Peraza MD at [facility] [employer] Right: Hip J &J:DEPUY:[employer] OR[employer] 08/10/2029 1365-28-7 40 / / [id number] Procedures Procedure Name Priority Date/Time Associated Diagnosis [...] ([place] BKR) Routine 01/31/2025 12:[address] 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 [facility] POC-GLUCOSE 217(H) 70 - 110 mg/dL 02/01/2025 11:18 AM EDT [facility] Comment: In the event of poor peripheral blood flow, venous or arterial blood should be used due to the potential of erroneous results. Notified Nurse RBV Seat Builder [id number] 02/01/2025 11:18 AM EDT [facility] Blood WHOLE BLOOD / Unknown 02/01/2025 11:17 AM EDT 02/01/2025 11:18 AM EDT Narrative [facility] - 02/01/2025 11:18 AM EDT Seat Builder ID is - [id number] us Daquan Peraza MD POINT OF CARE TEST ORDERABLES Fi nal Result [facility] [address] [place] [address] * (ABNORMAL) CBC - Hemogram (02/01/2025 8:14 AM EDT) Only the most recent of2 resultswithin the time period is included. [facility] WBC 10.9(H) 3.9 - 10.0 K/ L 02/01/2025 9:12 AM EDT [facility] RBC 4.43 3.93 - 5.22 M/ L 02/01/2025 9:12 AM EDT [facility] Hemoglobin 12.8 11.2 - 15.7 GM/DL 02/01/2025 9:12 AM EDT [facility] Hematocrit 39.2 34.1 - 44.9 % 02/01/2025 9:12 AM EDT [facility] MCV 89 79 - 95 fL 02/01/2025 9:12 AM EDT [facility] MCH 28.9 25.6 - 32.2 pg 02/01/2025 9:12 AM EDT [facility] MCHC 32.7 32.2 - 36.5 GM/DL 02/01/2025 9:12 AM EDT [facility] RDW 12.9 11.6 - 14.4 % 02/01/2025 9:12 AM EDT [facility] Platelets 166 163 - 369 K/CU MM 02/01/2025 9:12 AM EDT [facility] MPV 9.7 9.4 - 12.4 fL 02/01/2025 9:12 AM EDT [facility] Blood Venipuncture / Unknown 02/01/2025 8:14 AM EDT 02/01/2025 8:15 AM EDT us Daquan Peraza MD LAB BLOOD ORDERABLES Final Resul t [facility] [address] [employer] [address] [phone] * (ABNORMAL) Basic Metabolic Panel (02/01/2025 8:14 AM EDT) [facility] Sodium 138 136 - 146 meq/L 02/01/2025 9:39 AM EDT [facility] Potassium 4.1 3.5 - 5.1 meq/L 02/01/2025 9:39 AM EDT [facility] Chloride 109 102 - 112 meq/L 02/01/2025 9:39 AM EDT [facility] CO2 24 21 - 32 meq/L 02/01/2025 9:39 AM EDT [facility] Anion Gap 9 9 - 20 02/01/2025 9:39 AM EDT [facility] BUN 13 7 - 22 mg/dL 02/01/2025 9:39 AM EDT [facility] Creatinine 0.83 0.55 - 1.02 mg/dL 02/01/2025 9:39 AM EDT [facility] BUN/Creatinine 16 8 - 20 02/01/2025 9:39 AM EDT [facility] Glucose 178(H) 74 - 106 mg/dL 02/01/2025 9:39 AM EDT [facility] Calcium 8.8 8.5 - 10.1 mg/dL 02/01/2025 9:39 AM EDT [facility] Osmolality Calc 280.2 mOsm/kg 9:39 AM EDT [facility] eGFR (mL/min/1.73m2) >60 >=60 mL/min/1.7 3m2 02/01/2025 9:39 AM EDT [facility] Comment:eGFR of <60 suggests chronic kidney disease if found over a 3 month period of time. eGFR <15 indicates renal failure. Blood Venipuncture / Unknown 02/01/2025 8:14 AM EDT 02/01/2025 8:15 AM EDT us Daquan Peraza MD LAB BLOOD ORDERABLES Final Resul t [facility] [address] [phone] * Hemoglobin and Hematocrit (02/01/2025 4:43 AM EDT) Hemoglobin 12.1 11.2 - 15.7 GM/DL 02/01/2025 4:58 AM EDT [facility] Hematocrit 36.2 34.1 - 44.9 % 02/01/2025 4:58 AM EDT [facility] Blood Venipuncture / Unknown 02/01/2025 4:43 AM EDT 02/01/2025 4:48 AM EDT Daquan Peraza MD LAB BLOOD ORDERABLES Final Resul t [facility] [address] [phone] * X-ray pelvis portable (01/31/2025 2:16 PM [...] by Bryson Hay PA-C Daquan Peraza MD IMG DIAGNOSTIC IMAGING ORDERABLE S Final Result * ABO/RH Confirmation/Retype (01/31/2025 12:02 PM EDT) RETYPE O POSITIVE 01/31/2025 11:25 AM EDT [facility] ([place]) Blood Venipuncture / Unknown 01/31/2025 12:02 PM EDT 01/31/2025 12:07 PM EDT Daquan Peraza MD [facility] BLOOD BANK TEST ORDERABLES F inal Result [facility] ([place]) [address] [place] [id number], [facility] [phone] * HC SPINAL BLOCK (01/31/2025 11:46 AM [...] Notes X1 attempt SHANNAN Stanton Dana Mix CRNA ANESTHESIA ORDERABLES Final Result * Type and Screen (01/31/2025 11:23 AM EDT) ABO/Rh O POSITIVE 01/31/2025 11:19 AM EDT [facility] ([place]) Antibody Screen Negative 01/31/2025 11:19 AM EDT [facility] ([place]) HISTCHK HIST CHECK PERFORMED 01/31/2025 11:19 AM EDT [facility]LOOD [facility] ([place]) Blood Venipuncture / Unknown 01/31/2025 11:23 AM EDT 01/31/2025 11:45 AM EDT Domingo Moffett MD [facility] BLOOD BANK TEST ORDERABLES Edited Result - Final Performing Organization Address City/[facility]/ZIP Co de Phone Number [facility] ([place]) [address] [place] [address], [facility] [phone] * AFB Culture And Stain (01/31/2025 11:08 AM EDT) Only the most recent of3 resultswithin the time period is included. Result No Acid Fast Bacilli isolated at 6 weeks 03/14/2025 2:00 PM EDT [facility] AFB Smear No acid fast bacilli seen 03/14/2025 2:00 PM EDT [facility] Tissue STRUCTURE OF SYNOVIAL MEMBRANE OF JOINT / Unknown 01/31/2025 11:08 AM EDT 01/31/2025 1:11 PM EDT Narrative [facility] - 03/14/2025 2:00 PM EDT Specimen Description: Right hip synovium #3 us Daquan Peraza MD MICROBIOLOGY - GENERAL ORDERABLE S Final Result [facility] [address] [place] [address], [facility] [phone] * Fungus Culture W/SOHA Or Leyla Ink (01/31/2025 11:08 AM EDT) Only the most recent of3 resultswithin the time period is included. Result No fungus isolated at 6 weeks. 03/14/2025 2:00 PM EDT [facility] SOHA Prep No fungal elements seen 03/14/2025 2:00 PM EDT [facility] Tissue STRUCTURE OF SYNOVIAL MEMBRANE OF JOINT / Unknown 01/31/2025 11:08 AM EDT 01/31/2025 1:11 PM EDT Narrative [facility] - 03/14/2025 2:00 PM EDT Specimen Description: Right hip synovium #3 Daquan Peraza MD MICROBIOLOGY - GENERAL ORDERABLE S Final Result Performing Organization Address [facility] de Phone Number [facility] [address] [phone] * Anaerobic Culture, Extended (P.acnes) (01/31/2025 11:08 AM EDT) Only the most recent of3 resultswithin the time period is included. Result No anaerobic growth at 14 days. No Cutibacterium acnes (formerly Propionibacterium acnes) isolated 02/14/2025 8:13 AM EDT [facility] Tissue STRUCTURE OF SYNOVIAL MEMBRANE OF JOINT / Unknown 01/31/2025 11:08 AM EDT 01/31/2025 1:11 PM EDT Narrative [facility] - 02/14/2025 8:13 AM EDT Specimen Description: Right hip synovium #3 Daquan Peraza MD MICROBIOLOGY - GENERAL ORDERABLE S Final Result Performing Organization Address [facility] Co de Phone Number [facility] [address] [phone] * Tissue Culture+ Stain (01/31/2025 11:08 AM EDT) Only the most recent of3 resultswithin the time period is included. Result No growth 02/03/2025 7:35 AM EDT [facility] Gram Stain Result No organisms seen 02/03/2025 7:35 AM EDT [facility] Gram Stain Result No cells seen 02/03/2025 7:35 AM EDT [facility] Tissue STRUCTURE OF SYNOVIAL MEMBRANE OF JOINT / Unknown 01/31/2025 11:08 AM EDT 01/31/2025 1:11 PM EDT Narrative [facility] - 02/03/2025 7:35 AM EDT Specimen Description: Right hip synovium #3 us Daquan Peraza MD MICROBIOLOGY - GENERAL ORDERABLE S Final Result Performing Organization Address City/[facility]/ZIP Co de Phone Number [facility] [address] [phone] * PT/INR, PTT (01/31/2025 11:03 AM EDT) aPTT 25.9 22.0 - 32.0 seconds 01/31/2025 11:45 AM EDT [facility] Protime 10.5 9.0 - 12.0 seconds 01/31/2025 11:45 AM EDT [facility] INR 0.96 0.80 - 1.10 01/31/2025 11:45 AM EDT [facility] Blood Venipuncture / Unknown 01/31/2025 11:03 AM EDT 01/31/2025 11:24 AM EDT us Daquan Peraza MD LAB BLOOD ORDERABLES Final Resul t [facility] [address] [phone] * (ABNORMAL) Comprehensive metabolic panel (01/31/2025 11:03 AM EDT) Sodium 140 136 - 146 meq/L 01/31/2025 11:46 AM EDT [facility] Potassium 3.8 3.5 - 5.1 meq/L 01/31/2025 11:46 AM EDT [facility] Chloride 107 102 - 112 meq/L 01/31/2025 11:46 AM EDT [facility] CO2 27 21 - 32 meq/L 01/31/2025 11:46 AM EDT [facility] Calcium 9.3 8.5 - 10.1 mg/dL 01/31/2025 11:46 AM EDT [facility] Glucose 105 74 - 106 mg/dL 01/31/2025 11:46 AM [facility] BUN 9 7 - 22 mg/dL 01/31/2025 11:46 AM [facility] Creatinine 0.56 0.55 - 1.02 mg/dL 01/31/2025 11:46 AM [facility] BUN/Creatinine 16 8 - 20 01/31/2025 11:46 AM [facility] Albumin 3.7 3.4 - 5.0 g/dL 01/31/2025 11:46 AM [facility] Alkaline Phosphatase 68 27 - 136 U/L 01/31/2025 11:46 AM [facility] ALT 16 12 - 78 U/L 01/31/2025 11:46 AM [facility] AST 19 5 - 37 U/L 01/31/2025 11:46 AM [facility] Total Bilirubin 1.0 0.2 - 1.3 mg/dL 01/31/2025 11:46 AM [facility] Protein, Total 6.2(L) 6.4 - 8.2 gm/dL 01/31/2025 11:46 AM [facility] Anion Gap 10 9 - 20 01/31/2025 11:46 AM [facility] A/G Ratio 1.5 1.1 - 2.5 01/31/2025 11:46 AM [facility] Globulin 2.5 1.5 - 4.5 g/dL 01/31/2025 11:46 AM [facility] Osmolality Calc 278.4 mOsm/kg 11:46 AM [facility] eGFR (mL/min/1.73m2) >60 >=60 mL/min/1.7 3m2 01/31/2025 11:46 AM [facility] Comment:ESTIMATED GFR IS NOT ACCURATE CREATININE CLEARANCE IN PREDICTING GLOMERULAR FILTRATION RATE. ESTIMATED GFR IS NOT APPLICABLE FOR DIALYSIS PATIENTS. Blood Venipuncture / Unknown 01/31/2025 11:03 AM EDT 01/31/2025 11:24 AM EDT Daquan Peraza MD LAB BLOOD ORDERABLES Final Resul t [facility] [address] [place] [id number], [facility] [phone] from Last 3 Months Insurance MEDICARE PART A B Advance Directives For more information, please contact: [phone] * Full Code (Latest Code Status on File) Date Activated Date Inactivated Comments 01/31/2025 2:18 PM 02/01/2025 5:02 PM * Full Code Date Activated Date Inactivated Comments 01/31/2025 7:30 AM 01/31/2025 2:18 PM Care Teams Marketing Professor Relationship Specialty Start Date End Date Fransisco Devries MD [address] [facility] [address] [place] [phone] PCP - General Family Medicine 01/27/25
[2025-04-26 10:37] LABS: Hematocrit 40.1 % (37.0-47.0); Hemoglobin 13.1 g/dL (12.2-16.2); Immature Granulocytes % 0.2 %; Mean Corpuscular HGB Conc 32.7 g/dL (31.8-35.4); Mean Corpuscular Hemoglobin 29.5 pg (27.0-31.2); Mean Corpuscular Volume 90.3 fl (81-99); Nucleated Red Blood Cells % 0 %; Platelet Count 159 K/mm3 (142-424); Red Blood Count 4.44 M/mm3 (4.20-5.40); Red Cell Distribution Width-SD 41.5 fL; White Blood Count 6.6 K/mm3 (4.8-10.8)
[2025-04-26 12:12] LABS: Iron 70 ug/dL (37-170)
[2025-04-26 12:22] LABS: Total Iron Binding Capacity 362 ug/dL (265-497)
[2025-04-26 12:48] LABS: Ferritin 26.1 ng/ml (11.1-264)
== END 2025-04-26 23:59 | disposition home or self-care (01) ==
LOC: LAB 09:55
PROVIDERS: PCP Family Medicine; Visit Provider Internal Medicine Gastroenterology
DX: D50.9 Iron deficiency anemia, unspecified (principal); B19.20 Unspecified viral hepatitis C without hepatic coma; K74.69 Other cirrhosis of liver
CPT/HCPCS: 36415; 82728; 83540; 83550; 85025

== ENCOUNTER 2025-05-03 09:02 | Outpatient (CLI) | payer MEDICARE, SELFPAY ==
--- OUTSIDE RECORDS SUMMARY | 2024-12-13 05:45 | XMS_ITS ---
Author Organization Chris Address [address] [facility] [address] [facility] [address] [place] [id number] Care Team Providers Care Business Analysis Consultant Name Role Phone Fransisco Devries Primary Care Provider [phone] Allergies Allergen (clinical drug ingredient) Drug/Non Drug Allergy documented on EMR Reaction Allergy Type Onset Date Status tizanidine Zanaflex Hallucinations Drug Allergy A ctive Results Component Value Reference Range Notes Glucose (In-House) Reviewed date:12/14/2024 08:31:22 AM Interpretation:127 Performing Lab: Notes/Report: 127 blood glucose 127 74 - 106 mg/dL CBC Venipuncture (in house) Reviewed date:12/14/2024 08:31:22 AM Interpretation: Normal Performing Lab: Notes/Report: Normal wbc 6.1 3.5 - 10 lymph 28.0 15 - 50 mid 6.2 2 - 15 gran 65.8 35 - 80 rbc 4.89 3.5 - 5.5 hgb 14.4 11.5 - 16.5 hct 42.6 35 - 55 mcv 87.0 75 - 100 mch 29.4 25 - 35 mchc 33.7 31 - 38 platlet 147 100 - 400 Glycohemoglobin A1c (in hous e) Reviewed date:12/14/2024 08:31:22 AM Interpretation:6.2% Performing Lab: Notes/Report: 6.2% glycohemoglobin 6.2% 5 - 6.5 % P-Vitamin B12 Reviewed date:12/14/2024 08:31:21 AM Interpretation: Normal Performing Lab: Notes/Report: Test performed by [employer] [facility] , [address], [place] [address] Jeff Valle MD, Senior Advisory CLIA: [id number] Vitamin B12 640 663-4225 pg/mL P-Comprehensive Metabolic Pa paul (CMP) Reviewed date:12/14/2024 08:31:21 AM Interpretation:glu 112, a/g 2.9 Performing Lab: Notes/Report: Test performed by [facility] [address] [place] [address] , [address], [place] [address] Jeff Valle MD, Senior Advisory CLIA: [id number] Sodium 143 135-145 mmol/L Potassium 4.6 3.5-5.3 mmol/L Chloride 104 97-108 mmol/L CO2 25 22-32 mmol/L Glucose 112 65-99 mg/dL BUN 10 8-23 mg/dL Creatinine 0.57 0.50-1.00 mg/dL Calcium 9.8 8.6-10.4 mg/dL eGFR by Creatinine 93 >59 mL/min/1.73m2 Protein 6.2 6.0-8.3 g/dL Albumin 4.6 3.5-5.3 g/dL Alkaline Phosphatase 75 35-121 IU/L ALT (SGPT) 9 <5-47 IU/L AST (SGOT) 18 <5-40 IU/L Bilirubin, Total 0.6 <0.2-1.2 mg/dL A/G Ratio 2.9 1.1-2.5 P-Magnesium Reviewed date:12/14/2024 08:31:21 AM Interpretation: Normal Performing Lab: Notes/Report: Test performed by [facility] [address] [place] [address] , [address], [place] [address] Jeff Valle MD, Senior Advisory CLIA: [id number] Magnesium 1.8 1.6-2.4 mg/dL P-Phosphorus Reviewed date:12/14/2024 08:31:21 AM Interpretation: Normal Performing Lab: Notes/Report: Test performed by [facility] [address] [place] [address] , [address], [place] [address] Jeff Valle MD, Senior Advisory CLIA: [id number] Phosphorus 3.8 2.5-4.5 mg/dL P-TSH reflex to FT4 Reviewed date:12/14/2024 08:31:21 AM Interpretation: Normal Performing Lab: Notes/Report: Test performed by [facility] [address] [place] [address] , [address], [place] [address] Jeff Valle MD, Senior Advisory CLIA: [id number] TSH reflex to FT4 0.61 0.43-5.25 mU/L P-Vitamin D 25-Hydroxy Reviewed date:12/14/2024 08:31:21 AM Interpretation: Normal Performing Lab: Notes/Report: Test performed by [facility] [address] [place] [address] , [address], [place] [address] Jeff Valle MD, Senior Advisory CLIA: [id number] Vitamin D 25-Hydroxy 52.5 30.0-100.0 ng/mL Interpretation of Vitamin D 25 OH: < 20 ng/mL - Deficiency 20 - 29 ng/mL - Insufficiency 30 - 100 ng/mL - Sufficiency > 100 ng/mL - Super-therapeutic- toxicity may occur above this level. Clinical correlation required. REASON FOR VISIT 6 month ckup Medications Medication SIG (Take, Route, Frequency, Duration) Notes Start Date End Date Status Estradiol 0.1 MG/GM as directed Vaginal Two times a Week Active Vitamin D3 250 MCG (86229 UT) 2 cap(s) orally twice a week 06/26/2017 Active Meclizine HCl 25 MG 1 tablet as needed Orally every 12 hrs 11/07/2023 Active Vitamin C 500 MG 1 tab(s) chewed once a day Active B-12 1000 MCG 1 tab(s) orally once a day OTC 12/30/2019 Active Trospium Chloride 20 MG 1 tab(s) Orally Two times a day; Duration: 30 day(s) Active metFORMIN HCl ER 500 MG 2 TABLETS Orally Two times a day Active Lisinopril 20 MG 1 tab(s) orally once a day Active metroNIDAZOLE 500 MG 1 tablet Orally Two times a day; Duration: 7 days 07/22/2024 Active Rosuvastatin Calcium 20 MG 1 tablet Oral ly Once a day; Duration: 30 day(s) Active Problems Problem Type SNOMED Code ICD Code Onset Dates Problem Status W/U Status Risk Notes Problem Solitary pulmonary nodule (648442986) Pulmonary nodule, left (R91.1) Active confirmed Vital Signs Blood pressure systolic 140 mm Hg 12/14/19 25 Blood pressure diastolic 90 mm Hg 025 Heart Rate 76 /min 12/13/2024 Height 68 in 12/13/2024 Weight 157.4 lbs 12/13/2024 BMI 23.93 kg/m2 12/13/2024 Encounters Encounter Location Date Provider Diagnosis [facility] [address] [facility] 36 [facility] [address] [place] [id number] 12/13/2024 Fransisco Devries Type 2 diabetes sergio itus without complication E11.9 ; Essential hypertension I10 ; Vitamin D deficiency E55.9 ; Fatigue, unspecified type R53.83 ; Pulmonary nodule, left R91.1 ; Hyperlipidemia, unspecified hyperlipidemia E78.5 and BMI 23.0-23.9, adult Z68.23 Assessments Encounter Date Diagnosis (ICD Code) Assessment Notes Treatment Notes Treatment Clinical Notes Section Notes 12/13/2024 Type 2 diabetes mellitus without complication (ICD-10 - E11.9) 12/13/2024 Essential hypertension (ICD-10 - I10) 12/13/2024 Vitamin D deficiency (ICD-10 - E55.9) 12/13/2024 Fatigue, unspecified type (ICD-10 - R53.83) 12/13/2024 Pulmonary nodule, left (ICD-10 - R91.1) Plan to repeat chest CT 6 months from last scan 12/13/2024 Hyperlipidemia, unspecified hyperlipidemia (ICD-10 - E78.5) 12/13/2024 BMI 23.0-23.9, adult (ICD-10 - Z68.23) Plan Of Treatment Medication Medication Name Sig Start Date Stop Date Notes metFORMIN HCl ER 500 MG 2 TABLETS Orally Two times a day Lisinopril 20 MG 1 tab(s) orally once a day Treatment Notes Assessment Notes Pulmonary nodule, left Plan to repeat ch est CT 6 months from last scan Next Appt Details Follow Up: 6 Months, Reason: Provider Name:Fransisco Logan ry, 06/14/2025 09:15:00 AM, [address] [facility] [address] [facility], [address], [place], [id number], Progress Notes * KATHLEEN OSEIDOB: 7 (79 yo F)Acc No.[id number]:12/13/2024 Progress Notes Patient: Davin ENRY, KATHLEEN Provider: Patricia Devries M.D. :1945 A ge:79 Y S ex:Female Date:12/13/2024 Address:[place], [id number] Subjective: * Chief Complaints: * 1 . 6 month ckup. * HPI: C ardiology: 79 year old female presents with c/o Blood Pressure Elevated?Pt here for 6 mo f/u on hypertension, states she is doing well and does not have any concerns.? c/o Hyperlipidemia P t is fasting today. E ndocrinology: c/o Recent Blood Sugars P t here to f/u on DM 2. H PI: c/o Patient is here today for P t sts she would like to michael discuss what was found on a CT scan done of her left upper lung. * ROS: C ONSTITUTIONAL: Fatigue yes. D ERMATOLOGY: no R mellisa. n o [...] 2023, need repeat CT scan in 6 months, Overactive bladder, frequent UTI, s/p urology evaluation. * Surgical History: B ilateral Total Hip [...] Diagno stic Procedure: H ip Revision- [facility] 01/21-, Chest Pain, Reaction to Zanaflex- H 12/2018. * Family History: F ather: , [...] Week , Taking Vitamin D3 250 MCG (50216 UT) Capsule 2 cap(s) orally twice a [...] anaflex: Hallucinations. Objective: * Vitals: W t: 157.4, Temp: 98.0, BP:140/90, HR: 76, Nurse: mmdavin, Ht: 68, BMI:23.93. * Examination: C ardiology: General Appearance: p leasant, NAD. H EENT: u nremarkable. H eart sounds: R RR, normal S1, S2. L ungs: c lear, no rales or wheezes.?Extremities: n o leg edema. Assessment: * Assessment: 1. T ype 2 diabetes mellitus without complication - E11.9 (Primary) 2 . E ssential hypertension - I10 3 . V itamin D deficiency - E55.9 4 .?Fatigue, unspecified type - R53.83 5 . P ulmonary nodule, left - R91.1 6. H yperlipidemia, unspecified hyperlipidemia - E78.5 7 . B DC 23.0-23.9, adult - Z68.23 Plan: * Treatment: Value Reference Range A /G Ratio 2.9 H 1.1-2.5 - * A lbumin 4.6 3.5-5.3 - g/dL * A lkaline Phosphatase 75 35-121 - IU/L * A LT (SGPT) 9 <5-47 - IU/L * A ST (SGOT) 18 <5-40 - IU/L * B ilirubin, Total 0.6 <0.2-1.2 - mg/dL * B UN 10 8-23 - mg/dL * C alcium 9.8 8.6-10.4 - mg/dL * C hloride 104 97-108 - mmol/L * C O2 25 22-32 - mmol/L * C reatinine 0.57 0.50-1.00 - mg/dL * G lucose 112 H 65-99 - mg/dL * P otassium 4.6 3.5-5.3 - mmol/L * S odium 143 135-145 - mmol/L * P rotein 6.2 6.0-8.3 - g/dL * e GFR by Creatinine 93 >59 - mL/min/1.73m2 * Michelle Larsen 12/14/2024 08:3 1:14 AM > See phone encounter ?LAB: Glucose (In-House) (Collection Date & Time - 12/13/2024)?127* Value Reference Range b lood glucose 127 74 - 106 mg/dL * Janny Hu 12/13/2024 11:10 :25 AM > Michelle Laresn 12/14/2024 08:31:14 AM > See phone encounter ?LAB: Glycohemoglobin A1c (in house) (Collection Date & Time - 12/13/2024)? 6.2%* Value Reference Range g lycohemoglobin 6.2% 5 - 6.5 % * Janny Hu 12/13/2024 11:10 :50 AM > Michelle Larsen 12/14/2024 08:31:14 AM > See phone encounter 2.?Essential hypertension? Continue Lisinopril Tablet, 20 MG, 1 tab(s), orally, once a day.?LAB: P-Comprehensive Metabolic Panel (CMP) (Collection Date & Time - 12/13/2024 09:18 AM)?glu 112, a/g 2.9* Value Reference Range A /G Ratio 2.9 H 1.1-2.5 - * A lbumin 4.6 3.5-5.3 - g/dL * A lkaline Phosphatase 75 35-121 - IU/L * A LT (SGPT) 9 <5-47 - IU/L * A ST (SGOT) 18 <5-40 - IU/L * B ilirubin, Total 0.6 <0.2-1.2 - mg/dL * B UN 10 8-23 - mg/dL * C alcium 9.8 8.6-10.4 - mg/dL * C hloride 104 97-108 - mmol/L * C O2 25 22-32 - mmol/L * C reatinine 0.57 0.50-1.00 - mg/dL * G lucose 112 H 65-99 - mg/dL * P otassium 4.6 3.5-5.3 - mmol/L * S odium 143 135-145 - mmol/L * P rotein 6.2 6.0-8.3 - g/dL * e GFR by Creatinine 93 >59 - mL/min/1.73m2 * Michelle Larsen 12/14/2024 08:3 1:14 AM > See phone encounter 3.?Vitamin D deficiency?LAB: P-Vitamin D 25-Hydroxy (Collection Date & Time - 12/13/2024 09:18 AM)? Normal* Value Reference Range V itamin D 25-Hydroxy 52.5 30.0-100.0 - ng/mL * Michelle Larsen 12/14/2024 08:3 1:14 AM > See phone encounter 4.?Fatigue, unspecified type?LAB: P-Vitamin B12 (Collection Date & Time - 12/13/2024 09:18 AM)?Normal* Value Reference Range V itamin B12 403 609-4652 - pg/mL * Michelle Larsen 12/14/2024 08:3 1:14 AM > See phone encounter ?LAB: P-Comprehensive Metabolic Panel (CMP) (Collection Date & Time - 12/13/2024 09:18 AM)?glu 112, a/g 2.9* Value Reference Range A /G Ratio 2.9 H 1.1-2.5 - * A lbumin 4.6 3.5-5.3 - g/dL * A lkaline Phosphatase 75 35-121 - IU/L * A LT (SGPT) 9 <5-47 - IU/L * A ST (SGOT) 18 <5-40 - IU/L * B ilirubin, Total 0.6 <0.2-1.2 - mg/dL * B UN 10 8-23 - mg/dL * C alcium 9.8 8.6-10.4 - mg/dL * C hloride 104 97-108 - mmol/L * C O2 25 22-32 - mmol/L * C reatinine 0.57 0.50-1.00 - mg/dL * G lucose 112 H 65-99 - mg/dL * P otassium 4.6 3.5-5.3 - mmol/L * S odium 143 135-145 - mmol/L * P rotein 6.2 6.0-8.3 - g/dL * e GFR by Creatinine 93 >59 - mL/min/1.73m2 * Michelle Larsen 12/14/2024 08:3 1:14 AM > See phone encounter ?LAB: P-Magnesium (Collection Date & Time - 12/13/2024 09:18 AM)?Normal* Value Reference Range M agnesium 1.8 1.6-2.4 - mg/dL * Michelle Larsen 12/14/2024 08:3 1:14 AM > See phone encounter ?LAB: P-Phosphorus (Collection Date & Time - 12/13/2024 09:18 AM)?Normal* Value Reference Range P hosphorus 3.8 2.5-4.5 - mg/dL * Michelle Larsen 12/14/2024 08:3 1:14 AM > See phone encounter ?LAB: P-TSH reflex to FT4 (Collection Date & Time - 12/13/2024 09:18 AM)? Normal* Value Reference Range T SH reflex to FT4 0.61 0.43-5.25 - mU/L * Michelle Larsen 12/14/2024 08:3 1:14 AM > See phone encounter ?LAB: CBC Venipuncture (in house) (Collection Date & Time - 12/13/2024)? Normal* Value Reference Range w bc 6.1 3.5 - 10 * l ymph 28.0 15 - 50 * m id 6.2 2 - 15 * g ran 65.8 35 - 80 * r bc 4.89 3.5 - 5.5 * h gb 14.4 11.5 - 16.5 * h ct 42.6 35 - 55 * m cv 87.0 75 - 100 * m ch 29.4 25 - 35 * m chc 33.7 31 - 38 * p latlet 147 100 - 400 * Errolelida Janny 12/13/2024 11:11 :39 AM > Michelle Larsen 12/14/2024 08:31:14 AM > See phone encounter 5.?Pulmonary nodule, left? Notes: Plan to repeat chest CT 6 months from last scan?? * Procedure Codes: G 2211 Complex e/[place], [address] GLUCOSE TEST, 37193 GLYCATED HEMOGLOBIN TEST, Modifiers: QW , 10828 CBC WITH AUTO DIFF, 3044F HG A1C LEVEL LT 7.0%, G8753 MOST RECENT SYSTOLIC BP >= 140MM HG, G8755 MOST RECENT DIASTOLIC BP >= 90MM HG, G8420 BMI<30 AND >=22 CALC & DOCU * Follow Up: 6 Months * Images: Billing Information: * Visit Code: 76425 Office Visit, Est Pt., Level 4. * Procedure Codes: G2211 Complex e/[place]. [address] GLUCOSE TEST. 90767 GLYCATED HEMOGLOBIN TEST. Modifiers: QW 54270 CBC WITH AUTO DIFF. 3044F HG A1C LEVEL LT 7.0%. G8753 MOST RECENT SYSTOLIC BP >= 140MM HG. G8755 MOST RECENT DIASTOLIC BP >= 90MM HG. G8420 BMI<30 AND >=22 CALC & DOCU. * Electronic signature of Rosie Devries MD on 05/03/2025 at 09:18 AM EDT Sign off status: Pending * Provider: Patricia Devries M.D. Date: 0 12/13/2024 Generated for Ashleyi ng/Rosag/eTransmitting on: 0 05/03/2025 09:18 AM EDT History and Physical Notes * HPI (History of Present Illness) Category Sub-Category Detail Notes Category Not es Endocrinology Recent Blood Sugars Pt here to f/u on DM 2 Cardiology Blood Pressure Elevated Pt here for 6 mo f/u on hypertension, states she is doing well and does not have any concerns Hyperlipidemia Pt is fasting today HPI Patient is here today for Pt sts she would like to michael discuss what was found on a CT scan done of her left upper lung Examination Category Sub-Category Detail Notes Category Not es Cardiology Lungs: clear, no rales or wheezes HEENT: unremarkable Heart sounds: RRR, normal S1, S2 Extremities: no leg edema General Appearance: pleasant, NAD
--- OUTSIDE RECORDS SUMMARY | 2025-02-15 07:45 | XMS_ITS ---
Author Organization [facility] Address [address] [facility] [address] [place] [id number] Care Team Providers Care Bundle Packer Name Role Phone Ann-Marie Devriesian Primary Care Provider Allergies Allergen (clinical drug ingredient) Drug/Non Drug Allergy documented on EMR Reaction Allergy Type Onset Date Status tizanidine Zanaflex Hallucinations Drug Allergy A ctive Results Component Value Reference Range Notes CBC Venipuncture (in house) Reviewed date:02/15/2025 01:05:52 PM Interpretation: Performing Lab: Notes/Report: wbc 11.2 3.5 - 10 lymph 16.5% 15 - 50 mid 4.2% 2 - 15 gran 79.3% 35 - 80 rbc 2.45 3.5 - 5.5 hgb 7.5 11.5 - 16.5 hct 21.6 35 - 55 mcv 88.1 75 - 100 mch 30.5 25 - 35 mchc 34.7 31 - 38 platlet 248 100 - 400 P-Amylase Reviewed date:02/17/2025 09:41:59 AM Interpretation:Normal Performing Lab: Notes/Report: Test performed by [facility] [address] [place], [place] [address] , [address], [place] [address] Jeff Valle MD, Raimann Machine Operator CLIA: [id number] Amylase 43 28-100 U/L P-Comprehensive Metabolic Pa paul (CMP) Reviewed date:02/17/2025 09:41:59 AM Interpretation:gluc 139, bun 31, prot 5.7,a/g 2.6 Performing Lab: Notes/Report: Test performed by [facility] [address] [place], [place] [address] , [address], [place] [address] Jeff Valle MD, Raimann Machine Operator CLIA: [id number] Sodium 139 135-145 mmol/L Potassium 4.4 3.5-5.3 mmol/L Chloride 101 97-108 mmol/L CO2 24 20-32 mmol/L Glucose 139 65-99 mg/dL BUN 31 8-23 mg/dL Creatinine 0.61 0.50-1.00 mg/dL Calcium 10.0 8.6-10.4 mg/dL eGFR by Creatinine 91 >59 mL/min/1.73m2 Protein 5.7 6.0-8.3 g/dL Albumin 4.1 3.5-5.3 g/dL Alkaline Phosphatase 49 35-121 IU/L ALT (SGPT) 8 <5-47 IU/L AST (SGOT) 15 <5-40 IU/L Bilirubin, Total 0.4 <0.2-1.2 mg/dL A/G Ratio 2.6 1.1-2.5 P-Lipase Reviewed date:02/17/2025 09:41:59 AM Interpretation:Normal Performing Lab: Notes/Report: Test performed by [facility] [address] , [address], [place] [address] Jeff Valle MD, Raimann Machine Operator CLIA: [id number] Lipase 18.0 13.0-60.0 U/L REASON FOR VISIT d/c f/u from [facility] Medications Medication SIG (Take, Route, Frequency, Duration) Notes Start Date End Date Status Meloxicam 15 MG 1 tablet Orally Once a day Active Eliquis 2.5 MG as directed Orally Active Rosuvastatin Calcium 20 MG 1 tablet Oral ly Once a day; Duration: 90 days Active Acetaminophen 500 MG 1 tablet as needed Orally every 8 hrs Active Estradiol 0.1 MG/GM as directed Vaginal Two times a Week Active Trospium Chloride 20 MG 1 tab(s) Orally Two times a day; Duration: 30 day(s) Active Lisinopril 20 MG 1 tab(s) orally once a day; Duration: 90 days Active metFORMIN HCl ER 500 MG 2 TABLETS Orally Two times a day; Duration: 90 days Active Meclizine HCl 25 MG 1 tablet as needed Orally every 12 hrs 11/07/2023 Active metroNIDAZOLE 500 MG 1 tablet Orally Two times a day; Duration: 7 days 07/22/2024 Active Vitamin C 500 MG 1 tab(s) chewed once a day Active B-12 1000 MCG 1 tab(s) orally once a day OTC 12/30/2019 Active Vitamin D3 250 MCG (82342 UT) 2 cap(s) orally twice a week 06/26/2017 Active Vital Signs Blood pressure systolic 90 mm Hg 02/16/20 25 Blood pressure diastolic 50 mm Hg 025 Heart Rate 60 /min 02/15/2025 Height 68 in 02/15/2025 Weight 153 lbs 02/15/2025 BMI 23.26 kg/m2 02/15/2025 Encounters Encounter Location Date Provider Diagnosis [facility] [address] [place] [id number] 02/15/2025 Fransisco Devries History of arthropla sty of right hip Z96.641 ; Nausea R11.0 ; Acute diarrhea R19.7 ; Anemia due to acute blood loss D62 and BMI 23.0-23.9, adult Z68.23 Assessments Encounter Date Diagnosis (ICD Code) Assessment Notes Treatment Notes Treatment Clinical Notes Section Notes 02/15/2025 History of arthroplasty of right hip (ICD-10 - Z96.641) 02/15/2025 Nausea (ICD-10 - R11.0) 02/15/2025 Acute diarrhea (ICD-10 - R19.7) 02/15/2025 Anemia due to acute blood loss (ICD-10 - D62) Admit to [facility] for further management, see admit H&P 02/15/2025 BMI 23.0-23.9, adult (ICD-10 - Z68.23) 02/15/2025 Other Discharge summary with available lab/diagnostic imaging results obtained and reviewed. Discharge medication list reconciled. Appropriate counseling provided. Moderate Complexity Plan Of Treatment Treatment Notes Assessment Notes Anemia due to acute blood loss Admit to [facility] for further management, see admit H&P Other Discharge summary wi th available lab/diagnostic imaging results obtained and reviewed. Discharge medication list reconciled. Appropriate counseling provided. Moderate Complexity Next Appt Details Follow Up: prn, Reason: Provider Name:Fransisco Logan ry, 06/14/2025 09:15:00 AM, [address], [address], [place], [place], [id number], Progress Notes * KATHLEEN OSEIDOB: [birth year] (79 yo F)Acc No.[id number]:02/15/2025 Patient: KATHLEEN PAUL Provider: Patricia Devries M.D. :1945 A ge:79 Y S ex:Female Date:02/15/2025 Address:[address] [place], [id number] Subjective: * Chief Complaints: * 1 . d/c f/u from [facility]. * HPI: H PI: Patient is here today for a Transition of Care Visit. Discharge from the following Facility: [facility] following overnight admission with revision of total hip arthroplasty. Patient has follow up with surgeon on 01/25/2025 and has been followed by Home Health since discharge. D ischarge date: 02/01/2025 ,Date of phone contact following discharge: 02/02/2025. Pt states she is doing well and has not had any pain in hip since d/c. G astroenterology: c/o Blood in Stool P t was d/c from hospital 02/02 and started on Eliquis 2.5mg. Pt states she had liquid black stool on Friday and solid black stool this morning . * ROS: D ERMATOLOGY: no R mellisa. [...] Diagno stic Procedure: H ip Revision- [facility] 01/21-, Chest Pain, Reaction to Zanaflex- [facility] 12/2018. * Family History: F ather: , [...] aunt: . S iblings: alive, diagnosed with Stroke, Heart Disease. 1 brother(s) , 2 sister(s) . . Children are Adopted. * Social History: C URRENT TOBACCO USE: No S moking Status: P atient does NOT smoke, F ormer Smoker:?Yes. M arital Status: Single, . Alcohol: very occasional. * Medications: T aking Meloxicam 15 MG Tablet 1 tablet Orally Once a day , Taking Eliquis 2.5 MG Tablet as directed Orally , Taking Acetaminophen 500 MG Tablet 1 tablet as needed Orally every 8 hrs , Taking Estradiol 0.1 MG/GM Cream as directed Vaginal Two times a Week , Taking Vitamin D3 250 MCG (80039 UT) Capsule 2 cap(s) orally twice a week , Taking Vitamin C 500 MG Tablet Chewable 1 tab(s) chewed once a day , Taking B-12 1000 MCG Tablet 1 tab(s) orally once a day , Notes to Pharmacist: OTC, Taking Meclizine HCl 25 MG Tablet 1 tablet as needed Orally every 12 hrs , Taking metroNIDAZOLE 500 MG Tablet 1 tablet Orally Two times a day , Taking Trospium Chloride 20 MG Tablet 1 tab(s) Orally Two times a day , Taking Lisinopril 20 MG Tablet 1 tab(s) orally once a day , Taking metFORMIN HCl ER 500 MG Tablet Extended Release 24 Hour 2 TABLETS Orally Two times a day , Taking Rosuvastatin Calcium 20 MG Tablet 1 tablet Orally Once a day , Medication List reviewed and reconciled with the patient * Allergies: Z anaflex: Hallucinations. Objective: * Vitals: W t: 153, Temp: 98.0, BP: 90/50, HR: 60, Nurse: isabelle, Ht: 68, BMI:23.26. * Examination: G eneral Examination: General Appearance: N AD, appears not to feel well, using a walker to assist with ambulation. H eart: R SR. L ungs: c lear to auscultation.?Abdomen: b owel sounds present, soft and nontender. P eripheral pulses: n ormal (2+) bilaterally. Assessment: * Assessment: 1. H istory of arthroplasty of right hip - Z96.641 (Primary) 2 . N ausea - R11.0 3 . A cute diarrhea - R19.7 4 . A nemia due to acute blood loss - D62 5 . B ND 23.0-23.9, adult - Z68.23 Plan: * Treatment: Value Reference Range A mylase 43 28-100 - U/L * Tenisha Vega 02/17/2025 09:4 1:53 AM EDT > See phone encounter ?LAB: P-Comprehensive Metabolic Panel (CMP) (Collection Date & Time - 02/15/2025 11:09 AM)?gluc 139, bun 31, prot 5.7,a/g 2.6* Value Reference Range A /G Ratio 2.6 H 1.1-2.5 - * A lbumin 4.1 3.5-5.3 - g/dL * A lkaline Phosphatase 49 35-121 - IU/L * A LT (SGPT) 8 <5-47 - IU/L * A ST (SGOT) 15 <5-40 - IU/L * B ilirubin, Total 0.4 <0.2-1.2 - mg/dL * B UN 31 H 8-23 - mg/dL * C alcium 10.0 8.6-10.4 - mg/dL * C hloride 101 97-108 - mmol/L * C O2 24 20-32 - mmol/L * C reatinine 0.61 0.50-1.00 - mg/dL * G lucose 139 H 65-99 - mg/dL * P otassium 4.4 3.5-5.3 - mmol/L * S odium 139 135-145 - mmol/L * P rotein 5.7 L 6.0-8.3 - g/dL * e GFR by Creatinine 91 >59 - mL/min/1.73m2 * Tenisha Vega 02/17/2025 09:4 1:53 AM EDT > See phone encounter ?LAB: P-Lipase (Collection Date & Time - 02/15/2025 11:09 AM)?Normal* Value Reference Range L ipase 18.0 13.0-60.0 - U/L * Tenisha Vega 02/17/2025 09:4 1:53 AM EDT > See phone encounter 2.?Acute diarrhea?LAB: P-Comprehensive Metabolic Panel (CMP) (Collection Date & Time - 02/15/2025 11:09 AM)?gluc 139, bun 31, prot 5.7,a/g 2.6* Value Reference Range A /G Ratio 2.6 H 1.1-2.5 - * A lbumin 4.1 3.5-5.3 - g/dL * A lkaline Phosphatase 49 35-121 - IU/L * A LT (SGPT) 8 <5-47 - IU/L * A ST (SGOT) 15 <5-40 - IU/L * B ilirubin, Total 0.4 <0.2-1.2 - mg/dL * B UN 31 H 8-23 - mg/dL * C alcium 10.0 8.6-10.4 - mg/dL * C hloride 101 97-108 - mmol/L * C O2 24 20-32 - mmol/L * C reatinine 0.61 0.50-1.00 - mg/dL * G lucose 139 H 65-99 - mg/dL * P otassium 4.4 3.5-5.3 - mmol/L * S odium 139 135-145 - mmol/L * P rotein 5.7 L 6.0-8.3 - g/dL * e GFR by Creatinine 91 >59 - mL/min/1.73m2 * Tenisha Vega 02/17/2025 09:4 1:53 AM EDT > See phone encounter ?LAB: CBC Venipuncture (in house) (Collection Date & Time - 02/15/2025)* Value Reference Range w bc 11.2 3.5 - 10 * l ymph 16.5% 15 - 50 * m id 4.2% 2 - 15 * g ran 79.3% 35 - 80 * r bc 2.45 3.5 - 5.5 * h gb 7.5 11.5 - 16.5 * h ct 21.6 35 - 55 * m cv 88.1 75 - 100 * m ch 30.5 25 - 35 * m chc 34.7 31 - 38 * p latlet 248 100 - 400 * Kimberly 02/15/2025 12:37:4 4 PM EDT > Provider reviewed results while patient in office. 3.?Anemia due to acute blood loss? Notes: Admit to [facility] for further management, see admit H&P??4.?Others? Notes: Discharge summary with available lab/diagnostic imaging results obtained and reviewed. Discharge medication list reconciled. Appropriate counseling provided. Moderate Complexity?? * Procedure Codes: 8 5025 CBC WITH AUTO DIFF, 39100 CAPILLARY BLOOD DRAW * Follow Up: p rn * Images: Billing Information: * Visit Code: * Procedure Codes: 77560 CBC WITH AUTO DIFF. 71282 CAPILLARY BLOOD DRAW. * Electronic signature of Rosie Devries MD on 05/03/2025 at 09:18 AM EDT Sign off status: Pending * Provider: Patricia Devries M.D. Date: 0 02/15/2025 Generated for Irina villeda/Judy/Josee on: 0 05/03/2025 09:18 AM EDT History and Physical Notes * HPI (History of Present Illness) Category Sub-Category Detail Notes Category Not es Gastroenterology Blood in Stool Pt was d/c from hospital 02/02 and started on Eliquis 2.5mg. Pt states she had liquid black stool on Friday and solid black stool this morning HPI Patient is here today for a [facility] of Care Visit. Discharge from the following Facility: [facility] following overnight admission with revision of total hip arthroplasty. Patient has follow up with surgeon on 01/25/2025 and has been followed by Home Health since discharge. Discharge date: 02/01/2025 ,Date of phone contact following discharge: 02/02/2025. Pt states she is doing well and has not had any pain in hip since d/c Examination Category Sub-Category Detail Notes Category Not es General Examination Heart: RSR Lungs: clear to auscultatio n Abdomen: bowel sounds present , soft and nontender General Appearance: NAD, appears not to feel well, using a walker to assist with ambulation Peripheral pulses: normal (2+) bilatera lly
--- OUTSIDE RECORDS SUMMARY | 2025-03-03 07:45 | XMS_ITS ---
Author Organization [facility] Address [address] [place] [id number] Care Team Providers Care Butter Printer Name Role Phone Fransisco Devries Primary Care Provider Allergies Allergen (clinical drug ingredient) Drug/Non Drug Allergy documented on EMR Reaction Allergy Type Onset Date Status tizanidine Zanaflex Hallucinations Drug Allergy A ctive Results Component Value Reference Range Notes CBC Fingerstick (in house) Reviewed date:03/03/2025 12:34:46 PM Interpretation: Performing Lab: Notes/Report: wbc 9.9 3.5 - 10 lym 24.8% 15 - 50 mid 6.1% 2 - 15 gran 69.1% 35 - 80 rbc 3.85 3.5 - 5.5 hgb 11.8 11.5 - 16.5 hct 34.6 35 - 55 mcv 89.7 75 - 100 mch 30.6 25 - 35 mchc 34.1 31 - 38 plat 102 100 - 400 REASON FOR VISIT [facility] f/u Medications Medication SIG (Take, Route, Frequency, Duration) Notes Start Date End Date Status Pantoprazole Sodium 40 MG 1 tablet 1/2 t o 1 hour before morning meal Orally Once a day Active Aspirin 81 MG 1 tablet Orally Once a day Active Acetaminophen 500 MG 1 tablet as needed Orally every 8 hrs Active Lisinopril 20 MG 1 tab(s) orally once a day; Duration: 90 days Active metFORMIN HCl ER 500 MG 2 TABLETS Orally Two times a day; Duration: 90 days Active Rosuvastatin Calcium 20 MG 1 tablet Oral ly Once a day; Duration: 90 days Active Feosol Bifera 28 MG 1 tablet Orally Once a day Active Vitamin D3 125 MCG (5000 UT) 2 cap(s) or ally 3 capsules twice weekly 06/26/2017 Active Vitamin C 1000 MG 1 tablet Orally Once a day Active Estradiol 0.1 MG/GM as directed Vaginal Two times a Week Active Problems Problem Type SNOMED Code ICD Code Onset Dates Problem Status W/U Status Risk Notes Problem Anemia (918957509) Anemia, unspecified type (D64.9) Active confirmed Problem Peptic ulcer disease (61655349) Peptic ulcer disease (K27.9) Active confirmed Vital Signs Blood pressure systolic 122 mm Hg 03/03/20 25 Blood pressure diastolic 72 mm Hg 025 Heart Rate 93 /min 03/03/2025 Height 68 in 03/03/2025 Weight 151.8 lbs 03/03/2025 BMI 23.08 kg/m2 03/03/2025 Encounters Encounter Location Date Provider Diagnosis [facility] [address] [facility] [address] [facility] [address] [place], [place] [id number] 03/03/2025 Fransisco Devries Anemia, unspecified type D64.9 ; Peptic ulcer disease K27.9 and BMI 23.0-23.9, adult Z68.23 Assessments Encounter Date Diagnosis (ICD Code) Assessment Notes Treatment Notes Treatment Clinical Notes Section Notes 03/03/2025 Anemia, unspecified type (ICD-10 - D64.9) 03/03/2025 Peptic ulcer disease (ICD-10 - K27.9) 03/03/2025 BMI 23.0-23.9, adult (ICD-10 - Z68.23) Plan Of Treatment Next Appt Details Follow Up: 6 Weeks, Reason: Provider Name:Fransisco Logan ry, 06/14/2025 09:15:00 AM, [address] [facility] [address] [facility], [address], [place], [place], [phone], Progress Notes * KATHLEEN CORTESDOB: 7 (79 yo F)Acc No.[id number]:03/03/2025 Progress Notes Patient: KATHLEEN PAUL Provider: Patricia Devries M.D. :1945 A ge:79 Y S ex:Female Date:03/03/2025 Address:[address] [place], [place] [address], [id number] Subjective: * Chief Complaints: * 1 . [facility] f/u. * HPI: H PI: 79 year old female presents with c/o Here for follow up on:?02/16-05/2025 [facility] hospitalization. Pt was admitted black stool, GI bleed. Pt states she is feeling better but still feels pretty weak. * ROS: D ERMATOLOGY: no R mellisa. [...] Hospitalization/Major Diagno stic Procedure: [facility] Chest Pain, Reaction to Zanaflex- [facility] 12/2018. * Family History: F ather: [...] Alcohol: very occasional. * Medications: T aking Feosol Bifera 28 MG Tablet 1 tablet Orally Once a day , Taking Pantoprazole Sodium 40 MG Tablet Delayed Release 1 tablet 1/2 to 1 hour before morning meal Orally Once a day , Taking Aspirin 81 MG Tablet Delayed Release 1 tablet Orally Once a day , Taking Acetaminophen 500 MG Tablet 1 tablet as needed Orally every 8 hrs , Taking Estradiol 0.1 MG/GM Cream as directed Vaginal Two times a Week , Taking Vitamin D3 125 MCG (5000 UT) Capsule 2 cap(s) orally 3 capsules twice weekly , Taking Vitamin C 1000 MG Tablet 1 tablet Orally Once a day , Taking Lisinopril 20 MG Tablet 1 tab(s) orally once a day , Taking metFORMIN HCl ER 500 MG Tablet Extended Release 24 Hour 2 TABLETS Orally Two times a day , Taking Rosuvastatin Calcium 20 MG Tablet 1 tablet Orally Once a day , Discontinued Meloxicam 15 MG Tablet 1 tablet Orally Once a day , Discontinued Eliquis 2.5 MG Tablet as directed Orally , Discontinued B-12 1000 MCG Tablet 1 tab(s) orally once a day , Notes to Pharmacist: OTC, Discontinued Meclizine HCl 25 MG Tablet 1 tablet as needed Orally every 12 hrs , Discontinued metroNIDAZOLE 500 MG Tablet 1 tablet Orally Two times a day , Discontinued Trospium Chloride 20 MG Tablet 1 tab(s) Orally Two times a day , Medication List reviewed and reconciled with the patient * Allergies: Z anaflex: Hallucinations. Objective: * Vitals: W t: 151.8, Temp: 97.8, BP: 122/72, HR: 93, Nurse: isabelle, Ht: 68, BMI:23.08. * Examination: G eneral Examination: General Appearance: N AD, using a walker to assist with ambulation. H eart: R SR. L ungs: c lear to auscultation. Assessment: * Assessment: 1. A nemia, unspecified type - D64.9 (Primary) 2 . P eptic ulcer disease - K27.9 3 . B SD 23.0-23.9, adult - Z68.23 Plan: * Treatment: Value Reference Range w bc 9.9 3.5 - 10 * l ym 24.8% 15 - 50 * m id 6.1% 2 - 15 * g ran 69.1% 35 - 80 * r bc 3.85 3.5 - 5.5 * h gb 11.8 11.5 - 16.5 * h ct 34.6 35 - 55 * m cv 89.7 75 - 100 * m ch 30.6 25 - 35 * m chc 34.1 31 - 38 * p lat 102 100 - 400 * Kimberly Sotomayor 03/03/2025 12:34: 42 PM EDT > Provider reviewed results while patient in office. * Procedure Codes: G 2211 Complex e/[place] [address] CAPILLARY BLOOD DRAW, 21825 CBC WITH AUTO DIFF, 1036F TOBACCO NON-USER, G8420 BMI<30 AND >=22 CALC & DOCU, G8783 BP SCR PRFRM RCMDD DEFIND SCR INTVL, G8752 MOST RECENT SYSTOLIC BP < 140MM HG, G8754 MOST RECENT DIASTOLIC BP < 90MM HG * Follow Up: 6 Weeks * Images: Billing Information: * Visit Code: 30486 Office Visit, Est Pt., Level 3. * Procedure Codes: G2211 Complex e/[place]. [address] CAPILLARY BLOOD DRAW. 93153 CBC WITH AUTO DIFF. 1036F TOBACCO NON-USER. G8420 BMI<30 AND >=22 CALC & DOCU. G8783 BP SCR PRFRM RCMDD DEFIND SCR INTVL. G8752 MOST RECENT SYSTOLIC BP < 140MM HG. G8754 MOST RECENT DIASTOLIC BP < 90MM HG. * Electronic signature of Rosie Devries MD on 05/03/2025 at 09:18 AM EDT Sign off status: Pending * Provider: Patricia Devries M.D. Date: 0 03/03/2025 Generated for Irina villeda/Judy/Neelaitting on: 05/03/2025 09:18 AM EDT History and Physical Notes * HPI (History of Present Illness) Category Sub-Category Detail Notes Category Not es HPI Here for follow up on: 02/16-2024 [facility] hospitalization. Pt was admitted black stool, GI bleed. Pt states she is feeling better but still feels pretty weak Examination Category Sub-Category Detail Notes Category Not es General Examination Heart: RSR Lungs: clear to auscultatio n General Appearance: NAD, using a walker to assist with ambulation
--- OUTSIDE RECORDS SUMMARY | 2025-04-06 07:45 | XMS_ITS ---
Author Organization [facility] Address [address] [facility] [address] [facility] [address] [place] [id number] Care Team Providers Care Registered Nurses Name Role Phone Ann-Marie Devriesian Primary Care Provider Allergies Allergen (clinical drug ingredient) Drug/Non Drug Allergy documented on EMR Reaction Allergy Type Onset Date Status tizanidine Zanaflex Hallucinations Drug Allergy A ctive Results Component Value Reference Range Notes Urinalysis - Inhouse Reviewed date:04/06/2025 02:06:51 PM Interpretation: Performing Lab: Notes/Report: Color/Clarity yellow/clear Leuk neg Nitrite neg Urobili 3.2 Protein neg pH 5.5 Blood trace-intact Sp. Gr. 1.025 Ketone trace Bili neg Gluc neg CBC Fingerstick (in house) Reviewed date:04/06/2025 12:32:03 PM Interpretation: Performing Lab: Notes/Report: wbc 7.0 3.5 - 10 lym 33.2 15 - 50 mid 7.0 2 - 15 gran 59.8 35 - 80 rbc 4.56 3.5 - 5.5 hgb 13.5 11.5 - 16.5 hct 40.8 35 - 55 mcv 89.5 75 - 100 mch 29.7 25 - 35 mchc 33.2 31 - 38 plat 106 100 - 400 P-Culture, Urine Reviewed date:04/08/2025 03:05:52 PM Interpretation:No growth Performing Lab: Notes/Report: Test performed by [facility] [address] [place] [address] , [address], [place] [address] Jeff Valle MD, Fingernail Technician CLIA: [id number] Specimen Source Urine - Void Culture, Urine See Below Final Report : No growth REASON FOR VISIT poss UTI Medications Medication SIG (Take, Route, Frequency, Duration) Notes Start Date End Date Status Vitamin C 1000 MG 1 tablet Orally Once a day Active metFORMIN HCl ER 500 MG 2 TABLETS Orally Two times a day; Duration: 90 days Active Lisinopril 20 MG 1 tab(s) orally once a day; Duration: 90 days Active ProFe 391.3 (180 Fe) MG 1 capsule Orally daily; Duration: 30 days 03/18/2025 Not-Taking Rosuvastatin Calcium 20 MG 1 tablet Oral ly Once a day; Duration: 90 days Active Acetaminophen 500 MG 1 tablet as needed Orally every 8 hrs Active Aspirin 81 MG 1 tablet Orally Once a day Active Vitamin D3 125 MCG (5000 UT) 2 cap(s) orally 3 capsules twice weekly 06/26/2017 Active Estradiol 0.1 MG/GM as directed Vaginal Two times a Week Active Pantoprazole Sodium 40 MG 1 tablet 1/2 t o 1 hour before morning meal Orally Once a day Active Ferrous Sulfate 325 (65 Fe) MG 1 tablet Orally Three times a Week Active Vital Signs Blood pressure systolic 154 mm Hg 04/06/20 25 Blood pressure diastolic 84 mm Hg 025 Heart Rate 76 /min 04/06/2025 Height 68 in 04/06/2025 Weight 155.6 lbs 04/06/2025 BMI 23.66 kg/m2 04/06/2025 Encounters Encounter Location Date Provider Diagnosis [facility] [address] [id number] 04/06/2025 Fransisco Harrah Dysuria R30.0 ; Microscopic hematuria R31.29 ; Anemia, unspecified type D64.9 ; Peptic ulcer disease K27.9 and Primary insomnia F51.01 Assessments Encounter Date Diagnosis (ICD Code) Assessment Notes Treatment Notes Treatment Clinical Notes Section Notes 04/06/2025 Dysuria (ICD-10 - R30.0) 04/06/2025 Microscopic hematuria (ICD-10 - R31.29) 04/06/2025 Anemia, unspecified type (ICD-10 - D64.9) 04/06/2025 Peptic ulcer disease (ICD-10 - K27.9) 04/06/2025 Primary insomnia (ICD-10 - F51.01) Plan Of Treatment Pending Test Test Name Order Date EGD 04/06/2025 Next Appt Details Follow Up: via phone to repo rt progress, Reason: Provider Name:Fransiscominh Arriagacullen ry, 06/14/2025 09:15:00 AM, [address], [address], [place], [id number], Progress Notes * KATHLEEN OSEIDOB: 7 (79 yo F)Acc No.[id number]:04/06/2025 Progress Notes Patient: KATHLEEN PAUL Provider: Patricia Devries M.D. :1945 A ge:79 Y S ex:Female Date:04/06/2025 Address:[facility] [address], [place], [id number] Subjective: * Chief Complaints: * 1 . poss UTI. * HPI: U rology: UTI P t presents today with c/o burning when urine touches the outside of genitals. Pt sts that she has Hx of UTI's so always likes to check for a UTI but sts that she is just having some uncomfortable sensation after she urinates. Pt sts that she may have washed herself too hard and has caused irritation. Pt sts that she does not feel that the Estradiol cream is helping like it is supposed to be.. * ROS: D ERMATOLOGY: no R mellisa. [...] Diagno stic Procedure: H ip Revision- [facility] 01/21-, Chest Pain, Reaction to Zanaflex- [facility] 12/2018. * Family History: F ather: [...] Alcohol: very occasional. * Medications: T aking Ferrous Sulfate 325 (65 Fe) MG Tablet 1 tablet Orally Three times a Week , Taking Pantoprazole Sodium 40 MG Tablet [...] 1 tablet Orally Once a day , Not-Taking ProFe 391.3 (180 Fe) MG Capsule 1 capsule Orally daily , Medication List reviewed and reconciled with the patient * Allergies: Z anaflex: Hallucinations. Objective: * Vitals: W t: 155.6, Temp: 98.1, BP: 154/84, HR: 76, Nurse: MERCEDES/TOPHER, Ht: 68, BMI:23.66. * Examination: G eneral Examination: General Appearance: N AD. H eart: R SR. L ungs:?clear to auscultation. P eripheral pulses: n ormal (2+) bilaterally. E xtremities:?no leg edema. Assessment: * Assessment: 1. D ysuria - R30.0 (Primary) 2 . M icroscopic hematuria - R31.29 ? 3 . A nemia, unspecified type - D64.9 4 . P eptic ulcer disease - K27.9 5 . P rimary insomnia - F51.01 Plan: * Treatment: Value Reference Range C ulture, Urine See Below - * S pecimen Source Urine - Void - * Kimberly Sotomayor 04/08/2025 03:05: 29 PM EDT > Pt notified ?LAB: Urinalysis - Inhouse (Collection Date & Time - 04/06/2025)* Value Reference Range C olor/Clarity yellow/clear * L euk neg * N itrite neg * U robili 3.2 * P rotein neg * p H 5.5 * B lood trace-intact * S p. Gr. 1.025 * K etone trace * B mercedes neg * G monisha neg * ChavaMichelle 04/06/2025 02: 06:40 PM EDT > results reviewed w/ pt in office 2.?Microscopic hematuria?LAB: P-Culture, Urine (Collection Date & Time - 04/06/2025 11:22 AM)?No growth* Value Reference Range C ulture, Urine See Below - * S pecimen Source Urine - Void - * Kimberly Sotomayor 04/08/2025 03:05: 29 PM EDT > Pt notified 3.?Anemia, unspecified type?LAB: CBC Fingerstick (in house) (Collection Date & Time - 04/06/2025)* Value Reference Range w bc 7.0 3.5 - 10 * l ym 33.2 15 - 50 * m id 7.0 2 - 15 * g ran 59.8 35 - 80 * r bc 4.56 3.5 - 5.5 * h gb 13.5 11.5 - 16.5 * h ct 40.8 35 - 55 * m cv 89.5 75 - 100 * m ch 29.7 25 - 35 * m chc 33.2 31 - 38 * p lat 106 100 - 400 * Michelle Larsen 04/06/2025 12: 31:46 PM EDT > results reviewed w/ pt in office 4.?Peptic ulcer disease?Imaging: EGD* Follow up Scottybenson [place] 04/07/2025 10:24:44 AM EDT > faxed to Dr. White office * Procedure Codes: G 2211 Complex e/[place], [address] Urinalysis, no micro, [address] CAPILLARY BLOOD DRAW, 46068 CBC WITH AUTO DIFF * Follow Up: v ia phone to report progress * Images: Billing Information: * Visit Code: 82848 Office Visit, Est Pt., Level 4. * Procedure Codes: G2211 Complex e/[place]. [address] Urinalysis, no micro. [address]1359 CAPILLARY BLOOD DRAW. 83551 CBC WITH AUTO DIFF. * Electronic signature of Rosie Devries MD on 05/03/2025 at 09:18 AM EDT Sign off status: Pending * Provider: Patricia Devries M.D. Date: 0 04/06/2025 Generated for Irina villeda/Judy/Neelaitting on: 0 05/03/2025 09:18 AM EDT History and Physical Notes * HPI (History of Present Illness) Category Sub-Category Detail Notes Category Not es Urology UTI Pt presents toda y with c/o burning when urine touches the outside of genitals. Pt sts that she has Hx of UTI's so always likes to check for a UTI but sts that she is just having some uncomfortable sensation after she urinates. Pt sts that she may have washed herself too hard and has caused irritation. Pt sts that she does not feel that the Estradiol cream is helping like it is supposed to be. Examination Category Sub-Category Detail Notes Category Not es General Examination Heart: RSR Lungs: clear to auscultatio n Extremities: no leg edema General Appearance: NAD Peripheral pulses: normal (2+) bilatera lly
--- OUTSIDE RECORDS SUMMARY | 2025-04-14 06:30 | XMS_ITS ---
Author Organization [facility] Address [address] [facility] [address] [place] [id number] Care Team Providers Care Reactor Fueling Supervisor Name Role Phone Fransisco Devreis Primary Care Provider REASON FOR VISIT Encounters Encounter Location Date Provider Diagnosis [facility] [address] [place] [id number] 04/14/2025 Fransisco Devries Plan Of Treatment Next Appt Details Provider Name:Fransisco Logan ry, 06/14/2025 09:15:00 AM, [address], [address], [place], [place], [id number], Progress Notes * KATHLEEN OSEIDOB: (79 yo F)Acc No.[id number]:04/14/2025 Progress Notes Patient: KATHLEEN PAUL Provider: Patricia Devries M.D. :1945 A ge:79 Y S ex:Female Date:04/14/2025 Address:[address] [place], [id number] Subjective: * Chief Complaints: * 1 . . * Medical History: Objective: * Vitals: Assessment: Plan: * Treatment: * Images: Billing Information: * Visit Code: * Procedure Codes: * Electronic signature of Rosie Devries MD on 05/03/2025 at 09:18 AM EDT Sign off status: Pending * Provider: Patricia Devries M.D. Date: 0 04/14/2025 Generated for Irina villeda/Judy/Neelaitting on: 0 05/03/2025 09:18 AM EDT
--- OUTSIDE RECORDS SUMMARY | 2025-05-03 09:18 | XMS_ITS | Encounter Summary ---
Author Organization [employer] ([place], [place], [place], [place]) Address [address] [place] [address] Care Team Providers Care Copyist Name Role Phone Fransisco Devries MD Primary Care Provider + [phone] Encounter Details Date Type Department Care Team (Late st Contact Info) Description 02/01/2025 Community [facility] EpicCare Link [address] [place] [address] Daquan Peraza MD [address] [facility] 2ND Floor [place] [id number] Social History Tobacco Use Types Packs/Day Years [...] living situation today? I have a [facility] place to live 01/31/2025 Think about the [...] Do you speak a language other than [facility]? No 01/31/2025 Do you want help with [...] on filedocumented in this encounter Care Teams Copyist Relationship Specialty Start Date End Date Fransisco Devries MD [address] [facility] [address] [place] [address] PCP - General Family Medicine 01/27/25 documented as of this encounter
--- OUTSIDE RECORDS SUMMARY | 2025-05-03 09:18 | XMS_ITS | Clinical Summary ---
Author Organization [employer] ([place], [place], [place], [place]) Address [address] [place] [address] Care Team Providers Care Turret Lathe Tender Name Role Phone Fransisco Devries MD Primary Care Provider + [phone] Allergies Active Allergy Reactions Criticality Noted Date [...] Type Department Care Team Description 02/01/2025 [facility] EpicCare Link [address] [place] [address] Daquan Peraza MD 01/31/2025 12:30 PM EDT - 01/31/2025 3:11 PM EDT Surgery [facility] Surgery Department [address] [place] [address] Daquan Peraza MD RIGHT POSTERIOR TOTAL HIP ARTHROPLASTY REVISION 01/31/2025 11:44 AM EDT Anesthesia Event [facility] Surgery Department [address] [place] [address] Dana Mix CRNA Qureshi, Hera Fatima, DO 01/31/2025 8:15 AM EDT - 02/01/2025 4:01 PM EDT Hospital Encounter [facility] Telemetry Unit [address] [place] [address] Daquan Peraza MD Failed total hip arthroplasty, initial encounter (HCC) (Primary Dx); 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 No 01/31/2025 Do you want help [...] 06/29/2018, 06/26/2017 Medical Devices Implanted Type Area Supervisor [employer] Device Identifier Shelf Expiration Date Model / Serial / Lot Liner Acet Pinn Neut +4 28 50m 1218-28-650 - [id number] Implanted:Qty : 1 on 01/31/2025 by Daquan Peraza MD at [facility] TOTAL JOINT CONSTRUCT Right: Hip J &J:DEPUY:DEPUY ORTHOPAEDIC 04/10/2028 1218-28-6 50 / / [id number] Head Fem Artc Ceramic 28 1365-28-740 - [id number] Implanted:Qty : 1 on 01/31/2025 by Daquan Peraza MD at [facility] TOTAL JO[employer]STRU[employer] Right: Hip J &J:DEPUY:DEPUY ORTHOPAEDIC 08/10/2029 1365-28-7 40 / / [id number] Procedures Procedure Name Priority Date/Time Associated Diagnosis [...] ([place] BKR) Routine 01/31/2025 12:02 PM EDT [facility] ANESTHESIA SPINAL BLOCK Routine 01/31/2025 11:46 AM EDT [place] REVJ TOT HIP ARTHRP BTH W/WO AGRFT/ALGRFT 01/31/2025 11:44 AM EDT 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 POC-GLUCOSE 217(H) 70 - 110 mg/dL 02/01/2025 11:18 AM EDT [facility] Comment: In the event of poor peripheral blood flow, venous or arterial blood should be used due to the potential of erroneous results. Notified Nurse RBV Adjunct English Instructor [phone] 02/01/2025 11:18 AM EDT [facility] Blood WHOLE BLOOD / Unknown 02/01/2025 11:17 AM EDT 02/01/2025 11:18 AM EDT Narrative [facility] - 02/01/2025 11:18 AM EDT Adjunct English Instructor ID is - [id number] us Daquan Peraza MD POINT OF CARE TEST ORDERABLES Fi nal Result [facility] [address] [phone] * (ABNORMAL) CBC - Hemogram (02/01/2025 8:14 AM EDT) Only the most recent of2 resultswithin the time period is included. WBC 10.9(H) 3.9 - 10.0 K/ L 02/01/2025 9:12 AM EDT [facility] RBC 4.43 3.93 - 5.22 M/ L 02/01/2025 9:12 AM EDT [facility] Hemoglobin 12.8 11.2 - 15.7 GM/DL 02/01/2025 9:12 AM EDT [facility] Hematocrit 39.2 34.1 - 44.9 % 02/01/2025 9:12 AM EDT [facility] MCV 89 79 - 95 fL 02/01/2025 9:12 AM EDT [facility] MCH 28.9 25.6 - 32.2 pg 02/01/2025 9:12 AM EDT [facility] MCHC 32.7 32.2 - 36.5 GM/DL 02/01/2025 9:12 AM EDT [facility] RDW 12.9 11.6 - 14.4 % 02/01/2025 9:12 AM EDT [facility] Platelets 166 163 - 369 K/CU MM 02/01/2025 9:12 AM EDT [facility] MPV 9.7 9.4 - 12.4 fL 02/01/2025 9:12 AM EDT [facility] Blood Venipuncture / Unknown 02/01/2025 8:14 AM EDT 02/01/2025 8:15 AM EDT us Daquan Peraza MD LAB BLOOD ORDERABLES Final Resul t [facility] [address] [facility] [phone] * (ABNORMAL) Basic Metabolic Panel (02/01/2025 8:14 AM EDT) Sodium 138 136 - 146 meq/L 02/01/2025 9:39 AM EDT [facility] Potassium 4.1 3.5 - 5.1 meq/L 02/01/2025 9:39 AM EDT [facility] Chloride 109 102 - 112 meq/L 02/01/2025 9:39 AM EDT [facility] CO2 24 21 - 32 meq/L 02/01/2025 9:39 AM EDT [facility] Anion Gap 9 9 - 20 02/01/2025 9:39 AM EDT [facility] BUN 13 7 - 22 mg/dL 02/01/2025 9:39 AM EDT [facility] Creatinine 0.83 0.55 - 1.02 mg/dL 02/01/2025 9:39 AM EDT [facility] BUN/Creatinine 16 8 - 20 02/01/2025 9:39 AM EDT [facility] Glucose 178(H) 74 - 106 mg/dL 02/01/2025 9:39 AM EDT [facility] Calcium 8.8 8.5 - 10.1 mg/dL 02/01/2025 9:39 AM EDT [facility] Osmolality Calc 280.2 mOsm/kg 9:39 AM EDT [facility] eGFR (mL/min/1.73m2) >60 >=60 mL/min/1.7 3m2 02/01/2025 9:39 AM EDT [facility] Comment:eGFR of <60 suggests chronic kidney disease if found over a 3 month period of time. eGFR <15 indicates renal failure. Blood Venipuncture / Unknown 02/01/2025 8:14 AM EDT 02/01/2025 8:15 AM EDT us Daquan Peraza MD LAB BLOOD ORDERABLES Final Resul t [facility] [address] [phone] * Hemoglobin and Hematocrit (02/01/2025 4:43 AM EDT) Hemoglobin 12.1 11.2 - 15.7 GM/DL 02/01/2025 4:58 AM EDT [facility] Hematocrit 36.2 34.1 - 44.9 % 02/01/2025 4:58 AM EDT [facility] Blood Venipuncture / Unknown 02/01/2025 4:43 AM EDT 02/01/2025 4:48 AM EDT Daquan Peraza MD LAB BLOOD ORDERABLES Final Resul t [facility] [address] [phone] * X-ray pelvis portable (01/31/2025 2:16 PM [...] RETYPE O POSITIVE 01/31/2025 11:25 AM EDT [facility] Blood Venipuncture / Unknown 01/31/2025 12:02 PM EDT 01/31/2025 12:07 PM EDT Daquan Peraza MD [facility] B[facility]OD [facility] TEST ORDERABLES F inal Result [facility]) [address] [place] [id number], [facility] [phone] * HC SPINAL BLOCK (01/31/2025 11:46 AM [...] ABO/Rh O POSITIVE 01/31/2025 11:19 AM EDT [facility] [place] Antibody Screen Negative 01/31/2025 11:19 AM EDT [facility] [place] HISTCHK HIST CHECK PERFORMED 01/31/2025 11:19 AM EDT [facility] Blood Venipuncture / Unknown 01/31/2025 11:23 AM EDT 01/31/2025 11:45 AM EDT Domingo Moffett MD [facility] BLOOD BANK TEST ORDERABLES Edited Result - Final Performing Organization Address City/[facility]/ZIP Co de Phone Number [facility] [place]) [address] [place] [place] [address], [facility] [phone] * AFB Culture And Stain (01/31/2025 11:08 AM EDT) Only the most recent of3 resultswithin the time period is included. Result No Acid Fast Bacilli isolated at 6 weeks 03/14/2025 2:00 PM EDT [facility] AFB Smear No acid fast bacilli seen 03/14/2025 2:00 PM EDT [facility] Tissue STRUCTURE OF SYNOVIAL MEMBRANE OF JOINT / Unknown 01/31/2025 11:08 AM EDT 01/31/2025 1:11 PM EDT Narrative [facility] - 03/14/2025 2:00 PM EDT Specimen Description: Right hip synovium #3 us Daquan Peraza MD MICROBIOLOGY - GENERAL ORDERABLE S Final Result Performing Organization Address City/[facility]/ZIP Co de Phone Number [facility] [address] [place] [address], [facility] [phone] * Fungus Culture W/SOHA Or Leyla Ink (01/31/2025 11:08 AM EDT) Only the most recent of3 resultswithin the time period is included. Result No fungus isolated at 6 weeks. 03/14/2025 2:00 PM EDT [facility] SOHA Prep No fungal elements seen 03/14/2025 2:00 PM EDT [facility] Tissue STRUCTURE OF SYNOVIAL MEMBRANE OF JOINT / Unknown 01/31/2025 11:08 AM EDT 01/31/2025 1:11 PM EDT Narrative [facility] - 03/14/2025 2:00 PM EDT Specimen Description: Right hip synovium #3 Daquan Peraza MD MICROBIOLOGY - GENERAL ORDERABLE S Final Result Performing Organization Address [facility] de Phone Number [facility] [address] [phone] * Anaerobic Culture, Extended (P.acnes) (01/31/2025 11:08 AM EDT) Only the most recent of3 resultswithin the time period is included. Result No anaerobic growth at 14 days. No Cutibacterium acnes (formerly Propionibacterium acnes) isolated 02/14/2025 8:13 AM EDT [facility] Tissue STRUCTURE OF SYNOVIAL MEMBRANE OF JOINT / Unknown 01/31/2025 11:08 AM EDT 01/31/2025 1:11 PM EDT Narrative [facility] - 02/14/2025 8:13 AM EDT Specimen Description: Right hip synovium #3 Daquan Peraza MD MICROBIOLOGY - GENERAL ORDERABLE S Final Result Performing Organization Address [facility] Co de Phone Number [facility] [address] [phone] * Tissue Culture+ Stain (01/31/2025 11:08 AM EDT) Only the most recent of3 resultswithin the time period is included. Result No growth 02/03/2025 7:35 AM EDT [facility] Gram Stain Result No organisms seen 02/03/2025 7:35 AM EDT [facility] Gram Stain Result No cells seen 02/03/2025 7:35 AM EDT [facility] Tissue STRUCTURE OF SYNOVIAL MEMBRANE OF JOINT / Unknown 01/31/2025 11:08 AM EDT 01/31/2025 1:11 PM EDT [facility] - 02/03/2025 7:35 AM EDT Specimen Description: Right hip synovium #3 us Daquan Peraza MD MICROBIOLOGY - GENERAL ORDERABLE S Final Result Performing Organization Address [facility] Co de Phone Number [facility] [address] [phone] * PT/INR, PTT (01/31/2025 11:03 AM EDT) aPTT 25.9 22.0 - 32.0 seconds 01/31/2025 11:45 AM EDT [facility] Protime 10.5 9.0 - 12.0 seconds 01/31/2025 11:45 AM EDT [facility] INR 0.96 0.80 - 1.10 01/31/2025 11:45 AM EDT [facility] Blood Venipuncture / Unknown 01/31/2025 11:03 AM EDT 01/31/2025 11:24 AM EDT us Daquan Peraza MD LAB BLOOD ORDERABLES Final Resul t Performing Organization Address [facility]/ZIP Co de Phone Number [facility] [address] [phone] * (ABNORMAL) Comprehensive metabolic panel (01/31/2025 11:03 AM EDT) Sodium 140 136 - 146 meq/L 01/31/2025 11:46 AM EDT [facility] Potassium 3.8 3.5 - 5.1 meq/L 01/31/2025 11:46 AM EDT [facility] Chloride 107 102 - 112 meq/L 01/31/2025 11:46 AM EDT [facility] CO2 27 21 - 32 meq/L 01/31/2025 11:46 AM EDT [facility] Calcium 9.3 8.5 - 10.1 mg/dL 01/31/2025 11:46 AM EDT [facility] Glucose 105 74 - 106 mg/dL 01/31/2025 11:46 AM [facility] BUN 9 7 - 22 mg/dL 01/31/2025 11:46 AM [facility] Creatinine 0.56 0.55 - 1.02 mg/dL 01/31/2025 11:46 AM [facility] BUN/Creatinine 16 8 - 20 01/31/2025 11:46 AM [facility] Albumin 3.7 3.4 - 5.0 g/dL 01/31/2025 11:46 AM [facility] Alkaline Phosphatase 68 27 - 136 U/L 01/31/2025 11:46 AM [facility] ALT 16 12 - 78 U/L 01/31/2025 11:46 AM [facility] AST 19 5 - 37 U/L 01/31/2025 11:46 AM [facility] Total Bilirubin 1.0 0.2 - 1.3 mg/dL 01/31/2025 11:46 AM [facility] Protein, Total 6.2(L) 6.4 - 8.2 gm/dL 01/31/2025 11:46 AM [facility] Anion Gap 10 9 - 20 01/31/2025 11:46 AM [facility] A/G Ratio 1.5 1.1 - 2.5 01/31/2025 11:46 AM [facility] Globulin 2.5 1.5 - 4.5 g/dL 01/31/2025 11:46 AM [facility] Osmolality Calc 278.4 mOsm/kg 11:46 AM [facility] eGFR (mL/min/1.73m2) >60 >=60 mL/min/1.7 3m2 01/31/2025 11:46 AM [facility] Comment:ESTIMATED GFR IS NOT ACCURATE CREATININE CLEARANCE IN PREDICTING GLOMERULAR FILTRATION RATE. ESTIMATED GFR IS NOT APPLICABLE FOR DIALYSIS PATIENTS. Blood Venipuncture / Unknown 01/31/2025 11:03 AM EDT 01/31/2025 11:24 AM EDT us Daquan Peraza MD LAB BLOOD ORDERABLES Final Resul t [facility] [address] [place] [address], [facility] [phone] from Last 3 Months Insurance MEDICARE PART A B Advance Directives For more information, please contact: [phone] * Full Code (Latest Code Status on File) Date Activated Date Inactivated Comments 01/31/2025 2:18 PM 02/01/2025 5:02 PM * Full Code Date Activated Date Inactivated Comments 01/31/2025 7:30 AM 01/31/2025 2:18 PM Care Teams Turret Lathe Tender Relationship Specialty Start Date End Date Fransisco Devries MD [address] [facility] [address] [place] [address] PCP - General Family Medicine 01/27/25
--- OUTSIDE RECORDS SUMMARY | 2025-05-03 09:18 | XMS_ITS | Referral Summary ---
Author Organization [employer] ([place], [place], [place], [place]) Address [address] [place] [address] Care Team Providers Care Brand Strategist Name Role Phone Fransisco Devries MD Primary Care Provider + [phone] Encounters Date Type Department Care Team Description 02/01/2025 Community Orders [facility] EpicCare Link [address] [place] [address] Daquan Peraza MD 01/31/2025 8:15 AM EDT - 02/01/2025 4:01 PM EDT Hospital Encounter [facility] Telemetry Unit [address] [place] [address] Daquan Peraza MD Failed total hip arthroplasty, initial encounter (HCC) (Primary Dx); 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, initial encounter (HCC) Discharge Disposition: Home or Self Care 01/31/2025 Travel 01/31/2025 12:30 PM EDT - 01/31/2025 3:11 PM EDT Surgery [facility] Surgery Department [address] [place] [address] Daquan Peraza MD RIGHT POSTERIOR TOTAL HIP ARTHROPLASTY REVISION 01/31/2025 11:44 AM EDT Anesthesia Event [facility] Surgery Department [address] [place] [address] Dana Mix CRNA Qureshi, Hera Fatima, DO from Last 3 Months Allergies Active Allergy [...] the past 12 months, has t he [employer], gas, oil, or water company threatened to [...] Do you speak a language other than [place] at [facility]? 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 Shelf Expiration Date Model / Serial / Lot Liner Acet Pinn Neut +4 28 50m 1218-28-650 - [id number] Implanted:Qty : 1 on 01/31/2025 by Daquan Peraza MD at [facility] TOTAL JOINT CONSTRUCT Right: Hip J &J:DEPUY:DEPUY ORTHOPAEDIC 04/10/2028 1218-28-6 50 / / [id number] Head Fem Artc Ceramic 28 1365-28-740 - [id number] Implanted:Qty : 1 on 01/31/2025 by Daquan Peraza MD at [facility] TOTAL JOINT CONSTRUCT Right: Hip J &J:DEPUY:DEPUY ORTHOPAEDIC 08/10/2029 1365-28-7 40 / / [id number] Procedures Procedure Name Priority Date/Time Associated Diagnosis [...] SPINAL BLOCK Routine 01/31/2025 11:46 AM EDT NM REVJ TOT HIP ARTHRP BTH W/WO AGRFT/ALGRFT [...] of6 resultswithin the time period is included. [facility] [address] POC-GLUCOSE 217(H) 70 - 110 mg/dL 02/01/2025 11:18 AM EDT [facility] Comment: In the event of poor peripheral blood flow, venous or arterial blood should be used due to the potential of erroneous results. Notified Nurse RBV Temporary Office Assistant [phone] 02/01/2025 11:18 AM EDT [facility] Blood WHOLE BLOOD / Unknown 02/01/2025 11:17 AM EDT 02/01/2025 11:18 AM EDT Narrative [facility] - 02/01/2025 11:18 AM EDT Temporary Office Assistant ID is - [id number] us Daquan Peraza MD POINT OF CARE TEST ORDERABLES Fi nal Result [facility] [address] [phone] * (ABNORMAL) CBC - Hemogram (02/01/2025 8:14 AM EDT) Only the most recent of2 resultswithin the time period is included. WBC 10.9(H) 3.9 - 10.0 K/ L 02/01/2025 9:12 AM EDT [facility] RBC 4.43 3.93 - 5.22 M/ L 02/01/2025 9:12 AM EDT [facility] Hemoglobin 12.8 11.2 - 15.7 GM/DL 02/01/2025 9:12 AM EDT [facility] Hematocrit 39.2 34.1 - 44.9 % 02/01/2025 9:12 AM EDT [facility] MCV 89 79 - 95 fL 02/01/2025 9:12 AM EDT [facility] MCH 28.9 25.6 - 32.2 pg 02/01/2025 9:12 AM EDT [facility] MCHC 32.7 32.2 - 36.5 GM/DL 02/01/2025 9:12 AM EDT [facility] RDW 12.9 11.6 - 14.4 % 02/01/2025 9:12 AM EDT [facility] Platelets 166 163 - 369 K/CU MM 02/01/2025 9:12 AM EDT [facility] MPV 9.7 9.4 - 12.4 fL 02/01/2025 9:12 AM EDT [facility] Blood Venipuncture / Unknown 02/01/2025 8:14 AM EDT 02/01/2025 8:15 AM EDT us Daquan Peraza MD LAB BLOOD ORDERABLES Final Resul t [facility] [address] [phone] * (ABNORMAL) Basic Metabolic Panel (02/01/2025 8:14 AM EDT) Sodium 138 136 - 146 meq/L 02/01/2025 9:39 AM EDT [facility] Potassium 4.1 3.5 - 5.1 meq/L 02/01/2025 9:39 AM EDT [facility] Chloride 109 102 - 112 meq/L 02/01/2025 9:39 AM EDT [facility] CO2 24 21 - 32 meq/L 02/01/2025 9:39 AM EDT [facility] Anion Gap 9 9 - 20 02/01/2025 9:39 AM EDT [facility] BUN 13 7 - 22 mg/dL 02/01/2025 9:39 AM EDT [facility] Creatinine 0.83 0.55 - 1.02 mg/dL 02/01/2025 9:39 AM EDT [facility] BUN/Creatinine 16 8 - 20 02/01/2025 9:39 AM EDT [facility] Glucose 178(H) 74 - 106 mg/dL 02/01/2025 9:39 AM EDT [facility] Calcium 8.8 8.5 - 10.1 mg/dL 02/01/2025 9:39 AM EDT [facility] Osmolality Calc 280.2 mOsm/kg 9:39 AM EDT [facility] eGFR (mL/min/1.73m2) >60 >=60 mL/min/1.7 3m2 02/01/2025 9:39 AM EDT [facility] Comment:eGFR of <60 suggests chronic kidney disease if found over a 3 month period of time. eGFR <15 indicates renal failure. Blood Venipuncture / Unknown 02/01/2025 8:14 AM EDT 02/01/2025 8:15 AM EDT Daquan Peraza MD LAB BLOOD ORDERABLES Final Resul t Performing Organization Address [facility] Co de Phone Number [facility] [address] [phone] * Hemoglobin and Hematocrit (02/01/2025 4:43 AM EDT) Hemoglobin 12.1 11.2 - 15.7 GM/DL 02/01/2025 4:58 AM EDT [facility] Hematocrit 36.2 34.1 - 44.9 % 02/01/2025 4:58 AM EDT [facility] Blood Venipuncture / Unknown 02/01/2025 4:43 AM EDT 02/01/2025 4:48 AM EDT Daquan Peraza MD LAB BLOOD ORDERABLES Final Resul t Performing Organization Address [facility] Phone Number [facility] [address] [phone] * X-ray pelvis portable (01/31/2025 2:16 PM [...] Eric Durbin. Transcribed by Bryson Hay PA-C Dqauan Peraza MD IM DIAGNOSTIC IMAGING ORDERABLE S Final Result * ABO/RH Confirmation/Retype (01/31/2025 12:02 PM EDT) RETYPE O POSITIVE 01/31/2025 11:25 AM EDT [facility] ([place]) Blood Venipuncture / Unknown 01/31/2025 12:02 PM EDT 01/31/2025 12:07 PM EDT Daquan Peraza MD [facility] BLOOD [facility] TEST ORDERABLES F inal Result [facility] BLOOD [facility] ([place] [address] [place] [address], [facility] [phone] * HC SPINAL BLOCK (01/31/2025 11:46 AM [...] Additional Notes X1 attempt SHANNAN Stanton Dana [facility] ANESTHESIA ORDERABLES Final Result * Type and Screen (01/31/2025 11:23 AM EDT) ABO/Rh O POSITIVE 01/31/2025 11:19 AM EDT [facility] BLOOD [facility] [place] Antibody Screen Negative 01/31/2025 11:19 AM EDT [facility] BLOOD [facility] [place] HISTCHK HIST CHECK PERFORMED 01/31/2025 11:19 AM EDT [facility] ([place]) Blood Venipuncture / Unknown 01/31/2025 11:23 AM EDT 01/31/2025 11:45 AM EDT Domingo Moffett MD [facility] BLOOD BANK TEST ORDERABLES Edited Result - Final [facility] BLOOD [facility] ([place] [address] [place] [address], [facility] [phone] * AFB Culture And Stain (01/31/2025 11:08 AM EDT) Only the most recent of3 resultswithin the time period is included. Result No Acid Fast Bacilli isolated at 6 weeks 03/14/2025 2:00 PM EDT [facility] AFB Smear No acid fast bacilli seen 03/14/2025 2:00 PM EDT [facility] Tissue STRUCTURE OF SYNOVIAL MEMBRANE OF JOINT / Unknown 01/31/2025 11:08 AM EDT 01/31/2025 1:11 PM EDT [facility] - 03/14/2025 2:00 PM EDT Specimen Description: Right hip synovium #3 Daquan Peraza MD MICROBIOLOGY - GENERAL ORDERABLE S Final Result Performing Organization Address [facility] Co de Phone Number [facility] [address] [phone] * Fungus Culture W/SOHA Or Leyla Ink (01/31/2025 11:08 AM EDT) Only the most recent of3 resultswithin the time period is included. Result No fungus isolated at 6 weeks. 03/14/2025 2:00 PM EDT [facility] SOHA Prep No fungal elements seen 03/14/2025 2:00 PM EDT [facility] Tissue STRUCTURE OF SYNOVIAL MEMBRANE OF JOINT / Unknown 01/31/2025 11:08 AM EDT 01/31/2025 1:11 PM EDT [facility] - 03/14/2025 2:00 PM EDT Specimen Description: Right hip synovium #3 Daquan Peraza MD MICROBIOLOGY - GENERAL ORDERABLE S Final Result Performing Organization Address [facility] Co de Phone Number [facility] [address] [phone] * Anaerobic Culture, Extended (P.acnes) (01/31/2025 11:08 AM EDT) Only the most recent of3 resultswithin the time period is included. Result No anaerobic growth at 14 days. No Cutibacterium acnes (formerly Propionibacterium acnes) isolated 02/14/2025 8:13 AM EDT [facility] Tissue STRUCTURE OF SYNOVIAL MEMBRANE OF JOINT / Unknown 01/31/2025 11:08 AM EDT 01/31/2025 1:11 PM EDT Narrative [facility] - 02/14/2025 8:13 AM EDT Specimen Description: Right hip synovium #3 us Daquan Peraza MD MICROBIOLOGY - GENERAL ORDERABLE S Final Result Performing Organization Address [facility]/ZIP Co de Phone Number [facility] [address] [phone] * Tissue Culture+ Stain (01/31/2025 11:08 AM EDT) Only the most recent of3 resultswithin the time period is included. Result No growth 02/03/2025 7:35 AM EDT [facility] Gram Stain Result No organisms seen 02/03/2025 7:35 AM EDT [facility] Gram Stain Result No cells seen 02/03/2025 7:35 AM EDT [facility] Tissue STRUCTURE OF SYNOVIAL MEMBRANE OF JOINT / Unknown 01/31/2025 11:08 AM EDT 01/31/2025 1:11 PM EDT Narrative [facility] - 02/03/2025 7:35 AM EDT Specimen Description: Right hip synovium #3 us Daquan Peraza MD MICROBIOLOGY - GENERAL ORDERABLE S Final Result Performing Organization Address [facility]/ZIP Co de Phone Number [facility] [address] [phone] * PT/INR, PTT (01/31/2025 11:03 AM EDT) aPTT 25.9 22.0 - 32.0 seconds 01/31/2025 11:45 AM EDT [facility] Protime 10.5 9.0 - 12.0 seconds 01/31/2025 11:45 AM EDT [facility] INR 0.96 0.80 - 1.10 01/31/2025 11:45 AM EDT [facility] Blood Venipuncture / Unknown 01/31/2025 11:03 AM EDT 01/31/2025 11:24 AM EDT us Daquan Peraza MD LAB BLOOD ORDERABLES Final Resul t [facility] [address] [phone] * (ABNORMAL) Comprehensive metabolic panel (01/31/2025 11:03 AM EDT) Sodium 140 136 - 146 meq/L 01/31/2025 11:46 AM EDT [facility] Potassium 3.8 3.5 - 5.1 meq/L 01/31/2025 11:46 AM EDT [facility] Chloride 107 102 - 112 meq/L 01/31/2025 11:46 AM EDT [facility] CO2 27 21 - 32 meq/L 01/31/2025 11:46 AM EDT [facility] Calcium 9.3 8.5 - 10.1 mg/dL 01/31/2025 11:46 AM EDT [facility] Glucose 105 74 - 106 mg/dL 01/31/2025 11:46 AM EDT [facility] BUN 9 7 - 22 mg/dL 01/31/2025 11:46 AM EDT [facility] Creatinine 0.56 0.55 - 1.02 mg/dL 01/31/2025 11:46 AM EDT [facility] BUN/Creatinine 16 8 - 20 01/31/2025 11:46 AM EDT [facility] Albumin 3.7 3.4 - 5.0 g/dL 01/31/2025 11:46 AM EDT [facility] Alkaline Phosphatase 68 27 - 136 U/L 01/31/2025 11:46 AM EDT [facility] ALT 16 12 - 78 U/L 01/31/2025 11:46 AM EDT [facility] AST 19 5 - 37 U/L 01/31/2025 11:46 AM EDT [facility] Total Bilirubin 1.0 0.2 - 1.3 mg/dL 01/31/2025 11:46 AM EDT [facility] Protein, Total 6.2(L) 6.4 - 8.2 gm/dL 01/31/2025 11:46 AM EDT [facility] Anion Gap 10 9 - 20 01/31/2025 11:46 AM EDT [facility] A/G Ratio 1.5 1.1 - 2.5 01/31/2025 11:46 AM EDT [facility] Globulin 2.5 1.5 - 4.5 g/dL 01/31/2025 11:46 AM EDT [facility] Osmolality Calc 278.4 mOsm/kg 11:46 AM EDT [facility] eGFR (mL/min/1.73m2) >60 >=60 mL/min/1.7 3m2 01/31/2025 11:46 AM EDT [facility] Comment:ESTIMATED GFR IS NOT ACCURATE CREATININE CLEARANCE IN PREDICTING GLOMERULAR FILTRATION RATE. ESTIMATED GFR IS NOT APPLICABLE FOR DIALYSIS PATIENTS. Blood Venipuncture / Unknown 01/31/2025 11:03 AM EDT 01/31/2025 11:24 AM EDT us Daquan Peraza MD LAB BLOOD ORDERABLES Final Resul t [facility] [address] [place] [address], [facility] [phone] from Last 3 Months Insurance MEDICARE PART A B Advance Directives For more information, please contact: [phone] * Full Code (Latest Code Status on File) Date Activated Date Inactivated Comments 01/31/2025 2:18 PM 02/01/2025 5:02 PM * Full Code Date Activated Date Inactivated Comments 01/31/2025 7:30 AM 01/31/2025 2:18 PM Care Teams Brand Strategist Relationship Specialty Start Date End Date Fransisco Devries MD [address] [facility] [address] [place] [address] PCP - General Family Medicine 01/27/25
--- OUTSIDE RECORDS SUMMARY | 2025-05-03 09:19 | XMS_ITS | Clinical Summary ---
Author Organization [facility] Address [address] [place] [address] Care Team Providers Care Key Punch Operator Name Role Phone Fransisco Devries MD Primary Care Provider + [phone] Allergies Active Allergy Reactions Criticality Noted Date [...] or training? Not on file Preferred Language Italian 05/19/2024 Comments No Sex and Gender Information [...] series) 2021 HEMOGLOBIN A1C 11/17/2024 05/19/2024, 01/15/2017 INFLUENZA VACCINE 03/11/2025 06/19/2023, , 05/03/2020, Additional history exists COVID-19 Vaccine (2024-2 6 season) 2025 03/13/2022, 06/29/2021, 10/18/2020, Additional history exists ZOSTER VACCINE Completed 11/20/2022, 09/11/2022 Pneumococcal Vaccine 50+ Completed 023, 06/29/2018, 06/26/2017 Goals Goal Patient Goal Type Associated Problems Recent Progress Patient-Stated? Author Autogenera rey Goal Care Plan Autogenerated Problem No Mckenna Schmidt RegSched Rep Medical Devices Implanted Type Area Mushroom Spawn Maker Device Identifier Shelf Expiration Date Model / Serial / Lot Hd Fem Articuleze/Mod Cocr 07/24 32mm Pls13 - [id number] Implanted:Qty: 1 on 01/21/2017 by Rangel Harrell MD at [facility] Implant Right: Hip DEPUY 01/09/2020 [id number] / / [id number] Insrt Fem Pinn Altrx 10d 32x50 Pls4 - [id number] Implanted:Qty: 1 on 01/21/2017 by Rangel Harrell MD at [facility] Implant Right: Hip DEPUY 01/09/2020 [id number] / / [id number] Scrw Lk Melvni Univers Revers Periph 5.5x36mm - [id number] Implanted:Qty: 1 on 05/27/2024 by Tom Hauser MD at [facility] Implant Left: Shoulder ARTHREX [id number] 08/10/2028 [id number] / / [id number] Liner Hum Univers Revers Cnstr 33mm Pls6 - [id number] Implanted:Qty: 1 on 05/27/2024 by Tom Hauser MD at [facility] Implant Left: Shoulder ARTHREX [id number] 06/10/2028 [id number] / / [id number] Stem Hum/Shldr Univers Revers Sz5 - [id number] Implanted:Qty: 1 on 05/27/2024 by Tom Hauser MD at [facility] Implant Left: Shoulder ARTHREX [id number] 02/07/2029 [id number] / / [id number] Cup Sut Shldr Univers/Revers 33mm Pls2mm Lt - [id number] Implanted:Qty: 1 on 05/27/2024 by Tom Hauser MD at [facility] Implant Left: Shoulder ARTHREX [id number] 09/10/2027 [id number] MOTEL MAID / / [id number] Sys Sut/Anch Achilles Speedbridge W/3.9mm/Swivelo ck/Anchr - [id number] Implanted:Qty: 1 on 05/27/2024 by Tom Hauser MD at [facility] Implant Left: Shoulder ARTHREX [id number] 02/08/2028 [id number] / / [id number] Totl Shldr Rev S4 - [id number] Implanted:Qty: 1 on 05/27/2024 by Tom Hauser MD at [facility] Implant Left: Shoulder ARTHREX CAPREVSHLD [id number] / / Hemost Abs Surgicel Orig 4x8in Strl - [id number] Implanted:Qty: 1 on 05/27/2024 by Tom Hauser MD at [facility] Implant Left: Shoulder ETHICON DIV OF J AND J [id number] 07/10/2028 [id number] / / [id number] Scrw Centrl Melvin Univers Revers 20mm - [id number] Implanted:Qty: 1 on 05/27/2024 by Tom Hauser MD at [facility] Implant Left: Shoulder ARTHREX [id number] 12/08/2028 [id number] / / [id number] Scrw Nl Melvin Univers Revers Periph 4.5x24mm - [id number] Implanted:Qty: 1 on 05/27/2024 by Tom Hauser MD at [facility] Implant Left: Shoulder ARTHREX [id number] 08/10/2028 [id number] / / [id number] Scrw Lk Melvin Univers Revers Periph 5.5x16mm - [id number] Implanted:Qty: 1 on 05/27/2024 by Tom Hauser MD at [facility] Implant Left: Shoulder ARTHREX [id number] 09/10/2028 [id number] / / [id number] Glenosphere Mod Universrevers Ti 24mm 33mm/Pls4/Lat Bx/1 - [id number] Implanted:Qty: 1 on 05/27/2024 by Tom Hauser MD at [facility] Implant Left: Shoulder ARTHREX [id number] 03/10/2028 [id number] 3LAT / / [id number] Baseplt Melvin Univers Revers Modular Lat 24mm Pls2 - [id number] Implanted:Qty: 1 on 05/27/2024 by Tom Hauser MD at [facility] Implant Left: Shoulder ARTHREX [id number] 10/08/2028 [id number] / / [id number] Scrw Nl Melvin Univers Revers Periph 4.5x36mm - [id number] Implanted:Qty: 1 on 05/27/2024 by Tom Hauser MD at [facility] Implant Left: Shoulder ARTHREX [id number] 11/08/2028 [id number] / / [id number] Procedures Procedure Name Priority Date/Time Associated Diagnosis Comments HEMOGLOBIN A1C Routine 05/19/2024 1:27 PM EDT from Last 3 Months or Most Recently Relevant to Health Maintenance Results * (ABNORMAL) Hemoglobin A1c (05/19/2024 1:27 PM EDT) Hemoglobin A1C 6.10(H) 4.80 - 5.60 % 05/19/2024 2:42 PM EDT [facility] Blood Venipuncture / Unknown 05/19/2024 1:27 PM EDT 05/19/2024 2:19 PM EDT Narrative [facility] - 05/19/2024 2:42 PM EDT Hemoglobin A1C Ranges: Increased Risk for Diabetes 5.7% to 6.4% Diabetes >= 6.5% Diabetic Goal < 7.0% Tom Hauser MD LAB BLOOD ORDERABLES Fin al Result [facility]
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
--- OUTSIDE RECORDS SUMMARY | 2025-05-03 09:19 | XMS_ITS | Patient Health Record ---
Author Organization [facility] Address [address] [facility] [address] TOMASZ Pang [id number] Care Team Providers Care Slab Grinder Name Role Phone Fransisco Devries Primary Care [...] Normal Performing Lab: Notes/Report: Test performed by [employer] [facility] , [address], [place] [address] Jeff Valle MD, Medical Record Consultant CLIA: [id number] Vitamin B12 224 031-3301 pg/mL P-Comprehensive Metabolic Pa paul (CMP) Reviewed date:12/14/2024 08:31:21 AM Interpretation:glu 112, a/g 2.9 Performing Lab: Notes/Report: Test performed by [facility] [place] [address] , [address], [place] [address] Jeff Valle MD, Medical Record Consultant CLIA: [id number] Sodium 143 135-145 mmol/L Potassium 4.6 3.5-5.3 [...] Normal Performing Lab: Notes/Report: Test performed by [facility] [place] [address] , [address], [place] [id number] Jeff Valle MD, Medical Record Consultant CLIA: [id number] Magnesium 1.8 1.6-2.4 mg/dL P-Phosphorus Reviewed date:12/14/2024 08:31:21 AM Interpretation: Normal Performing Lab: Notes/Report: Test performed by [facility] [place] [address] , [address], [place] [address] Jeff Valle MD, Medical Record Consultant CLIA: [id number] Phosphorus 3.8 2.5-4.5 mg/dL P-TSH reflex to FT4 Reviewed date:12/14/2024 08:31:21 AM Interpretation: Normal Performing Lab: Notes/Report: Test performed by [facility] [place] [address] , [address], [place] [address] Jeff Valle MD, Medical Record Consultant CLIA: [id number] TSH reflex to FT4 0.61 0.43-5.25 mU/L P-Vitamin D 25-Hydroxy Reviewed date:12/14/2024 08:31:21 AM Interpretation: Normal Performing Lab: Notes/Report: Test performed by [facility] [address] , [address], [place] [address] Jeff Valle MD, Medical Record Consultant CLIA: [id number] Vitamin D 25-Hydroxy 52.5 30.0-100.0 ng/mL Interpretation of Vitamin D 25 OH: < 20 ng/mL - Deficiency 20 - 29 ng/mL - Insufficiency 30 - 100 ng/mL - Sufficiency > 100 ng/mL - Super-therapeutic- toxicity may occur above this level. Clinical correlation required. CBC Venipuncture (in house) Reviewed date:02/15/2025 01:05:52 [...] Interpretation:Normal Performing Lab: Notes/Report: Test performed by [facility] [place] [address] , [address], [place] [address] Jeff Valle MD, Medical Record Consultant CLIA: [id number] Amylase 43 28-100 U/L P-Comprehensive Metabolic Pa paul (CMP) Reviewed date:02/17/2025 09:41:59 AM Interpretation:gluc 139, bun 31, prot 5.7,a/g 2.6 Performing Lab: Notes/Report: Test performed by [facility] [address] , [place] [address] Jeff Valle MD, Medical Record Consultant CLIA: [id number] Sodium 139 135-145 mmol/L Potassium 4.4 3.5-5.3 [...] Interpretation:Normal Performing Lab: Notes/Report: Test performed by [facility] [address] [place] [address] , [address], [place] [address] Jeff Valle MD, Medical Record Consultant CLIA: [id number] Lipase 18.0 13.0-60.0 U/L CBC Fingerstick (in house) Reviewed date:03/03/2025 12:34:46 [...] - 38 plat 102 100 - 400 Urinalysis - Inhouse Reviewed date:04/06/2025 02:06:51 PM [...] growth Performing Lab: Notes/Report: Test performed by [facility] [address] [place] [address] , [address], [place] [address] Jeff Valle MD, Medical Record Consultant CLIA: [id number] Specimen Source Urine - Void Culture, Urine See Below Final Report : No growth H-CBC Reviewed date:02/28/2025 04:35:26 PM Interpretation: Performing Lab: Notes/Report: WBC 9.1 4.8-10.8 K/mm3 RBC 2.19 4.20-5.40 M/mm3 HGB 6.4 12.2-16.2 g/dL CRITICAL RESULT Results called and read back/verified to: MIGDALIA FERNÁNDEZ on 02/15/25 at 1754 By Viki Yost HCT 20.2 37.0-47.0 % CRITICAL RESULT Results called and read back/verified to: MIGDALIA FERNÁNDEZ on 02/15/25 at 1754 By Viki Yost MCV 92.2 81-99 fl MCH 29.2 27.0-31.2 pg MCHC 31.7 31.8-35.4 g/dL RDW-SD 50.3 RDW 15.4 11.5-17.5 % PLT 200 142-424 K/mm3 MPV 10.1 7.4-10.4 fl NE% 71.8 37.0-80.0 % LY% 21.3 10-50 % MO% 5.6 1.7-9.3 % EO% 0.8 0.1-12.0 % BA% 0.2 0.1-2.0 % NRBC% 0 IG% 0.3 NE# 6.6 1.8-7.8 K/mm3 LY# 2.0 0.7-4.5 K/mm3 MO# 0.5 0.1-1.0 K/mm3 EO# 0.1 0.0-0.4 Kmm3 BA# 0.0 0-0.2 K/mm3 NRBC# 0 IG# 0.03 H-URC Reviewed date:02/28/2025 04:35:26 PM Interpretation: Performing Lab: Notes/Report: U500.0100 TRANSFUSED PRODUCT: Red Blood Cells COUNT: 2 H-CMP Reviewed date:02/28/2025 04:35:26 PM Interpretation: Performing Lab: Notes/Report: NA 136 136-145 mmol/L K 4.4 3.5-5.1 mmoL/L CL 101 98-107 mmol/L CO2 27 22.0-30.0 mmol/L GAP 12.4 5-15 mEq/L BUN 33 7-17 mg/dl CREATT 0.70 0.52-1.04 mg/dl CRCLE 50 50-200 mL/min GFRAA 98 >60 ML/MIN EGFR 81 >60 ml/min GLU 106 74-100 mg/dl CA 9.6 8.4-10.2 mg/dl BILIT 0.5 0.2-1.3 mg/dl AST 31 14-36 U/L ALT 12 12-78 U/L TP 5.7 6.3-8.2 g/dl ALB 3.7 3.5-5.0 g/dl GLOB 2.0 1.3-3.2 g/dL AGRATIO 1.9 1.1-1.8 ALP 51 38-126 U/L H-PT/INR Reviewed date:02/28/2025 04:35:26 PM Interpretation: Performing Lab: Notes/Report: Patient on anticoagulants? Y List Anticoagulant(s) Aspirin Other PT 10.9 10.1-12.5 seconds INR 0.98 0.9-1.1 INDICATION INR RANGE Therapy for DVT, PE, Atrial Fib, 2.0-3.0 Prophylaxis for VTE. Therapy for Mechanical Heart Valve, 2.5-3.5 Prevention of Sytemic Emolism secondary to AMI. H-Type and Screen Reviewed date:02/28/2025 04:35:26 PM Interpretation: Performing Lab: Notes/Report: Other AM labs RBC Product Order Reason Hgb/Hct <7/21 Timeframe for Post-Transf H/H other (specify) BT O Positive ABS NEGATIVE H-Crossmatch Reviewed date:02/28/2025 04:35:26 PM Interpretation: Performing Lab: Notes/Report: Other AM labs RBC Product Order Reason Hgb/Hct <7/21 Timeframe for Post-Transf H/H other (specify) XM UNIT NUMBER: [id number] XM COMPATIBLE: Y XM PRODUCT: Red Blood Cells XM SOURCE: [facility] XM BLOOD TYPE: O Positive XM VOLUME: 250mL XM CROSSMATCH COMPONENTS: XMNOTE Notification Notified TPFEIFER by Viki Yost 02/15/252000. Notified TPFEIFER by Viki Yost 02/15/252001. XM UNIT NUMBER: [id number] XM COMPATIBLE: Y XM PRODUCT: Red Blood Cells XM SOURCE: [facility] XM BLOOD TYPE: O Positive XM VOLUME: 250mL XM CROSSMATCH COMPONENTS: XMNOTE Notification Notified TPFEIFER by Viki Yost 02/15/252000. Notified TPFEIFER by Viki Yost 02/15/252001. H-TYPE2, Second ABO/Rh type Reviewed date:02/28/2025 04:35:26 PM Interpretation: Performing Lab: Notes/Report: BT2 O Positive H-CBC Reviewed date:02/28/2025 04:35:26 PM Interpretation: Performing Lab: Notes/Report: WBC 6.0 4.8-10.8 K/mm3 Delta: 9.1 on 02/15/25-1729 RBC 2.78 4.20-5.40 M/mm3 Delta: 2.19 on 02/15/25 HGB 8.4 12.2-16.2 g/dL Delta: 6.4 on 02/15/25-1729 HCT 25.1 37.0-47.0 % MCV 90.3 81-99 fl MCH 30.2 27.0-31.2 pg MCHC 33.5 31.8-35.4 g/dL RDW-SD 47.3 RDW 14.6 11.5-17.5 % PLT 164 142-424 K/mm3 MPV 9.9 7.4-10.4 fl NE% 58.2 37.0-80.0 % LY% 32.3 10-50 % MO% 7.0 1.7-9.3 % EO% 2.0 0.1-12.0 % BA% 0.3 0.1-2.0 % NRBC% 0 IG% 0.2 NE# 3.5 1.8-7.8 K/mm3 LY# 1.9 0.7-4.5 K/mm3 MO# 0.4 0.1-1.0 K/mm3 EO# 0.1 0.0-0.4 Kmm3 BA# 0.0 0-0.2 K/mm3 NRBC# 0 IG# 0.01 H-BMP Reviewed date:02/28/2025 04:35:26 PM Interpretation: Performing Lab: Notes/Report: NA 138 136-145 mmol/L K 4.3 3.5-5.1 mmoL/L CL 103 98-107 mmol/L CO2 28 22.0-30.0 mmol/L GAP 11.3 5-15 mEq/L BUN 20 7-17 mg/dl Delta: 33 on 02/15/25-1730 CREATT 0.70 0.52-1.04 mg/dl CRCLE 51 50-200 mL/min GFRAA 98 >60 ML/MIN EGFR 81 >60 ml/min GLU 113 74-100 mg/dl CA 8.9 8.4-10.2 mg/dl H-CBC Reviewed date:02/28/2025 04:35:25 PM Interpretation: Performing Lab: Notes/Report: WBC 5.4 4.8-10.8 K/mm3 RBC 2.75 4.20-5.40 M/mm3 HGB 8.4 12.2-16.2 g/dL HCT 25.0 37.0-47.0 % MCV 90.9 81-99 fl MCH 30.5 27.0-31.2 pg MCHC 33.6 31.8-35.4 g/dL RDW-SD 48.7 RDW 15.3 11.5-17.5 % PLT 145 142-424 K/mm3 MPV 9.8 7.4-10.4 fl NE% 60.4 37.0-80.0 % LY% 29.6 10-50 % MO% 7.2 1.7-9.3 % EO% 2.0 0.1-12.0 % BA% 0.4 0.1-2.0 % NRBC% 0 IG% 0.4 NE# 3.3 1.8-7.8 K/mm3 LY# 1.6 0.7-4.5 K/mm3 MO# 0.4 0.1-1.0 K/mm3 EO# 0.1 0.0-0.4 Kmm3 BA# 0.0 0-0.2 K/mm3 NRBC# 0 IG# 0.02 H-BMP Reviewed date:02/28/2025 04:35:26 PM Interpretation: Performing Lab: Notes/Report: NA 139 136-145 mmol/L K 3.9 3.5-5.1 mmoL/L CL 104 98-107 mmol/L CO2 30 22.0-30.0 mmol/L GAP 8.9 5-15 mEq/L BUN 7 7-17 mg/dl Delta: 20 on 02/16/25 CREATT 0.50 0.52-1.04 mg/dl Delta: 0.70 on 02/16/25 CRCLE 51 50-200 mL/min GFRAA 144 >60 ML/MIN Delta: 98 on 02/16/25 EGFR 119 >60 ml/min GLU 102 74-100 mg/dl CA 8.9 8.4-10.2 mg/dl TEN-UTI panel Reviewed date:07/22/2024 10:30:11 AM Interpretation:Abnormal Performing Lab: Notes/Report: Abnormal Urinalysis - Inhouse Reviewed date:08/02/2024 02:54:59 PM Interpretation: Performing Lab: Notes/Report: Color/Clarity yellow/clear Leuk Neg Nitrite Neg Urobili 3.2 Protein Neg pH 5.5 Blood Neg Sp. Gr. >=1.030 Ketone Trace Bili Neg Gluc Neg P-Vitamin D 25-Hydroxy Reviewed date:07/20/2024 10:27:23 AM Interpretation:45.4 Performing Lab: Notes/Report: Test performed by [employer] [address] [place] [address] , [place] [address] Jeff Valle MD, Medical Record Consultant CLIA: [id number] Vitamin D 25-Hydroxy 45.4 30.0-100.0 ng/mL Interpretation of Vitamin D 25 OH: < 20 ng/mL - Deficiency 20 - 29 ng/mL - Insufficiency 30 - 100 ng/mL - Sufficiency > 100 ng/mL - Super-therapeutic- toxicity may occur above this level. Clinical correlation required. P-Microalbumin/Creatinine, R andom Urine Sample Reviewed date:07/20/2024 10:27:23 AM Interpretation: Normal Performing Lab: Notes/Report: Test performed by [facility] [place] [address] , [place] [address] Jeff Valle MD, Medical Record Consultant CLIA: [id number] Albumin/Creatinine Ratio, Urine 10 0-30 ug/mg Microalbumin, Urine, Random 1.3 Creatinine, Urine 124.4 P-TSH reflex to FT4 Reviewed date:07/20/2024 10:27:23 AM Interpretation: Normal Performing Lab: Notes/Report: Test performed by [facility] [address] [place] [address] , [place] [address] Jeff Valle MD, Medical Record Consultant CLIA: [id number] TSH reflex to FT4 0.50 0.43-5.25 mU/L P-Lipid Panel Reviewed date:07/20/2024 10:27:23 AM Interpretation: Normal Performing Lab: Notes/Report: Test performed by [facility] [address] [place] [address] , [place] [address] Jeff Valle MD, Medical Record Consultant CLIA: [id number] Cholesterol 133 <200 mg/dL Triglycerides 72 <150 [...] Results: 42 Units: mg/dL % Change: - P-Comprehensive Metabolic Pa paul (CMP) Reviewed date:07/20/2024 10:27:23 AM Interpretation: Normal Performing Lab: Notes/Report: Test performed by [facility], [address] , [address] , [place] [address] Jeff Valle MD, Medical Record Consultant CLIA: [id number] Sodium 141 135-145 mmol/L Potassium 4.0 3.5-5.3 [...] 0.6 <0.2-1.2 mg/dL A/G Ratio 2.4 1.1-2.5 Glycohemoglobin A1c (in hous e) Reviewed date:07/19/2024 11:59:38 AM Interpretation: Performing Lab: Notes/Report: glycohemoglobin 6.0% 5 - 6.5 % Glucose (In-House) Reviewed date:07/19/2024 11:59:29 AM Interpretation: Performing Lab: Notes/Report: blood glucose 101 74 - 106 mg/dL Urinalysis - Inhouse Reviewed date:07/19/2024 11:59:48 AM Interpretation: Performing Lab: Notes/Report: Color/Clarity yellow/cloudy Leuk 1+ Nitrite Neg Urobili 3.2 Protein Neg pH 5.5 Blood 1+ Sp. Gr. >=1.030 Ketone 1+ Bili Neg Gluc Neg eGFR by Creatinine Reviewed date:11/09/2024 12:40:11 PM Interpretation:Normal Performing Lab: Notes/Report: Test performed by [facility] [address] [place] [address] , [address], [place] [address] Jeff Valle MD, Medical Record Consultant CLIA: [id number] eGFR by Creatinine 91 >59 mL/min/1.73m2 CT Scan : Chest with IV cont rast Reviewed date:11/26/2024 08:38:10 AM Interpretation: Performing Lab: Notes/Report: P-Creatinine Reviewed date:11/09/2024 12:40:11 PM Interpretation:Normal Performing Lab: Notes/Report: Test performed by [facility] [address] [place] [address] [address], [place] [address] Jeff Valle MD, Medical Record Consultant CLIA: [id number] Creatinine 0.62 0.50-1.00 mg/dL P-BUN Reviewed date:11/09/2024 12:40:11 PM Interpretation:Normal Performing Lab: Notes/Report: Test performed by [facility] [address] [place] [address] , [address], [place] [address] Jeff Valle MD, Medical Record Consultant CLIA: [id number] BUN 9 8-23 mg/dL Reason For Referral No Information Medications Medication SIG (Take, Route, Frequency, Duration) Notes Start Date End Date Status Acetaminophen 500 MG 1 tablet as needed Orally every 8 hrs Active Aspirin 81 MG 1 tablet Orally Once a day Active Vitamin D3 125 MCG (5000 UT) 2 cap(s) orally 3 capsules twice weekly 06/26/2017 Active Estradiol 0.1 MG/GM as directed Vaginal Two times a Week Active Vitamin C 1000 MG 1 tablet [...] Once a day; Duration: 90 days Active Pantoprazole Sodium 40 MG 1 tablet 1/2 t o 1 hour before morning meal Orally Once a day Active Ferrous Sulfate 325 (65 Fe) MG 1 tablet Orally Three times a Week Active Immunizations Vaccine Route Administration Date Status Comme nts Shingrix Unknown 09/11/2022 Administered Shingrix Unknown 11/20/2022 Administered Prevnar (PCV20) IM Intramuscular 06/19/2023 Administered Prevnar (PCV13) IM Intramuscular 06/26/2017 Administered PNEUMOVAX 23 VACCINE IM Intramuscular 06/29/2018 Administe red Fluzone High Dose (65yr and older) IM [...] (65yr and older) IM Intramuscular 07/19/2024 Administered COVID 19 Moderna Unknown 09/20/2020 Administered COVID 19 Moderna Unknown 10/18/2020 Administered COVID 19 Moderna Unknown 06/29/2021 Administered COVID 19 Moderna Unknown 03/13/2022 Administered Problems Problem Type SNOMED Code ICD Code Onset Dates Problem Status W/U Status Risk Notes Problem Vitamin D deficiency (71486581) Vitamin D deficiency (E55.9) Active confirmed Problem Gout (57234972) Gout (M10.9) Active confirmed Problem Essential hypertension (69896658) Essential hypertension (I10) Active confirmed Problem Abnormal mammogram (387809085) Abnormal mammogram (R92.8) Active confirmed Problem Dysuria (86753042) Dysuria (R30.0) Active confirmed Problem Solitary nodule of lung (955720560) Nodule of left lung (R91.1) Active confirmed Problem Overactive urinary bladder (disorder) (574776388) OAB (overactive bladder) (N32.81) Active confirmed Problem Sciatica (44583368) Lumbago with sciatica, right side (M54.41) Active confirmed Problem Primary insomnia (7979453) Primary insomnia (F51.01) Active confirmed Problem Chronic pain (58088537) Other chronic pain (G89.29) Active confirmed Problem Chronic gastric ulcer with haemorrhage (00743814) Chronic or unspecified gastric ulcer with hemorrhage (K25.4) Active confirmed Problem Acquired hammer toe of right foot (7093874297540664 ) Other hammer toe(s) (acquired), right foot (M20.41) Active confirmed Problem Acquired hammer toe of left foot (9579150277723886 ) Other hammer toe(s) (acquired), left foot (M20.42) Active confirmed Problem Mood disorder (92818206) Mood disorder (F39) Active confirmed Problem Type II diabetes mellitus without complication (811178342) Type 2 diabetes mellitus without complication (E11.9) Active confirmed Problem Hyperlipidemia (70122274) Hyperlipidemia, unspecified hyperlipidemia (E78.5) Active confirmed Problem Anemia (679694518) Anemia, unspecified type (D64.9) Active confirmed Problem Peptic ulcer disease (74514433) Peptic ulcer disease (K27.9) Active confirmed Problem Chronic gouty arthritis (01474143) Chronic gout without tophus, unspecified cause, unspecified site (M1A.9XX0) Active confirmed Problem Cardiac arrhythmia (416108896) Cardiac arrhythmia, unspecified cardiac arrhythmia type (I49.9) Active confirmed Problem Solitary pulmonary nodule (664698995) Pulmonary nodule, left (R91.1) Active confirmed Problem 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, 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) Active confirmed Problem Screening mammography (49687782) Screening mammogram for breast cancer (Z12.31) Active confirmed Vital Signs Heart Rate 76 /min 04/06/2025 Blood pressure diastolic 84 mm Hg 04/06/2025 Height 68 in 04/06/2025 Blood pressure systolic 154 mm Hg 04/06/2025 Weight 155.6 lbs 04/06/2025 BMI 23.66 kg/m2 04/06/2025 Encounters Encounter Location Date Provider Diagnosis [facility] [address] [place] [address] [place] Pang [id number] 07/19/2024 Fransisco Charleroi Type 2 diabetes sergio itus without complication E11.9 ; Essential hypertension I10 ; Hyperlipidemia, unspecified hyperlipidemia E78.5 ; Vitamin D deficiency E55.9 ; Frequent UTI N39.0 and Encounter for immunization Z23 [facility] [address] [place] Pang [id number] 08/02/2024 Farnsisco Charleroi Recurrent UTI N39.0 and OAB (overactive bladder) N32.81 [facility] [address] [place] [address] [place] Pang [id number] 11/08/2024 Fransisco Charleroi Pulmonary nodule, le ft R91.1 and 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 [facility] [address] [place] [address] TOMAZ[place] Pang [id number] 12/13/2024 Fransisco Charleroi Type 2 diabetes sergio itus without complication E11.9 ; Essential hypertension I10 ; Vitamin D deficiency E55.9 ; Fatigue, unspecified type R53.83 ; Pulmonary nodule, left R91.1 ; Hyperlipidemia, unspecified hyperlipidemia E78.5 and BMI 23.0-23.9, adult Z68.23 [facility] [address] [place]ang [id number] 02/15/2025 Fransisco Charleroi History of arthropla sty of right hip Z96.641 ; Nausea R11.0 ; Acute diarrhea R19.7 ; Anemia due to acute blood loss D62 and BMI 23.0-23.9, adult Z68.23 [facility] [address] [place] Pang [id number] 03/03/2025 Fransisco Charleroi Anemia, unspecified type D64.9 ; Peptic ulcer disease K27.9 and BMI 23.0-23.9, adult Z68.23 [facility] [address] [place], [place] [id number] 04/06/2025 Fransisco Charleroi Dysuria R30.0 ; Microscopic hematuria R31.29 ; Anemia, unspecified type D64.9 ; Peptic ulcer disease K27.9 and Primary insomnia F51.01 [facility] [address] [place], [place] [id number] 05/10/2024 Fransisco Charleroi Hyperlipidemia, unspecified hyperlipidemia E78.5 [facility] [address] [place], [place] [id number] 06/22/2024 Fransisco Charleroi Type 2 diabetes sergio itus without complication E11.9 [facility] [address] [place], [place] [id number] 07/20/2024 Fransisco Charleroi [facility] [address] [place], [place] [id number] 07/22/2024 Fransisco Charleroi [facility] [address] [place], [place] [id number] 07/30/2024 Fransisco Charleroi Hyperlipidemia, unspecified hyperlipidemia E78.5 [facility] [address] [place], [place] [id number] 11/26/2024 Fransisco Charleroi [facility] [address] [place], [place] [id number] 12/14/2024 Fransisco Charleroi [facility] [address] [place], [place] [id number] 12/22/2024 Fransisco Charleroi Essential hypertensi on I10 and Type 2 diabetes mellitus without complication E11.9 [facility] [address] [place], [place] [id number] 02/01/2025 Fransisco Charleroi [facility] [address] [place], [place] [id number] 02/02/2025 Fransisco Charleroi Hyperlipidemia, unspecified hyperlipidemia E78.5 [facility] [address] [place], [place] [id number] 02/14/2025 Fransisco Charleroi [facility] [address] [place], [place] [id number] 02/17/2025 Fransisco Charleroi [facility] [address] [place], [place] [id number] 02/22/2025 Fransisco Charleroi [facility] [address] [place], [place] [id number] 03/07/2025 Fransisco Charleroi [facility] [address] [place], [place] [id number] 03/15/2025 Fransisco Charleroi [facility] [address] [place], [place] [id number] 03/18/2025 Fransisco Charleroi Assessments Encounter Date Diagnosis (ICD Code) Assessment Notes Treatment Notes Treatment Clinical Notes Section Notes 05/10/2024 Hyperlipidemia, unspecified hyperlipidemia (ICD-10 - E78.5) 06/22/2024 Type 2 diabetes mellitus without complication (ICD-10 - E11.9) 07/19/2024 Essential hypertension (ICD-10 - I10) 07/19/2024 Type 2 diabetes mellitus without complication (ICD-10 - E11.9) 07/30/2024 Hyperlipidemia, unspecified hyperlipidemia (ICD-10 - E78.5) 08/02/2024 Recurrent UTI (ICD-10 - N39.0) 08/02/2024 OAB (overactive bladder) (ICD-10 - N32.81) 11/08/2024 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) 11/08/2024 Pulmonary nodule, left (ICD-10 - R91.1) 12/13/2024 Essential hypertension (ICD-10 - I10) 12/13/2024 Type 2 diabetes mellitus without complication (ICD-10 - E11.9) 02/02/2025 Hyperlipidemia, unspecified hyperlipidemia (ICD-10 - E78.5) 02/15/2025 Nausea (ICD-10 - R11.0) 02/15/2025 History of arthroplasty of right hip (ICD-10 - Z96.641) 03/03/2025 Anemia, unspecified type (ICD-10 - D64.9) 03/03/2025 Peptic ulcer disease (ICD-10 - K27.9) 12/22/2024 Essential hypertension (ICD-10 - I10) 04/06/2025 Dysuria (ICD-10 - R30.0) 04/06/2025 Microscopic hematuria (ICD-10 - R31.29) 04/06/2025 Anemia, unspecified type (ICD-10 - D64.9) 12/22/2024 Type 2 diabetes mellitus without complication (ICD-10 - E11.9) 03/03/2025 BMI 23.0-23.9, adult (ICD-10 - Z68.23) 02/15/2025 Acute diarrhea (ICD-10 - R19.7) 12/13/2024 Vitamin D deficiency (ICD-10 - E55.9) 07/19/2024 Hyperlipidemia, unspecified hyperlipidemia (ICD-10 - E78.5) 07/19/2024 Vitamin D deficiency (ICD-10 - E55.9) 12/13/2024 Fatigue, unspecified type (ICD-10 - R53.83) 04/06/2025 Peptic ulcer disease (ICD-10 - K27.9) 02/15/2025 Anemia due to acute blood loss (ICD-10 - D62) Admit to [facility] for further management, see admit H&P 04/06/2025 Primary insomnia (ICD-10 - F51.01) 02/15/2025 BMI 23.0-23.9, adult (ICD-10 - Z68.23) 12/13/2024 Pulmonary nodule, left (ICD-10 - R91.1) Plan to repeat chest CT 6 months from last scan 07/19/2024 Frequent UTI (ICD-10 - N39.0) 07/19/2024 Encounter for immunization (ICD-10 - Z23) 12/13/2024 Hyperlipidemia, unspecified hyperlipidemia (ICD-10 - E78.5) 12/13/2024 BMI 23.0-23.9, adult (ICD-10 - Z68.23) 02/15/2025 Other Discharge summary with available lab/diagnostic imaging results obtained and reviewed. Discharge medication list reconciled. Appropriate counseling provided. Moderate Complexity Plan Of Treatment Pending Test Test Name Order Date EGD 04/06/2025 Next Appt Details Provider Name:Fransisco Logan ry, 06/14/2025 09:15:00 AM, [address], [place], [id number], Insurance Providers Payer Name Payer Address Payer Phone Subscriber Number Group Number Insured Name Patient Relationship to Insured Coverage Start Date Coverage End Date MEDICARE PART B [address] [address] [place] [address] [phone] [id number] KATHLEEN OSEI Self - patient is the insured [facility] [facility] [address] [place] [address] [id number] SOPHIAKATHLEEN Self - patient is the insured Medical [...] Shoulder replacement 2023 Hospitalization History Reason Date(Month/Year) Chest Pain, Reaction to [facility]- [facility] Hip Revision- [facility] 01/21-25/09 017
[2025-05-03 09:38] LABS: Occult Blood,Stool Negative (Negative)
== END 2025-05-03 23:59 | disposition home or self-care (01) ==
LOC: LAB.DROPOF 09:03
PROVIDERS: PCP Family Medicine; Visit Provider Internal Medicine Gastroenterology
DX: D50.9 Iron deficiency anemia, unspecified (principal)
CPT/HCPCS: 82272; G0328

== ENCOUNTER 2025-05-30 09:50 | Emergency (ER) | payer MEDICARE, SELFPAY ==
[2025-05-30] VITALS (15 sets, daily range): BP systolic 126–197; BP diastolic 71–113; PULSE 63–79; RESP 16; TEMP 36.6–36.9; O2SAT 93–99; BMI 22.8
--- NOTE | 2025-05-30 10:19 | XR_ITS ---
FINAL REPORT CLINICAL HISTORY: dislocation v frac, heard pop when getting out of chair, dislocation happens frequently according to pt COMPARISON: 01/20/2025 FINDINGS: RIGHT HIP Two views of the right hip with an AP view of the pelvis demonstrate dislocation of the femoral prosthesis superiorly and posteriorly. There is no acute fracture. The acetabular cup remains intact. IMPRESSION: Posterior dislocation of the femoral prosthesis. Reviewed, Interpreted and Dictated by Marvin Christie MD Transcribed by Nessa Huang Authenticated and [facility]
--- NOTE | 2025-05-30 10:19 | XR_ITS ---
FINAL REPORT CLINICAL HISTORY: short of breath COMPARISON: None FINDINGS: A single frontal view of the chest was obtained. No acute pulmonary opacity is present. There is no evidence of effusion or pneumothorax. Mediastinum is unremarkable. Heart size is normal. IMPRESSION: No acute abnormality. Reviewed, Interpreted and Dictated by Marvin Christie MD Transcribed by Nessa Huang Authenticated and [facility]
--- OUTSIDE RECORDS SUMMARY | 2025-05-30 10:25 | XMS_ITS | Encounter Summary ---
Author Organization [employer] ([place], [place], [place], [place]) Address [address] [place] [address] Care Team Providers Care Quality Rn Name Role Phone Fransisco Devries MD Primary Care Provider + [phone] Encounter Details Date Type Department Care Team (Late st Contact Info) Description 02/01/2025 [facility] EpicCare Link [address] [place] [address] Daquan Peraza MD [address] [facility] [address] Floor [place] [id number] Social History Tobacco Use Types Packs/Day Years [...] living situation today? I have a [facility] place to live 01/31/2025 Think about the [...] Do you speak a language other than Hungarian at [facility]? No 01/31/2025 Do you want help with [...] on filedocumented in this encounter Care Teams Quality Rn Relationship Specialty Start Date End Date Fransisco Devries MD [address] [facility] [address] [place] [id number] PCP - General Family Medicine 01/27/25 documented as of this encounter
--- OUTSIDE RECORDS SUMMARY | 2025-05-30 10:26 | XMS_ITS | Referral Summary ---
Author Organization [employer] ([place], [place], [place], [place]) Address [address] [place] [address] Care Team Providers Care Compounding And Finishing Supervisor Name Role Phone Fransisco Devries MD Primary Care Provider + [phone] Allergies Active Allergy Reactions Criticality Noted Date [...] Date Record ed How often does anyone, inclu ding family and friends, physically hurt you? Never [...] Do you speak a language other than [place] at [place]? No 01/31/2025 Do you want help with [...] on file Medical Devices Implanted Type Area Coroner'S Juror Device Identifier Shelf Expiration Date Model / Serial / Lot Liner Acet Pinn Neut +4 28 50m 1218-28-650 - [id number] Implanted:Qty : 1 on 01/31/2025 by Daquan Peraza MD at [facility] TOTAL JOINT CONSTRUCT Right: Hip J &J:DEPUY:DEPUY ORTHOPAEDIC 04/10/2028 1218-28-6 50 / / [id number] Head Fem Artc Ceramic 28 1365-28-740 - [id number] Implanted:Qty : 1 on 01/31/2025 by Daquan Peraza MD at [facility] TOTAL JOINT CONSTRUCT Right: Hip J &J:DEPUY:DEPUY ORTHOPAEDIC 08/10/2029 1365-28-7 40 / / [id number] Insurance MEDICARE PART A B Advance Directives For more information, please contact: [phone] * Full Code (Latest Code Status on File) Date Activated Date Inactivated Comments 01/31/2025 2:18 PM 02/01/2025 5:02 PM * Full Code Date Activated Date Inactivated Comments 01/31/2025 7:30 AM 01/31/2025 2:18 PM Care Teams Compounding And Finishing Supervisor Relationship Specialty Start Date End Date Fransisco Devries MD [address] [facility] [address] [place] [id number] PCP - General Family Medicine 01/27/25
--- OUTSIDE RECORDS SUMMARY | 2025-05-30 10:27 | XMS_ITS | Clinical Summary ---
Author Organization [facility] Address [address] [place] [address] Care Team Providers Care Operator Control Room Name Role Phone Fransisco Devries MD Primary Care Provider + [phone] Allergies Active Allergy Reactions Criticality Noted Date [...] or training? Not on file Preferred Language Slovenian 05/19/2024 Comments No Sex and Gender Information [...] Comments DXA SCAN 1946 LIPID PANEL 1946 TDAP/TD VACCINES (1 - Tdap) 1965 COLOGUARD 1991 COLON CANCER SCREENING 5 YEA R SIGMOIDOSCOPY 1991 COLONOSCOPY 1991 [address] CANCER SCREENING 1991 CT COLONOGRAPHY 1991 FECAL OCCULT BLOOD TEST 1991 FIT Testing (1 year) 1991 ANNUAL PHYSICAL 01/15/2017 HEPATITIS C SCREENING 01/15/2017 RSV Vaccine - Adults (1 - 1- dose 75+ series) 2021 INFLUENZA VACCINE 03/11/2025 06/19/2023, , 05/03/2020, Additional history exists COVID-19 Vaccine (5 - 2024-2 6 season) 2025 03/13/2022, 06/29/2021, 10/18/2020, Additional history exists ZOSTER VACCINE Completed 11/20/2022, 09/11/2022 Pneumococcal Vaccine 50+ Completed 023, 06/29/2018, 06/26/2017 HEMOGLOBIN A1C Discontinued 05/19/2024, 01/15/2017 Goals Goal Patient Goal Type Associated Problems Recent Progress Patient-Stated? Author Autogenera rey Goal Care Plan Autogenerated Problem No Mckenna Schmidt RegSched Rep Medical Devices Implanted Type Area Patternmaker Device Identifier Shelf Expiration Date Model / Serial / Lot Hd Fem Articuleze/Mod Cocr 07/24 32mm Pls13 - [id number] Implanted:Qty: 1 on 01/21/2017 by Rangel Harrell MD at [facility] Implant Right: Hip DEPUY 01/09/2020 [id number] / / [id number] Insrt Fem Pinn Altrx 10d 32x50 Pls4 - [id number] Implanted:Qty: 1 on 01/21/2017 by Rangel Harrell MD at [facility] Implant Right: Hip DEPUY 01/09/2020 [id number] / / [id number] Scrw Lk Melvin Univers Revers Periph 5.5x36mm - [id number] Implanted:Qty: 1 on 05/27/2024 by Tom Hauser MD at [facility] Implant Left: Shoulder ARTHREX [id number] 08/10/2028 [id number] / / [id number] Liner Hum Univers Revers Cnstr 33mm Pls6 - [id number] Implanted:Qty: 1 on 05/27/2024 by Tom Hauser MD at [facility] Implant Left: Shoulder ARTHREX [id number] 06/10/2028 [id number] / / [id number] Stem Hum/Shldr Univers Revers Sz5 - [id number] Implanted:Qty: 1 on 05/27/2024 by Tom Hauser MD at [facility] Implant Left: Shoulder ARTHREX [id number] 02/07/2029 [id number] / / [id number] Cup Sut Shldr Univers/Revers 33mm Pls2mm Lt - [id number] Implanted:Qty: 1 on 05/27/2024 by Tom Hauser MD at [facility] Implant Left: Shoulder ARTHREX [id number] 09/10/2027 [id number] DETECTIVE LIEUTENANT / / [id number] Sys Sut/Anch Achilles Speedbridge W/3.9mm/Swivelo ck/Anchr - [id number] Implanted:Qty: 1 on 05/27/2024 by Tom Hauser MD at [facility] Implant Left: Shoulder ARTHREX [id number] 02/08/2028 [id number] / / [id number] Totl Shldr Rev S4 - [id number] Implanted:Qty: 1 on 05/27/2024 by Tom Hauser MD at [facility] Implant Left: Shoulder ARTHREX CAPREVSHLD [id number] / / Hemost Abs Surgicel Orig 4x8in Strl - [id number] Implanted:Qty: 1 on 05/27/2024 by Tom Hauser MD at [facility] Implant Left: Shoulder ETHICON DIV OF J AND J [id number] 07/10/2028 [id number] / / [id number] Scrw Centrl Melvin Univers Revers 20mm - [id number] Implanted:Qty: 1 on 05/27/2024 by Tom Hauser MD at [facility] Implant Left: Shoulder ARTHREX [id number] 12/08/2028 [id number] / / [id number] Scrw Nl Melvin Univers Revers Periph 4.5x24mm - [id number] Implanted:Qty: 1 on 05/27/2024 by Tom Hauser MD at [facility] Implant Left: Shoulder ARTHREX [id number] 08/10/2028 [id number] / / [id number] Scrw Lk Melvin Univers Revers Periph 5.5x16mm - [id number] Implanted:Qty: 1 on 05/27/2024 by Tom Hauser MD at [facility] Implant Left: Shoulder ARTHREX [id number] 09/10/2028 [id number] / / [id number] Glenosphere Mod Universrevers Ti 24mm 33mm/Pls4/Lat Bx/1 - [id number] Implanted:Qty: 1 on 05/27/2024 by Tom Hauser MD at [facility] Implant Left: Shoulder ARTHREX [id number] 03/10/2028 [id number] 3LAT / / [id number] Baseplt Melvin Univers Revers Modular Lat 24mm Pls2 - [id number] Implanted:Qty: 1 on 05/27/2024 by Tom Hauser MD at [facility] Implant Left: Shoulder ARTHREX [id number] 10/08/2028 [id number] / / [id number] Scrw Nl Melvin Univers Revers Periph 4.5x36mm - [id number] Implanted:Qty: 1 on 05/27/2024 by Tom Hauser MD at [facility] Implant Left: Shoulder ARTHREX [id number] 11/08/2028 [id number] / / [id number] Procedures Procedure Name Priority Date/Time Associated Diagnosis Comments HEMOGLOBIN A1C Routine 05/19/2024 1:27 PM EDT from Last 3 Months or Most Recently Relevant to Health Maintenance Results * (ABNORMAL) Hemoglobin A1c (05/19/2024 1:27 PM EDT) Hemoglobin A1C 6.10(H) 4.80 - 5.60 % 05/19/2024 2:42 PM EDT [facility] Blood Venipuncture / Unknown 05/19/2024 1:27 PM EDT 05/19/2024 2:19 PM EDT Narrative [facility] - 05/19/2024 2:42 PM EDT Hemoglobin A1C Ranges: Increased Risk for Diabetes 5.7% to 6.4% Diabetes >= 6.5% Diabetic Goal < 7.0% Tom Hauser MD LAB BLOOD ORDERABLES Fin al Result [facility]
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
--- NOTE | 2025-05-30 10:31 | ED_ITS ---
Discharge Plan Disposition Patient Disposition: Xfer Other Prescriptions Prescriptions: No Action lisinopril 20 mg tablet 20 mg PO DAILY 90 Days Qty: 90 rosuvastatin 20 mg tablet 20 mg PO HS 90 Days Qty: 90 metformin 500 mg tablet extended release 24 hr 1,000 mg PO BID 90 Days Qty: 360 ascorbic acid (vitamin C) 500 mg capsule 1,000 mg PO DAILY aspirin [Adult Low Dose Aspirin] 81 mg tablet,delayed release (DR/EC) 81 mg PO DAILY cholecalciferol (vitamin D3) 125 mcg (5,000 unit) capsule 125 mcg PO .everyotherday ferrous sulfate 200 mg (40 mg iron) tablet 65 mg PO ONCE pantoprazole 40 mg tablet,delayed release (DR/EC) 40 mg PO DAILY Qty: 90 0RF Rx Instructions: Take 1 tablet by mouth daily. acetaminophen 500 mg Tablet 500 mg PO QID PRN (Reason: Pain) mecobalamin (vitamin B12) [B12 Active] 1,000 mcg Tablet,Chewable 2,500 mcg PO DAILY Referrals Follow up/Referrals: Fransisco Devries MD [Primary Care Provider, Medical] - See instructions Clinical Impressions Clinical Impression: Dislocation of hip, right, closed Stand Alone Forms Stand Alone Forms: Work/School Release, Transfer Record - ED Print Language Print Language: Tajik Discharge ED Provider: Alexis Vega General Adult HPI General Chief complaint: PAIN Stated complaint: Hip dislocation Time Seen by Provider: 05/30/25 10:03 Mode of Arrival: EMS Source of Information: Patient Description of Symptoms (Recalled from ER Triage Doc. by RN): patient states she had her ight hip replaced in january this am when gettingout of chair she felt a pop and instant pain. she believes her hip is dislocated History of Present Illness HPI narrative: 79-year-old female presents to the ED today for complaint of right hip pain after getting out of a chair wrong today. She came in via EMS after hearing a pop and instant pain getting out of the chair. She believes her right hip is dislocated. She says that this has happened 3 times. This is the second time that she has been here for this. She had her hip replaced 8 years ago then again 3 months ago and was told by Dr. Yap again from [facility] that it would last 3 months. She had done January 31. She says that she does have hardware. Right leg is shortened. Patient says she is uncomfortable but not in significant pain. She says she has a past medical history of having all joints except for her ankles replaced. She has had back surgery and abdominal surgery as well but no heart problems. Patient does have history of anemia, GI bleed, diabetes, hip replacement. Related Data Home Medications ?Medication ?Instructions ?Recorded ?Confirmed lisinopril 20 mg tablet 20 mg PO DAILY 90 days #90 t abs 09/08/18 04/26/25 rosuvastatin 20 mg tablet 20 mg PO HS 90 days #90 tabs 03/08/24 04/26/25 metformin 500 mg tablet,extended 1,000 mg PO BID 90 da ys #360 tabs 09/20/24 04/26/25 release 24 hr acetaminophen 500 mg tablet 500 mg PO QID PRN Pain 04/0404/26/25 mecobalamin (vitamin B12) 1,000 2,500 mcg PO DAILY 04/0404/26/25 mcg chewable tablet (B12 Active) ascorbic acid (vitamin C) 500 mg 1,000 mg PO DAILY Sup plement 03/29/25 04/26/25 capsule aspirin 81 mg tablet,delayed 81 mg PO DAILY 03/29/25 0 04/26/25 release (Adult Low Dose Aspirin) cholecalciferol (vitamin D3) 125 125 mcg PO .everyothe rday 03/29/25 04/26/25 mcg (5,000 unit) capsule ferrous sulfate 200 mg (40 mg 65 mg PO ONCE 03/29/25 0 04/26/25 iron) tablet Previous Rx's ?Medication ?Instructions ?Recorded pantoprazole 40 mg tablet,delayed 40 mg PO DAILY #90 t abs 05/13/25 release Allergies Allergy/AdvReac Type Severity Reaction Status Date / Time nickel Allergy Mild Other Verified 04/26/25 09:21 tizanidine (From Zanaflex) Allergy Mild Hallucinati Verified 04/26/25 09:21 [facility] Disclaimer: The information contained in this section may have been updated after the patient was seen, as this information can be updated by other users. Medical History Squamous cell carcinoma of left lower leg Vaginal wall cyst History of recurrent UTI (urinary tract infection) History of diabetes mellitus Rotator cuff arthropathy Surgical History S/p revision of right total hip Hx of total shoulder replacement H/O nasal septoplasty H/O salpingostomy History of cataract surgery History of lumpectomy History of arthroplasty of right shoulder H/O bilateral breast reduction surgery History of tonsillectomy and adenoidectomy Hx of appendectomy H/O spinal fusion L4&L5 History of bilateral knee replacement H/O bilateral hip replacements Family History Other Coronary artery disease Diabetes Hypertension Stroke Social History Smoking Status: Never smoker alcohol intake: current alcohol intake frequency: a few times a month substance use type: unknown current occupational status: retired Travel in the last 8 weeks?: None housing: house Have you lived/traveled outside US in past 30 days?: No Contact w/someone who lives/traveled outside US past 30 days?: No Exposure to someone with infectious disease in past 14 days?: No Do you have a fever (greater than 100.4 F or 38 C)?: No Have you tested positive for COVID-19?: No Exposed to someone with COVID-19 in past 14 days?: No Do you have a sore throat?: No Do you have a cough?: No Do you have any weakness?: No Do you have any diarrhea?: No Are you experiencing any unusual bleeding?: No Do you have any muscle aches/pain?: No Do you have any abdominal pain?: No Are you experiencing loss of taste or smell?: No Other Medical History Have you received the Flu Vaccine for this season: No Have you received the Pneumonia Vaccine: Yes ROS Obtained: Yes Systems reviewed as appropriate & no additional complaints except as documented Constitutional Constitutional: Reports as per HPI Physical Exam General General appearance: alert and in no apparent distress Head Head exam: normocephalic Eye Eye exam: Present PERRL and EOMI ENT ENT exam: Present normal oropharynx and mucous membranes moist Neck Neck exam: Present full ROM and trachea midline Chest Chest inspection: Present symmetric chest wall rise Respiratory Respiratory exam: Present normal lung sounds bilaterally Cardiovascular Cardiovascular exam: Present regular rate, normal rhythm, normal heart sounds, +S1 and +S2 Abdominal Exam Abdominal exam: Present soft and normal bowel sounds Extremities Exam Extremities exam: Present normal capillary refill and other (Right leg shortened, right hip dislocation versus fracture) Neurological Exam Neurological exam: Present alert and oriented X3 Skin Skin exam: Present warm, dry and intact Medical Decision Making Medical Records Screening: Per USPSTF and CDC recommendations, given the prevalence of disease in our region, it is our hospital?s policy to screen for HIV and viral Hepatitis for all patients aged 18 and over and those with ongoing risk factors. Angel Inquiry Pt receiving controlled substance: No Angel was queried for this patient: No Vital Signs: 05/30/25 09:53 05/30/25 10:02 05/30/25 10:30 Temperature 97.9 F Temperature Source Oral Pulse Rate 79 78 Pulse Rate [Right Radial] 74 Respiratory Rate 16 Blood Pressure 179/99 H Blood Pressure [Right Arm] 197/99 H Blood Pressure Mean [Right Arm] 131 Blood Pressure Source Blood Pressure Source [Right Arm] Automatic Cuff Blood Pressure Position Blood Pressure Position [Right Arm] Supine 02 Sat by Pulse Oximetry 99 97 96 Oxygen Delivery Method Room Air 05/30/25 10:47 05/30/25 11:30 05/30/25 12:30 Temperature Temperature Source Pulse Rate 67 71 69 Pulse Rate [Right Radial] Respiratory Rate Blood Pressure 162/81 H 182/90 H Blood Pressure [Right Arm] Blood Pressure Mean [Right Arm] Blood Pressure Source Blood Pressure Source [Right Arm] Blood Pressure Position Blood Pressure Position [Right Arm] 02 Sat by Pulse Oximetry 98 95 97 Oxygen Delivery Method 05/30/25 13:00 05/30/25 13:30 05/30/25 14:00 Temperature Temperature Source Pulse Rate 70 63 72 Pulse Rate [Right Radial] Respiratory Rate Blood Pressure 153/86 H 175/88 H 173/87 H Blood Pressure [Right Arm] Blood Pressure Mean [Right Arm] Blood Pressure Source Blood Pressure Source [Right Arm] Blood Pressure Position Blood Pressure Position [Right Arm] 02 Sat by Pulse Oximetry 97 96 94 L Oxygen Delivery Method 05/30/25 14:50 05/30/25 15:01 05/30/25 15:42 Temperature 98.4 F Temperature Source Oral Pulse Rate 76 66 72 Pulse Rate [Right Radial] Respiratory Rate 16 Blood Pressure 173/99 H 172/81 H 135/113 H Blood Pressure [Right Arm] Blood Pressure Mean [Right Arm] Blood Pressure Source Automatic Cuff Blood Pressure Source [Right Arm] Blood Pressure Position Supine Blood Pressure Position [Right Arm] 02 Sat by Pulse Oximetry 96 96 Oxygen Delivery Method Room Air 05/30/25 16:00 05/30/25 16:31 05/30/25 17:00 Temperature Temperature Source Pulse Rate 63 74 72 Pulse Rate [Right Radial] Respiratory Rate Blood Pressure 157/75 H 126/94 H 160/71 H Blood Pressure [Right Arm] Blood Pressure Mean [Right Arm] Blood Pressure Source Blood Pressure Source [Right Arm] Blood Pressure Position Blood Pressure Position [Right Arm] 02 Sat by Pulse Oximetry 95 93 L 97 Oxygen Delivery Method Lab Data Lab Results 05/30/25 10:48: WBC 6.1, RBC 4.63, Hgb 13.6, Hct 41.2, MCV 89.0, MCH 29.4, MCHC 33.0, RDW 13.0, Plt Count 146, MPV 9.7, Neut % (Auto) 67.3, Lymph % (Auto) 24.1, [place] % (Auto) 5.4, Eos % (Auto) 2.5, Baso % (Auto) 0.5, Neut # (Auto) 4.1, Lymph # (Auto) 1.5, [place] # (Auto) 0.3, Eos # (Auto) 0.2, Baso # (Auto) 0.0, Sodium 137, Potassium 4.2, Chloride 102, Carbon Dioxide 27, Anion Gap 12.2, BUN 14, Creatinine 0.70, Estimated Creat Clear 50, Estimated GFR 81, Est GFR ( Amer) 98, Glucose 120 H, Calcium 9.3, Magnesium 1.6, Total Bilirubin 0.8, AST 25, ALT 13, Alkaline Phosphatase 85, Total Protein 6.0 L, Albumin 4.0, Globulin 2.0, Albumin/Globulin Ratio 2.0 H, Lipase 34 05/30/25 14:08: Urine Color Yellow, Urine Appearance Clear, Urine pH 6.0, Ur Specific [place] 1.015, Urine Protein Negative, Urine Glucose (UA) Negative, Urine Ketones Negative, Urine Blood Trace-i, Urine Nitrate Negative, Urine Bilirubin Negative, Urine Urobilinogen 0.2, Ur Leukocyte Esterase Negative, Urine RBC None, Urine WBC 3-5, Ur Squamous Epith Cells Occasional, Urine Bacteria Trace 05/30/25 10:48 05/30/25 10:48 Orders (Tests/Meds): ED MEDICATIONS Discontinued Medications Generic Name Dose Route Start Last Admin Trade Name Bucky PRN Reason Stop Dose Admin Acetaminophen 1,000 mg 05/30/25 10:19 05/30/25 10:33 Acetaminophen 1,000mg/100ml Vial IV 05/30/25 10:20 1,000 mg ONCE ONE Administration Fentanyl Citrate 50 mcg 05/30/25 11:40 05/30/25 11:44 Fentanyl 100mcg/2ml Vial IV 05/30/25 11:41 50 mcg ONCE ONE Administration Fentanyl Citrate 50 mcg 05/30/25 12:26 05/30/25 12:51 Fentanyl 100mcg/2ml Vial IV 05/30/25 12:27 50 mcg ONCE ONE Administration Hydromorphone HCl 1 mg 05/30/25 12:50 05/30/25 13:35 Hydromorphone 2mg/Ml Syringe IV 05/30/25 12:51 1 mg ONCE ONE Administration Hydromorphone HCl 1 mg 05/30/25 15:49 05/30/25 15:55 Hydromorphone 2mg/Ml Syringe IV 05/30/25 15:50 1 mg ONCE ONE Administration Ketorolac Tromethamine 30 mg 05/30/25 10:19 05/30/25 10:33 Ketorolac 30mg/Ml Vial IV 05/30/25 10:20 30 mg ONCE ONE Administration Morphine Sulfate 4 mg 05/30/25 10:50 05/30/25 10:59 Morphine 4mg/Ml Syringe IV 05/30/25 10:51 4 mg ONCE ONE Administration Ondansetron HCl 4 mg 05/30/25 10:50 05/30/25 10:59 Ondansetron 4mg/2ml Vial IV 05/30/25 10:51 4 mg ONCE ONE Administration ORDERS Category Date Time Status Chest XR -- portable [XR chest portable] Stat Exams 05/30/25 10:19 Completed Hip XR right minimum 2 views [XR hip RT 2-3V w/pelvis] Exams 05/30/25 10:19 Completed Stat CBC [Complete Blood Count Auto Diff] Stat Lab 05/30/25 10:48 Completed Comprehensive Metabolic Panel Stat Lab 05/30/25 10:48 Completed Lipase Stat Lab 05/30/25 10:48 Completed Magnesium Stat Lab 05/30/25 10:48 Completed Urinalysis and Microscopic Stat Lab 05/30/25 14:08 Completed Medical Decision Narrative: patient is a 79-year-old female presenting to the emergency department for evaluation of right hip dislocation versus fracture. Patient is hemodynamically stable and nontoxic-appearing upon arrival, afebrile. Differential diagnosis includes right hip dislocation versus fracture. Workup will be conducted with hematologic labs, specific imaging. Initial inventions include analgesics. Update [id number] patient updated on plan of care. Waiting on BGL Dr. Peraza to call back. I had conversation with patient with Leora Tyson present, discussed her nonacute chest x-ray and her nonactionable blood work. Her nurse is currently getting her some pain medication. Initial workup reviewed by me hematologic labs are remarkable for Normal white count, H&H was normal. I obtained chest x-ray in case she went to surgery which showed no acute abnormality and a hip x-ray for her posterior dislocated of the femoral prosthesis right hip. Dr. Vega talked to Dr. Peraza who wants patient transferred to [facility] for surgery. He did not want us trying to relocate this hip. Dr. Garcia excepted patient in transfer. We are awaiting bed assignment. Critical Care Critical Care Time Critical Care Time: No
[2025-05-30] MEDS: ACETAMINOPHEN 1,000MG/100ML VIAL 1000 MG IV (10:33)
[2025-05-30] MEDS: KETOROLAC 30MG/ML VIAL 30 MG IV (10:33)
--- NOTE | 2025-05-30 10:37 | PC.NURSE ---
patient hard stick stuck by two rns for iv, lab called to stick for blood
[2025-05-30 10:57] LABS: Hematocrit 41.2 % (37.0-47.0); Hemoglobin 13.6 g/dL (12.2-16.2); Immature Granulocytes % 0.2 %; Mean Corpuscular HGB Conc 33.0 g/dL (31.8-35.4); Mean Corpuscular Hemoglobin 29.4 pg (27.0-31.2); Mean Corpuscular Volume 89.0 fl (81-99); Nucleated Red Blood Cells % 0 %; Platelet Count 146 K/mm3 (142-424); Red Blood Count 4.63 M/mm3 (4.20-5.40); Red Cell Distribution Width-SD 42.4 fL; White Blood Count 6.1 K/mm3 (4.8-10.8)
[2025-05-30] MEDS: ONDANSETRON 4MG/2ML VIAL 4 MG IV (10:59)
[2025-05-30] MEDS: MORPHINE 4MG/ML SYRINGE 4 MG IV (10:59)
[2025-05-30 11:08] LABS: Alanine Aminotransferase 13 U/L (12-78); Albumin Level 4.0 g/dl (3.5-5.0); Albumin/Globulin Ratio 2.0 (1.1-1.8); Alkaline Phosphatase 85 U/L (38-126); Anion Gap 12.2 mEq/L (5-15); Aspartate Amino Transferase 25 U/L (14-36); Bilirubin,Total 0.8 mg/dl (0.2-1.3); Blood Urea Nitrogen 14 mg/dl (7-17); Calcium 9.3 mg/dl (8.4-10.2); Carbon Dioxide 27 mmol/L (22.0-30.0); Chloride 102 mmol/L (98-107); Creatinine Clearance Estimated 50 mL/min (50-200); Creatinine,Serum 0.70 mg/dl (0.52-1.04); Estimated Glomerular Filt Rate 81 ml/min (>60); GFR (African American) 98 ML/MIN (>60); Globulin 2.0 g/dL (1.3-3.2); Glucose 120 mg/dl (74-100); Lipase 34 U/L (23-300); Magnesium 1.6 mg/dl (1.6-2.3); Potassium 4.2 mmoL/L (3.5-5.1); Sodium 137 mmol/L (136-145); Total Protein,Serum 6.0 g/dl (6.3-8.2)
[2025-05-30] MEDS: FENTANYL 100MCG/2ML VIAL 50 MCG IV ×2 (11:44→12:51)
--- NOTE | 2025-05-30 12:16 | PC.NURSE ---
Called [facility] per ZAHRAA Rodriguez to speak with Dr Lenz about this pt with a right hip dislocation since he was the one that did her surgery.
--- NOTE | 2025-05-30 13:04 | PC.NURSE ---
Called [facility] back and talked to Janny. Advised Dr Lenz was in the OR at [facility] but would text him and give him all the iformation and for he would call us back
[2025-05-30] MEDS: HYDROMORPHONE 2MG/ML SYRINGE 1 MG IV ×2 (13:35→15:55)
--- NOTE | 2025-05-30 13:42 | PC.NURSE ---
when following up on patient she reports she is aggravated with her experience here today, i asked if she was ready for more pain medication she reports she would rather the provider come discuss labs and chest xray as she doesnt undertstand why a chest xray was even done. she reports her pain is tolerable and wants to hold off on pain meds until the orthoepdic surgeon gets back with us
--- NOTE | 2025-05-30 14:04 | PC.NURSE ---
Dr Lenz called back and is speaking with Dr Vega at this time
[2025-05-30 14:14] LABS: Microscopic, Urine URINE MICROSCOPIC (MICROSCOPIC)
--- NOTE | 2025-05-30 14:27 | PC.NURSE ---
Called [facility] about transferring this pt. They were aware and would call us back when the hospitalist became available
[2025-05-30 14:46] LABS: Bilirubin,Urine Negative (Negative); Color,Urine YELLOW (Yellow); Glucose,Urine (UA) Negative (Negative); Ketones,Urine Negative (Negative); Leukocyte Esterase,Urine Negative (Negative); PH,Urine 6.0 (5.0-8.5); Protein,Urine Negative (Negative); Specific Gravity, Urine 1.015 (1.005-1.030); Urobilinogen,Urine 0.2 EU/dl (0.2)
--- NOTE | 2025-05-30 15:07 | PC.NURSE ---
called stating the pt will be going to [facility] on floor 3 tele. With a report number.
--- NOTE | 2025-05-30 15:18 | PC.NURSE ---
report given to negro rockwell
[2025-05-30 15:19] LABS: Bacteria,Urine Trace /lpf; Squamous Epithelial Cell,Urine Occasional #/hpf (0-5)
--- NOTE | 2025-05-30 16:41 | PC.NURSE ---
Called EMS about this transfer
== END 2025-05-30 17:47 | disposition other institution (70) ==
PROVIDERS: Nurse Practitioner; Emergency Provider Student in an Organized Health Care Education/Training Program; PCP Family Medicine
DX: T84.020A Dislocation of internal right hip prosthesis, initial encounter (principal); Z96.641 Presence of right artificial hip joint
CPT/HCPCS: 36415; 51702; 71045; 73502; 80053; 81001; 83690; 83735; 85025; 96374; 96375; 96376; 99285; J0131; J1171; J1885; J2270; J2405; J3010